=== PATIENT | female | born 1945 | race Caucasian/White ===

== ENCOUNTER 2024-02-08 13:00 | Outpatient (OUT) | payer MEDICARE, SELFPAY ==
--- NOTE | 2024-02-08 13:20 | XR_ITS ---
[place] [id number] Patient Name: MILLI CARDONA MRN: [id number] date: 1945 Sex: F Assigned Patient Location: [facility] Current Patient Location: [facility] Accession/Order Number: [id number] Exam Date: 02/08/2024 13:20 Report Date: 02/08/2024 14:13 At the request of: ROMAN BECKER Procedure: XR DEXA axial skeleton EXAMINATION: XR DEXA axial skeleton, 02/08/2024 1:20 PM EDT HISTORY: estrogen deficiency E28.39 COMPARISON: . TECHNIQUE: Dual-energy X-ray absorptiometry (DEXA) bone density study performed for the axial skeleton. HISTORY: estrogen deficiency E28.39 FINDINGS: Bone mineral density of the L spine L1-L4 is 1.012 g/cm2, t score -1.4, who classification is Osteopenia Bone mineral density is lowest in the left femoral trochanter is 0.590 g/cm2, t score is -2.3. who classification is Osteopenia XR/XR DEXA axial skeleton IMPRESSION: Osteopenia, moderate fracture risk Electronically authenticated by: EUNICE JAMES Date: 02/08/2024 14:13
--- OUTSIDE RECORDS SUMMARY | 2024-02-08 13:40 | XMS_ITS | CCD ---
Author Name Unknown Address [address] [facility] [address] [place] [address] Organization [facility] Care Team Providers Care Electrode Turner And Finisher Name Role Phone Ricardo Hardy Unavailable Iqra Heard Unavailable ROCHELLE Bagley Referring Unavailable ROCHELLE Bagley Attending Unavailable Chris Whitaker II Primary Care Unavail able Unavailable Unavailable Ms. LEAH BAGLEY Attending Unavailable Chris Whitaker II Primary Care Unavail able LEONARDO Whitaker Primary Care Provider [phone] MD Debra Villasenor Attending Provider [phone] Asaelvira Imelvira Admitting Unavailable Debra Villasenor Attending Unavailable Chris Whitaker Primary Care Unavailable ViscGiuseppe oliver Admitting Unavailable Giuseppe Durham Attending Unavailable Chris Whitaker Primary Care Unavailable MARIA DEL CARMEN ., DR LATIF Admitting Unavailable HAY ., DR LATIF Attending Unavailable GRECHNY ., ANA NOVAK Consulting UnavailDR CHRIS Lim Primary Care Unavailable CARYL HERNANDEZ Consulting Unavailable Chris Whitaker MD Primary Care Provider SOREN BORRERO Attending Unavailable CHRIS WHITAKER Primary Care Unavailable Chris Whitaker MD Primary Care Provider JOSE PAULINO Referring Unavailable ANA M BECKER Attending Unavailable TIFFANY SERNA Attending Unavailable ANA M BECKER Attending Unavailable JOSE PAULINO Attending Unavailable CHRIS WHITAKER Referring Unavailable Allergies Allergy Classification Reported Allergen(s) Allergy Type Date of Onset Reaction(s) Facility (5 sources) Corticosteroids Drug allergy Unknown ditlo Other (5 sources) Mold Extract Drug Allergy Unknown ditlo Other (5 sources) predniSONE; Translations: [predniSONE] Drug Allergy 023 Palpitations [facility] (2 sources) Other Allergy to substance (finding) -[facility] 250 DO Work Phone: (1 source) predniSONE Drug Allergy 023 [facility] Repository (1 source) atorvastatin Drug Allergy [facility] (1 source) Corticosteroids Drug allergy (disorder) 013 [facility] (1 source) Simvastatin Drug Allergy 017 [facility] (5 sources) atorvastatin Drug Allergy 023 Other [facility] (5 sources) methylPREDNISolone Drug Allergy Palpitations [facility] (5 sources) nabumetone Drug Allergy 023 GI intolerance [facility] (5 sources) Simvastatin Allergy to substance [facility] Medications Current Medications Medication Drug Class(es) Dates Sig (Normalized) Sig (Original) acetaminophen 325 mg / HYDROcodone bitartrate 5 mg oral tablet (13 sources) Opioid Agonist Start: 11-04-2023 take 1 tablet by mouth every six hours for pain HYDROcodone-acetami nophen ([place]) 5-325 MG tablet Indications: Spinal stenosis of lumbar region, unspecified whether neurogenic claudication present Take 1 tablet by mouth every 6 (six) hours if needed for severe pain 120 tablet 0 11/04/2023 Active Start: 12-12-2020 take 1 tablet by eli th every six hours as needed HYDROcodone-acetaminophen ([place]) 5-325 mg tablet Take 1 tablet by mouth every 6 hours if needed. 0 12/12/2020 Active Start: 12-12-2020 take 1 tablet by eli th every four to six hours as needed HYDROcodone-Acetaminophen 5-325 MG Oral Tablet TAKE 1 TABLET EVERY 4 TO 6 HOURS NEEDED. Quantity: 0 Refills: 0 Ordered: 12-Dec-2020 DO Start : 12-Dec-2020 Active ALPRAZolam 0.25 mg oral tablet (16 sources) Benzodiazepine Start: 01-12-2024 take 1 tablet by mouth once daily ALPRAZolam (Xanax) 0.25 MG tablet Indications: Generalized anxiety disorder (CMS/HCC) Take 1 tablet (0.25 mg) by mouth 1 (one) time each day at the same time 30 tablet 0 01/12/2024 Active Start: 01-12-2024 take 1 tablet by eli th once daily ALPRAZolam (Xanax) 0.25 MG tablet Indications: Generalized anxiety disorder (CMS/HCC) Take 1 tablet (0.25 mg) by mouth 1 (one) time each day at the same time 30 tablet 0 01/12/2024 Active Start: 12-08-2023 End: 01-12-2024 take 1 tablet by mouth once daily ALPRAZolam (Xanax) 0.25 MG tablet Indications: Generalized anxiety disorder (CMS/HCC) Take 1 tablet (0.25 mg) by mouth 1 (one) time each day at the same time 30 tablet 0 12/08/2023 01/12/2024 Discontinued (Reorder) Start: 11-14-2020 take 0.25 mg by mout h once daily Alprazolam Active 0.25 MG PO Daily January 20, 2023 12:00am ascorbic acid 1000 mg oral tablet (1 source) Vitamin C Start: 01-20-2023 take 1 g by mouth once daily Ascorbic Acid (Vitamin C) (Vitamin C) 1,000 mg Tablet Active 1 GM PO Daily January 20, 2023 12:00am aspirin 81 mg oral tablet (14 sources) Platelet Aggregation Inhibitor, Nonsteroidal Anti-inflammatory Drug Start: 01-20-2023 take 81 mg by mouth once daily Aspirin Active 81 MG PO Daily January 20, 2023 12:00am take 1 tablet by mouth in the mo rning aspirin 81 MG EC tablet Take 81 mg by mouth in the morning. 0 Active take 1 tablet by mouth once [place] Baby Aspirin 81 MG 1 tablet Orally Once a day for 30 day(s) Active benzonatate 200 mg oral capsule (3 sources) Non-narcotic Antitussive Start: 01-12-2024 End: 01-22-2024 take 1 capsule by mouth three times daily as needed for cough benzonatate (Tessalon) 200 MG capsule Indications: Acute cough Take 1 capsule (200 mg) by mouth 3 (three) times a day as needed for cough for up to 10 days Do not crush or chew. 30 capsule 0 01/12/2024 01/22/2024 Active bisoprolol fumarate 5 mg oral tablet (15 sources) beta-Adrenergic Jama Start: 09-27-2020 End: 10-02-2023 take 1 tablet by mouth once daily bisoprolol (Zebeta) 5 MG tablet Indications: Cardiac arrhythmia, unspecified cardiac arrhythmia type Take 1 tablet (5 mg) by mouth 1 (one) time each day at the same time. 100 tablet 3 07/10/2023 Active Calcium (1 source) Phosphate Binder, Calcium take 1 tablet by mouth twice daily at mealtime Calcium 600 MG 1 tablet with meals Orally Twice a day for 30 day(s) Active calcium carbonate 1500 mg oral tablet (4 sources) take 1 tablet by mouth every twelve hours Calcium 600 MG 1 tablet with meals Orally Twice a day for 30 day(s) Active CALCIUM CARBONATE-VITAMIN D3 ORAL (1 source) take 2 tablets by mouth once daily CALCIUM CARBONATE-VITAMIN D3 ORAL Take 2 tablets by mouth once daily. 0 Active calcium citrate 950 mg oral tablet (1 source) Start: 01-20-2023 take 1 tablet by mouth twice daily Calcium Citrate (Citracal) 200 mg (950 mg) Tablet Active 200 MG PO Twice daily January 20, 2023 12:00am Centrum (5 sources) Centrum Orally Active codeine phosphate 2 mg/ml / guaiFENesin 20 mg/ml oral solution (3 sources) Opioid Agonist Start: 01-12-2024 End: 01-22-2024 take 10 mL by mouth at bedtime guaiFENesin-codeine (Robitussin-AC) 100-10 MG/5ML syrup Indications: Acute cough Take 10 mL by mouth at bedtime for 10 days 100 mL 0 01/12/2024 01/22/2024 Active Coenzyme E04-Tynj Oil-Vit E (CO-Q 10 OMEGA-3 FISH OIL PO) (5 sources) Coenzyme Q10-Fis h Oil-Vit E (CO-Q 10 OMEGA-3 FISH OIL PO) Orally 0 Active gabapentin 300 mg oral capsule (14 sources) Anti-epileptic Agent Start: 11-26-2023 take 1 capsule by mouth in the morning, then take 1 capsule by mouth in the evening, then take 1 capsule by mouth at bedtime gabapentin (Neurontin) 300 MG capsule Indications: 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 300 capsule 1 11/26/2023 Active Start: 05-14-2022 take 300 mg by mouth twice daily Gabapentin Active 300 MG PO Twice daily January 20, 2023 12:00am glyBURIDE 5 mg / metFORMIN hydrochloride 500 mg oral tablet (14 sources) Biguanide, Sulfonylurea Start: 09-23-2023 take 1 tablet by mouth in the morning glyBURIDE-metFORMIN (Glucovance) 5-500 MG tablet Indications: 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 200 tablet 3 09/23/2023 Active Start: 04-26-2020 take 1 tablet by eli th twice daily Glyburide-Metformin Active 1 TAB PO Twice daily January 20, 2023 12:00am take 1 tablet by eli th every twenty-four hours Glyburide-Metformin 5-500 MG 1 tablet with a meal Orally Once a day Active krill oil 300 mg oral capsule (12 sources) take 1 tablet by mouth once daily Krill Oil 300 MG capsule Take 1 tablet by mouth 1 (one) time each day. 0 Active lansoprazole 30 mg delayed release oral capsule (14 sources) Proton Pump Inhibitor Start: 09-23-20 take 1 capsule by mouth once daily lansoprazole (Prevacid) [address] capsule Indications: Gastroesophageal reflux disease without esophagitis Take 1 capsule (30 mg) by mouth 1 (one) time each day at the same time. 100 capsule 3 09/23/2023 Active Start: 01-20-2023 take 30 mg by mouth once daily Lansoprazole Active 30 MG PO Daily January 20, 2023 12:00am Start: 09-24-2020 take 1 capsule by mo uth twice daily lansoprazole (Prevacid) [address] capsule Take 1 capsule (30 mg) by mouth 2 times a day. 0 09/24/2020 Active levoFLOXacin 500 mg oral tablet (1 source) Quinolone Antimicrobial Start: 07-09-2022 take 1 tablet by mouth once daily Levaquin 500 MG 1 tablet Orally Once a day for 10 day(s) Jun, Active lidocaine 0.05 mg/mg medicated patch (5 sources) Antiarrhythmic, Amide Local Anesthetic Start: 12-12-2020 apply 1 dose transdermal route once daily lidocaine (Lidoderm) 5 % patch Apply 1 patch topically 1 (one) time each day at the same time. 0 12/12/2020 Active loratadine 10 mg oral tablet (5 sources) Start: 11-01-2019 loratadine (Claritin) 10 MG tablet Take 10 mg by mouth as needed at bedtime for allergies. 0 11/01/2019 Active metroNIDAZOLE 500 mg oral tablet (1 source) Nitroimidazole Antimicrobial Start: 07-09-2022 take 1 tablet by mouth every twelve hours metroNIDAZOLE 500 MG 1 tablet Orally Twice a day for 10 day(s) Jun, Active MiraLax 17 GM/SCOOP (1 source) MiraLax 17 GM/SCOOP as directed Orally Active Multivitamin preparation (1 source) Start: 01-20-2023 take 1 tablet by mouth once daily Multivitamin Active 1 TAB PO Daily January 20, 2023 12:00am Nirmatrelvir&Ritona vir 300/100 (Paxlovid, 300/100,) 20 x 150 MG & 10 x 100MG tablet therapy pack (1 source) Start: 01-13-2024 take 3 tablets by mouth in the morning Nirmatrelvir&Riton avir 300/100 (Paxlovid, 300/100,) 20 x 150 MG & 10 x 100MG tablet therapy pack Indications: COVID-19 Take 3 tablets by mouth in the morning and in the evening 30 each 0 01/13/2024 Active nystatin 100 unt/mg topical ointment (5 sources) Polyene Antifungal Start: 04-04-2019 nystatin (Mycostatin) ointment Apply topically 2 (two) times a day. 0 04/04/2019 Active ondansetron 4 mg disintegrating oral tablet (5 sources) Serotonin-3 Receptor Antagonist Start: 05-07-2021 take 1 tablet by mouth every eight hours as needed for nausea and vomiting ondansetron ODT (Zofran-ODT) 4 MG disintegrating tablet Take 4 mg by mouth every 8 (eight) hours if needed for nausea or vomiting. 0 05/07/2021 Active oseltamivir 75 mg oral capsule (1 source) Neuraminidase Inhibitor Start: 02-13-2022 take 1 capsule by mouth every twelve hours Tamiflu 75 MG 1 capsule Orally Twice a day for 5 day(s) Jan, Active rosuvastatin calcium 10 mg oral tablet (10 sources) HMG-CoA Reductase Inhibitor Start: 11-21-2020 End: 10-02-2023 take 1 tablet by mouth in the morning rosuvastatin (Crestor) 10 MG tablet Indications: Mixed hyperlipidemia (CMS/HCC) Take 1 tablet (10 mg) by mouth in the morning. 90 tablet 3 07/14/2023 Active tiZANidine 4 mg oral tablet (8 sources) Central alpha-2 Adrenergic Agonist Start: 06-18-2022 take 1 tablet by mouth every twelve hours tiZANidine (Zanaflex) 4 MG tablet Take 1 tablet by mouth every 12 (twelve) hours. PRN 0 06/18/2022 Active Start: 06-18-2022 tiZANidine (Za naflex) 4 mg tablet Take by mouth twice a day. 0.5 tablet to 1 tablet 0 06/18/2022 Active Start: 06-18-2022 take 0.5-1 tablets b y mouth twice daily as needed tiZANidine HCl - 4 MG Oral Tablet TAKE 1/2 TO 1 TABLET TWICE DAILY NEEDED. Quantity: 0 Refills: 0 Ordered: 18-Jun-2022 DO Start : 18-Jun-2022 Active ubidecarenone 100 mg oral ca psule (4 sources) Start: 01-20-2023 Coenzyme Q10 ( Co Q-10) 100 mg Capsule Active 100 MG PO Daily January 20, 2023 12:00am take 1 capsule by mouth once kathryn ly coenzyme Q-10 100 mg capsule Take 1 capsule (100 mg) by mouth once daily. 0 Active Vitamin A-Vitamin C-Vit E-Min (Eye Health) Tablet (1 source) Start: 01-20-2023 take 2 tablets by mouth once daily Vitamin A-Vitamin C-Vit E-Min (Eye Health) Tablet Active 2 TAB PO Daily January 20, 2023 12:00am zolpidem tartrate 10 mg oral tablet (14 sources) gamma-Aminobut yric Acid-ergic Agonist Start: 12-08-2023 zolpidem (Ambien) 10 MG tablet Indications: Psychophysiological insomnia Take 1 tablet (10 mg) by mouth as needed at bedtime for sleep 30 tablet 2 12/08/2023 Active Start: 07-27-2020 take 10 mg by mouth once daily Zolpidem Active 10 MG PO Daily January 20, 2023 12:00am Completed/Discontinued Medications Medication Drug Class(es) Dates Sig (Normalized) Sig (Original) Calcium+D3 TABS (2 sources) Calcium+D3 TABS TAKE 2 TABLET Daily Quantity: 0 Refills: 0 Ordered: 26-Sep-2021 DO Active Multi Vitamin TABS (2 sources) Multi Vitamin TA BS TAKE 1 TABLET DAILY. Quantity: 0 Refills: 0 Ordered: 26-Sep-2021 DO Active pantoprazole 40 mg delayed release oral tablet (4 sources) Proton Pump Inhibitor Start: 06-25-2021 take 1 tablet by mouth every twelve hours Pantoprazole Sodium 40 MG 1 tablet Orally TWICE A DAY for 30 day(s) May, Not-Taking Problems Active Problems Problem Classification Problem Date Documented Da te Episodic/Chronic Anxiety disorders (12 sources) Posttraumatic stress disorder; Translations: [Post-traumatic stress disorder, unspecified] Onset: 3 04-17-2023 Chronic Cardiac dysrhythmias (14 sources) Paroxysmal supraventricular tachycardia; Translations: [Paroxysmal supraventricular tachycardia] Onset: 3 10-02-2023 Chronic Diabetes mellitus with complications (15 sources) Type 2 diabetes mellitus; Translations: [Type 2 diabetes mellitus with other diabetic neurological complication] Onset: 6 04-17-2023 Chronic Disorders of lipid metabolism (13 sources) Hyperlipidemia; Translations: [Other and unspecified hyperlipidemia] Onset: 2 10-02-2023 Chronic E Codes: Fall (1 source) Fall on same level, unspecified, initial encounter; Translations: [FALL SAME LEVEL UNSPECIFIED INITIAL] Onset: 3 Episodic Esophageal disorders (17 sources) Gastro-esophageal reflux disease with esophagitis; Translations: [Gastroesophageal reflux disease with esophagitis without hemorrhage] Onset: 1 Resolved: 2 Chronic Genitourinary symptoms and ill-defined conditions (5 sources) Genuine stress incontinence; Translations: [Stress incontinence (female) (male)] Onset: 3 04-17-2023 Chronic Headache; including migraine (5 sources) Migraine; Translations: [Migraine, unspecified, not intractable, without status migrainosus] Onset: 3 04-17-2023 Chronic Menopausal disorders (10 sources) Primary ovarian failure; Translations: [Other primary ovarian failure] Onset: 3 04-17-2023 Chronic Miscellaneous mental health disorders (5 sources) Psychophysiologic insomnia; Translations: [Psychophysiologic insomnia] Onset: 3 04-17-2023 Chronic Nausea and vomiting (5 sources) Nausea; Translations: [Nausea] Episodic Nonmalignant breast conditions (5 sources) Mammary duct ectasia of right breast; Translations: [Mammary duct ectasia of right breast] Onset: 3 08-04-2023 Chronic Osteoarthritis (5 sources) Osteoarthritis of left knee joint; Translations: [Unilateral primary osteoarthritis, left knee] Onset: 3 04-17-2023 Chronic Other aftercare (1 source) Other buttermaker helper (current) drug therapy; Translations: [OTH HOIST MECHANIC CURRENT DRUG THERAPY] Onset: 3 Episodic Other aftercare (1 source) 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; Translations: [SNF CURRENT USE OF ASPIRIN] Onset: 3 Episodic Other and unspecified benign neoplasm (5 sources) Benign neoplasm of cerebral meninges; Translations: [Benign neoplasm of cerebral meninges] Onset: 3 04-17-2023 Chronic Other disorders of stomach and duodenum (1 source) Indigestion; Translations: [Functional dyspepsia] Episodic Other gastrointestinal disorders (1 source) Irritable bowel syndrome characterized by constipation; Translations: [Irritable bowel syndrome with constipation] Chronic Other gastrointestinal disorders (1 source) Irritable bowel syndrome with constipation Onset: 2 Resolved: 2 Chronic Other gastrointestinal disorders (5 sources) Dysphagia; Translations: [Dysphagia, unspecified] Episodic Other lower respiratory disease (2 sources) Cough; Translations: [Acute cough] 01-12-2024 Episodic Other nervous system disorders (5 sources) Mononeuropathy; 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] Onset: 3 04-17-2023 Chronic Other non-traumatic joint disorders (5 sources) Derangement of right shoulder joint; Translations: [Other specific joint derangements of right shoulder, not elsewhere classified] Onset: 3 04-17-2023 Chronic Other non-traumatic joint disorders (3 sources) Pain in left shoulder; Translations: [PAIN IN LEFT SHOULDER] Onset: 3 Episodic Other nutritional; endocrine; and metabolic disorders (2 sources) Underweight; Translations: [Underweight] Episodic Other upper respiratory infections (2 sources) Acute pansinusitis; Translations: [Acute pansinusitis, unspecified] 01-12-2024 Episodic Residual codes; unclassified (10 sources) Normal body mass index; Translations: [Body mass index (BMI) 22.0-22.9, adult] Episodic Residual codes; unclassified (4 sources) Body mass index 20-24 - normal; Translations: [Body Mass Index between 19-24, adult] Episodic Residual codes; unclassified (2 sources) History of chest pain; Translations: [Personal history of other specified diseases] Episodic Screening and history of mental health and substance abuse codes (3 sources) Ex-smoker; Translations: [Personal history of tobacco use] Onset: 3 Episodic Spondylosis; intervertebral disc disorders; other back problems (10 sources) Lumbar spondylosis; Translations: [Spondylosis without myelopathy or radiculopathy, lumbar region] Onset: 8 04-17-2023 Chronic Superficial injury; contusion (2 sources) Contusion of left front wall of thorax, initial encounter; Translations: [Contusion of left shoulder, initial encounter] Onset: 3 Episodic Unclassified (1 source) Encounter for screening for malignant neoplasm of colon; Translations: [Encounter for screening for malignant neoplasm of colon] Onset: 3 Unclassified (1 source) N60.41 - Mammary duct ectasia of right breast; Translations: [N60.41 - Mammary duct ectasia of right breast] Onset: 2 Unclassified (1 source) Supraventricular tachycardia, unspecified; Translations: [Supraventricular tachycardia, unspecified] Onset: 3 Viral infection (1 source) Disease caused by 2019-nCoV; Translations: [COVID-19] 01-13-2024 Episodic Past or Other Problems Problem Classification Problem Date Documented Date Episodic/Chronic Cardiac dysrhythmias (11 sources) Palpitations; Translations: [Palpitations] Onset: 04-17-2023 3 Episodic Esophageal disorders (1 source) Esophageal disorders; Translations: [Gastroesophageal reflux disease with esophagitis without hemorrhage K21.00] Onset: 09-17-2021 Resolved: 09-17-2021 Immunizations and screening for infectious disease (1 source) Contact with and (suspected) exposure to other viral communicable diseases Onset: 02-13-2022 Resolved: 02-13-2022 Episodic Influenza (1 source) Influenza due to other identified influenza virus with other respiratory manifestations Onset: 02-13-2022 Resolved: 02-13-2022 Episodic Mood disorders (1 source) Mood disorders Onset: 09-29-2022 01-12-2023 Nonmalignant breast conditions (6 sources) Mastodynia; Translations: [Calcification of breast] Onset: 05-12-2022 08-04-2023 Episodic Nonspecific chest pain (10 sources) Atypical chest pain; Translations: [Other chest pain] Onset: 10-27-2022 10-01-2023 Episodic Other bone disease and musculoskeletal deformities (5 sources) Osteopenia; Translations: [Other specified disorders of bone density and structure, multiple sites] Onset: 04-17-2023 04-17-2023 Episodic Other bone disease and musculoskeletal deformities (5 sources) Costal chondritis; Translations: [Chondrocostal junction syndrome [Tietze]] Onset: 04-17-2023 04-17-2023 Episodic Other disorders of stomach and duodenum (1 source) Disease of stomach and duodenum, unspecified; Translations: [Disease of stomach and duodenum, unspecified K31.9] Onset: 09-17-2021 Resolved: 09-17-2021 Episodic Other disorders of stomach and duodenum (1 source) Functional dyspepsia Onset: 07-09-2022 Resolved: 07-09-2022 Episodic Other infections; including parasitic (1 source) Personal history of other infectious and parasitic diseases Onset: 07-09-2022 Resolved: 07-09-2022 Episodic Other screening for suspected conditions (not mental disorders or infectious disease) (5 sources) Mammography abnormal; Translations: [Other abnormal and inconclusive findings on diagnostic imaging of breast] Onset: 04-17-2023 04-17-2023 Episodic Residual codes; unclassified (5 sources) Insomnia; Translations: [Insomnia, unspecified] Onset: 04-17-2023 Resolved: 06-24-2023 06-24-2023 Episodic Spondylosis; intervertebral disc disorders; other back problems (15 sources) Spinal stenosis of lumbar region; Translations: [Spinal stenosis, lumbar region without neurogenic claudication] Onset: 04-17-2023 04-17-2023 Episodic Unclassified (1 source) Onset: 10-02-2023 10-02-2023 Unclassified (1 source) Supraventricular tachycardia, unspecified; Translations: [Supraventricular tachycardia, unspecified] Onset: 10-02-2023 Results Test Name Value Interpretation Reference Range Facility BI MAMMOGRAM DIAGNOSTIC JANINA SYNTHESIS LEFTon 12-07-2023 BI MAMMOGRAM DIAGNOSTIC TOMOSYNTHESIS LEFT This is a summary report. The complete report is available in the patient's medical record. If you cannot access the medical record, please contact the sending organization for a detailed fax or copy. EXAMINATION: BI MAMMOGRAM DIAGNOSTIC TOMOSYNTHESIS LEFT CLINICAL HISTORY: 6 month mamm COMPARISON: Diagnostic mammogram 06/05/2023. Other screening mammograms from 05/14/2023, 2021, 2020 RESULT: 3-D tomosynthesis imaging of the left breast was performed. Density: Heterogeneously dense [3] Again, small group of microcalcifications within the lower inner quadrant of the left breast at far posterior depth, probably benign and grossly unchanged. Other coarse microcalcifications and vascular calcifications, unchanged. Stable asymmetries. IMPRESSION: BIRADS 3 - Probably Benign Recommended follow-up: Diagnostic Mammogram in 6 Months, when due for annual exam. Board Certified Radiologists. Accredited by the ACR and FDA. MAMMOGRAPHY IS VERY IMPORTANT TO YOUR HEALTH. THE [place] GUIDELINES RECOMMEND THAT WOMEN 40 YEARS OF AGE AND OLDER SHOULD HAVE A MAMMOGRAM EVERY YEAR. A REMINDER LETTER WILL BE SENT AT THE APPROPRIATE TIME. THIS FACILITY UTILIZES A REMINDER SYSTEM TO ENSURE ALL PATIENTS RECEIVE REMINDER NOTIFICATIONS AT THE APPROPRIATE TIME BASED ON THE RECOMMENDATIONS OF THIS EXAM. THIS INCLUDES REMINDERS FOR ROUTINE SCREENING MAMMOGRAMS, DIAGNOSTIC MAMMOGRAMS IN WHICH THE PATIENT IS ASKED TO RETURN FOR ADDITIONAL VIEWS, OR OTHER BREAST IMAGING INTERVENTIONS WHEN APPROPRIATE. THE PATIENT WILL BE PLACED IN THE APPROPRIATE REMINDER SYSTEM INCLUDING A REMINDER AT THE APPROPRIATE TIME FOR ANY PENDING ADDITIONAL VIEWS. ELECTRONICALLY SIGNED BY: Chris Brown MD Normal Not Available CBC AUTO DIFFon 04-07-2023 BASO # 0.0 103/ul Normal 0.0-0.1 [facility] Comment on above: Performed By: #### C BC #### [facility] [address] [address] [address] Kamari Andres Basophils/100 WBC (Bld) 0.6 % Normal 0.2-2.0 [facility] Comment on above: Performed By: #### C BC #### [facility] [address] [address] [address] Kamari Andres EO # 0.1 103/ul Normal 0.0-0.7 [facility] Comment on above: Performed By: #### C BC #### [facility] [address] [address] [address] Kamari Andres Eosinophils/100 WBC (Bld) 1.8 % Normal 0.9-7.0 [facility] [facility] Comment on above: Performed By: #### C BC #### [facility] [address] [place] [address] Dr. Kamari Andres Erythrocyte distribution width (RBC) [Ratio] 12.7 % Normal 11.0-15.0 [facility] Comment on above: Performed By: #### C BC #### [facility] [address] [place] [address] Dr. Kamari Andres Hematocrit (Bld) [Volume fraction] 36.3 % Normal 36.0-48.0 [facility] Comment on above: Performed By: #### C BC #### [facility] [address] [place] [address] Dr. Kamari Andres Hemoglobin (Bld) [Mass/Vol] 11.6 g/dL Critically low 12.0-16.0 [facility] Comment on above: Performed By: #### C BC #### [facility] [address] [place] [address] Dr. Kamari Andres IG # 0.01 10e3/ul Normal 0.00-0.03 [facility] Comment on above: Performed By: #### C BC #### [facility] [address] [place] [address] Dr. Kamari Andres IG % 0.2 % Normal 0.0-0.5 [facility] Comment on above: Performed By: #### C BC #### [facility] [address] [place] [address] Dr. Kamari Andres LYMPH # 1.8 103/ul Normal 1.2-3.8 [facility] Comment on above: Performed By: #### C BC #### [facility] [address] [place] [address] Dr. Kamari Andres Lymphocytes/100 WBC (Bld) 36.9 % Normal 20.5-60.0 [facility] Comment on above: Performed By: #### C BC #### [facility] [address] [place] [address] Dr. Kamari Andres MANUAL DIFF REQ NO Normal [facility] Comment on above: Performed By: #### C BC #### [facility] [address] [place] [address] Dr. Kamari Andres MCH (RBC) [Entitic mass] 29.1 pg Normal 26.7-34.0 [facility] Comment on above: Performed By: #### C BC #### [facility] [address] [place] [address] Dr. Kamari Andres MCHC (RBC) [Mass/Vol] 32.0 g/dL Normal 29.9-35.2 [facility] Comment on above: Performed By: #### C BC #### [facility] [address] [place] [address] Dr. Kamari Andres MCV (RBC) [Entitic vol] 91.0 fL Normal 81.0-99.0 [facility] Comment on above: Performed By: #### C BC #### [facility] [address] [place] [address] Dr. Kamari Andres MONO # 0.5 103/ul Normal 0.3-0.8 [facility] Comment on above: Performed By: #### C BC #### [facility] [address] [place] [address] Dr. Kamari Andres Monocytes/100 WBC (Bld) 10.8 % Normal 1.7-12.0 [facility] Comment on above: Performed By: #### C BC #### [facility] [address] [place] [address] Dr. Kamari Andres NEUT # 2.4 103/ul Normal 1.4-6.5 [facility] Comment on above: Performed By: #### C BC #### [facility] [address] [address] [address] Kamari Andres Neutrophils/100 WBC (Bld) 49.7 % Normal 43.0-75.0 [facility] Comment on above: Performed By: #### C BC #### [facility] [address] [place] [address] Dr. Kamari Andres Platelet mean volume (Bld) [Entitic vol] 8.4 fL Critically low 9.5-13.5 [facility] Comment on above: Performed By: #### C BC #### [facility] [address] [place] [address] Dr. Kamari Andres PLT 231 103/ul Normal 150-450 [facility] Comment on above: Performed By: #### C BC #### [facility] [address] [place] [address] Dr. Kamari Andres RBC 3.99 106/ul Critically low 4.20-5.40 [facility] Comment on above: Performed By: #### C BC #### [facility] [address] [place] [address] Dr. Kamari Andres WBC 4.9 103/ul Normal 4.0-11.0 [facility] Comment on above: Performed By: #### C BC #### [facility] [address] [place] [address] Dr. Kamari Andres PROF CHEM 8 (BAS METB)on Anion gap [Moles/Vol] 8.7 mmol/L Normal [facility] Comment on above: Performed By: #### B MP, HSTROPN #### [facility] [address] [place] [address] Dr. Kamari Andres Calcium [Mass/Vol] 9.4 mg/dL Normal 8.5-10.1 [facility] Comment on above: Performed By: #### B MP, HSTROPN #### [facility] [address] [address] [address] Kamari Andres Chloride [Moles/Vol] 104 mmol/L Normal 98-107 [facility] Comment on above: Performed By: #### B MP, HSTROPN #### [facility] [address] [address] [address] Kamari Andres CO2 [Moles/Vol] 32.4 mmol/L Critically high 21.0-32.0 [facility] Comment on above: Performed By: #### B MP, HSTROPN #### [facility] [address] [address] [address] Kamari Andres Creatinine [Mass/Vol] 0.66 mg/dL Normal 0.55-1.02 [facility] Comment on above: Performed By: #### B MP, HSTROPN #### [facility] [address] [address] [address] Kamari Andres EGFR-AF SLOVENIAN >60 Normal >=[address] [facility] Comment on above: Performed By: #### B MP, HSTROPN #### [facility] [address] [address] [address] Kamari Andres EGFR-NON AF SLOVENIAN >60 Normal >=60 [facility] Comment on above: Performed By: #### B MP, HSTROPN #### [facility] [address] [address] [address] Kamari Andres Glucose [Mass/Vol] 133 mg/dL Critically high 74-106 [facility] Comment on above: Performed By: #### B MP, HSTROPN #### [facility] [address] [address] [address] Kamari Andres Potassium [Moles/Vol] 4.1 mmol/L Normal 3.5-5.1 [facility] Comment on above: Performed By: #### B MP, HSTROPN #### [facility] [address] [address] [address] Kamari Andres Sodium [Moles/Vol] 141 mmol/L Normal 136-145 [facility] Comment on above: Performed By: #### B FELIPE, HSTROPN #### [facility] [address] [address] [address] Kamari Andres Urea nitrogen [Mass/Vol] 6.0 mg/dL Critically low 7.0-18.0 [facility] Comment on above: Performed By: #### B FELIPE, HSTROPN #### [facility] [address] [address] [address] Kamari Andres Urea nitrogen/Creatini ne [Mass ratio] 9.1 mg/mg Normal [facility] Comment on above: Performed By: #### B FELIPE, HSTROPN #### [facility] [address] [address] [address] Kamari Andres TROPONIN, HIGH SENSITIVITYon 04-07-2023 HSTROP 5.0 pg/mL Normal 4.0-51.3 [facility] Comment on above: Result Comment: CUT- OFF POINTS HAVE BEEN ESTABLISHED BASED ON THE FOURTH UNIVERSAL DEFINITIONS OF MYOCARDIAL INFARCTION. THE UPPER REFERENCE LIMIT (URL) OF TROPONIN, DEFINED THE 99TH PERCENTILE OF cTnI DISTRIBUTION IN A REFERENCE POPULATION, HAS BEEN CONFIRMED THE DECISION THRESHOLD FOR [place] DIAGNOSIS. Performed By: #### B FELIPE, HSTROPN #### [facility] [address] [place] [address] Dr. Kamari Andres XR RIBS LT PA Amy 3 XR RIBS LT PA CH IMAGES REVIEWED: XR SHOULDER LT 2V or >, XR RIBS LT PA CH COMPARISON: 01/10/2020. CLINICAL INDICATION: Unspecified fall FINDINGS/IMPRESSION: No radiographic evidence of acute osseous abnormality of the left shoulder. Osteopenia. Mild degenerative change of the left AC joint. No acute displaced left rib fractures. No radiographic evidence of acute cardiopulmonary abnormality. Electronically authenticated by: CARYL HERNANDEZ Date: 2023-04-07 20:32 Normal [facility] Glucose Glucometer (BldC) [M ass/Vol]Ordered By: Debra Villasenor on 01-20-2023 Glucose [Mass/Vol] 98 mg/dL [facility] Comment on above: Random Glucose Refer ence Range is dependent on time and content of last meal. Glucose of more than 200 mg/dL in a nonstressed, ambulatory subject supports the diagnosis of Diabetes Mellitus. Glucose Poct Glucometerson 0 01-20-2023 Glucose [Mass/Vol] 98 mg/dL Normal [facility] Comment on above: Result Comment: Davis Glucose Reference Range is dependent on time and content of last meal. Glucose of more than 200 mg/dL in a nonstressed, ambulatory subject supports the diagnosis of Diabetes Mellitus. PERFORMED BY: [facility] [place] [address] PATHOLOGIST WATER QUALITY SPECIALIST EVA REYNA M.D. Performed By: #### G ALMA #### Point of Care testing , Dion 01-20-2023 L --- Specimen: [id number] Received: 01/20/23 Status: LORI Roman Num: [id number] Spec Type: Surgical Subm Dr: Debra Villasenor MD Tissues: A Colon Biopsy (DESCENDING) Procedures: HE/2, Gross/Micro L4 Age/ Patient Sex Location Account Attending Physician Milli Lindquist Juan 77/F [id number] Debra Villasenor MD SPEC NUM: [id number] RECD: 01/20/23 STATUS: [facility] NUM: [id number] SOFÍA: 01/20/23 DR: Debra Villasenor MD ENTERED: 01/20/[address] [facility] DR: SPEC TYPE: Surgical DEPT: S ORDERED: HE/2, Gross/Micro L4 ORDERED: HE/2, Gross/Micro L4 Pathological Diagnosis Colon, descending, biopsy: - Polypoid colonic mucosa with superficial hyperplastic change. - Negative for acute or granulomatous inflammation, lymphocytic or collagenous colitis, dysplasia or malignancy. Clinical Information Screening Gross Description Received in formalin labeled with the patient's name, number and descending colon is one fragment of soft fuentes tissue measuring 0.3 cm. Entirely submitted in one cassette labeled A1. Microscopic Description Two glass slides with H E stained material have been examined. The microscopic findings support the above pathologic diagnosis. Specimen: [id number] Received: 01/20/23 Status: LORI Roman Num: [id number] Spec Type: Surgical Subm Dr: Debra Villasenor MD Tissues: A Colon Biopsy (DESCENDING) Procedures: HE/2, Gross/Micro L4 Patient: Milli Lindquist [id number] (Continued) Specimen: [id number] Received: 01/20/23 (Continued) Signed (signature on file) Liliane Garcia MD 01/21/23 1731 Specimen: [id number] Received: 01/20/23 Status: LORI Roman Num: [id number] Spec Type: Surgical Subm Dr: Debra Villasenor MD Tissues: A Colon Biopsy (DESCENDING) Procedures: HE/2, Gross/Micro L4 Patient: Milli Lindquist [id number] (Continued) Specimen: [id number] Received: 01/20/23 (Continued) CPT Codes 62601 Specimen: [id number] Received: 01/20/23 Status: LORI Abel Num: [id number] Spec Type: Surgical Subm Dr: Debra Villasenor MD Tissues: A Colon Biopsy (DESCENDING) Procedures: HE/Naomie, Gross/Micro L4 Patient: Milli Lindquist [id number] (Continued) Signed (signature on file) Liliane Garcia MD 01/21/23 1731 [facility] CARDIAC STRESS/REST INJE CTIONon 10-27-2022 [facility] CARDIAC STRESS/REST INJECTION Patient Name: MILLI LINDQUIST STUDY: MYOCARDIAL PERFUSION STRESS TEST WITH LEXISCAN Performing facility: [facility], [address] [place] [address], [address] Provider: Leah Bagley RN, PAPER CONSERVATOR PCP: Dr. Ean Whitaker Supervising provider: Yesenia Durán MD, FACC INDICATION: Chest Pain; Hyperlipidemia HISTORY: Gender: F; Age: 76 y/o ; Height: 0 cm; Weight: 0 kg. High Cholesterol; Diabetes; Family HX CAD; Arrhythmias; Chest Pain; Quit smoking unknown years ago. COMPARISON: Previous nuclear testing completed at [facility]. ACCESSION NUMBER(S): [id number]; [id number]; [id number] ORDERING CLINICIAN: LEAH BAGLEY TECHNIQUE: ONE DAY protocol. Stress injection: Date:10-27-22, 32.4 mCi of Sestamibi IV 20 seconds after rapid injection of Lexiscan. Rest injection: Date: 10-27-24, 9.9 mCi of Sestamibi IV at rest. The patient had a rapid injection of 0.4 mg of Lexiscan IV over 10 seconds. Imaging was performed by gated tomographic technique. Reason for Lexiscan: dizziness/unsteady/fall risk STRESS TEST DATA: Resting heart rate was 65 BPM. Resting blood pressure was 112/70 mmHg. Peak blood pressure was 108/62 mmHg. Peak heart rate was 92 BPM. TEST TERMINATED DUE TO: Protocol completed FINDINGS: STRESS TEST RESULTS: Resting electrocardiogram revealed normal sinus rhythm with nonspecific ST-T changes. There were no significant ischemic ECG changes or dysrhythmias. The patient did not have chest pains/symptoms during procedure. There was a normal recovery phase. IMAGING RESULTS: Image quality was good. Rest and stress tomographic images were reviewed and revealed normal perfusion without evidence of ischemia, myocardial infarction, or left ventricular dilatation with stress. Overall left ventricular systolic function appeared to be normal without regional wall motion abnormalities. Ejection fraction was 69%. TID is 0.9 and is normal. There were no evidence of attenuation artifact. IMPRESSION: Normal Lexiscan Myoview cardiac perfusion stress test. No evidence of ischemia or myocardial infarction by perfusion imaging. Normal left ventricular systolic function, ejection fraction 69%. No previous study available for comparison. Electronically signed by: AASHISH LEAL MD Normal [facility] No Panel Informationon 10-27 Normal -[facility] [id number] Work Phone: Office Visit (Cardiology)on 09-29-2022 Follow-up visit Diagnoses/Problems Health Maintenance/Risks Encounter for preventive health examination (V70.0) (Z00.00) Assessed Paroxysmal SVT (supraventricular tachycardia) (427.0) (I47.1) Remains quiescent on bisoprolol Hyperlipidemia (272.4) (E78.5) High intensity statin Reports labs completed with PCP July 2022 Normal nuclear stress test (V72.85) July 2015 perfusion study no ischemia Normal echocardiogram (V72.85) April 2011 echo LVEF 55% Body mass index (BMI) of 21.0 to 21.9 in adult (V85.1) (Z68.21) Chest pain, atypical (786.59) (R07.89) non exertional left sided 'finger point discomfort' Orders Body mass index (BMI) of 21.0 to 21.9 in adult Healthy Weight Tips; Status:Complete; Done: 29Sep2022 Chest pain, atypical, Hyperlipidemia NM Cardiac Stress/Rest Nuclear Med Order; Status:Active; Requested for:27Oct2022; Radiologist to Determine Optimal Study : Y What are the patient's signs and symptoms? : chest pain Health Maintenance PHQ2 Screen Positive; Status:Complete; Done: 29Sep2022 Palpitations, Paroxysmal SVT (supraventricular tachycardia) Renew: Bisoprolol Fumarate 5 MG Oral Tablet; TAKE 1 TABLET ONCE DAILY Patient Instructions Please bring all medicines, vitamins, and herbal supplements with you when you come to the office. Prescriptions will not be filled unless you are compliant with your follow up appointments or have a follow up appointment scheduled as per instruction of your physician. Refills should be requested at the time of your visit. PLAN: Through informed decision making process incorporating patients unique circumstances, the following treatment plan will be initiated: 1. Prescription drug management of cardiovascular medication for efficacy, adherence to treatment, side effect assessment and polypharmacy. Current treatment clinically warranted and to continue without modifications. 2. Return for follow-up; in the interim, contact the office if new symptoms arise. Dr. Borrero in one year (he cares for her ) 3. Lexiscan MPI (chest pain, POC) no treadmill due to knee pain Discussed the dynamic nature of coronary artery disease and the importance of seeking medical attention if new symptoms arise. Chief Complaint Annual f/u: 'doing fine' MILLI LINDQUIST is being seen for an annual follow-up of palpitations. Patient is ambulatory with steady gait. Last evaluated in clinic Dr. Chaidez August 2021. Patient denies any hospitalizations or significant changes to interval medical history since last office follow-up. Patient presents to the office today were overall she reports doing fine . She has had progressive knee osteoarthritis that has been impacting her activity level, is considering surgical procedure at the beginning of the year. She is able to do light housework, go to the store. No concerns coming in from the parking lot. Daily activity less than 4 METS. She does report episodes of a left-sided discomfort, she is able to finger point fourth/fifth intercostal space lateral midclavicular line, not exertional in nature but feels like a gas bubble and sometimes resultant hiccups. Prior complaints of palpitation remains quiescent. Chest pain for the most part is atypical, she will need cardiac risk stratification for intermediate orthopedic procedure at the beginning of the year. Current functional capacity less than 4 METS with intermediate risk factors. Guidelines recommend noninvasive ischemic evaluation. Discussed with patient and she is in agreement to proceed. History of Present Illness The patient states she has been generally doing well since the last visit. Comorbid Illnesses: diabetes mellitus and hyperlipidemia. Symptoms: denies chest pain at rest, denies exertional chest pain, denies dyspnea, denies fatigue, stable exercise intolerance, denies palpitations, denies edema, denies orthopnea, denies dizziness and denies orthostatic dizziness. Associated symptoms: no syncope. Her symptoms do not limit her activities. Disease Monitoring: The patient has had a 5 pounds weight loss. Medications: the patient is adherent with her medication regimen. She denies medication side effects. Surgical History Problems History of Appendectomy History of Cataract surgery History of Complete colonoscopy History of Hysterectomy History of Knee arthroscopy Past Medical History Problems History of chest pain (V13.89) (Z87.898) History of Underweight (783.22) (R63.6) Current Meds Medication NameInstruction ALPRAZolam 0.25 MG Oral Tablettak 1/2-1 tablet as needed Aspirin EC 81 MG Oral Tablet Delayed ReleaseTAKE 1 TABLET DAILY. Bisoprolol Fumarate 5 MG Oral TabletTAKE 1 TABLET ONCE DAILY. Calcium+D3 TABSTAKE 2 TABLET Daily CoQ10 100 MG Oral CapsuleTAKE 1 CAPSULE Daily Gabapentin 300 MG Oral CapsuleTAKE 1 CAPSULE TWICE DAILY. glyBURIDE-metFORMIN 5-500 MG Oral TabletTAKE 1 TABLET TWICE DAILY. HYDROcodone-Acetaminoph en 5-325 MG Oral TabletTAKE 1 TABLET (more content not included)... Normal BMP [employer] Tobacco Screening.on [facility] Adult depression screening assessment Yes -[facility] DO Work Phone: Fall risk assessment a) No falls within the last year [facility] 250 DO Work Phone: Tobacco use status CP b) No [facility] 250 DO Work Phone: Tobacco Screening. 1-Several days [facility] 250 DO Work Phone: Tobacco Screening. 2-More than half the days [facility] 250 DO Work Phone: Tobacco Screening. 0-Not at all [facility] 250 DO Work Phone: Tobacco Screening. Not difficult at all [facility] [facility] 250 DO Work Phone: US breast RT limitedon 05-12 US breast RT limited [facility] [address] [place] [address] Mammography Report Signed Patient: Milli Lindquist MR#: [id number] 69 : 1945 Acct:[id number] Age/Sex: 76 / F ADM Date: 05/12/22 Loc: [place] Room: Type: [facility] Attending Dr: Giuseppe Durham DO Copies to: MD Giuseppe Decker II, DO Ordering Provider: Giuseppe Durham DO Date of Service: 05/12/22 MM/MM diagnostic mammo BI w/CAD: R nipple tender, 5cm from nipple dense area at 1';Nipple coreen ([id number]) US/US breast RT limited: R nipple tender, 5cm from nipple dense area at 1';Nipple coreen CLINICAL DATA: Right breast nipple pain. Follow-up nodularity. BILATERAL DIAGNOSTIC MAMMOGRAMS - FULL FIELD DIGITAL WITH TOMOSYNTHESIS AND CAD Tomosynthesis craniocaudal and mediolateral oblique views of both breasts were obtained using low- dose digital technique. Comparison is made to prior studies from April 05, 2018 through July 15, 2021. This examination was reviewed with the aid of CAD. There are scattered fibroglandular densities. Benign and vascular calcifications are present. There are no developing masses, typically malignant calcifications or architectural distortion. There has been no significant interval change. LIMITED RIGHT BREAST ULTRASOUND COMPARISON: June 23, 2019 through July 15, 2021 Real-time ultrasound evaluation the retroareolar region again shows duct ectasia. A duct with intraluminal debris is again noted. There is also redemonstration of a hypoechoic oval nodular area at 12-1 o'clock, 4 cm from the nipple. It measures 7 x 3 x 7 mm. This is not significantly changed. No new abnormalities are seen. MM/MM diagnostic mammo BI w/CAD IMPRESSION: NO NEW MAMMOGRAPHIC EVIDENCE OF MALIGNANCY. 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 ROUTINE FOLLOW-UP IS RECOMMENDED IN ONE YEAR. RESULT CODE: 2 Benign Findings(s) DENSITY CODE: 2 (approximately 25-50% glandular) FOLLOW UP: 1YR The false-negative rate of mammography is approximately 10-percent. Management of a palpable abnormality must be based on clinical grounds. Patient was entered into a reminder system with a target due date for the next mammogram. Impression dictated by: Ana M Mazariegos M.D.05/12/2022 3:11 PM Dictation Location: DW01 Transcribed By: [facility] 05/12/22 1511 Dictated By: Ana M Mazariegos MD 05/12/22 1449 Signed By: 05/12/22 1511 [facility] COVID Quick Testingon 2021 Result Negative [facility] Other Quick Fluon 02-13-2022 FLUAV Ab CF (S) [Titer] Positive ditlo Other FLUBV Ab CF (S) [Titer] Negative ditlo Other Vital Signs Date Time Vital Sign Value Performing Clinician Facility 01-12-2024 10:02-0500 Body mass index (BMI) [Ratio] 21.26 kg/m2 Tiffany Serna [employer] Work Phone: [facility] 01-12-2024 10:02-0500 Body temperature 97 [degF] Tiffany Serna [employer] Work Phone: [facility] 01-12-2024 10:02-0500 Body weight 54.43 kg Tiffany Serna [employer] Work Phone: [facility] 01-12-2024 10:02-0500 Diastolic blood pressure 76 mm[Hg] Tiffany Serna [employer] Work Phone: [facility] 01-12-2024 10:02-0500 Heart rate 76 /min Tiffany Serna [employer] Work Phone: [facility] 01-12-2024 10:02-0500 Respiratory rate 14 /min Tiffany Serna [employer] Work Phone: [facility] 01-12-2024 10:02-0500 SaO2% (BldA) [Mass fraction] 99 % Tiffany Serna [employer] Work Phone: [facility] 01-12-2024 10:02-0500 Systolic blood pressure 125 mm[Hg] Tiffany Serna [employer] Work Phone: [facility] 10-02-2023 12:55-0400 Body height 160 cm Soren Borrero MD Work Phone: [facility] 10-02-2023 12:55-0400 Body mass index (BMI) [Ratio] 21.43 kg/m2 Soren Borrero MD Work Phone: [facility] 10-02-2023 12:55-0400 Body weight 54.88 kg Soren Borrero MD Work Phone: [facility] 10-02-2023 12:55-0400 Diastolic blood pressure 72 mm[Hg] Soren Borrero MD Work Phone: [facility] 10-02-2023 12:55-0400 Heart rate 76 /min Soren Borrero MD Work Phone: [facility] 10-02-2023 12:55-0400 Systolic blood pressure 124 mm[Hg] Soren Borrero MD Work Phone: [facility] 01-20-2023 09:56-0500 Diastolic blood pressure 57 mm[Hg] II Chris Whitaker Work Phone: [facility] 01-20-2023 09:56-0500 Heart rate 66 /min II Chris Whitaker Work Phone: [facility] 01-20-2023 09:56-0500 Respiratory rate 16 /min II Chris Whitaker Work Phone: [facility] 01-20-2023 09:56-0500 SaO2% (BldA) [Mass fraction] 94 % II Chris Whitaker Work Phone: [facility] 01-20-2023 09:56-0500 Systolic blood pressure 112 mm[Hg] II Chris Whitaker Work Phone: [facility] 01-20-2023 07:17-0500 Body height 160.02 cm II Chris Whitaker Work Phone: [facility] 01-20-2023 07:17-0500 Body temperature 97.8 [degF] II Chris Whitaker Work Phone: [facility] 01-20-2023 07:17-0500 Body weight 53.52 kg II Chris Whitaker Work Phone: [facility] 10-27-2022 08:00-0500 69 1 [id number] JINA HHVI NUCLEAR 01 Work Phone: [facility] [facility] [facility] [place] Work Phone: Comment on above: [id number] 09-29-2022 14:27-0400 Body height 160.02 cm Leah Bagley [employer] STRAIGHTENER[employer]ER CONSERVATOR Work Phone: [facility] [facility] [place] Work Phone: 09-29-2022 14:27-0400 Body mass index (BMI) [Ratio] 21.35 kg/m2 Leah Bagley [employer] STRAIGHTENER-P[employer]ER CONSERVATOR Work Phone: [facility] [facility] DO Work Phone: 09-29-2022 14:27-0400 Body surface area Derived from formula 1.56 m2 Leah Bagley [employer] STRAIGHTENER-PAPER CONSERVATOR Work Phone: [facility] 250 DO Work Phone: 09-29-2022 14:27-0400 Body weight 54.66 kg Leah Bagley [employer]ENER[employer]ER CONSERVATOR Work Phone: [facility] 250 DO Work Phone: 09-29-2022 14:27-0400 Diastolic blood pressure 60 mm[Hg] Leah Bagley [employer] STRAIGHTENER-P[employer]ER CONSERVATOR Work Phone: [facility] [facility] DO Work Phone: 09-29-2022 14:27-0400 Heart rate 68 /min Leah Bagley [employer] STRAIGHTENER[employer]PAPER CONSERVATOR Work Phone: [facility] [facility] DO Work Phone: 09-29-2022 14:27-0400 Systolic blood pressure 118 mm[Hg] Leah Bagley [employer] STRAIGHTENER-PAPER CONSERVATOR Work Phone: [facility] [facility] DO Work Phone: 09-29-2022 14:27-0400 7 1 Leah Bagley [employer] STRAIGHTENER-PAPER CONSERVATOR Work Phone: [facility] [facility] DO Work Phone: Comment on above: PHQ-9 TS 07-09-2022 15:15-0400 Body height 161.29 cm Ricardo Hardy Other [facility] Other 07-09-2022 15:15-0400 Body mass index (BMI) [Ratio] 20.57 kg/m2 Ricardo Hardy Other [facility] Other 07-09-2022 15:15-0400 Body weight 53.52 kg Ricardo Hardy Other [facility] Other 07-09-2022 15:15-0400 Diastolic blood pressure 70 mm[Hg] Ricardo Hardy Other [facility] Other 07-09-2022 15:15-0400 Respiratory rate 16 /min Ricardo Hardy Other [facility] Other 07-09-2022 15:15-0400 Systolic blood pressure 126 mm[Hg] Ricardo Hardy Other [facility] Other 02-13-2022 19:50-0400 Body height 161.29 cm Iqra Heard Other [facility] Other 02-13-2022 19:50-0400 Body mass index (BMI) [Ratio] 20.92 kg/m2 Iqra Heard Other [facility] Other 02-13-2022 19:50-0400 Body temperature 101.1 [degF] Iqra Heard Other [facility] Other 02-13-2022 19:50-0400 Body weight 54.43 kg Iqra Heard Other [facility] Other 02-13-2022 19:50-0400 Respiratory rate 18 /min Iqra Heard Other [facility] Other 02-13-2022 19:50-0400 SaO2% (BldA) [Mass fraction] 97 % Iqra Heard Other [facility] Other 11-11-2021 16:15-0500 Body height 161.29 cm Ricardo Hardy Other [facility] Other 11-11-2021 16:15-0500 Body mass index (BMI) [Ratio] 20.92 kg/m2 Ricardo Hardy Other [facility] Other 11-11-2021 16:15-0500 Body weight 54.43 kg Ricardo Hardy Other [facility] Other 09-17-2021 14:30-0400 Body height 161.29 cm Ricardo Hardy Other [facility] Other 09-17-2021 14:30-0400 Body mass index (BMI) [Ratio] 21.27 kg/m2 Ricardo Hardy Other [facility] Other 09-17-2021 14:30-0400 Body weight 55.34 kg Ricardo Hardy Other [facility] Other 09-17-2021 14:30-0400 Diastolic blood pressure 74 mm[Hg] Ricardo Hardy Other [facility] Other 09-17-2021 14:30-0400 Systolic blood pressure 134 mm[Hg] Ricardo Hardy Other [facility] Other Encounters Encounter Date Encounter Type Care Provider Facility Start: 02-04-2024 End: 02-04-2024 ambulatory JOSE PAULINO Not Available Start: 01-25-2024 End: 01-25-2024 ambulatory ANA M BECKER Not Available Start: 01-13-2024 Orders Only Tiffany bae [employer] Work Phone: [facility] Comment on above: COVID-19 (Primary Dx ) Start: 01-12-2024 Chart abstracting Tiffany sims [employer] Work Phone: [facility] Start: 01-12-2024 End: 01-12-2024 ambulatory TIFFANY SERNA Not Available Start: 01-12-2024 End: 01-12-2024 Office outpatient visit 25 minutes Tiffany Serna [employer] Work Phone: [facility] Comment on above: Acute cough (Primary Dx); Generalized anxiety disorder (CMS/HCC); Acute non-recurrent pansinusitis Start: 01-08-2024 Chart abstracting Ana M Vail er PA Work Phone: [facility] Start: 12-08-2023 End: 12-08-2023 ambulatory ANA M BECKER Not Available Start: 12-07-2023 End: 12-08-2023 ambulatory JOSE PAULINO Not Available Start: 10-02-2023 End: 10-02-2023 ambulatory SOREN BORRERO [facility] Start: 10-02-2023 End: 10-02-2023 Office outpatient visit 15 minutes Soren Borrero MD Work Phone: [facility] Comment on above: Mixed hyperlipidemia (Primary Dx); Palpitations; Paroxysmal SVT (supraventricular tachycardia) Start: 04-07-2023 End: 04-07-[address] SALOMON JOYCE . Facility:[facility] Start: 01-20-2023 End: 01-20-2023 ambulatory Imad Asaad Facility:[facility] Start: 01-20-2023 End: 01-20-2023 Admission to same day surgery center II Chris Whitaker Work Phone: [facility] Work Phone: Start: 01-20-2023 End: 01-20-2023 ambulatory II Chris Whitaker Work Phone: [facility] Work Phone: Start: 10-27-2022 Patient encounter procedure [id number] [place] [facility] 01 Work Phone: [facility] [facility] [place] Work Phone: Start: 10-27-2022 ambulatory Ms. LEAH BAGLEY Facilit y:[id number] Start: 09-29-2022 Office outpatient vi sit 15 minutes Leah Bagley [employer]ENER[employer]ER CONSERVATOR Work Phone: [facility] [facility] DO Work Phone: Start: 09-29-2022 ambulatory ROCHELLE Bagley Facilit y:[id number] Start: 07-09-2022 End: 07-09-2022 ambulatory Ricardo Hardy Other [facility] Other Start: 07-09-2022 Office outpatient vi sit 25 minutes Ricardo Hardy [facility] Start: 05-12-2022 End: 05-12-2022 ambulatory Giuseppe Durham Facility:[facility] Start: 02-13-2022 End: 02-13-2022 ambulatory Iqra Heard Other [facility] Other Start: 02-13-2022 Office outpatient vi sit 15 minutes Iqra Heard [facility] [place] Start: 11-28-2021 End: 11-28-2021 ambulatory Ricardo Hardy Other [facility] Other Start: 11-28-2021 Telephone encounter Ricardo Hardy [facility] Start: 11-11-2021 End: 11-11-2021 ambulatory Ricardo De Santiagolico Other [facility] Other Start: 11-11-2021 Office outpatient vi sit 10 minutes Ricardo Hardy [facility] Start: 09-17-2021 Office outpatient vi sit 25 minutes Ricardo Hardy [facility] Echocardiogram normal Leah Bagley [employer] STRAIGHTENER[employer]PAPER CONSERVATOR Work Phone: [facility] [facility] DO Work Phone: Radionuclide heart s tudy normal Leah Bagley [employer] STRAIGHTENER-PAPER CONSERVATOR Work Phone: [facility] [facility] DO Work Phone: Procedures Date Procedure Procedure Detail Performing Clinician Start: 01-20-2023 Screening colonoscopy I I Chris Whitaker Work Phone: Appendectomy Leah Laut nathaly [employer] STRAIGHTENER-P[employer]ER CONSERVATOR Work Phone: Arthroscopy of knee Leah julianjessica Bagley [employer] STRAIGHTENER-PAPER CONSERVATOR Work Phone: Cataract surgery Leah Bagley [employer] STRAIGHTENER-PAPER CONSERVATOR Work Phone: Hysterectomy Leah Laut h [employer] STRAIGHTENER-PAPER CONSERVATOR Work Phone: Total colonoscopy Leah Bagley [employer] STRAIGHTENER-PAPER CONSERVATOR Work Phone: Plan of Treatment Date Care Activity Detail Author Start: 12-08-2024 Urine screening for protein Diabetes: Urine Protein Screening [facility] Start: 10-05-2024 End: 10-05-2024 Patient encounter procedure 10/05/2024 1:00 PM EST Office Visit [facility] [address] [place] [address] Soren Borrero MD [address] [place] [address] [facility] Start: 05-09-2024 End: 05-09-2024 Patient encounter procedure 05/09/2024 11:30 AM EDT Office Visit [facility] [address] [place] [id number] Giuseppe Durham, DO [address] [place] [address] [facility] Start: 03-08-2024 Hemoglobin A1c measurement Diabetes: Hemoglobin A1C [facility] Start: 03-08-2024 End: 03-08-2024 Patient encounter procedure 03/08/2024 2:00 PM EDT Office Visit [facility] [address] [place] [address] Ana M Becker, PA [address] [place] [address] [facility] Start: 02-02-2024 End: 02-02-2024 Patient encounter procedure 02/02/2024 1:45 PM EST [facility] [address] [place] [id number] Jose Paulino, DO [address] [place] [address] [facility] Start: 01-25-2024 End: 01-25-2024 Patient encounter procedure 01/25/2024 10:30 AM EST Office Visit [facility] [address] [place] [address] Ana M Becker, PA [address] [place] [address] [facility] Start: 01-13-2024 End: 01-13-2024 Patient encounter procedure 01/13/2024 10:30 AM EST Office Visit [facility] [address] [place] [address] Ana M Becker, PA [address] [place] [address] [facility] Start: 01-12-2024 End: 01-12-2024 Patient encounter procedure 01/12/2024 10:00 AM EST Office Visit [facility] [address] [place] [phone] Tiffany Serna, LION TAMER [address] [place] [address] [facility] Start: 10-02-2023 FUV, Provider: Soren Borrero, Status: Pen, Time: 1:00 PM FUV, Provider: Soren Borrero, Status: Pen, Time: 1:00 PM [facility] [facility] DO Work Phone: Start: 01-20-2023 [facility] Start: 11-16-2022 Glaucoma screening Diabetes: R etinopathy Screening [facility] Start: 10-27-2022 STRESS NUC, Provider : [place] [facility] 01,[id number], Status: Pen, Time: 8:00 AM STRESS NUC, Provider: [place] [facility] 01,[id number], Status: Pen, Time: 8:00 AM [facility] [facility] DO Work Phone: Start: 01-14-2022 COVID-19 Vaccine (5 - Pfizer series) COVID-19 Vaccine (5 - Pfizer series) [facility] Start: 1968 DTaP/Tdap/Td Vaccine s (1 - Tdap) DTaP/Tdap/Td Vaccines (1 - Tdap) [facility] Start: 1964 Diabetes mellitus screening Diabetes Screening [facility] Start: 1964 Hepatitis C screening Hepatitis C Sc [facility] Start: 1945 Lipid panel Lipid Panel [facility] Start: 1945 Medicare Annual Wellness (AWV) Medicare Annual Wellness (AWV) [facility] Start: 1945 Medicare Annual Wellness Visit Medicare Annual Wellness Visit (AWV) [facility] Patient Education Colon Polyps Diverticulosis (DC) [facility] Work Phone: VIRAL RESPIRATORY INFECTION (HTRX) VIRAL RESPIRATORY INFECTION (HTRX) Lab Routine Acute cough Ordered: 01/12/2024 [facility] Work Phone: Comment on above: Ordered: 01/12/2024 Immunizations Immunization Date Immunization Notes Care Provider Fa seng 11-19-2023 ABRYSVO - Respirator y syncytial virus (RSV), vaccine, bivalent, protein subunit RSV prefusion F, diluent reconstituted, 0.5 mL, PF Ana M PEREZ Work Phone: [facility] 09-02-2023 Influenza, High-dose Seasonal, Quadrivalent, Preservative Free Ana M PEREZ Work Phone: [facility] 08-26-2022 Fluad Quadrivalent 0 .5 ML Intramuscular Prefilled Syringe Leah Bagley [employer] STRAIGHTENER-PAPER CONSERVATOR Work Phone: [facility] 250 DO Work Phone: 08-05-2022 influenza, seasonal, injectable Leah Bagley [employer]ANKSHA[employer] STRAIGHTENER-PAPER CONSERVATOR Work Phone: [facility] 250 DO Work Phone: Comment on above: Series: 11-19-2021 Pfizer-BioNTech COVI D-19 Vacc 30 MCG/0.3ML Intramuscular Suspension Leah Bagley [employer]ANKSHA[employer] STRAIGHTENER-PAPER CONSERVATOR Work Phone: [facility] 250 DO Work Phone: 11-04-2021 Pfizer-BioNTech COVI D-19 Vacc 30 MCG/0.3ML Intramuscular Suspension Leah Bagley [employer]ANKSHA[employer] STRAIGHTENER-PAPER CONSERVATOR Work Phone: [facility] 250 DO Work Phone: 09-19-2021 influenza, high dose seasonal, preservative-free Leah Bagley [employer]ANKSHA[employer] STRAIGHTENER-PAPER CONSERVATOR Work Phone: [facility] 250 DO Work Phone: 08-30-2021 Fluzone High-Dose Quadrivalent 0.7 ML Intramuscular Suspension Prefilled Syringe Leah Bagley [employer]ANKSHA[employer] STRAIGHTENER-PAPER CONSERVATOR Work Phone: [facility] 250 DO Work Phone: 02-19-2021 Pfizer-BioNTech COVI D-19 Vacc 30 MCG/0.3ML Intramuscular Suspension Leah Bagley [employer]ANKSHA[employer] STRAIGHTENER-PAPER CONSERVATOR Work Phone: [facility] 250 DO Work Phone: 01-28-2021 Pfizer-BioNTech COVI D-19 Vacc 30 MCG/0.3ML Intramuscular Suspension Leah Bagley CRANKSHAFT STRAIGHTENER-PAPER CONSERVATOR Work Phone: [place] [address] [place] Work Phone: 08-30-2020 influenza, high dose seasonal, preservative-free Leah Bagley [employer]ANKSHAFT STRAIGHTENER-PAPER CONSERVATOR Work Phone: [place] [address] [place] Work Phone: 08-30-2020 Seasonal, quadrivale nt, recombinant, injectable influenza vaccine, preservative free Ana M PEREZ Work Phone: [facility] 11-09-2019 zoster vaccine recombinant Leah Bagley [employer]ANKSHA[employer] STRAIGHTENER-PAPER CONSERVATOR Work Phone: [place] [address] DO Work Phone: 08-10-2019 Seasonal, quadrivale nt, recombinant, injectable influenza vaccine, preservative free Leah Bagley [employer]ANKSHAFT STRAIGHTENER-PAPER CONSERVATOR Work Phone: [facility] 08-10-2019 zoster vaccine recombinant Leah Bagley [employer]ANKSHAFT STRAIGHTENER-PAPER CONSERVATOR Work Phone: [place] [address] [place] Work Phone: 07-31-2019 influenza, seasonal, injectable, preservative free Leah Kahn Bagley CRANKSHAFT STRAIGHTENER-PAPER CONSERVATOR Work Phone: [place] [address] [place] Work Phone: 08-17-2018 influenza, high dose seasonal, preservative-free Leah Kahn Bagley [employer]ANKSHAFT STRAIGHTENER-PAPER CONSERVATOR Work Phone: [facility] 250 DO Work Phone: 08-20-2017 pneumococcal polysaccharide vaccine, 23 valent Leah Kahn Bagley [employer]ANKSHAFT STRAIGHTENER-PAPER CONSERVATOR Work Phone: [facility] 250 DO Work Phone: 05-08-2017 pneumococcal polysaccharide vaccine, 23 valent Leah Kahn Kevyn CRANKSHAFT STRAIGHTENER-PAPER CONSERVATOR Work Phone: [facility] 250 DO Work Phone: 01-07-2016 pneumococcal conjuga te vaccine, 13 valent Leah Kahn Kevyn CRANKSHAFT STRAIGHTENER-PAPER CONSERVATOR Work Phone: [facility] 250 DO Work Phone: 05-01-2014 zoster vaccine, live Ana M araujo PA Work Phone: [facility] Healthcare Payers Date Payer Category Payer Medicare [id number] 2022 Private Health Insurance [id number] 2022 Private Health Insurance [facility] [id number] 2022-Present [address] [address] [place] [address] [id number] 2022 Private Health Insurance [id number] 2022 Self-pay [id number] 2011 Medicare [id number] 1959 Medicare [id number] 1945 Unknown [id number]. 356 1946 Unknown [id number] [id number]. 1068 1946 Unknown [id number] [id number]. 593 1946 Unknown [id number]. 1244 1946 Unknown [id number] [id number]. 1259 1946 Unknown [id number] [id number]. 1259 1946 Unknown [id number] [id number]. 1259 1946 Unknown [id number] [id number]. 1259 1946 Unknown [id number]. 1259 Blue Cross Blue Shield [id number] Medicare [id number] Medicare [id number] Unknown Unknown Regular Auto/Liability [id number] Unknown [id number] 531 Unknown [id number] 531 Social History Date Type Detail Facility Unknown if ever smoked [facility] Other Start: 10-02-2023 End: 01-12-2024 Sex Assigned At [facility] Start: 10-02-2023 End: 01-12-2024 Daily caffeine consumption, 2-3 servings a day Daily caffeine consumption, 2-3 servings a day [facility] Start: 01-20-2023 End: 04-22-2023 Tobacco smoking status NHIS Ex-smoker (finding) [facility] Start: 1945 Sex Assigned At Female F [facility] End: 11-30-1971 History of tobacco use Current smoker [facility] Work Phone: End: 11-30-1971 History of tobacco use Cigarette Smoker [facility] Work Phone: Start: 04-22-2023 End: 10-02-2023 Tobacco use and exposure Smokeless tobacco non-user [facility] Work Phone: Start: 10-02-2023 End: 01-12-2024 Alcohol intake Lifetime non-drinker (finding) [facility] Work Phone: Start: 1945 [facility] Start: 09-22-2023 End: 10-02-2023 Exposure to SARS-CoV-2 (event) Not sure [facility] How often to you hav e a drink containing alcohol? Monthly or less [facility] How many standard drinks containing alcohol do you have on a typical day? 1 or 2 [facility] How often do you hav e 6 or more drinks on 1 occasion? Never [facility] Start: 10-21-2023 Alcohol Comment Caffeine intak e : 1-2 cups per day soda/pop [facility] Goals Date Patient Goal Desired Activity /State Functional Status Date Assessment Result Facility 09-29-2022 PHQ-9 [id number] Mild (5-9) [facility] 250 DO Work Phone: Clinical Notes 09-17-2021 to 01-12-2024 Tiffany Serna NP - 01/12/2024 10:00 AM Tiffanie Borrero MD - 10/02/2023 1:00 PM EDTPatient Instructions Note Date & Type Note Facility 02-13-2024 History of Present illness Narrative HPI Med Refill Additional comments: xanax Last edited by Grazyna Sanford MA on 01/12/2024 10:02 AM. Subjective Patient ID: Milli Lindquist is a 78 y.o. female who presents for a possible cold/sinus infection. Milli is present today for a possible cold/sinus infection. She states it has been going on for about a week. She has tried OTC medication and hasn't had any relief. She states she has a dry cough, she feels for a few days her temp was high, she has little congestion. Temp 97 F. Tried Covid at home test a few weeks ago but was negative, no other testing has been done. Sinusitis This is a new problem. The current episode started in the past 7 days. The problem is unchanged. The maximum temperature recorded prior to her arrival was 100.4 - 100.9 F. Her pain is at a severity of 0/10. She is experiencing no pain. Associated symptoms include chills, congestion, coughing, ear pain, headaches, a hoarse voice and sneezing. Past treatments include acetaminophen (Mucinex cough syrup). The treatment provided no relief. Current Outpatient Medications on File Prior to Visit Medication Sig Dispense Refill ALPRAZolam (Xanax) 0.25 MG tablet Take 1 tablet (0.25 mg) by mouth 1 (one) time each day at the same time 30 tablet 0 aspirin 81 MG EC tablet Take 81 mg by mouth in the morning. bisoprolol (Zebeta) 5 MG tablet Take 1 tablet (5 mg) by mouth 1 (one) time each day at the same time. 100 tablet 3 Coenzyme O34-Vmht Oil-Vit E (CO-Q 10 OMEGA-3 FISH OIL PO) Orally gabapentin (Neurontin) 300 MG capsule Take 1 capsule (300 mg) by mouth in the morning and 1 capsule (300 mg) in the evening and 1 capsule (300 mg) before bedtime. 300 capsule 1 glyBURIDE-metFORMIN (Glucovance) 5-500 MG tablet Take 1 tablet by mouth in the morning and 1 tablet before bedtime. 200 tablet 3 HYDROcodone-acetaminophen (Aliquippa) 5-325 MG tablet Take 1 tablet by mouth every 6 (six) hours if needed for severe pain 120 tablet 0 Krill Oil 300 MG capsule Take 1 tablet by mouth 1 (one) time each day. lansoprazole (Prevacid) [address] capsule Take 1 capsule (30 mg) by mouth 1 (one) time each day at the same time. 100 capsule 3 lidocaine (Lidoderm) 5 % patch Apply 1 patch topically 1 (one) time each day at the same time. loratadine (Claritin) 10 MG tablet Take 10 mg by mouth as needed at bedtime for allergies. nystatin (Mycostatin) ointment Apply topically 2 (two) times a day. ondansetron ODT (Zofran-ODT) 4 MG disintegrating tablet Take 4 mg by mouth every 8 (eight) hours if needed for nausea or vomiting. rosuvastatin (Crestor) 10 MG tablet Take 1 tablet (10 mg) by mouth in the morning. 90 tablet 3 tiZANidine (Zanaflex) 4 MG tablet Take 1 tablet by mouth every 12 (twelve) hours. PRN zolpidem (Ambien) 10 MG tablet Take 1 tablet (10 mg) by mouth as needed at bedtime for sleep 30 tablet 2 No current facility-administered medications on file prior to visit. Allergies Allergen Reactions Atorvastatin Other Nabumetone GI intolerance Simvastatin Other Reaction(s): leg cramps Methylprednisolone Palpitations Social History Tobacco Use Smoking status: Former Types: Cigarettes Smokeless tobacco: Never Vaping Use Vaping Use: Never used Substance Use Topics Alcohol use: Never Comment: Caffeine intake : 1-2 cups per day soda/pop Drug use: Yes Types: Hydrocodone Family History Problem Relation Name Age of Onset Hyperlipidemia Mother Heydi [place] Diabetes Mother Heydi [place] Hypertension Mother Heydi [place] Heart disease Mother Heydi [place] Lung cancer Father Breast cancer Sister Heart disease Sister Lung cancer Brother Candelario [place] Heart disease Brother Candelario [place] Melanoma Maternal Grandmother Stomach cancer Maternal Grandfather No Known Problems Paternal Grandmother unknown Melanoma Other Past Medical History: Diagnosis Date Anemia Appendicitis Arthritis Cardiac dysrhythmia Cataracts, bilateral COVID-19 Degeneration, intervertebral disc, cervical Depression (CMS/HCC) Disorder of bone and cartilage Elevated cholesterol (CMS/HCC) Esophageal reflux H/O degenerative disc disease Headache High cholesterol (CMS/HCC) History of uterine fibroid Hx of breast biopsy 3x benign - right breast biopsy with excision of nipple lesion x1 Hx of colonoscopy 2002 Insomnia, unspecified Migraine-cluster headache syndrome Personal history of other medical treatment 1989 DX lap adn TL PONV (postoperative nausea and vomiting) Don't remember.. Tachycardia Type 2 diabetes mellitus with hyperglycemia (CMS/HCC) Uterine fibroid Visit for review of DEXA scan 2005 Past Surgical History: Procedure Laterality Date APPENDECTOMY BRAIN MENINGIOMA EXCISION BRAIN MENINGIOMA EXCISION 05/05/2011 BREAST BIOPSY Left benign 3x BREAST LUMPECTOMY Right CATARACT EXTRACTION Right 12/2021 COLONOSCOPY 2019 COLONOSCOPY W/ POLYPECTOMY 01/20/2023 EYE EXAM Diabetes mellitus type 2 - EYE SURGERY 2021 DEXA SCAN 1989 KNEE SURGERY Left 02/03/2014 OTHER SURGICAL HISTORY 2010 steriods injection - pain clinic - headache TONSILLECTOMY TOTAL ABDOMINAL HYSTERECTOMY W/ BILATERAL SALPINGOOPHORECTOMY TUBAL LIGATION 1990 Visit [facility]als OB Status Hysterectomy Smoking Status Former Review of Systems Constitutional: Positive for chills. HENT: Positive for congestion, ear pain, hoarse voice and sneezing. Respiratory: Positive for cough. Neurological: Positive for headaches. Objective Physical Exam Vitals reviewed. Constitutional: Appearance: She is ill-appearing. HENT: Head: Normocephalic. Nose: Congestion present. Mouth/Throat: Mouth: Mucous membranes are moist. Pharynx: Oropharynx is clear. Posterior oropharyngeal erythema present. Cardiovascular: Rate and Rhythm: Regular rhythm. Pulmonary: Breath sounds: Normal breath sounds. Lymphadenopathy: Cervical: Cervical adenopathy present. Skin: General: Skin is warm and dry. Neurological: General: No focal deficit present. Mental Status: She is alert and oriented to person, place, and time. Psychiatric: Mood and Affect: Mood normal. Behavior: Behavior normal. Assessment/Plan Diagnoses and all orders for this visit: Acute cough - benzonatate (Tessalon) 200 MG capsule; Take 1 capsule (200 mg) by mouth 3 (three) times a day as needed for cough for up to 10 days Do not crush or chew. - guaiFENesin-codeine (Robitussin-AC) 100-10 MG/5ML syrup; Take 10 mL by mouth at bedtime for 10 days - VIRAL RESPIRATORY INFECTION (HTRX) Take the cough syrup in the evening as it can make you tired. You can use cough drops for the cough. Generalized anxiety disorder (CMS/HCC) - ALPRAZolam (Xanax) 0.25 MG tablet; Take 1 tablet (0.25 mg) by mouth 1 (one) time each day at the same time Take medication as directed. Verbalizes understanding of the need to be seen in the ER for excessive stress, elevated blood pressure or palpitations. Advised on relaxation methods to decrease anxiety and depression. Pt offers understanding of treatment plan. Acute non-recurrent pansinusitis Pt was exposed to COVID. Will wait for results to come back. If negative for COVID, will send in ATB. If positive for COVID, will send in Paxlovid. No follow-ups on file. documented in this encounter [facility] 10-02-2023 History of Present illness Narrative Subjective Milli Lindquist is a 77 y.o. female Chief Complaint Annual Exam HPI Cleans house and walks treadmill Patient returns in follow-up of problems as noted. She is done well. She denies any breakthroughs and/or paroxysms of sustained SVT. She does have palpitation from time to time but the episodes are extremely brief and sound like isolated ectopy as opposed to a sustained reentrant arrhythmia. She is very active and exercises almost daily and cleans the house. Physical exertion causes her no cardiac symptomatology no chest pain no dyspnea no lightheadedness no dizziness. Because of all the above we believe she is doing well and we suggest continued therapy as is without change Review of Systems Cardiovascular: Positive for palpitations. Visit Vitals BP 124/72 (BP Location: Right arm, Patient Position: Sitting) Pulse 76 Ht 1.6 m (5' 3 ) Wt 54.9 kg (121 lb) BMI 21.43 kg/m Smoking Status Former BSA 1.56 m Objective Physical Exam Constitutional: Appearance: Normal appearance. She is normal weight. HENT: Nose: Nose normal. Neck: Vascular: No carotid bruit. Cardiovascular: Rate and Rhythm: Normal rate. Pulses: Normal pulses. Heart sounds: Normal heart sounds. Pulmonary: Effort: Pulmonary effort is normal. Abdominal: General: Bowel sounds are normal. Palpations: Abdomen is soft. Genitourinary: Rectum: Normal. Musculoskeletal: General: Normal range of motion. Cervical back: Normal range of motion. Right lower leg: No edema. Left lower leg: No edema. Skin: General: Skin is warm and dry. Neurological: General: No focal deficit present. Mental Status: She is alert. Psychiatric: Mood and Affect: Mood normal. Behavior: Behavior normal. Thought Content: Thought content normal. Judgment: Judgment normal. Current Medications Current Outpatient Medications: ALPRAZolam (Xanax) 0.25 mg tablet, Take 0.25 tablets by mouth as needed at bedtime., Disp: , Rfl: aspirin 81 mg EC tablet, Take 1 tablet (81 mg) by mouth once daily., Disp: , Rfl: bisoprolol (Zebeta) 5 mg tablet, Take 1 tablet (5 mg) by mouth once daily., Disp: , Rfl: CALCIUM CARBONATE-VITAMIN D3 ORAL, Take 2 tablets by mouth once daily., Disp: , Rfl: coenzyme Q-10 100 mg capsule, Take 1 capsule (100 mg) by mouth once daily., Disp: , Rfl: gabapentin (Neurontin) 300 mg capsule, Take 1 capsule (300 mg) by mouth 2 times a day., Disp: , Rfl: glyburide-metformin (Glucovance) 5-500 mg tablet, Take 1 tablet by mouth 2 times a day., Disp: , Rfl: HYDROcodone-acetaminophen ([place]) 5-325 mg tablet, Take 1 tablet by mouth every 6 hours if needed., Disp: , Rfl: lansoprazole (Prevacid) [address] capsule, Take 1 capsule (30 mg) by mouth 2 times a day., Disp: , Rfl: rosuvastatin (Crestor) 10 mg tablet, Take 1 tablet (10 mg) by mouth once daily., Disp: , Rfl: tiZANidine (Zanaflex) 4 mg tablet, Take by mouth twice a day. 0.5 tablet to 1 tablet, Disp: , Rfl: zolpidem (Ambien) 10 mg tablet, Take 1 tablet (10 mg) by mouth as needed at bedtime., Disp: , Rfl: Assessment/Plan 1. Mixed hyperlipidemia Adequately controlled on current therapy. 2. Palpitations As above, I believe these are probably PACs or PVCs. Symptoms do not suggest SVT 3. Paroxysmal SVT (supraventricular tachycardia) Rare episodes. It sounds like more recently her symptomatology is only ectopy and not a sustained reentrant arrhythmia. documented in this encounter [facility] Work Phone: 10-02-2023 Instructions Solomon Castro MA - 10/02/2023 1:00 PM EDT Please bring all medicines, vitamins, and herbal supplements with you when you come to the office. Prescriptions will not be filled unless you are compliant with your follow up appointments or have a follow up appointment scheduled as per instruction of your physician. Refills should be requested at the time of your visit. Fall Prevention Education Given documented in this encounter [facility] Work Phone: 01-20-2023 Procedure note [facility] 07-09-2022 Evaluation note Encounter Date Diagnosis Assessment Notes Jun, GERD (gastroesophage al reflux disease) (ICD-10 - K21.9) CONTINUE LANSOPRAZOLE 30 MG TWICE A DAY Jun, Dyspepsia (ICD-10 - K30) Jun, History of Helicobacter pylori infection (ICD-10 - Z86.19) Jun, Irritable bowel syndrome with constipation (ICD-10 - K58.1) [facility] Other 03-17-2022 Evaluation note* Encounter Date Diagnosis Assessment Notes Treatment Notes Treatment Clinical Notes Jan, Contact with and (suspected) exposure to other viral communicable diseases (ICD-10 - Z20.828) Symptoms presented today are related to the Flu. May use OTC medications such as Mucinex DM, Flu meds, etc. Kids can use Dimatapp or Delsym. Continue tylenol/ibu for general discomfort. Encourage fluids. Antibiotics will not treat the flu. Symptoms should improve within the next 4-7 days. Jan, Influenza A (ICD-10 - J10.1) Symptoms presented today are related to the Flu. May use OTC medications such as Mucinex DM, Flu meds, etc. Kids can use Dimatapp or Delsym. Continue tylenol/ibu for general discomfort. Encourage fluids. Antibiotics will not treat the flu. Symptoms should improve within the next 4-7 days. 17 Jan, 2022 Other Additional time spent conducting pre-visit phone call, screening for symptoms, instructions on social distancing, application and removal of PPE, and cleaning of examination room, equipment and supplies was preformed. Patient education given for testing methodology and results. Patient care instructions given in writting by [facility] Care At Home document. [facility] Other 12-13-2021 Evaluation note* Encounter Date Diagnosis Assessment Notes Treatment Notes Treatment Clinical Notes Oct, GERD (gastroesophageal reflux disease) (ICD-10 - K21.9) CONTINUE LANSOPRAZOLE BID WITHOUT CHANGE F/U HERE 6 MONTHS MAY CONSIDER REPEATING EGD AT THAT TIME [facility] Other 10-19-2021 Evaluation note* Encounter Date Diagnosis Assessment Notes Treatment Notes Treatment Clinical Notes Aug, Gastroesophageal ref lux disease with esophagitis without hemorrhage (ICD-10 - K21.00) Aug, Disease of stomach a nd duodenum, unspecified (ICD-10 - K31.9) Aug, Other STOP PANTOPRAZOLE RTO 6 WEEKS [facility] Other Evaluation noteNo InformationNort [employer]eg[employer] Other Evaluation noteNo assessment information available [facility] Work Phone: Evaluation note* Diagnosis Mixed hyperlipidemia- Primary Palpitations Paroxysmal SVT (supraventricular tachycardia) documented in this encounter [facility] Work Phone: Evaluation note* Diagnosis Acute cough- Primary Generalized anxiety disorder (CMS/HCC) Generalized anxiety disorder Acute non-recurrent pansinusitis [facility] Diagnosis COVID-19- Primary documented [facility] this [facility] Author Debra Villasenor [facility] January 20, 2023 9:02am Note Date/Time January 20, 2023 9:02am [facility] [address] [place] [address] Gastroenterology H&P Signed Patient: Milli Lindquist MR#: [id number] : 1945 Acct:[id number] Age/Sex: 77 / F Adm Date: 3 Loc: Room: Type: [facility] Attending Dr: Debra Villasenor MD Copies to: MD Debra Decker II, MD~ Date of Service: 01/20/2023 HISTORY & PHYSICAL: Patient's history with special attention to the cardiovascular, pulmonary systems and the current problem was reviewed with the patient immediately prior to the procedure. Present medications and doses reviewed in the EMR. Allergies and pertinent laboratory tests were also reviewedat this time in the EMR. The physical examination, as below, was then performed. Indication, assessment and HPI: 77-year-old female here for screening colonoscopy Family history of GI malignancy? No PHYSICAL EXAMINATION Mouth and Pharynx : Moist mucus membranes, normal dentition Cardiac: Regular rate, regular rhythm Pulmonary: Clear to auscultation bilaterally, no wheezing Neurological: Alert and oriented x3, no focal deficits noted Abdomen: Abdomen soft, non-tender REVIEW OF SYSTEMS Constitutional: Denies malaise, fevers Cardiovascular: Denies chest pain, palpitations Respiratory: Denies shortness of breath, wheezing Gastrointestinal: Per HPI Genitourinary: Denies dysuria, polyuria Musculoskeletal: Denies joint swelling, joint stiffness Neurological: Denies numbness, tingling Integumentary: Denies rashes, skin lesions Endocrine: Denies fatigue, weight loss Written informed consent obtained from the patient. Risks (including but not limited to perforation, infection, bloating, bleeding, need for emergent surgeryand loss of life), benefits and alternatives explained and questions answered. The patient verbalized understanding. Based on history patient is an appropriate candidate for the procedure. Debra Villasenor M.D. 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 Comorbid Illnesses: diabetes mellitus and hyperlipidemia. * Symptoms: denies chest pain at rest, denies exertional chest pain, denies dyspnea, denies fatigue, stable exercise intolerance, denies palpitations, denies edema, denies orthopnea, denies dizziness and denies orthostatic dizziness. * Associated symptoms: no syncope. * Her symptoms do not limit her activities. * Disease Monitoring: The patient has had a 5 pounds weight loss. * Medications: the patient is adherent with her medication regimen. She denies medication side effects. [facility] DO Work Phone: Hospital Discharge instructions Additional Instructions DISCHARGE INSTRUCTIONS FOR COLONOSCOPY WHAT TO EXPECT: - You may feel full, gassy or cramping after your procedure. In some cases, this may be from a few hours to a day. Walking may help relieve the discomfort. - If you have polyp(s) removed you may note some minor bloody discharge after your first bowel movements. - You should begin to recover from anesthesia within 1 hour of the procedure, however may feel groggy for the next 24 hours. DO's AND DON'Ts: - Call your doctor right away if you have a hard abdomen, severe pain, are passing lots of bright red blood or clots. - Call your doctor if you develop any rashes, hives or difficulty breathing. - Let your doctor know if you have not had a bowel movement by 3 days after your procedure. - If you take 81 mg aspirin for your heart it is safe to resume this medication. - If you take other blood thinner medications your doctor will instruct you when these can safely be resumed. - Do NOT drive for 24 hours. - Do NOT operate machinery such as power tools, Jeevesn mowers, snow blowers, sewing machines, etc. for 24 hours. - Avoid alcoholic beverages and drugs for allergies, nerves, or sleep. - Do NOT stay alone. Do NOT leave your child unattended. - Do NOT make important personal or business decisions or sign any legal documents. - Eat solid foods and drink liquids in smaller amounts than usual until normal appetite returns. If you should experience an upset stomach, liquids high in sugar content (soda, Juma-Aid, non-acid juices) are recommended. - You can resume normal activities tomorrow. FOLLOW UP & RECOMMENDATIONS: -Notify the doctor if you have any problems. -Repeat colonoscopy based on polyp of colon -Follow up with PCP. -Office number [phone]. [facility] Work Phone: Reason for referral (narrative)* Consultation (Routine) - Authorized Specialty Diagnoses / Procedures Referred By Contac t Referred To Contact Cardiology Diagnoses Mixed hyperlipidemia Palpitations Paroxysmal SVT (supraventricular tachycardia) Procedures Follow Up In Cardiology Soren Borrero MD [address] [place] [address] [address], [address] [address] Soren Borrero MD [address] [place] [address] [address], [address] [address] Referral ID Status Reason Start Date Expiration Date V isits Requested Visits Authorized [id number] Authorized 10/02/2023 10/01/2024 [address] [facility] Work Phone: Summary Purpose Family History No Family History Records FoundUnknown Family Member Name Dates Details Family history of CABG: Brot her(V17.49, Z82.49) Status:Active Cardiac abnormality: Mother, Brother Status:Active Heart problem: Mother Comments:Reported Previous C ardiac Problems; Status:Active Unknown Family Member Name Dates Details Family history of CABG: Brot her(V17.49, Z82.49) Status:Active Cardiac abnormality: Mother, Brother Status:Active Heart problem: Mother Comments:Reported Previous C ardiac Problems; Status:Active Relationship Condition Age at Onset Recorded Date/T debora father Malignant neoplasm of lung Unknown Not Specified Congestive heart failure Unknown Diabetes mellitus Unknown Advance Directives No Advanced Directives Records Found Advance Directive Response Recorded Date/ Time Advance Directives No March 25, 018 2:18pm Chief Complaint * Annual f/u: 'doing fine' * MILLI LINDQUIST is being seen for an annual follow-up of palpitations. * Patient is ambulatory with steady gait. * Last evaluated in clinic Dr. Chaidez August 2021. * Patient denies any hospitalizations or significant changes to interval medical history since last office follow-up. * Patient presents to the office today were overall she reports doing fine . She has had progressiveknee osteoarthritis that has been impacting her activity level, is considering surgical procedure at the beginning of the year. She is able to do light housework, go to the store. No concerns coming i n from the parking lot. Daily activity less than 4 METS. She does report episodes of a left-sided discomfort, she is able to finger point fourth/fifth intercostal space lateral midclavicular line, not exertional in nature but feels like a gas bubble and sometimes resultant hiccups. Prior complaints of palpitation remains quiescent. * Chest pain for the most part is atypical, she will need cardiac risk stratification for intermediate orthopedic procedure at the beginning of the year. Current functional capacity less than 4 METS with intermediate risk factors. Guidelines recommend noninvasive ischemic evaluation. Discussed with patient and she is in agreement to proceed. Chief Complaint and Reason for Visit Chief Complaint Screening Additional Source Comments REASON FOR VISIT (unrecogniz ed section and content) Reason Comments Annual Exam Reason Comments Med Refill xanax INFORMATION SOURCE (unrecogn ized section and content) DATE CREATED AUTHOR 09/30/2022 [facility] DATE CREATED AUTHOR AUTHOR'S ORGANIZ ATION 10/01/2022 [employer] DATE CREATED AUTHOR AUTHOR'S ORGANIZ ATION [facility]2022 [facility] DATE CREATED AUTHOR AUTHOR'S ORGANIZ ATION 01/28/2023 [facility] DATE CREATED AUTHOR AUTHOR'S ORGANIZ ATION 04/10/2023 [facility] DATE CREATED AUTHOR AUTHOR'S ORGANIZ ATION 10/04/2023 [facility] DATE CREATED AUTHOR AUTHOR'S ORGANIZ ATION 02/05/2024 [facility] [employer] Care Teams (unrecognized sec tion and content) Team Status: Inactive Member Role Status Dates Chris Whitaker II MD Primary Care Provider Active Debra Villasenor MD Attending Provider Active Team Status: Active Member Role Status Dates Chris Whitaker II MD Primary Care Provider Active [employer] Relationship Specialty Start Date End Date Chris Whitaker MD [address] [facility] [address] [place] [address] PCP - General Internal Medicine 10/02/23 [employer] Relationship Specialty Start Date End Date Chris Whitaker MD [address] [facility] [address] [place] [address] PCP - General Internal Medicine 04/20/23 [employer] Relationship Specialty Start Date End Date Chris Whitaker MD [address] [facility] [address] [place] [address] PCP - General Internal Medicine 04/20/23 [employer] Relationship Specialty Start Date End Date Chris Whitaker MD [address] [facility] [address] [place] [address] PCP - General Internal Medicine 04/20/23 [employer] Relationship Specialty Start Date End Date Chris Whitaker MD [address] [facility] [address] [place] [address] PCP - General Internal Medicine 04/20/23 FOR RECORDS PERTAINING TO PATIENTS WHO ARE OR HAVE BEEN ENROLLED IN A CHEMICAL DEPENDENCY/SUBSTANCEABUSE PROGRAM, SOME INFORMATION MAY BE OMITTED. This clinical summary was aggregated from multiple sources. Caution should be exercised in using it in the provision of clinical care. This summary normalizes information from multiple sources, and as a consequence, information in this document may materially change the coding, format and clinical context of patient data. In addition, data may be omitted in some cases. CLINICAL DECISIONS SHOULD BE BASED ON THE PRIMARY CLINICAL RECORDS. [employer] [place] [facility]. provides no warranty or guarantee of the accuracy or completeness of information in this document.
== END 2024-02-08 13:01 | disposition home or self-care (01) ==
PROVIDERS: PCP Internal Medicine; Visit Provider Physician Assistant
DX: E28.39 Other primary ovarian failure (principal); M85.80 Other specified disorders of bone density and structure, unspecified site
CPT/HCPCS: 77080

== ENCOUNTER 2024-02-19 09:50 | Emergency (ER) | payer MEDICARE, SELFPAY ==
[2024-02-19 09:56] VITALS: BP 159/88; PULSE 78; RESP 20; TEMP 36.9; O2SAT 98; BMI 19.9
--- OUTSIDE RECORDS SUMMARY | 2024-02-19 10:05 | XMS_ITS | CCD ---
Author Organization [facility] Care Team Providers Care Recovery Agent Name Role Phone Ricardo Hardy Unavailable Iqra Heard Unavailable ROCHELLE Bagley Referring Unavailable ROCHELLE Bagley Attending Unavailable Chris Whitaker II Primary Care Unavail able Unavailable Unavailable Ms. LEAH BAGLEY Attending Unavailable Chris Whitaker II Primary Care Unavail able LEONARDO Whitaker Primary Care Provider [phone] MD Debra Villasenor Attending Provider Debra Villasenor Admitting Unavailable Debra Villasenor Attending Unavailable Chris Whitaker Primary Care Unavailable ViscGiuseppe oliver Admitting Unavailable Giuseppe Durham Attending Unavailable Chris Whitaker Primary Care Unavailable MARIA DEL CARMEN ., DR LATIF Admitting Unavailable MARIA DEL CARMEN ., DR LATIF Attending Unavailable NATASHA ., ANA NOVAK Consulting UnavailDR CHRIS Lim Primary Care Unavailable CARYL HERNANDEZ Consulting Unavailable Chris Whitaker MD Primary Care Provider [phone] SOREN BORRERO Attending Unavailable CHRIS WHITAKER Primary Care Unavailable Chris Whitaker MD Primary Care Provider [phone] JOSE PAULINO Referring Unavailable ANA M BECKER Attending Unavailable TIFFANY SERNA Attending Unavailable ANA M BECKER Attending Unavailable JOSE PAULINO Attending Unavailable CHRIS WHITAKER Referring Unavailable Allergies Allergy Classification Reported Allergen(s) Allergy Type Date of Onset Reaction(s) Facility (5 sources) Corticosteroids Drug allergy Unknown [facility] Other (5 sources) Mold Extract Drug Allergy Unknown [facility] Other (5 sources) predniSONE; Translations: [predniSONE] Drug Allergy 023 Palpitations [facility] (2 sources) Other Allergy to substance (finding) -[facility] DO Work Phone: (1 source) predniSONE Drug Allergy [facility] Repository (1 source) atorvastatin Drug Allergy [facility] Rep[facility] (1 source) Corticosteroids Drug allergy (disorder) [facility] (1 source) Simvastatin Drug Allergy [facility] (5 sources) atorvastatin Drug Allergy Other [facility] (5 sources) methylPREDNISolone Drug Allergy Palpitations [facility] (5 sources) nabumetone Drug Allergy GI intolerance [facility] (5 sources) Simvastatin Allergy to substance [facility] Healthcare Medications Current Medications Medication Drug Class(es) Dates Sig (Normalized) Sig (Original) acetaminophen 325 mg / HYDROcodone bitartrate 5 mg oral tablet (13 sources) Opioid Agonist Start: 11-04-2023 take 1 tablet by mouth every six hours for pain HYDROcodone-acetami nophen (Arroyo) 5-325 MG tablet Indications: Spinal stenosis of lumbar region, unspecified whether neurogenic claudication present Take 1 tablet by mouth every 6 (six) hours if needed for severe pain 120 tablet 0 11/04/2023 Active Start: 12-12-2020 take 1 tablet by eli th every six hours as needed HYDROcodone-acetaminophen (Arroyo) 5-325 mg tablet Take 1 tablet by [...] 100 mL 0 01/12/2024 01/22/2024 Active Coenzyme I85-Kytr Oil-Vit E (CO-Q 10 OMEGA-3 FISH OIL [...] Start: 09-24-2020 take 1 capsule by mo [facility] twice daily lansoprazole (Prevacid) [address] [...] 04-17-2023 Chronic Other aftercare (1 source) Other [facility] (current) drug therapy; Translations: [OTH BANANA LOADER CURRENT DRUG THERAPY] Onset: 3 Episodic Other aftercare (1 source) halfway (current) use of aspirin; Translations: [LONGTERM CURRENT USE OF ASPIRIN] Onset: 3 Episodic [...] (11 sources) Palpitations; Translations: [Palpitations] Onset: 04-17-2023 10-02-2023 Episodic Esophageal disorders (1 source) Esophageal disorders; [...] IS VERY IMPORTANT TO YOUR HEALTH. THE [place] [employer] GUIDELINES RECOMMEND THAT WOMEN 40 [...] BASO # 0.0 103/ul Normal 0.0-0.[address] [facility] Comment on above: Performed By: #### C BC #### [facility] [address] [address] [address] Kamari Andres Basophils/100 WBC (Bld) 0.6 % Normal 0.2-2.0 [facility] Comment on above: Performed By: #### C BC #### [facility] [address] [place] [address] Dr. Kamari Andres EO # 0.1 103/ul Normal 0.0-0.[address] [facility] Comment on above: Performed By: #### C BC #### [facility] [address] [place] [address] Dr. Kamari Andres Eosinophils/100 WBC (Bld) 1.8 % Normal 0.9-7.[address] [facility] Comment on above: Performed By: #### C BC #### [facility] [address] [place] [address] Dr. Kamari Andres Erythrocyte distribution width (RBC) [Ratio] 12.7 % Normal 11.0-15.0 [facility] Comment on above: Performed By: #### C BC #### [facility] [address] [place] [address] Dr. Kamari Andres Hematocrit (Bld) [Volume fraction] 36.3 % Normal 36.0-48.0 [facility] Comment on above: Performed By: #### C BC #### [facility] [address] [place] [address] Dr. Kamari Andres Hemoglobin (Bld) [Mass/Vol] 11.6 g/dL Critically low 12.0-16.0 [facility] Comment on above: Performed By: #### C BC #### [facility] [address] [place] [address] Dr. Kamari Andres IG # 0.01 10e3/ul Normal 0.00-0.[address] [facility] Comment on above: Performed By: #### C BC #### [facility] [address] [place] [address] Dr. Kamari Andres IG % 0.2 % Normal 0.0-0.[address] [facility] Comment on above: Performed By: #### C BC #### [facility] [address] [place] [address] Dr. Kamari Andres LYMPH # 1.8 103/ul Normal 1.2-3.[address] [facility] Comment on above: Performed By: #### C BC #### [facility] [address] [place] [address] Dr. Kamari Andres Lymphocytes/100 WBC (Bld) 36.9 % Normal 20.5-60.0 [facility] Comment on above: Performed By: #### C BC #### [facility] [address] [place] [address] Dr. Kamari Andres MANUAL DIFF REQ NO Normal [facility] Comment on above: Performed By: #### C BC #### [facility] [address] [place] [address] Dr. Kamari Andres MCH (RBC) [Entitic mass] 29.1 pg Normal 26.7-34.0 [facility] Comment on above: Performed By: #### C BC #### [facility] [address] [place] [address] Dr. Kamari Andres MCHC (RBC) [Mass/Vol] 32.0 g/dL Normal 29.9-35.[address] [facility] Comment on above: Performed By: #### C BC #### [facility] [address] [place] [address] Dr. Kamari Andres MCV (RBC) [Entitic vol] 91.0 fL Normal 81.0-99.0 [facility] Comment on above: Performed By: #### C BC #### [facility] [address] [place] [address] Dr. Kamari Andres MONO # 0.5 103/ul Normal 0.3-0.[address] [facility] Comment on above: Performed By: #### C BC #### [facility] [address] [place] [address] Dr. Kamari Andres Monocytes/100 WBC (Bld) 10.8 % Normal 1.7-12.0 [facility] Comment on above: Performed By: #### C BC #### [facility] [address] [place] [address] Dr. Kamari Andres NEUT # 2.4 103/ul Normal 1.4-6.5 [facility] Comment on above: Performed By: #### C BC #### [facility] [address] [place] [address] Dr. Kamari Andres Neutrophils/100 WBC (Bld) 49.7 % Normal 43.0-75.0 [facility] Comment on above: Performed By: #### C BC #### [facility] [address] [place] [address] Dr. Kamari Andres Platelet mean volume (Bld) [Entitic vol] 8.4 fL Critically low 9.5-13.5 [facility] Comment on above: Performed By: #### C BC #### [facility] [address] [place] [address] Dr. Kamari Andres PLT 231 103/ul Normal 150-450 [facility] Comment on above: Performed By: #### C BC #### [facility] [address] [place] [address] Dr. Kamari Andres RBC 3.99 106/ul Critically low 4.20-5.40 [facility] Comment on above: Performed By: #### C BC #### [facility] [address] [place] [address] Dr. Kamari Andres WBC 4.9 103/ul Normal 4.0-11.0 [facility] Comment on above: Performed By: #### C BC #### [facility] [address] [place] [address] Dr. Kamari Andres PROF CHEM 8 (BAS METB)on Anion gap [Moles/Vol] 8.7 mmol/L Normal [facility] Comment on above: Performed By: #### B FELIPE HSTROPN #### [facility] [address] [place] [address] Dr. Kamari Andres Calcium [Mass/Vol] 9.4 mg/dL Normal 8.5-10.[address] [facility] Comment on above: Performed By: #### Mihaela WANG HSTROPN #### [facility] [address] [address] [address] Kamari Andres Chloride [Moles/Vol] 104 mmol/L Normal 98-[address] [facility] Comment on above: Performed By: #### B FELIPE, HSTROPN #### [facility] [address] [place] [address] Dr. Kamari Andres CO2 [Moles/Vol] 32.4 mmol/L Critically high 21.0-32.[address] [facility] Comment on above: Performed By: #### B FELIPE, HSTROPN #### [facility] [address] [place] [address] Dr. Kamari Andres Creatinine [Mass/Vol] 0.66 mg/dL Normal 0.55-1.[address] [facility] Comment on above: Performed By: #### B FELIPE, HSTROPN #### [facility] [address] [place] [address] Dr. Kamari Andres EGFR-AF LAO >60 Normal >=60 [facility] Comment on above: Performed By: #### B FELIPE, HSTROPN #### [facility] [address] [place] [address] Dr. Kamari Andres EGFR-NON AF LAO >60 Normal >=[address] [facility] Comment on above: Performed By: #### B FELIPE, HSTROPN #### [facility] [address] [place] [address] Dr. Kamari Andres Glucose [Mass/Vol] 133 mg/dL Critically high 74-[address] [facility] Comment on above: Performed By: #### B FELIPE, HSTROPN #### [facility] [address] [place] [address] Dr. Kamari Andres Potassium [Moles/Vol] 4.1 mmol/L Normal 3.5-5.[address] [facility] Comment on above: Performed By: #### B FELIPE, HSTROPN #### [facility] [address] [place] [address] Dr. Kamari Andres Sodium [Moles/Vol] 141 mmol/L Normal 136-[address] [facility] Comment on above: Performed By: #### B FELIPE, HSTROPN #### [facility] [address] [place], [place] [address] Dr. Kamari Andres Urea nitrogen [Mass/Vol] 6.0 mg/dL Critically low 7.0-18.[address] [facility] Comment on above: Performed By: #### B MP, HSTROPN #### [facility] [address] [address] [address] Kamari Andres Urea nitrogen/Creatini ne [Mass ratio] 9.1 mg/mg Normal [facility] Comment on above: Performed By: #### B MP, HSTROPN #### [facility] [address] [address] [address] Kamari Andres TROPONIN, HIGH SENSITIVITYon 04-07-2023 HSTROP 5.0 pg/mL Normal 4.0-51.[address] [facility] Comment on above: Result Comment: CUT- OFF POINTS HAVE BEEN ESTABLISHED BASED ON THE FOURTH UNIVERSAL DEFINITIONS OF MYOCARDIAL INFARCTION. THE UPPER REFERENCE LIMIT (URL) OF TROPONIN, DEFINED THE 99TH PERCENTILE OF cTnI DISTRIBUTION IN A REFERENCE POPULATION, HAS BEEN CONFIRMED THE DECISION THRESHOLD FOR ND DIAGNOSIS. Performed By: #### B FELIPE, HSTROPN #### [facility] [address] [address] [address] Kamari Andres XR RIBS LT PA [...] CARYL HERNANDEZ Date: 2023-04-07 20:32 Normal [facility] Glucose Glucometer (BldC) [M ass/Vol]Ordered By: Debra Villasenor on 01-20-2023 Glucose [Mass/Vol] 98 mg/dL [facility] Comment on above: Random Glucose Refer ence Range is dependent on time and content of last meal. Glucose of more than 200 mg/dL in a nonstressed, ambulatory subject supports the diagnosis of Diabetes Mellitus. Glucose Poct Glucometerson 0 01-20-2023 Glucose [Mass/Vol] 98 mg/dL Normal [facility] Comment on above: Result Comment: [facility] Glucose Reference Range is dependent on time and content of last meal. Glucose of more than 200 mg/dL in a nonstressed, ambulatory subject supports the diagnosis of Diabetes Mellitus. PERFORMED BY: [facility] [place] [address] PATHOLOGIST LIBRARY TECHNICIAN EVA REYNA M.D. Performed By: #### G LUMATTHEW #### Point of Care testing , Dion 01-20-2023 L --- Specimen: [id number] Received: 01/20/23 Status: LORI Roman Num: [id number] Spec Type: Surgical Subm Dr: Debra Villasenor MD Tissues: A Colon Biopsy (DESCENDING) Procedures: FRANKO/Naomie, Gregg/Zafar L4 Age/ Patient Sex Location Account Attending Physician Cheryl Lindquist 77/F [id number] Debra Villasenor MD SPEC NUM: [id number] RECD: 01/20/23 STATUS: LORI ROMAN NUM: [id number] SOFÍA: 01/20/23- SUBM DR: Debra Villasenor MD ENTERED: 01/20/[address] [facility] [address]: SPEC TYPE: Surgical DEPT: S ORDERED: [...] [id number] Received: 01/20/23 Status: LORI Roman Num: [id number] Spec Type: Surgical Subm Dr: Debra Villasenor MD Tissues: A Colon Biopsy (DESCENDING) Procedures: HE/2, Gross/Micro L4 Patient: ArgeliamarlysCheryl [id number] (Continued) Specimen: [id number] Received: 01/20/23 (Continued) Signed (signature on file) Liliane Garcia MD 01/21/23 1731 Specimen: [id number] Received: 01/20/23 Status: LORI Roman Num: [id number] Spec Type: Surgical Subm Dr: Debra Villasenor MD Tissues: A Colon Biopsy (DESCENDING) Procedures: FRAKNO/Naomie, Gregg/Micro L4 Patient: ArgeliamarlysCheryl [id number] (Continued) Specimen: S2 Received: 01/20/23 (Continued) CPT Codes 36502 Specimen: Received: 01/20/23 Status: LORI Roman Num: [id number] Spec Type: Surgical Subm Dr: Debra Villasenor MD Tissues: A Colon Biopsy (DESCENDING) Procedures: FRANKO/Naomie Gross/Micro L4 Patient: Cheryl Lindquist [id number] (Continued) Signed (signature on file) Liliane Garcia MD 01/21/23 1736 [facility] CARDIAC STRESS/REST MARTINA Bergeron 10-27-2022 [facility] CARDIAC STRESS/REST INJECTION Patient Name: CHERYL LINDQUIST STUDY: MYOCARDIAL PERFUSION STRESS TEST WITH LEXISCAN Performing facility: [facility], [address] [place] [address], [address], [address] Provider: Leah Bagley RN, POUNCING MACHINE OPERATOR PCP: Dr. Ean Whitaker Supervising provider: Yesenia Durán MD, [facility] INDICATION: Chest Pain; Hyperlipidemia HISTORY: Gender: F; Age: 76 y/o ; Height: 0 cm; Weight: 0 kg. High Cholesterol; Diabetes; Family HX CAD; Arrhythmias; Chest Pain; Quit smoking unknown years ago. COMPARISON: Previous nuclear testing completed at [facility]. ACCESSION NUMBER(S): [id number]; [id number]; [id number] ORDERING CLINICIAN: LEAH BAGLEY TECHNIQUE: ONE DAY [...] Electronically signed by: AASHISH LEAL MD Normal [facility] No Panel Informationon 10-27 Normal -[facility] [address] [place] Work Phone: Office Visit (Cardiology)on 09-29-2022 Follow-up [...] arise. Chief Complaint Annual f/u: 'doing fine' CHERYL LINDQUIST is being seen for an annual [...] 1 TABLET (more content not included)... Normal [facility] Tobacco Screening.on 022 Adult depression screening assessment Yes [facility] DO Work Phone: Fall risk assessment a) No falls within the last year [facility] DO Work Phone: Tobacco use status [facility] b) No [facility] [address] DO Work Phone: Tobacco Screening. 1-Several days [facility] DO Work Phone: Tobacco Screening. 2-More than half the days [facility] [address] DO Work Phone: Tobacco Screening. 0-Not at all [facility] DO Work Phone: Tobacco Screening. Not difficult at all [facility] [facility] DO Work Phone: US breast RT limitedon 05-12 breast RT limited [facility] Main [place] [address] [place] [address] Mammography Report Signed Patient: Cheryl Lindquist MR#: [id number] 69 : 1945 Acct:[id number] Age/Sex: 76 / F ADM Date: 05/12/22 Loc: CT Room: Type: [facility] Attending Dr: Giuseppe Durham DO Copies to: MD Giuseppe Decker II, DO Ordering Provider: Giuseppe Durham DO Date of Service: 05/12/22 MM/MM diagnostic mammo BI w/CAD: R nipple tender, 5cm from nipple dense area at 1';Nipple coreen ([id number]) US/US breast RT limited: R nipple tender, [...] M Mazariegos M.D.05/12/2022 3:11 PM Dictation Location: [facility] Transcribed By: ROMULO 05/12/22 1511 Dictated By: Ana M Mazariegos MD 05/12/22 1449 Signed By: 05/12/22 1511 [facility] COVID Quick Testingon 2021 Result Negative [facility] Other Quick Fluon 02-13-2022 FLUAV Ab CF (S) [Titer] Positive [facility] Other FLUBV Ab CF (S) [Titer] Negative [facility] Other Vital Signs Date Time Vital Sign Value Performing Clinician Facility 01-12-2024 10:02-0500 Body mass index (BMI) [Ratio] 21.26 kg/m2 Tiffany Serna QUALITY CONTROL HEAD Work Phone: [facility] 01-12-2024 10:02-0500 Body temperature 97 [degF] Tiffany Serna QUALITY CONTROL HEAD Work Phone: [facility] 01-12-2024 10:02-0500 Body weight 54.43 kg Tiffany Serna QUALITY CONTROL HEAD Work Phone: [facility] 01-12-2024 10:02-0500 Diastolic blood pressure 76 mm[Hg] Tiffany Serna QUALITY CONTROL HEAD Work Phone: [facility] 01-12-2024 10:02-0500 Heart rate 76 /min Tiffany Serna QUALITY CONTROL HEAD Work Phone: [facility] 01-12-2024 10:02-0500 Respiratory rate 14 /min Tiffany Serna QUALITY CONTROL HEAD Work Phone: [facility] 01-12-2024 10:02-0500 SaO2% (BldA) [Mass fraction] 99 % Tiffany Serna QUALITY CONTROL HEAD Work Phone: [facility] 01-12-2024 10:02-0500 Systolic blood pressure 125 mm[Hg] Tiffany Serna QUALITY CONTROL HEAD Work Phone: [facility] 10-02-2023 12:55-0400 Body height 160 cm Soren Borrero MD Work Phone: [facility] 10-02-2023 12:55-0400 Body mass index (BMI) [Ratio] 21.43 kg/m2 Soren Borrero MD Work Phone: [facility] 10-02-2023 12:55-0400 Body weight 54.88 kg Soren Borrero MD Work Phone: [facility] 10-02-2023 12:55-0400 Diastolic blood pressure 72 mm[Hg] Soren Borrero MD Work Phone: [facility] 10-02-2023 12:55-0400 Heart rate 76 /min Soren Borrero MD Work Phone: [facility] 10-02-2023 12:55-0400 Systolic blood pressure 124 mm[Hg] Soren Borrero MD Work Phone: [facility] 01-20-2023 09:56-0500 Diastolic blood pressure 57 mm[Hg] II Chris Whitaker Work Phone: [facility] 01-20-2023 09:56-0500 Heart rate 66 /min II Chris Whitaker Work Phone: [facility] 01-20-2023 09:56-0500 Respiratory rate 16 /min II Chris Whitaker Work Phone: [facility] 01-20-2023 09:56-0500 SaO2% (BldA) [Mass fraction] 94 % II Chris Whitaker Work Phone: [facility] 01-20-2023 09:56-0500 Systolic blood pressure 112 mm[Hg] II Chris Whitaker Work Phone: [facility] 01-20-2023 07:17-0500 Body height 160.02 cm II Chris Whitaker Work Phone: [facility] 01-20-2023 07:17-0500 Body temperature 97.8 [degF] II Chris Whitaker Work Phone: [facility] 01-20-2023 07:17-0500 Body weight 53.52 kg II Chris Whitaker Work Phone: [facility] 10-27-2022 08:00-0500 69 1 [id number] JINA HHVI NUCLEAR 01 Work Phone: [facility] [place] [address] [place] Work Phone: Comment on above: [id number] 09-29-2022 14:27-0400 Body height 160.02 cm Leah Bagley PERSONAL LOAN SPECIALIST-POUNCING MACHINE OPERATOR Work Phone: [facility] DO Work Phone: 09-29-2022 14:27-0400 Body mass index (BMI) [Ratio] 21.35 kg/m2 Leah Bagley PERSONAL LOAN SPECIALIST-POUNCING MACHINE OPERATOR Work Phone: [facility] [address] DO Work Phone: 09-29-2022 14:27-0400 Body surface area Derived from formula 1.56 m2 Leah Bagley PERSONAL LOAN SPECIALIST-POUNCING MACHINE OPERATOR Work Phone: [facility] DO Work Phone: 09-29-2022 14:27-0400 Body weight 54.66 kg Leah Bagley PERSONAL LOAN SPECIALIST-POUNCING MACHINE OPERATOR Work Phone: [facility] [address] DO Work Phone: 09-29-2022 14:27-0400 Diastolic blood pressure 60 mm[Hg] Leah Bagley PERSONAL LOAN SPECIALIST-POUNCING MACHINE OPERATOR Work Phone: [facility] DO Work Phone: 09-29-2022 14:27-0400 Heart rate 68 /min Leah Bagley PERSONAL LOAN SPECIALIST-POUNCING MACHINE OPERATOR Work Phone: [facility] [address] DO Work Phone: 09-29-2022 14:27-0400 Systolic blood pressure 118 mm[Hg] Leah Bagley PERSONAL LOAN SPECIALIST-POUNCING MACHINE OPERATOR Work Phone: [facility] [address] DO Work Phone: 09-29-2022 14:27-0400 7 1 Leah Bagley PERSONAL LOAN SPECIALIST-POUNCING MACHINE OPERATOR Work Phone: [facility] DO Work Phone: Comment on above: PHQ-9 TS 07-09-2022 15:15-0400 Body height 161.29 cm Ricardo Hardy Other [facility] Other 07-09-2022 15:15-0400 Body mass index (BMI) [Ratio] 20.57 kg/m2 Ricardo Hardy Other [facility] Other 07-09-2022 15:15-0400 Body weight 53.52 kg Ricardo Hardy Other [facility] Other 07-09-2022 15:15-0400 Diastolic blood pressure 70 mm[Hg] Ricardo Hardy Other [facility] Other 07-09-2022 15:15-0400 Respiratory rate 16 /min Ricardo Hardy Other [facility] Other 07-09-2022 15:15-0400 Systolic blood pressure 126 mm[Hg] Ricardo Hardy Other [facility] Other 02-13-2022 19:50-0400 Body height 161.29 cm Iqra Heard Other [facility] Other 02-13-2022 19:50-0400 Body mass index (BMI) [Ratio] 20.92 kg/m2 Iqra Heard Other [facility] Other 02-13-2022 19:50-0400 Body temperature 101.1 [degF] Iqra Heard Other [facility] Other 02-13-2022 19:50-0400 Body weight 54.43 kg Iqra Heard Other [facility] Other 02-13-2022 19:50-0400 Respiratory rate 18 /min Iqra Heard Other [facility] Other 02-13-2022 19:50-0400 SaO2% (BldA) [Mass fraction] 97 % Iqra Heard Other [facility] Other 11-11-2021 16:15-0500 Body height 161.29 cm Ricardo Hardy Other [facility] Other 11-11-2021 16:15-0500 Body mass index (BMI) [Ratio] 20.92 kg/m2 Ricardo Hardy Other [facility] Other 11-11-2021 16:15-0500 Body weight 54.43 kg Ricardo Hardy Other [facility] Other 09-17-2021 14:30-0400 Body height 161.29 cm Ricardo De Santiagokes Other [facility] Other 09-17-2021 14:30-0400 Body mass index (BMI) [Ratio] 21.27 kg/m2 Ricardo De Santiagokes Other [facility] Other 09-17-2021 14:30-0400 Body weight 55.34 kg Ricardo De Santiagokes Other [facility] Other 09-17-2021 14:30-0400 Diastolic blood pressure 74 mm[Hg] Ricardo Jonnathankes Other [facility] Other 09-17-2021 14:30-0400 Systolic blood pressure 134 mm[Hg] Ricardo Hardy Other [facility] Other Encounters Encounter Date Encounter Type Care Provider Facility Start: 02-04-2024 End: 02-04-2024 ambulatory JOSE PAULINO Not Available Start: 01-25-2024 End: 01-25-2024 ambulatory ANA M BECKER Not Available Start: 01-13-2024 Orders Only Tiffany bae QUALITY CONTROL HEAD Work Phone: [facility] Comment on above: COVID-19 (Primary Dx ) Start: 01-12-2024 Chart abstracting Tiffany sims [employer] CONTROL HEAD Work Phone: [facility] Start: 01-12-2024 End: 01-12-2024 ambulatory TIFFANY SERNA Not Available Start: 01-12-2024 End: 01-12-2024 Office outpatient visit 25 minutes Tiffany Serna [employer]ALITY CONTROL HEAD Work Phone: [facility] Comment on above: Acute cough (Primary Dx); Generalized anxiety disorder (CMS/HCC); Acute non-recurrent pansinusitis Start: 01-08-2024 Chart abstracting Ana M Vail er PA Work Phone: [facility] Start: 12-08-2023 End: 12-08-2023 ambulatory ANA M BECKER Not Available Start: 12-07-2023 End: 12-08-2023 ambulatory JOSE PAULINO Not Available Start: 10-02-2023 End: 10-02-2023 ambulatory SOREN BORRERO [facility] Ambulatory Start: 10-02-2023 End: 10-02-2023 Office outpatient visit 15 minutes Soren Borrero MD Work Phone: [facility] Comment on above: Mixed hyperlipidemia (Primary Dx); Palpitations; Paroxysmal SVT (supraventricular tachycardia) Start: 04-07-2023 End: 04-07-[address] SALOMON JOYCE . Facility:[facility] Start: 01-20-2023 End: 01-20-2023 ambulatory Imad Asaad Facility:[facility] Start: 01-20-2023 End: 01-20-2023 Admission to same day surgery center II Chris Whitaker Work Phone: [facility] Work Phone: Start: 01-20-2023 End: 01-20-2023 ambulatory II Chris Whitaker Work Phone: [facility] Work Phone: Start: 10-27-2022 Patient encounter procedure [id number] [place] HHVI NUCLEAR 01 Work Phone: -[facility] [address] [place] Work Phone: Start: 10-27-2022 ambulatory Ms. LEAH BAGLEY Facilit [id number] Start: 09-29-2022 Office outpatient vi sit 15 minutes Leah Kahn Kevyn PERSONAL LOAN SPECIALIST-POUNCING MACHINE OPERATOR Work Phone: -[facility] [address] DO Work Phone: Start: 09-29-2022 ambulatory ROCHELLE Bagley Facilit y:[id number] Start: 07-09-2022 End: 07-09-2022 ambulatory Ricardo Hardy Other [facility] Other Start: 07-09-2022 Office outpatient vi sit 25 minutes Ricardo Hardy [facility] Start: 05-12-2022 End: 05-12-2022 ambulatory Giuseppe Durham Facility:[facility] Start: 02-13-2022 End: 02-13-2022 ambulatory Iqra Heard Other [facility] Other Start: 02-13-2022 Office outpatient vi sit 15 minutes Iqra Heard [facility] [place] Start: 11-28-2021 End: 11-28-2021 ambulatory Ricardo Hardy Other [facility] Other Start: 11-28-2021 Telephone encounter Ricardo Hardy [facility] Start: 11-11-2021 End: 11-11-2021 ambulatory Ricardo Hardy Other [facility] [employer] Other Start: 11-11-2021 Office outpatient vi sit 10 minutes Ricardo Hardy [facility] Start: 09-17-2021 Office outpatient vi sit 25 minutes Ricardo Hardy [facility] Echocardiogram normal Leah Bagley PERSONAL LOAN SPECIALIST-POUNCING MACHINE OPERATOR Work Phone: -[facility] [address] DO Work Phone: Radionuclide heart s tudy normal Leah Bagley PERSONAL LOAN SPECIALIST-POUNCING MACHINE OPERATOR Work Phone: -[facility] [address] DO Work Phone: Procedures Date Procedure Procedure Detail Performing Clinician Start: 01-20-2023 Screening colonoscopy I I Chris Whitaker Work Phone: Appendectomy Leah Kahn Jer nathaly PERSONAL LOAN SPECIALIST-POUNCING MACHINE OPERATOR Work Phone: Arthroscopy of knee Leah Bagley PERSONAL LOAN SPECIALIST-POUNCING MACHINE OPERATOR Work Phone: Cataract surgery Leah Bagley PERSONAL LOAN SPECIALIST-POUNCING MACHINE OPERATOR Work Phone: Hysterectomy Leah Laut h PERSONAL LOAN SPECIALIST-POUNCING MACHINE OPERATOR Work Phone: Total colonoscopy Leah Bagley PERSONAL LOAN SPECIALIST-POUNCING MACHINE OPERATOR Work Phone: Plan of Treatment Date Care Activity Detail Author Start: 12-08-2024 Urine screening for protein Diabetes: Urine Protein Screening [facility] Start: 10-05-2024 End: 10-05-2024 Patient encounter procedure 10/05/2024 1:00 PM EST Office Visit [facility] [address] [facility] [address] [place] [address] Soren Borrero MD [address] [facility] [address] [place] [address] [facility] Start: 05-09-2024 End: 05-09-2024 Patient encounter procedure 05/09/2024 11:30 AM EDT Office Visit [facility] [address] [place] [address] Giuseppe Durham, DO [address] [place] [address] [facility] Start: 03-08-2024 Hemoglobin A1c measurement Diabetes: Hemoglobin A1C [facility] Start: 03-08-2024 End: 03-08-2024 Patient encounter procedure 03/08/2024 2:00 PM EDT Office Visit [facility] [address] [place] [address] Ana M Becker, PA [address] [place] [address] [facility] Start: 02-02-2024 End: 02-02-2024 Patient encounter procedure 02/02/2024 1:45 PM EST Office [facility] [address] [place] [address] Jose Paulino, DO [address] [place] [address] [facility] Start: 01-25-2024 End: 01-25-2024 Patient encounter procedure 01/25/2024 10:30 AM EST Office Visit [facility] [address] [place] [address] Ana M Becker PA [address] [place] [address] [facility] Start: 01-13-2024 End: 01-13-2024 Patient encounter procedure 01/13/2024 10:30 AM EST Office Visit [facility] [address] [place] [address] Ana M Becker PA [address] [place] [address] [facility] Start: 01-12-2024 End: 01-12-2024 Patient encounter procedure 01/12/2024 10:00 AM EST Office Visit [facility] [address] [facility] [address] [place] [id number] Tiffany Serna NP [address] [facility] [address] [place] [address] [facility] Start: 10-02-2023 FUV, Provider: Soren Borrero, Status: Pen, Time: 1:00 PM FUV, Provider: Soren Borrero, Status: Pen, Time: 1:00 PM [facility] [address] DO Work Phone: Start: 01-20-2023 [facility] Start: 11-16-2022 Glaucoma screening Diabetes: R etinopathy Screening [facility] Start: 10-27-2022 STRESS NUC, Provider : [place] [facility] NUCLEAR 01,[id number], Status: Pen, Time: 8:00 AM STRESS NUC, Provider: [place] [facility] NUCLEAR 01,[id number], Status: Pen, Time: 8:00 AM [facility] [address] DO Work Phone: Start: 01-14-2022 COVID-19 Vaccine (5 - Pfizer series) COVID-19 Vaccine (5 - Pfizer series) [facility] Start: 1968 DTaP/Tdap/Td Vaccine s (1 - Tdap) DTaP/Tdap/Td Vaccines (1 - Tdap) [facility] Start: 1964 Diabetes mellitus screening Diabetes Screening [facility] Start: 1964 Hepatitis C screening Hepatitis C Sc [facility] Start: 1945 Lipid panel Lipid Panel [facility] Start: 1945 Medicare Annual Wellness (AWV) Medicare Annual Wellness (AWV) [facility] Start: 1945 Medicare Annual Wellness Visit Medicare Annual Wellness Visit (AWV) [facility] Patient Education Colon Polyps Diverticulosis (DC) [facility] Work Phone: VIRAL RESPIRATORY INFECTION (HTRX) VIRAL RESPIRATORY INFECTION (HTRX) Lab Routine Acute cough Ordered: 01/12/2024 [facility] Work Phone: Comment on above: Ordered: 01/12/2024 Immunizations Immunization Date Immunization Notes Care Provider Zachary knox 11-19-2023 ABRYSVO - Respirator y syncytial virus (RSV), vaccine, bivalent, protein subunit RSV prefusion F, diluent reconstituted, 0.5 mL, PF Ana M PEREZ Work Phone: [facility] 09-02-2023 Influenza, High-dose Seasonal, Quadrivalent, Preservative Free Ana M PEREZ Work Phone: [facility] 08-26-2022 Fluad Quadrivalent 0 .5 ML Intramuscular Prefilled Syringe Leah Bagley PERSONAL LOAN SPECIALIST-POUNCING MACHINE OPERATOR Work Phone: [facility] [address] DO Work Phone: 08-05-2022 influenza, seasonal, injectable Leah Bagley PERSONAL LOAN SPECIALIST-POUNCING MACHINE OPERATOR Work Phone: [facility] [address] DO Work Phone: Comment on above: Series: 11-19-2021 Pfizer-BioNTech COVI D-19 Vacc 30 MCG/0.3ML Intramuscular Suspension Leah Bagley PERSONAL LOAN SPECIALIST-POUNCING MACHINE OPERATOR Work Phone: [facility] 250 DO Work Phone: 11-04-2021 Pfizer-BioNTech COVI D-19 Vacc 30 MCG/0.3ML Intramuscular Suspension Leah Bagley PERSONAL LOAN SPECIALIST-POUNCING MACHINE OPERATOR Work Phone: [facility] [address] DO Work Phone: 09-19-2021 influenza, high dose seasonal, preservative-free Leah Bagley PERSONAL LOAN SPECIALIST-POUNCING MACHINE OPERATOR Work Phone: [facility] 250 DO Work Phone: 08-30-2021 Fluzone High-Dose Quadrivalent 0.7 ML Intramuscular Suspension Prefilled Syringe Leah Bagley PERSONAL LOAN SPECIALIST-POUNCING MACHINE OPERATOR Work Phone: [facility] 250 DO Work Phone: 02-19-2021 Pfizer-BioNTech COVI D-19 Vacc 30 MCG/0.3ML Intramuscular Suspension Leah Bagley PERSONAL LOAN SPECIALIST-POUNCING MACHINE OPERATOR Work Phone: [facility] 250 DO Work Phone: 01-28-2021 Pfizer-BioNTech COVI D-19 Vacc 30 MCG/0.3ML Intramuscular Suspension Leah Bagley PERSONAL LOAN SPECIALIST-POUNCING MACHINE OPERATOR Work Phone: [facility] [address] DO Work Phone: 08-30-2020 influenza, high dose seasonal, preservative-free Leah Henriquezjessica Bagley PERSONAL LOAN SPECIALIST-POUNCING MACHINE OPERATOR Work Phone: [facility] 250 DO Work Phone: 08-30-2020 Seasonal, quadrivale nt, recombinant, injectable influenza vaccine, preservative free Ana M Becekr PA Work Phone: [facility] 11-09-2019 zoster vaccine recombinant Leah Henriquezd Bagley PERSONAL LOAN SPECIALIST-POUNCING MACHINE OPERATOR Work Phone: [place] [address] [place] Work Phone: 08-10-2019 Seasonal, quadrivale nt, recombinant, injectable influenza vaccine, preservative free Leah Henriquezjessica Bagley PERSONAL LOAN SPECIALIST-POUNCING MACHINE OPERATOR Work Phone: [facility] 08-10-2019 zoster vaccine recombinant Leah Kahnjessica Bagley PERSONAL LOAN SPECIALIST-POUNCING MACHINE OPERATOR Work Phone: [place] [address] DO Work Phone: 07-31-2019 influenza, seasonal, injectable, preservative free Leah Bagley PERSONAL LOAN SPECIALIST-POUNCING MACHINE OPERATOR Work Phone: [facility] [address] DO Work Phone: 08-17-2018 influenza, high dose seasonal, preservative-free Leah Bagley PERSONAL LOAN SPECIALIST-POUNCING MACHINE OPERATOR Work Phone: [facility] 250 DO Work Phone: 08-20-2017 pneumococcal polysaccharide vaccine, 23 valent Leah Kahn Kevyn PERSONAL LOAN SPECIALIST-POUNCING MACHINE OPERATOR Work Phone: [facility] DO Work Phone: 05-08-2017 pneumococcal polysaccharide vaccine, 23 valent Leah Henriquezjessica Bagley PERSONAL LOAN SPECIALIST-POUNCING MACHINE OPERATOR Work Phone: [facility] [address] DO Work Phone: 01-07-2016 pneumococcal conjuga te vaccine, 13 valent Leah Henriquezjessica Bagley PERSONAL LOAN SPECIALIST-POUNCING MACHINE OPERATOR Work Phone: [facility] [address] DO Work Phone: 05-01-2014 zoster vaccine, live Ana M araujo PA Work Phone: [facility] Healthcare Payers Date Payer Category Payer Medicare [id number] 2022 Private Health Insurance [id number] 2022 Private Health Insurance [facility] [id number] 2022-Present [address] [address] [place] [address] [id number] 2022 Private Health Insurance [id number] 2022 Self-pay [id number] 2011 Medicare [id number] 1959 Medicare [id number] 1946 Unknown [id number]. 356 1946 Unknown [id number] [id number]. 1068 1946 Unknown [id number] 2.16.840.1.909262.3.579.2. 593 1946 Unknown [id number] 2.16.840.1.161357.3.579.2. 1244 1946 Unknown [id number] 2.16.840.1.983812.3.579.2. 1259 1946 Unknown [id number] 2.16.840.1.838660.3.579.2. 1259 1946 Unknown [id number] 2.16.840.1.319816.3.579.2. 1259 1946 Unknown [id number] 2.16.840.1.256417.3.579.2. 1259 1946 Unknown [id number] 2.16.840.1.460543.3.579.2. 1259 Blue Cross Blue Shield [id number] Medicare [id number] Medicare [id number] [id number] Unknown Unknown Regular Auto/Liability [id number] Unknown [id number] [id number]. 531 Unknown [id number]. 531 Social History Date Type Detail Facility Unknown if ever smoked [facility] Other Start: 10-02-2023 End: 01-12-2024 Sex Assigned At [facility] Start: 10-02-2023 End: 01-12-2024 Daily caffeine consumption, 2-3 servings a day Daily caffeine consumption, 2-3 servings a day [facility] Start: 01-20-2023 End: 04-22-2023 Tobacco smoking status NHIS Ex-smoker (finding) [facility] Start: 1945 Sex Assigned At Female F [facility] End: 11-30-1971 History of tobacco use Current smoker [facility] Work Phone: End: 11-30-1971 History of tobacco use Cigarette Smoker [facility] Work Phone: Start: 04-22-2023 End: 10-02-2023 Tobacco use and exposure Smokeless tobacco non-user [facility] Work Phone: Start: 10-02-2023 End: 01-12-2024 Alcohol intake Lifetime non-drinker (finding) [facility] Work Phone: Start: 1945 Sex Assigned At Not on file U [facility] Work Phone: Start: 09-22-2023 End: 10-02-2023 Exposure to SARS-CoV-2 (event) Not sure [facility] How often to you hav e a [...] Status Date Assessment Result Facility 09-29-2022 PHQ-9 [id number] Mild (5-9) MP-Nor th [facility] 250 DO Work Phone: Clinical Notes 09-17-2021 to 01-12-2024 Tiffany Serna NP - 01/12/2024 10:00 AM Tiffanie Borrero MD - 10/02/2023 1:00 PM EDTPatient Instructions Note Date & Type Note Facility 01-12-2024 History of Present illness Narrative HPI Med Refill Additional comments: xanax Last edited by Grazyna Sanford MA on 01/12/2024 10:02 AM. Subjective Patient ID: Cheryl Lindquist is a 78 y.o. female who presents for a possible cold/sinus infection. Cheryl is present today for a possible cold/sinus [...] the same time. 100 tablet 3 Coenzyme R03-Diwr Oil-Vit E (CO-Q 10 OMEGA-3 FISH OIL [...] tablet before bedtime. 200 tablet 3 HYDROcodone-acetaminophen (Arroyo) 5-325 MG tablet Take 1 tablet by [...] follow-ups on file. documented in this encounter [facility] 10-02-2023 History of Present illness Narrative Subjective Cheryl Lindquist is a 77 y.o. female Chief [...] times a day., Disp: , Rfl: HYDROcodone-acetaminophen (Arroyo) 5-325 mg tablet, Take 1 tablet by [...] sustained reentrant arrhythmia. documented in this encounter [facility] Work Phone: 10-02-2023 Instructions Solomon Castro MA [...] Prevention Education Given documented in this encounter [facility] Work Phone: 01-20-[address] Procedure [address] [facility] 07-09-2022 Evaluation note Encounter Date Diagnosis Assessment Notes Jun, GERD (gastroesophage al reflux disease) (ICD-10 - K21.9) CONTINUE LANSOPRAZOLE 30 MG TWICE A DAY Jun, Dyspepsia (ICD-10 - K30) Jun, History of Helicobacter pylori infection (ICD-10 - Z86.19) Jun, Irritable bowel syndrome with constipation (ICD-10 - K58.1) [facility] Other 03-17-2022 Evaluation note* Encounter Date Diagnosis [...] improve within the next 4-7 days. Jan, Other Additional time spent conducting pre-visit phone call, screening for symptoms, instructions on social distancing, application and removal of PPE, and cleaning of examination room, equipment and supplies was preformed. Patient education given for testing methodology and results. Patient care instructions given in writting by [facility] Care At Home document. [facility] Other 12-13-2021 Evaluation note* Encounter Date Diagnosis Assessment Notes Treatment Notes Treatment Clinical Notes Oct, GERD (gastroesophageal reflux disease) (ICD-10 - K21.9) CONTINUE LANSOPRAZOLE BID WITHOUT CHANGE F/U HERE 6 MONTHS MAY CONSIDER REPEATING EGD AT THAT TIME [facility] Other 10-19-2021 Evaluation note* Encounter Date Diagnosis Assessment Notes Treatment Notes Treatment Clinical Notes Aug, Gastroesophageal ref lux disease with esophagitis without hemorrhage (ICD-10 - K21.00) Aug, Disease of stomach a nd duodenum, unspecified (ICD-10 - K31.9) Aug, Other STOP PANTOPRAZOLE RTO 6 WEEKS [facility] Other Evaluation noteNo InformationNort SEJENT Other Evaluation noteNo assessment information available [facility] Work Phone: Evaluation note* Diagnosis Mixed hyperlipidemia- Primary Palpitations Paroxysmal SVT (supraventricular tachycardia) documented in this encounter [facility] Work Phone: Evaluation note* Diagnosis Acute cough- Primary Generalized anxiety disorder (CMS/HCC) Generalized anxiety disorder Acute non-recurrent pansinusitis [facility] Diagnosis COVID-19- Primary documented in this encounter [facility] Author Debra Villasenor [facility] January 20, 2023 9:02am Note Date/Time January 20, 2023 9:02am [facility] [address] [place] [address] Gastroenterology H&P Signed Patient: Cheryl Lindquist MR#: [id number] : 1945 Acct:[id number] Age/Sex: 77 / F Adm Date: 3 Loc: Room: Type: [facility] Attending Dr: Debra Villasenor MD Copies to: [...] <Electronically signed by Debra Villasenor MD> 01/20/23901 [facility] Work Phone: History general Narrative - Reported* Type Description Date Medical History Diabetic Medical History Acid reflux Surgical History T&A child Surgical History appenedectomy 1964 Surgical History hysterectomy 1992 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 She denies medication side effects. -[facility] [address] DO Work Phone: Hospital Discharge instructions [...] NOT operate machinery such as power tools, lawn mowers, snow blowers, sewing machines, etc. for [...] colon -Follow up with PCP. -Office number [phone]. [facility] Work Phone: Reason for referral (narrative)* Consultation (Routine) - Authorized Specialty Diagnoses / Procedures Referred By Shahla cartagena Referred To Contact Cardiology Diagnoses Mixed hyperlipidemia Palpitations Paroxysmal SVT (supraventricular tachycardia) Procedures Follow Up In Cardiology Soren Borrero MD [address] [place] [address] 2, [address] [address] Soren Borrero MD [address] [place] [address] 2, [address] [place] [address] Referral ID Status Reason Start Date Expiration Date V isits Requested Visits Authorized [id number] Authorized 10/02/2023 10/01/2024 1 1 [facility] Work Phone: Summary Purpose Family History No Family History Records FoundUnknown Family Member Name Dates Details Family history of CABG: Brot her(V17.49, Z82.49) Status:Active Cardiac abnormality: Mother, Brother Status:Active Heart problem: Mother Comments:Reported Previous C ardiac Problems; Status:Active Unknown Family Member Name Dates Details Family history of CABG: Waqast her(V17.49, Z82.49) Status:Active Cardiac abnormality: Mother, Brother [...] Complaint * Annual f/u: 'doing fine' * CHERYL LINDQUIST is being seen for an annual [...] section and content) DATE CREATED AUTHOR 09/30/2022 [facility] DATE CREATED AUTHOR AUTHOR'S ORGANIZ ATION 10/01/2022 [employer] DATE CREATED AUTHOR AUTHOR'S ORGANIZ ATION 11/06/2022 [facility] DATE CREATED AUTHOR AUTHOR'S ORGANIZ ATION 01/28/2023 [facility] DATE CREATED AUTHOR AUTHOR'S ORGANIZ ATION 04/10/2023 [facility] pital DATE CREATED AUTHOR AUTHOR'S ORGANIZ ATION 10/04/2023 [facility] DATE CREATED AUTHOR AUTHOR'S ORGANIZ ATION 02/05/2024 [facility] d[facility] Specialists EPIC Care Teams (unrecognized sec tion and content) Team Status: Inactive Member Role Status Dates Chris Whitaker II MD Primary Care Provider Active Debra Villasenor MD Attending Provider Active Team Status: Active Member Role Status Dates Chris Whitaker II MD Primary Care Provider Active Recovery Agent Relationship Specialty Start Date End Date Chris Whitaker MD [address] [facility] [address] [place] [address] PCP - General Internal Medicine 10/02/23 Recovery Agent Relationship Specialty Start Date End Date Chris Whitaker MD [address] [facility] [address] [place] [address] PCP - General Internal Medicine 04/20/23 Recovery Agent Relationship Specialty Start Date End Date Chris Whitaker MD [address] [facility] [address] [place] [address] PCP - General Internal Medicine 04/20/23 Recovery Agent Relationship Specialty Start Date End Date Chris Whitaker MD [address] [facility] [address] [place] [address] PCP - General Internal Medicine 04/20/23 Recovery Agent Relationship Specialty Start Date End Date Chris Whitaker MD [address] [facility] [address] [place] [address] PCP - General Internal Medicine 04/20/23 FOR [...] BE BASED ON THE PRIMARY CLINICAL RECORDS. [employer] [facility]. provides no warranty or guarantee of the accuracy or completeness of information in this document.
[2024-02-19] MEDS: KETOROLAC TROMETHAMINE 30 MG/ML VIAL IVP (10:52)
[2024-02-19] MEDS: METHYLPREDNISOLONE SOD SUCC PF 125 MG/2 ML VIAL IVP (10:52)
--- NOTE | 2024-02-19 11:07 | CT_ITS ---
The [address] [address] Patient Name: MILLI CARDONA MRN: [id number] date: 1945 Sex: F Assigned Patient Location: ER Current Patient Location: ER Accession/Order Number: [id number] Exam Date: 02/19/2024 11:02 Report Date: 02/19/2024 11:29 At the request of: SALOMON JOYCE Procedure: CT cervical spine wo con EXAM TYPE: CT cervical spine wo con EXAM DATE AND TIME: 02/19/2024 11:02 AM EDT INDICATION: 78 years old Female with neck pain COMPARISON: Radiographs 04/23/2017 TECHNIQUE: CT imaging of the cervical spine was obtained without contrast. Dose reduction techniques were achieved by using automated exposure control and/or adjustment of mA and/or kV according to patient size and/or use of iterative reconstruction technique. FINDINGS: There is straightening of the cervical lordosis. No subluxation. Vertebral body heights are maintained. No acute fracture identified. 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 Craniocervical junction is normal in appearance. Atlantodental distance is not widened. No prevertebral soft tissue swelling. Mild to moderate multilevel degenerative disc disease and facet arthropathy, most significant at the C5-C6 level. No CT evidence of severe spinal canal or severe neural foraminal stenosis. CT/CT cervical spine wo con IMPRESSION: 1. Mild to moderate multilevel degenerative disease. No CT evidence of focal large central disc herniation, severe spinal canal or severe neural foraminal stenosis. No acute fracture. Electronically authenticated by: MICHELL ALDRIDGE Date: 02/19/2024 11:29
--- NOTE | 2024-02-19 12:22 | ED.NECK1 ---
HPI - Neck Pain/Injury General Chief Complaint: Neck Pain/Injury Stated Complaint: NECK PAIN Time Seen by Provider: 02/19/24 10:00 Source: patient Mode of arrival: walk-in History of Present Illness HPI Narrative: The patient developed posterior neck pain a few days ago on waking. She denied any recent injury or activity that might have caused this pain. 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 She localizes the pain to the bilateral posterior neck with some radiation into the left trapezius and left scapula. No skin rash. No fever or chills. No cough or cold symptoms. Related Data Home Medications ?Medication ?Instructions ?Recorded ?Confirmed alprazolam 0.25 mg tablet 0.25 mg PO DAILY 02/19/24 02/19/24 bisoprolol fumarate 5 mg tablet 5 mg PO DAILY 02/19/24 02/19/24 gabapentin 300 mg capsule 600 mg PO QPM 02/19/24 02/19/24 glyburide 5 mg-metformin 500 mg 1 tab PO BID 02/19/24 02/19/24 tablet hydrocodone 5 mg-acetaminophen 325 1 tab PO Q6H PRN pain 02/19/24 02/19/24 mg tablet ibandronate 150 mg tablet 150 mg PO QAM 02/19/24 02/19/24 lansoprazole 30 mg capsule,delayed 30 mg PO DAILY 02/19/24 02/19/24 release rosuvastatin 10 mg tablet 10 mg PO DAILY 02/19/24 02/19/24 zolpidem 10 mg tablet 10 mg PO QPM 02/19/24 02/19/24 Previous Rx's ?Medication ?Instructions ?Recorded methocarbamol 750 mg tablet 750 mg PO Q6H PRN pain #30 tabs 02/19/24 nabumetone 750 mg tablet 750 mg PO BID PRN pain #14 tabs 02/19/24 Allergies Allergy/AdvReac Type Severity Reaction Status Date / Time prednisone Allergy Severe Verified 02/19/24 10:04 Exam Narrative Exam Narrative: Nurses notes and vital signs reviewed and patient is not hypoxic. afebrile General: Well-appearing and in no apparent distress. Skin: Warm, dry, no pallor noted. No rash. Head: Normocephalic, atraumatic. Neck: Supple, no Cervical lymphadenopathy. The patient has diffuse posterior neck tenderness with some associated soft tissue spasming. This tenderness continues into the superior trapezius on the left and near the left scapular Soft tissue. Cardiovascular: Regular Rate and Rhythm without murmur, gallop or rub. Respiratory: No accessory muscle use or respiratory distress. Lungs are clear to auscultation, no wheezing, rales or rhonchi Back: No midline thoracic or lumbar vertebral tenderness. No CVA tenderness Musculoskeletal: normal ROM, Normal upper extremity strength and sensation Neurological: A&O x4. No cranial nerve dysfunction observed. No truncal ataxia. Moves all extremities. Sensation intact. Psychiatric: Cooperative and interactive. Normal mood and affect. Constitutional Vital Signs, click to edit/add: Last Vital Signs Temp 98.5 F 02/19/24 09:56 Pulse 78 02/19/24 09:56 Resp 20 02/19/24 09:56 BP 159/88 H 02/19/24 09:56 Pulse Ox 98 02/19/24 09:56 O2 Del Method Room Air 02/19/24 09:56 Course Vital Signs Vital signs: Vital Signs Temperature 98.5 F 02/19/24 09:56 Pulse Rate 78 02/19/24 09:56 Respiratory Rate 20 02/19/24 09:56 Blood Pressure 159/88 H 02/19/24 09:56 Pulse Oximetry 98 02/19/24 09:56 Oxygen Delivery Method Room Air 02/19/24 09:56 Temperature 98.5 F 02/19/24 09:56 Pulse Rate 78 02/19/24 09:56 Respiratory Rate 20 02/19/24 09:56 Blood Pressure 159/88 H 02/19/24 09:56 Pulse Oximetry 98 02/19/24 09:56 Oxygen Delivery Method Room Air 02/19/24 09:56 MDM - Neck Pain/Injury MDM Narrative Medical decision making narrative: The patient received IV Solu-Medrol and IV Toradol and was sent for CT scanning of the cervical spine. She felt a little better after ED treatment. She said that it took the edge off and decrease her pain Enough to be tolerable CT scanning showed just degenerative changes of the cervical spine but no meningioma or other worrisome findings. All of this was explained to the patient she was discharged home with prescriptions for Relafen and Robaxin. She is a diabetic so I do not want to give her any additional steroid She can see her primary care physician for follow-up or return to the emergency department if her condition worsens. Imaging Data ct cervical spine: Attestation: I have reviewed the pertinent imaging results. Radiologist's impression: ITS Impressions Cervical Spine CT 02/19/24 11:07 IMPRESSION: 1. Mild to moderate multilevel degenerative disease. No CT evidence of focal large central disc herniation, severe spinal canal or severe neural foraminal stenosis. No acute fracture. Electronically authenticated by: MICHELL ALDRIDGE Date: 02/19/2024 11:29 Discharge Plan Discharge Stand Alone Forms: Portal Instructions Chief Complaint: Neck Pain/Injury Clinical Impression: Acute neck pain, DDD (degenerative disc disease), cervical Patient Disposition: Home, Self-Care Time of Disposition Decision: 12:25 Prescriptions / Home Meds: New nabumetone 750 mg tablet 750 mg PO BID PRN (Reason: pain) Qty: 14 0RF methocarbamol 750 mg tablet 750 mg PO Q6H PRN (Reason: pain) Qty: 30 0RF No Action alprazolam 0.25 mg tablet 0.25 mg PO DAILY bisoprolol fumarate 5 mg tablet 5 mg PO DAILY gabapentin 300 mg capsule 600 mg PO QPM glyburide-metformin 5-500 mg tablet 1 tab PO BID hydrocodone-acetaminophen 5-325 mg tablet 1 tab PO Q6H PRN (Reason: pain) ibandronate 150 mg tablet 150 mg PO QAM lansoprazole 30 mg capsule,delayed release(DR/EC) 30 mg PO DAILY rosuvastatin 10 mg tablet 10 mg PO DAILY zolpidem 10 mg tablet 10 mg PO QPM Print Language: [place] Instructions: Spasmodic Torticollis (ED), Degenerative Disc Disease (ED) Referrals: LEANDRO TODD [Primary Care Provider] - 1 week
[2024-02-19 13:00] VITALS: BP 138/77; PULSE 82; RESP 16; O2SAT 94
== END 2024-02-19 13:01 | disposition home or self-care (01) ==
PROVIDERS: Emergency Provider Emergency Medicine; PCP Internal Medicine
DX: M50.30 Other cervical disc degeneration, unspecified cervical region (principal); E11.9 Type 2 diabetes mellitus without complications; Z79.899 Other long term (current) drug therapy
CPT/HCPCS: 72125; 96374; 96375; 99284; J2930

== ENCOUNTER 2024-11-10 08:46 | Emergency (ER) | payer MEDICARE, SELFPAY ==
[2024-11-10] VITALS (32 sets, daily range): BP systolic 103–161; BP diastolic 64–107; PULSE 67–149; TEMP 36.6; O2SAT 93–99; BMI 20.9
--- NOTE | 2024-11-10 09:05 | CT_ITS ---
The [address] [address] Patient Name: MILLI CARDONA MRN: [id number] date: 1945 Sex: F Assigned Patient Location: ER Current Patient Location: ER Accession/Order Number: [id number] Exam Date: 11/10/2024 09:45 Report Date: 11/10/2024 10:45 At the request of: AMANDA NICHOLS Procedure: CT chest wo con EXAMINATION: CT chest wo con HISTORY: trauma COMPARISON: No relevant comparison available. TECHNIQUE: Multi-planar CT images were created with IV contrast. Axial, Coronal, and Sagittal images. Dose reduction techniques were achieved by using automated exposure control and/or adjustment of mA and/or kV according to patient size and/or use of iterative reconstruction technique. FINDINGS: LUNGS: Moderate right pneumothorax measuring up to 2.4 cm anteriorly. Mild groundglass infiltrates in both lung bases, atelectasis is favored PLEURA: No mass, effusion, or pneumothorax. VASCULATURE: No abnormality. SONAM: No mass or adenopathy. MEDIASTINUM: No mass or adenopathy. CARDIAC: No enlargement or pericardial effusion Coronary arteries: Moderate calcifications AORTA: No aneurysm. Moderate calcific atherosclerosis CHEST WALL: No mass or axillary adenopathy. BONES: Fracture of the right posterior eighth and ninth ribs with a small amount of subcutaneous emphysema LIMITED ABDOMEN: Moderate amount of stool throughout the colon. Cholelithiasis without CT evidence of acute cholecystitis OTHER: Negative. CT/CT chest wo con IMPRESSION: Moderate right pneumothorax with right posterior eighth and ninth rib fractures. Electronically authenticated by: EUNICE JAMES Date: 11/10/2024 10:45
[2024-11-10] MEDS: ONDANSETRON PF 4 MG/2 ML VIAL IV (09:30)
[2024-11-10] MEDS: MORPHINE SULFATE 2 MG/ML SYRINGE IV ×3 (09:35→15:53)
[2024-11-10] MEDS: KETOROLAC TROMETHAMINE 30 MG/ML VIAL 15 MG IVP ×2 (09:35→11:56)
--- NOTE | 2024-11-10 09:46 | ED_ITS ---
HPI HPI - General Adult General Chief complaint: Fall Stated complaint: fall Time Seen by Provider: 11/10/24 09:00 Source: patient and family Mode of arrival: Wheelchair Limitations: no limitations History of Present Illness HPI narrative: The patient is coming to us with a fall that she sustained just few minutes ago, the patient apparently slid while she was wiping the floor and fell on the right side of her chest on the counter with a kitchen There was no loss of consciousness there was no head injury The patient is complaining of localized right-sided chest wall pain that comes whenever she take a deep breath or move There was no other concern and the patient does not take any anticoagulant Related Data Home Medications ?Medication ?Instructions ?Recorded ?Confirmed alprazolam 0.25 mg tablet 0.25 mg PO DAILY 02/19/24 02/19/24 bisoprolol fumarate 5 mg tablet 5 mg PO DAILY 02/19/24 02/19/24 gabapentin 300 mg capsule 600 mg PO QPM 02/19/24 02/19/24 glyburide 5 mg-metformin 500 mg 1 tab PO BID 02/19/24 02/19/24 tablet hydrocodone 5 mg-acetaminophen 325 1 tab PO Q6H PRN pain 02/19/24 02/19/24 mg tablet ibandronate 150 mg tablet 150 mg PO QAM 02/19/24 02/19/24 lansoprazole 30 mg capsule,delayed 30 mg PO DAILY 02/19/24 02/19/24 release rosuvastatin 10 mg tablet 10 mg PO DAILY 02/19/24 02/19/24 zolpidem 10 mg tablet 10 mg PO QPM 02/19/24 02/19/24 Previous Rx's ?Medication ?Instructions ?Recorded methocarbamol 750 mg tablet 750 mg PO Q6H PRN pain #30 tabs 02/19/24 nabumetone 750 mg tablet 750 mg PO BID PRN pain #14 tabs 02/19/24 Allergies Allergy/AdvReac Type Severity Reaction Status Date / Time prednisone Allergy Severe Verified 02/19/24 10:04 Opioid HPI Opioid Management Most Recent Opioid Data: Last Pain Scale 9 11/10/24 15:53 11/10/24 Last ED Pain Assessment 11/10/24 10:23 Last MAR Pain Assessment 11/10/24 15:53 Review of Systems ROS Status of ROS 10 or more systems reviewed and unremark able except as noted in history and below PFSH PFSH Social History Little interest or pleasure in doing things: not at all Feeling down, depressed, or hopeless: not at all Exam Narrative Exam Narrative: Nurses notes and vital signs reviewed and patient is not hypoxic. General: Well-appearing and in no apparent distress. Skin: Warm, dry, no pallor noted. No rash. Head: Normocephalic, atraumatic. Neck: Supple, non-tender. Eye: Pupils are equal, round and EOMI. No scleral icterus. Ears, Nose, Mouth, and Throat: TM are clear, no nasal mucosal hypertrophy. Oral mucosa is moist, no posterior oropharynx erythema, uvula is mid-line Cardiovascular: Regular Rate and Rhythm without murmur, gallop or rub. Respiratory: There is a mild decrease in the right lung airway breathing sounds and the patient have no wheezing or any rhonchi but palpation of the right side of the chest wall also shows severe tenderness mostly at the midaxillary line on the right side as well and just below the right breast there is no contusion th ere was noted that there was no open wound or crepitus Left lung examination was benign Back: No midline thoracic or lumbar vertebral tenderness. No CVA tenderness Musculoskeletal: normal ROM, no calf or popliteal tenderness, no lower extremity edema/swelling GI: Abdomen is soft, non-distended. Normal bowel sounds. No masses appreciated. No tenderness to palpation. No rebound, guarding, or rigidity noted. Neurological: A&O x4. No cranial nerve dysfunction observed. No truncal ataxia. Moves all extremities. Sensation intact. Psychiatric: Cooperative and interactive. Normal mood and affect. Constitutional Vital Signs, click to edit/add: Last Vital Signs Temp 98 F 11/10/24 08:55 Pulse 149 H 11/10/24 14:40 Resp 23 H 11/10/24 14:40 BP 120/64 11/10/24 16:32 Pulse Ox 98 11/10/24 17:10 O2 Del Method Room Air 11/10/24 08:55 Course Vital Signs Vital signs: Vital Signs Temperature 98 F 11/10/24 08:55 Pulse Rate 69 11/10/24 08:55 Respiratory Rate 20 11/10/24 08:55 Blood Pressure 156/90 H 11/10/24 08:55 Pulse Oximetry 97 11/10/24 08:55 Oxygen Delivery Method Room Air 11/10/24 08:55 Temperature 98 F 11/10/24 08:55 Pulse Rate 149 H 11/10/24 14:40 Respiratory Rate 23 H 11/10/24 14:40 Blood Pressure 120/64 11/10/24 16:32 Pulse Oximetry 98 11/10/24 17:10 Oxygen Delivery Method Room Air 11/10/24 08:55 Medical Decision Making MDM Narrative Medical decision making narrative: The patient had a CT of the chest showing the pneumothorax that is moderate- sized in addition to 8-9 ribs fracture The patient CBC and chemistry showed no acute pathology Pigtail was placed to the right side: After cleaning the area thoroughly and explained to the patient the procedure at the fourth intercostal anterior axillary line the patient had the area cleaned well with chlorhexidine after that infiltrating the area with 10 cc of 1% lidocaine with no epinephrine after which the patient had the pigtail pneumothorax tube placed, the air and gas tried away and the patient breathing correlating with the movement in the flutter of the pigtail While doing the chest x-ray it was noted that the patient catheter is just at the tip of the pleura and replacement of the tube was done and the chest x-ray shows that the patient there is improvement of the pneumothorax from 2.7 cm to 0.8 cm The patient case was discussed with and general surgery from [facility] and the patient case was accepted to be transferred Patient pain was controlled in the ER with fentanyl in addition to Toradol and morphine initially The patient otherwise is stable awaiting to be transferred The patient had multiple checks on her with the auscultation of the right and left lung field shows equal breathing sounds The patient already had improvement in her chest x-ray pneumothorax and she did not have any other complaint other than the pain which could be secondary to the fracture as well as the contusion from the fall The patient right now is ready to be transferred and she is stable Lab Data Labs: Lab Results 11/10/24 11/10/24 Range/Units 10:05 13:18 WBC 5.1 (4.0-11.0) 10^3/uL RBC 4.08 L (4.20-5.40) 10^6/uL Hgb 12.0 (12.0-16.0) g/dL Hct 36.7 (36.0-48.0) % MCV 90.0 (81.0-99.0) fL MCH 29.4 (26.7-34.0) pg MCHC 32.7 (29.9-35.2) g/dL RDW 12.8 (11.0-15.0) % Plt Count 211 (150-450) 10^3/uL MPV 8.3 L (9.5-13.5) fL Neut % (Auto) 67.3 (43.0-75.0) % Lymph % (Auto) 21.8 (20.5-60.0) % Garrett % (Auto) 9.1 (1.7-12.0) % Eos % (Auto) 1.0 (0.9-7.0) % Baso % (Auto) 0.6 (0.2-2.0) % Neut # (Auto) 3.4 (1.4-6.5) 10^3/uL Lymph # (Auto) 1.1 L (1.2-3.8) 10^3/uL Garrett # (Auto) 0.5 (0.3-0.8) 10^3/uL Eos # (Auto) 0.1 (0.0-0.7) 10^3/uL Baso # (Auto) 0.0 (0.0-0.1) 10^3/uL Abs Immat Gran (auto) 0.01 (0.00-0.03) 10^3/uL Imm/Tot Granulo (auto) 0.2 (0.0-0.5) % PT 10.7 (9.0-11.6) sec INR 1.01 Sodium 145 (136-145) mmol/L Potassium 4.5 (3.5-5.1) mmol/L Chloride 106 (98-107) mmol/L Carbon Dioxide 30.4 (21.0-32.0) mmol/L Anion Gap 13.1 BUN 7.0 (7.0-18.0) mg/dL Creatinine 0.73 (0.55-1.02) mg/dL Est GFR ( Amer) >60 (>=60 mL/min/1.73m^2) Est GFR (Non-Af Amer) >60 (>=60 mL/min/1.73m^2) BUN/Creatinine Ratio 9.6 Glucose 160 H (74-106) mg/dL Calcium 9.3 (8.5-10.1) mg/dL Total Bilirubin 0.4 (0.2-1.0) mg/dL AST 14 L (15-37) U/L ALT 15 (14-59) U/L Alkaline Phosphatase 51 (46-116) U/L Total Protein 6.2 L (6.4-8.2) g/dL Albumin 3.2 L (3.4-5.0) g/dL Globulin 3.0 g/dL Albumin/Globulin Ratio 1.1 POC Glucose 105 (74-106) mg/dL Blood Type AB Negative Antibody Screen Negative Discharge Plan Discharge Chief Complaint: Fall Clinical Impression: Multiple fractures of ribs, Pneumothorax Patient Disposition: [facility] Time of Disposition Decision: 15:02
[2024-11-10 10:13] LABS: Basophils Percent Auto 0.6 % (0.2-2.0); Eosinophils Absolute Auto 0.1 10^3/uL (0.0-0.7); Hematocrit 36.7 % (36.0-48.0); Immature Granulocytes Abs Auto 0.01 10^3/uL (0.00-0.03); Immature Granulocytes Pct Auto 0.2 % (0.0-0.5); Lymphocytes Absolute Auto 1.1 10^3/uL (1.2-3.8); Lymphocytes Percent Auto 21.8 % (20.5-60.0); Mean Corpuscular HGB Conc 32.7 g/dL (29.9-35.2); Mean Corpuscular Hemoglobin 29.4 pg (26.7-34.0); Mean Platelet Volume 8.3 fL (9.5-13.5); Monocytes Absolute Auto 0.5 10^3/uL (0.3-0.8); Monocytes Percent Auto 9.1 % (1.7-12.0); Neutrophils Absolute Auto 3.4 10^3/uL (1.4-6.5); Neutrophils Percent Auto 67.3 % (43.0-75.0); Platelet Count 211 10^3/uL (150-450); Red Blood Count 4.08 10^6/uL (4.20-5.40); Red Cell Distribution Width 12.8 % (11.0-15.0); White Blood Count 5.1 10^3/uL (4.0-11.0)
--- NOTE | 2024-11-10 10:17 | XR_ITS ---
The [address] [address] Patient Name: MILLI CARDONA MRN: [id number] date: 1945 Sex: F Assigned Patient Location: ER Current Patient Location: ER Accession/Order Number: [id number] Exam Date: 11/10/2024 10:25 Report Date: 11/10/2024 10:49 At the request of: AMANDA NICHOLS Procedure: XR chest 1V EXAMINATION: XR chest 1V HISTORY: pneumothorax COMPARISON: No relevant comparison available. TECHNIQUE: AP portable FINDINGS: LUNGS: 2.7 cm right apical pneumothorax. VASCULATURE: No increased pulmonary vasculature. PLEURA: No pleural effusion CARDIAC: No cardiomegaly or cardiac silhouette abnormality. MEDIASTINUM: No visible mass or adenopathy. BONES: Actual right posterior eighth and ninth ribs OTHER: Negative. XR/XR chest 1V IMPRESSION: 2.7 cm right apical pneumothorax with right posterior eighth and ninth rib fractures. Electronically authenticated by: EUNICE JAMES Date: 11/10/2024 10:49
[2024-11-10 10:26] LABS: INR 1.01; Prothrombin Time 10.7 sec (9.0-11.6)
[2024-11-10 10:28] LABS: Alanine Aminotransferase 15 U/L (14-59); Albumin Globulin Ratio 1.1; Albumin Level 3.2 g/dL (3.4-5.0); Alkaline Phosphatase 51 U/L (46-116); Anion Gap 13.1; Aspartate Amino Transferase 14 U/L (15-37); BUN Creatinine Ratio 9.6; Bilirubin Total 0.4 mg/dL (0.2-1.0); Calcium 9.3 mg/dL (8.5-10.1); Carbon Dioxide 30.4 mmol/L (21.0-32.0); Chloride 106 mmol/L (98-107); Estimated GFR (African America >60 (>=60 mL/min/1.73m^2); Estimated GFR (Non-African Ame >60 (>=60 mL/min/1.73m^2); Glucose 160 mg/dL (74-106); Potassium 4.5 mmol/L (3.5-5.1); Sodium 145 mmol/L (136-145); Total Protein 6.2 g/dL (6.4-8.2)
--- NOTE | 2024-11-10 11:43 | XR_ITS ---
The [address] [address] Patient Name: MILLI CARDONA MRN: [id number] date: 1945 Sex: F Assigned Patient Location: ER Current Patient Location: ER Accession/Order Number: [id number] Exam Date: 11/10/2024 11:50 Report Date: 11/10/2024 13:02 At the request of: AMANDA NICHOLS Procedure: XR chest 1V EXAMINATION: XR chest 1V HISTORY: post pigtail placement COMPARISON: 11/10/2024 TECHNIQUE: AP portable FINDINGS: LUNGS: Interval insertion of a smallbore right chest tube, the chest tube projects over the lateral pleura. Reduction in now 1.2 cm right apical pneumothorax. Left lung is clear VASCULATURE: No increased pulmonary vasculature. PLEURA: No pleural effusion CARDIAC: No cardiomegaly or cardiac silhouette abnormality. MEDIASTINUM: No visible mass or adenopathy. BONES: Stable right posterior rib fractures OTHER: Negative. XR/XR chest 1V IMPRESSION: Right chest tube tip appears to be at the pleura Reduction in right pneumothorax measuring 1.2 cm Electronically authenticated by: EUNICE JAMES Date: 11/10/2024 13:02
--- NOTE | 2024-11-10 12:40 | XR_ITS ---
The [address] [address] Patient Name: MILLI CARDONA MRN: [id number] date: 1945 Sex: F Assigned Patient Location: ER Current Patient Location: ER Accession/Order Number: [id number] Exam Date: 11/10/2024 12:42 Report Date: 11/10/2024 13:02 At the request of: AMANDA NICHOLS Procedure: XR chest 1V EXAMINATION: XR chest 1V HISTORY: advancement of tube COMPARISON: 11/10/2024 at 1149 TECHNIQUE: Portable FINDINGS: LUNGS: Interval advancement of the right chest tube now projected over the right lateral upper lung zone. Right apical pneumothorax measuring 8 mm. VASCULATURE: No increased pulmonary vasculature. PLEURA: No pneumothorax, effusion, or pleural thickening. CARDIAC: No cardiomegaly or cardiac silhouette abnormality. MEDIASTINUM: No visible mass or adenopathy. BONES: Right posterior rib fractures OTHER: Negative. XR/XR chest 1V IMPRESSION: Interval advancement of right chest tube with small right apical pneumothorax measuring 8 mm Electronically authenticated by: EUNICE JAMES Date: 11/10/2024 13:02
[2024-11-10] MEDS: FENTANYL CITRATE/PF 100 MCG/2 ML VIAL 50 MCG IV ×3 (13:09→18:11)
[2024-11-10 13:22] LABS: Glucometer 105 mg/dL (74-106)
== END 2024-11-10 18:25 | disposition short-term general hospital (02) ==
PROVIDERS: Emergency Provider Emergency Medicine; PCP Internal Medicine
DX: S27.0XXA Traumatic pneumothorax, initial encounter (principal); S22.41XA Multiple fractures of ribs, right side, initial encounter for closed fracture; W01.198A Fall on same level from slipping, tripping and stumbling with subsequent striking against other object, initial encounter
CPT/HCPCS: 32551; 36415; 71045; 71250; 80053; 85025; 85610; 86850; 86900; 86901; 96374; 96375; 96376; 99285; J1885; J2270; J2405; J3010

== ENCOUNTER 2025-05-18 09:08 | Outpatient (OUT) | payer MEDICARE, SELFPAY ==
--- OUTSIDE RECORDS SUMMARY | 2025-05-18 09:15 | XMS_ITS | Encounter Summary ---
Author Organization [facility] Address [address] [place] [address] Care Team Providers Care Country Printer Name Role Phone Chris Whitaker MD Primary Care Provider [phone] Encounter Details Date Type Department Care Team (Late Contact Info) Description 02/08/2024 Clinisync Result Encounter [facility] Unsolicited Ana M Lundberg, PA [address] [place] [address] Social History Tobacco Use Types Packs/Day Years Used Date Smoking Tobacco: Former Cigarettes Smokeless Tobacco: Never Alcohol Use Standard Drinks/Week Comments Never 0 (1 standard drink = 0.6 oz pure alcohol) Caffeine intake : 1-2 cups per day soda/pop AUDIT-C Answer Date Recorded Q1: How often do you have a drink containing alc ohol? Monthly or less 04/22/2023 Q2: How many drinks containi ng alcohol do you have on a typical day when you are drinking? 1 or 2 04/22/2023 Q3: How often do you have si x or more drinks on one occasion? Never 04/22/2023 PHQ-2 Answer Date Recorded Patient Health Questionnaire-2 Score 2 01/25/2024 Comments No Sex and Gender Information Value Date Recorded Sex Assigned at Not on file Legal Sex Female 6:45 PM EDT Gender Identity Not on file Sexual Orientation Not on file documented as of this encounter Plan of Treatment Upcoming Encounters Date Type Department Care Team (Late Contact Info) Description 05/18/2025 3:15 PM EDT Office Visit [facility] [address] [place] [phone] Giuseppe Durham DO [address] [place] [address] 07/10/2025 1:00 PM EDT Office Visit [facility] [address] [place] [phone] Ana M Lundberg PA [address] [place] [address] 07/21/2025 1:20 PM EDT Office Visit [facility] [address] [place] [phone] Ivet Brumfield PA [address] [place] [phone] 08/17/2025 1:45 PM EDT Office Visit [facility] [address] [place] [phone] Raeann Carbajal, DPM [address] [place], [place] [phone] documented as of this encounter Procedures Procedure Name Priority Date/Time Associated Diagnosis Comments XR DEXA AXIAL SKELETON 02/08/2024 2:13 PM EDT documented in this encounter Results * XR DEXA AXIAL SKELETON (02/08/2024 2:13 PM EDT) Anatomical Region Laterality Modality Other 02/08/2024 2:13 PM EDT Narrative 02/08/2024 2:15 PM EDT The [address] [address] XRay Report Signed Patient: MILLI CARDONA MR#: [id number] : 1945 Acct:[id number] Age/Sex: 78 / F ADM Date: 02/08/24 Loc: RAD Attending Dr: ANA M LUNDBERG Ordering Physician: ANA M LUNDBERG Date of Service: 02/08/24 Procedure(s): XR DEXA axial skeleton Accession Number(s): [id number] cc: CHRIS WHITAKER ; ANA M LUNDBERG The [place] [address] Patient Name: MILLI CARDONA MRN: [id number] date: 1945 Sex: F Assigned Patient Location: RAD Current Patient Location: RAD Accession/Order Number: [id number] Exam Date: 02/08/2024 13:20 Report Date: 02/08/2024 14:13 At the request of: ANA M LUNDBERG Procedure: XR DEXA axial skeleton EXAMINATION: XR DEXA axial skeleton, 02/08/2024 1:20 PM EDT HISTORY: estrogen deficiency E28.39 COMPARISON: . TECHNIQUE: Dual-energy X-ray absorptiometry (DEXA) bone density study performed for the axial skeleton. HISTORY: estrogen deficiency E28.39 FINDINGS: Bone mineral density of the L spine L1-L4 is 1.012 g/cm2, t score -1.4, who classification is Osteopenia Bone mineral density is lowest in the left femoral trochanter is 0.590 g/cm2, t score is -2.3. who classification is Osteopenia XR/XR DEXA axial skeleton IMPRESSION: Osteopenia, moderate fracture risk Electronically authenticated by: EUNICE JAMES Date: 02/08/2024 14:13 Dictated By: Eunice James M.D. Signed By: 02/08/24 1415 DD/ 1413 TD/TT: Quality Improvement Coordinator (Rn): Procedure Note Radiology, Radiologist, MD - 02/08/2024 [place] [address] XRay Report Signed Patient: MILLI CARDONA JMR#: [id number] : 7Acct:[id number] Age/Sex: 78 / FADM Date: 02/08/24 Loc: RAD Attending Dr: ANA M LUNDBERG Ordering Physician: ANA M LUNDBERG Date of Service: 02/08/24 Procedure(s): XR DEXA axial skeleton Accession Number(s): [id number] cc: CHRIS WHITAKER ; ANA M LUNDBERG [place] [address] Patient Name: MILLI CARDONA MRN: [id number] date: 1945 Sex: F Assigned Patient Location: RAD Current Patient Location: RAD Accession/Order Number: [id number] Exam Date: 02/08/2024 13:20 Report Date: 02/08/2024 14:13 At the request of: ANA M LUNDBERG Procedure: XR DEXA axial skeleton EXAMINATION: XR DEXA axial skeleton, 02/08/2024 1:20 PM EDT HISTORY: estrogen deficiency E28.39 COMPARISON: . TECHNIQUE: Dual-energy X-ray absorptiometry (DEXA) bone density study performed for the axial skeleton. HISTORY: estrogen deficiency E28.39 FINDINGS: Bone mineral density of the L spine L1-L4 is 1.012 g/cm2, t score -1.4,who classification is Osteopenia Bone mineral density is lowest in the left femoral trochanter is 0.590g/cm2, t score is -2.3. who classification is Osteopenia XR/XR DEXA axial skeleton IMPRESSION: Osteopenia, moderate fracture risk Electronically authenticated by: EUNICE JAMES Date: 02/08/2024 14:13 Dictated By: Eunice James M.D. Signed By:02/08/24 1415 DD/ 1413 TD/TT: Quality Improvement Coordinator (Rn): Ana M Lundberg PA [facility] Final Result documented in this encounter Visit Diagnoses Not on filedocumented in this encounter Additional Health Concerns Assessment Noted Time PHQ-9 Depression Total Score: 7 01/25/20 24 10:00 AM EST documented as of this encounter Care Teams Country Printer Relationship Specialty Start Date End Date Chris Whitaker MD [address] [facility] [address] [place] [address] PCP - General Internal Medicine 04/20/23 documented as of this encounter
--- OUTSIDE RECORDS SUMMARY | 2025-05-18 09:15 | XMS_ITS | Encounter Summary ---
Author Organization [facility] Address [address] [facility] [address] Care Team Providers Care Transport Assistant Name Role Phone Chris Whitaker MD Primary Care Provider [phone] Encounter Details Date Type Department Care Team (Late Contact Info) Description 03/28/2024 Abstract [facility] [address] [facility] 110 [place] [address] Chris Whitaker MD [address] [facility] 110 [place] [address] Social History Tobacco Use Types Packs/Day Years [...] Upcoming Encounters Date Type Department Care Team ([facility] Contact Info) Description 05/18/2025 3:15 PM EDT Office Visit [facility] OB [address] [place] [address] Giuseppe Durham DO [address] [place] [address] 07/10/2025 1:00 PM EDT Office Visit [facility] [address] [place] [address] [place] [address] Ana M Lundberg PA [address] [place] [address] 07/21/2025 1:20 PM EDT Office Visit [facility] DERM [address] [place] [address] Ivet Brumfield PA [address] [place] [address] 08/17/2025 1:45 PM EDT Office Visit [facility] [address] [place] [address] Raeann Carbajal, DPM [address] [place] [address] documented as of this encounter Visit Diagnoses Not on filedocumented in this encounter Additional Health Concerns Assessment Noted Time PHQ-9 Depression Total Score: 7 01/25/20 24 10:00 AM EST documented as of this encounter Care Teams Transport Assistant Relationship Specialty Start Date End Date Chris Whitaker MD [address] [place] [address] PCP - General Internal Medicine 04/20/23 documented as of this encounter
--- OUTSIDE RECORDS SUMMARY | 2025-05-18 09:15 | XMS_ITS | Encounter Summary ---
Author Organization [facility] Address [address] [place] [facility] [place] [address] Care Team Providers Care Treasury Assistant Name Role Phone Chris Whitaker MD Primary Care Provider [phone] Encounter Details Date Type Department Care Team (Late Contact Info) Description 05/30/2024 Abstract [facility] [address] [facility] 110 [place] [address] Chris Whitaker MD [address] [facility] 110 [place] [address] Social History Tobacco Use Types Packs/Day Years [...] Upcoming Encounters Date Type Department Care Team ([facility] Contact Info) Description 05/18/2025 3:15 PM EDT Office Visit [facility] [address] [place] [address] Giuseppe Durham DO [address] [place] [address] 07/10/2025 1:00 PM EDT Office Visit [facility] [address] [place] [address] Ana M Lundberg PA [address] [place] [address] 07/21/2025 1:20 PM EDT Office Visit [facility] DERM [address] [place] [address] Ivet Brumfield PA [address] [place] [address] 08/17/2025 1:45 PM EDT Office Visit [facility] [address] [address] Raeann Carbajal, DPM [address] [place] [address] documented as of this encounter Visit Diagnoses Not on filedocumented in this encounter Additional Health Concerns Assessment Noted Time PHQ-9 Depression Total Score: 7 01/25/20 24 10:00 AM EST documented as of this encounter Care Teams Treasury Assistant Relationship Specialty Start Date End Date Chris Whitaker MD [address] [place] [address] PCP - General Internal Medicine 04/20/23 documented as of this encounter
--- OUTSIDE RECORDS SUMMARY | 2025-05-18 09:15 | XMS_ITS | Encounter Summary ---
Author Organization [facility] Address [address] [facility] [place] [address] Care Team Providers Care Dry Kiln Loader Name Role Phone Chris Whitaker MD Primary Care Provider Encounter Details Date Type Department Care Team (Late Contact Info) Description 01/13/2024 Orders Only [facility] [address] [place] [address] A, Unknown Practice [address] [place], [place] [address] Social History Tobacco Use Types Packs/Day Years [...] more drinks on one occasion? Never 04/22/2023 Comments No Sex and Gender Information Value Date Recorded Sex Assigned at Not on file Legal Sex Female 6:45 PM EDT Gender Identity Not on file Sexual Orientation Not on file documented as of this encounter Plan of Treatment Upcoming Encounters Date Type Department Care Team (Late Contact Info) Description 05/18/2025 3:15 PM EDT Office Visit [facility] [address] [facility] [address] [place] [address] Giuseppe Durham, DO [address] [place], [place] [address] 07/10/2025 1:00 PM EDT Office Visit [facility] [address] [place] [address] Ana M Lundberg PA [address] [place] [address] 07/21/2025 1:20 PM EDT Office Visit [facility] DERM [address] [place] [address] Ivet Brumfield PA [address] [place] [address] 08/17/2025 1:45 PM EDT Office Visit [facility] [address] [place] [address] Raeann Carbajal, DPM [address] [place], [place] [phone] documented as of this encounter Procedures Procedure Name Priority Date/Time Associated Diagnosis Comments SCANNED LABS Routine 01/12/2024 9:51 AM EST documented in this encounter Results * SCANNED LABS (01/12/2024 9:51 AM EST) us Unknown Practice A LAB CHG PERFORMABLES Final Re sult documented in this encounter Visit Diagnoses Not on filedocumented in this encounter Care Teams Dry Kiln Loader Relationship Specialty Start Date End Date Chris Whitaker MD [address] [facility] 110 [place] [address] PCP - General Internal Medicine 04/20/23 documented as of this encounter
--- OUTSIDE RECORDS SUMMARY | 2025-05-18 09:15 | XMS_ITS | Encounter Summary ---
Author Organization [facility] Address [address] [place] [address] Care Team Providers Care Fuselage Framer Name Role Phone Chris Whitaker MD Primary Care Provider [phone] Encounter Details Date Type Department Care Team (Late Contact Info) Description 05/04/2024 Orders Only [facility] [address] [facility] [address] [place] [address] Jose Will, DO [address] [facility] 150 [place] [address] Social History Tobacco Use Types Packs/Day Years [...] [address] [place] [address] Giuseppe Durham DO [address] [place] [address] 07/10/2025 1:00 PM EDT Office Visit [facility] [address] [place] [address] Ana M Lundberg PA [address] [place] [address] 07/21/2025 1:20 PM EDT Office Visit [facility] DERM [address] [place] [address] Ivet Brumfield PA [address] [place] [address] 08/17/2025 1:45 PM EDT Office Visit [facility] 1900 [place] [address] Raeann Carbajal, DPM 1900 [place] [address] documented as of this encounter Procedures Procedure Name Priority Date/Time Associated Diagnosis Comments BI MAMMOGRAM DIAGNOSTIC TOMOSYNTHESIS LEFT Routine 05/04/2024 3:05 PM EDT documented in this encounter Results * Left diagnostic mammogram with tomosynthesis (05/04/2024 3:05 PM EDT) Anatomical Region Laterality Modality Breast Left Mammography Jose Will DO IMG BI PROCEDURES Final Result documented in this encounter Visit Diagnoses Not on filedocumented in this encounter Additional Health Concerns Assessment Noted Time PHQ-9 Depression Total Score: 7 01/25/20 24 10:00 AM EST documented as of this encounter Care Teams Fuselage Framer Relationship Specialty Start Date End Date Chris Whitaker MD [address] [place] [address] PCP - General Internal Medicine 04/20/23 documented as of this encounter
--- OUTSIDE RECORDS SUMMARY | 2025-05-18 09:15 | XMS_ITS | Encounter Summary ---
Author Organization [facility] Address [address] [place] [address] Care Team Providers Care Unix Engineer Name Role Phone Crhis Whitaker MD Primary Care Provider [phone] Encounter Details Date Type Department Care Team ([facility] Contact Info) Description 08/25/2023 Abstract CELIA PICKETT [address] [place], [place] [address] [address] Jacqueline Carlton DO Social History Tobacco Use Types Packs/Day Years [...] on file Sexual Orientation Not on file COVID-19 Exposure Response Date Recorded In the last 10 days, have yo u been in contact with someone who was confirmed or suspected to have Coronavirus/COVID-19? No / Unsure 08/26/2023 2:44 PM EDT documented as of this encounter Plan of Treatment Upcoming Encounters Date Type Department Care Team (Late Contact Info) Description 05/18/2025 3:15 PM EDT Office Visit [facility] [address] [place] [address] Giuseppe Durham DO [address] [place] [address] 07/10/2025 1:00 PM EDT Office Visit [facility] [address] [place] [address] Ana M Lundberg PA [address] [place] [address] 07/21/2025 1:20 PM EDT Office Visit [facility] DERM [address] [place] [address] Ivet Brufmield PA [address] [place] [address] 08/17/2025 1:45 PM EDT Office Visit [facility] [address] [facility] [place] [place] [address] Raeann Carbajal, DPM [address] [facility] [place] [place] [address] documented as of this encounter Visit Diagnoses Not on filedocumented in this encounter Care Teams Unix Engineer Relationship Specialty Start Date End Date Chris Whitaker MD [address] [place] [address] PCP - General Internal Medicine 04/20/23 documented as of this encounter
--- OUTSIDE RECORDS SUMMARY | 2025-05-18 09:15 | XMS_ITS | Encounter Summary ---
Author Organization [facility] Address [address] [facility] [place] [address] Care Team Providers Care Deputy Editor In Chief Name Role Phone Chris Whitaker MD Primary Care Provider [phone] Encounter Details Date Type Department Care Team (Late Contact Info) Description 06/13/2024 Abstract [facility] [address] [facility] 110 [place] [address] Chris Whitaker MD [address] [facility] 110 [place] [address] Social History Tobacco Use Types Packs/Day Years [...] Upcoming Encounters Date Type Department Care Team ([facility] Contact Info) Description 05/18/2025 3:15 PM EDT Office Visit [facility] [address] [place] [address] Giuseppe Durham DO [address] [place] [address] 07/10/2025 1:00 PM EDT Office Visit [facility] [address] [place] [address] Ana M Lundberg PA [address] [place] [address] 07/21/2025 1:20 PM EDT Office Visit [facility] DERM [address] [place] [address] Ivet Brumfield PA [address] [place] [address] 08/17/2025 1:45 PM EDT Office Visit [facility] [address] [place] [address] Raeann Carbajal, DPM [address] [address] documented as of this encounter Visit Diagnoses Not on filedocumented in this encounter Additional Health Concerns Assessment Noted Time PHQ-9 Depression Total Score: 7 01/25/20 24 10:00 AM EST documented as of this encounter Care Teams Deputy Editor In Chief Relationship Specialty Start Date End Date Chris Whitaker MD [address] [place] [address] PCP - General Internal Medicine 04/20/23 documented as of this encounter
--- OUTSIDE RECORDS SUMMARY | 2025-05-18 09:15 | XMS_ITS | Encounter Summary ---
Author Organization [facility] Address [address] [facility] [place] [address] Care Team Providers Care Tree Trimmer Name Role Phone Chris Whitaker MD Primary Care Provider [phone] Encounter Details Date Type Department Care Team ([facility] Contact Info) Description 01/27/2024 Abstract [facility] [address] [facility] 110 [place] [address] Chris Whitaker MD [address] [facility] 110 [place] [address] Social History Tobacco Use Types Packs/Day Years [...] Upcoming Encounters Date Type Department Care Team ([facility] Contact Info) Description 05/18/2025 3:15 PM EDT Office Visit [facility] [address] [place] [address] Giuseppe Durham DO [address] [place] [address] 07/10/2025 1:00 PM EDT Office Visit [facility] [address] [place] [address] Ana M Lundebrg PA [address] [place] [address] 07/21/2025 1:20 PM EDT Office Visit [facility] DERM [address] [place] [address] Ivet Brumfield PA [address] [place] [address] 08/17/2025 1:45 PM EDT Office Visit [facility] [address] [place] [address] Raeann Carbajal, DPM [address] [address] documented as of this encounter Visit Diagnoses Not on filedocumented in this encounter Additional Health Concerns Assessment Noted Time PHQ-9 Depression Total Score: 7 01/25/20 24 10:00 AM EST documented as of this encounter Care Teams Tree Trimmer Relationship Specialty Start Date End Date Chris Whitaker MD [address] [place] [address] PCP - General Internal Medicine 04/20/23 documented as of this encounter
--- OUTSIDE RECORDS SUMMARY | 2025-05-18 09:15 | XMS_ITS | Encounter Summary ---
Author Organization [facility] Address [address] [facility] [place] [address] Care Team Providers Care Rn Flight Name Role Phone Chris Whitaker MD Primary Care Provider [phone] Encounter Details Date Type Department Care Team ([facility] Contact Info) Description 11/14/2024 Abstract [facility] [address] [facility] 110 [place] [address] Chris Whitaker MD [address] [facility] 110 [place] [address] Social History Tobacco Use Types Packs/Day Years [...] Upcoming Encounters Date Type Department Care Team ([facility] Contact Info) Description 05/18/2025 3:15 PM EDT Office Visit [facility] [address] [place] [address] Giuseppe Durham DO [address] [place] [address] 07/10/2025 1:00 PM EDT Office Visit [facility] [address] [place] [address] Ana M Lundberg PA [address] [place] [address] 07/21/2025 1:20 PM EDT Office Visit [facility] DERM [address] [place] [address] Ivet Brumfield PA [address] [place] [address] 08/17/2025 1:45 PM EDT Office Visit [facility] [address] [place] [address] Raeann Carbajal, DPM [address] [place] [address] documented as of this encounter Visit Diagnoses Not on filedocumented in this encounter Additional Health Concerns Assessment Noted Time PHQ-9 Depression Total Score: 7 01/25/20 24 10:00 AM EST documented as of this encounter Care Teams Rn Flight Relationship Specialty Start Date End Date Chris Whitaker MD [address] [place] [address] PCP - General Internal Medicine 04/20/23 documented as of this encounter
--- OUTSIDE RECORDS SUMMARY | 2025-05-18 09:15 | XMS_ITS | Encounter Summary ---
Author Organization [facility] Address [address] [place] [facility] [place] [address] Care Team Providers Care Support Services Manager Name Role Phone Chris Whitaker MD Primary Care Provider [phone] Encounter Details Date Type Department Care Team (Late st Contact Info) Description 08/19/2023 Abstract [facility] [address] [facility] 110 [place] [address] Chris Whitaker MD [address] [facility] 110 [place] [address] Social History Tobacco Use Types Packs/Day Years Used Date Smoking Tobacco: Former Cigarettes Smokeless Tobacco: Never Alcohol Use Standard Drinks/Week Comments Never 0 (1 standard drink = 0.6 oz pur e alcohol) 1-2 cups per day soda AUDIT-C Answer Date Recorded Q1: How often [...] suspected to have Coronavirus/COVID-19? No / Unsure 08/03/2023 3:10 PM EDT documented as of this encounter Plan of Treatment Upcoming Encounters Date Type Department Care Team (Late st Contact Info) Description 05/18/2025 3:15 PM EDT Office Visit [facility] [address] [place] [address] Giuseppe Durham DO [address] [place] [address] 07/10/2025 1:00 PM EDT Office Visit [facility] [address] [place] [address] Ana M Lundberg PA [address] [place] [address] 07/21/2025 1:20 PM EDT Office Visit [facility] DER[facility] [address] [place] [address] Ivet Brumfield PA [address] [place] [address] 08/17/2025 1:45 PM EDT Office Visit [facility] 1900 [place] [address] Raeann Carbajal, DPM 1900 [place] [address] documented as of this encounter Visit Diagnoses Not on filedocumented in this encounter Care Teams Support Services Manager Relationship Specialty Start Date End Date Chris Whitaker MD [address] [place] [address] PCP - General Internal Medicine 04/20/23 documented as of this encounter
--- OUTSIDE RECORDS SUMMARY | 2025-05-18 09:15 | XMS_ITS | Encounter Summary ---
Author Organization [facility] Address [address] [place] [address] Care Team Providers Care Dampproofer Name Role Phone Chris Whitaker MD Primary Care Provider [phone] Encounter Details Date Type Department Care Team (Late Contact Info) Description 02/09/2024 Orders Only [facility] [address] [place] [address] Unallocated, Noms Provider, [address] [place] [address] Social History Tobacco Use Types Packs/Day Years [...] [address] [place] [address] Giuseppe Durham DO [address] [place] [address] 07/10/2025 1:00 PM EDT Office Visit [facility] [address] [place] [address] Ana M Lundberg PA [address] [place] [address] 07/21/2025 1:20 PM EDT Office Visit [facility] DERM [address] [place] [address] Ivet Brumfield PA [address] [place] [address] 08/17/2025 1:45 PM EDT Office Visit [facility] 1900 [place] [address] Raeann Carbajal, DPM 1900 [place] [address] documented as of this encounter Procedures Procedure Name Priority Date/Time Associated Diagnosis Comments DEXA BONE DENSITY Routine 02/08/2024 10:17 AM EDT documented in this encounter Results * DEXA bone density (02/08/2024 10:17 AM EDT) Anatomical Region Laterality Modality Body Radiographic Sierra ging us Noms Provider Unallocated MD SALDIVAR DXA PROCEDURES Final Result documented in this encounter Visit Diagnoses Not on filedocumented in this encounter Additional Health Concerns Assessment Noted Time PHQ-9 Depression Total Score: 7 01/25/20 24 10:00 AM EST documented as of this encounter Care Teams Dampproofer Relationship Specialty Start Date End Date Chris Whitaker MD [address] [place] [address] PCP - General Internal Medicine 04/20/23 documented as of this encounter
--- OUTSIDE RECORDS SUMMARY | 2025-05-18 09:15 | XMS_ITS | Encounter Summary ---
Author Organization [facility] Address [address] [facility] [place] [address] Care Team Providers Care Brass Sorter Name Role Phone Chris Whitaker MD Primary Care Provider [phone] Encounter Details Date Type Department Care Team (Late st Contact Info) Description 08/19/2023 Abstract [facility] [address] [facility] 110 [place] [address] Chris Whitaker MD [address] [facility] 110 [place] [address] Social History Tobacco Use Types Packs/Day Years [...] [address] [place] [address] Giuseppe Durham DO [address] [place] [address] 07/10/2025 1:00 PM EDT Office Visit [facility] [address] [place] [address] Ana M Lundberg PA [address] [place] [address] 07/21/2025 1:20 PM EDT Office Visit [facility] [address] [place] [address] Ivet Brumfield PA [address] [place] [address] 08/17/2025 1:45 PM EDT Office Visit [facility] 1900 [place] [address] Rae[place] Carbajal, DPM 1900 [place] [address] documented as of this encounter Visit Diagnoses Not on filedocumented in this encounter Care Teams Brass Sorter Relationship Specialty Start Date End Date Chris Whitaker MD [address] [place] [address] PCP - General Internal Medicine 04/20/23 documented as of this encounter
--- OUTSIDE RECORDS SUMMARY | 2025-05-18 09:15 | XMS_ITS | Encounter Summary ---
Author Organization [facility] Address [address] [facility] [place] [address] Care Team Providers Care Sonoscope Operator Name Role Phone Chris Whitaker MD Primary Care Provider [phone] Encounter Details Date Type Department Care Team (Late Contact Info) Description 02/04/2024 Abstract [facility] [address] [facility] 110 [place] [address] Chris Whitaker MD [address] [facility] 110 [place] [address] Social History Tobacco Use Types Packs/Day Years [...] Upcoming Encounters Date Type Department Care Team ([facility] Contact Info) Description 05/18/2025 3:15 PM EDT Office Visit [facility] [address] [place] [address] Giuseppe Durham DO [address] [place] [address] 07/10/2025 1:00 PM EDT Office Visit [facility] [address] [place] [address] Ana M Lundberg PA [address] [place] [place] [address] 07/21/2025 1:20 PM EDT Office Visit [facility] DERM [address] [place] [address] Ivet Brumfield PA [address] [place] [address] 08/17/2025 1:45 PM EDT Office Visit [facility] [address] [place] [address] Raeann Carbajal, DPM [address] [place] [address] documented as of this encounter Visit Diagnoses Not on filedocumented in this encounter Additional Health Concerns Assessment Noted Time PHQ-9 Depression Total Score: 7 01/25/20 24 10:00 AM EST documented as of this encounter Care Teams Sonoscope Operator Relationship Specialty Start Date End Date Chris Whitaker MD [address] [place] [address] PCP - General Internal Medicine 04/20/23 documented as of this encounter
--- OUTSIDE RECORDS SUMMARY | 2025-05-18 09:15 | XMS_ITS | Encounter Summary ---
Author Organization [facility] Address [address] [place] [address] Care Team Providers Care Plastics Fitter Name Role Phone Chris Whitaker MD Primary Care Provider [phone] Encounter Details Date Type Department Care Team (Late Contact Info) Description 05/18/2024 Orders Only [facility] [address] [place] [phone] Unallocated, Noms Provider, [address] [place] [address] Social History Tobacco Use Types Packs/Day Years [...] [address] [place] [address] Giuseppe Durham DO [address] [place] [address] 07/10/2025 1:00 PM EDT Office Visit [facility] [address] [place] [address] Ana M Lundberg PA [address] [place] [address] 07/21/2025 1:20 PM EDT Office Visit [facility] [address] [place] [address] Ivet Brumfield PA [address] [place] [address] 08/17/2025 1:45 PM EDT Office Visit [facility] [address] [place] [phone] Raeann Carbajal, DPM [address] [place] [address] documented as of this encounter Procedures Procedure Name Priority Date/Time Associated Diagnosis Comments DEXA BONE DENSITY Routine 05/17/2024 8:07 AM EDT documented in this encounter Results * DEXA bone density (05/17/2024 8:07 AM EDT) Anatomical Region Laterality Modality Body Radiographic Sierra ging us Noms Provider Unallocated MD SALDIVAR DXA PROCEDURES Final Result documented in this encounter Visit Diagnoses Not on filedocumented in this encounter Additional Health Concerns Assessment Noted Time PHQ-9 Depression Total Score: 7 01/25/20 24 10:00 AM EST documented as of this encounter Care Teams Plastics Fitter Relationship Specialty Start Date End Date Chris Whitaker MD [address] [place] [address] PCP - General Internal Medicine 04/20/23 documented as of this encounter
--- OUTSIDE RECORDS SUMMARY | 2025-05-18 09:15 | XMS_ITS | Encounter Summary ---
Author Organization [facility] Address [address] [place] [facility] [place] [address] Care Team Providers Care Nursery Worker Name Role Phone Chris Whitaker MD Primary Care Provider [phone] Encounter Details Date Type Department Care Team ([facility] Contact Info) Description 11/14/2024 Abstract [facility] [address] [facility] 110 [place] [address] Chris Whitaker MD [address] [facility] 110 [place] [address] Social History Tobacco Use Types Packs/Day Years [...] Upcoming Encounters Date Type Department Care Team ([facility] Contact Info) Description 05/18/2025 3:15 PM EDT Office Visit [facility] [address] [place] [address] Giuseppe Durham DO [address] [place] [address] 07/10/2025 1:00 PM EDT Office Visit [facility] [address] [place] [address] Ana M Lundberg PA [address] [place] [address] 07/21/2025 1:20 PM EDT Office Visit [facility] [address] [place] [address] Ivet Brumfield PA [address] [place] [address] 08/17/2025 1:45 PM EDT Office Visit [facility] [address] [place] [address] Raeann Carbajal, DPM [address] [place] [address] documented as of this encounter Visit Diagnoses Not on filedocumented in this encounter Additional Health Concerns Assessment Noted Time PHQ-9 Depression Total Score: 7 01/25/20 24 10:00 AM EST documented as of this encounter Care Teams Nursery Worker Relationship Specialty Start Date End Date Chris Whitaker MD [address] [place] [address] PCP - General Internal Medicine 04/20/23 documented as of this encounter
--- OUTSIDE RECORDS SUMMARY | 2025-05-18 09:15 | XMS_ITS | Encounter Summary ---
Author Organization [facility] Address [address] [facility] [place] [address] Care Team Providers Care Subassembler Name Role Phone Chris Whitaker MD Primary Care Provider [phone] Encounter Details Date Type Department Care Team ([facility] Contact Info) Description 11/14/2024 Abstract [facility] [address] [facility] 110 [place] [address] Chris Whitaker MD [address] [facility] 110 [place] [address] Social History Tobacco Use Types Packs/Day Years [...] Upcoming Encounters Date Type Department Care Team ([facility] Contact Info) Description 05/18/2025 3:15 PM EDT Office Visit [facility] [address] [place] [address] Giuseppe Durham DO [address] [place] [address] 07/10/2025 1:00 PM EDT Office Visit [facility] [address] [place] [address] Ana M Lundberg PA [address] [place] [address] 07/21/2025 1:20 PM EDT Office Visit [facility] [address] [place] [address] Ivet Brumfield PA [address] [place] [address] 08/17/2025 1:45 PM EDT Office Visit [facility] [address] [place] [phone] Raeann Carbajal, DPM [address] [place] [address] documented as of this encounter Visit Diagnoses Not on filedocumented in this encounter Additional Health Concerns Assessment Noted Time PHQ-9 Depression Total Score: 7 01/25/20 24 10:00 AM EST documented as of this encounter Care Teams Subassembler Relationship Specialty Start Date End Date Chris Whitaker MD [address] [place] [address] PCP - General Internal Medicine 04/20/23 documented as of this encounter
--- OUTSIDE RECORDS SUMMARY | 2025-05-18 09:15 | XMS_ITS | Encounter Summary ---
Author Organization [facility] Address [address] [facility] [place] [address] Care Team Providers Care Emergency Vehicle Dispatcher Name Role Phone Chris Whitaker MD Primary Care Provider [phone] Encounter Details Date Type Department Care Team (Late st Contact Info) Description 08/26/2023 Abstract [facility] [address] [facility] 110 [place] [address] Chris Whitaker MD [address] [facility] 110 [place] [address] Social History Tobacco Use Types Packs/Day Years [...] [address] [place] [address] Giuseppe Durham DO [address] [place] [address] 07/10/2025 1:00 PM EDT Office Visit [facility] [address] [place] [address] Ana M Lundberg PA [address] [place] [address] 07/21/2025 1:20 PM EDT Office Visit [facility] [address] [place] [address] Ivet Brumfield PA [address] [place] [address] 08/17/2025 1:45 PM EDT Office Visit [facility] [address] [place] [address] Raeann Carbajal, DPM [address] [place] [address] documented as of this encounter Visit Diagnoses Not on filedocumented in this encounter Care Teams Emergency Vehicle Dispatcher Relationship Specialty Start Date End Date Chris Whitaker MD [address] [place] [address] PCP - General Internal Medicine 04/20/23 documented as of this encounter
--- OUTSIDE RECORDS SUMMARY | 2025-05-18 09:15 | XMS_ITS | Encounter Summary ---
Author Organization [facility] Address [address] [place] [facility] [place] [address] Care Team Providers Care Hemp Fiber Taker Off Name Role Phone Chris Whitaker MD Primary Care Provider [phone] Encounter Details Date Type Department Care Team (Late st Contact Info) Description 08/19/2023 Abstract [facility] [address] [facility] 110 [place] [address] Chris Whitaker MD [address] [facility] 110 [place] [address] Social History Tobacco Use Types Packs/Day Years [...] [address] [place] [address] Giuseppe Durham DO [address] [place] [address] 07/10/2025 1:00 PM EDT Office Visit [facility] [address] [place] [address] Ana M Lundberg PA [address] [place] [address] 07/21/2025 1:20 PM EDT Office Visit [facility] [address] [place] [address] Ivet Brumfield PA [address] [place] [address] 08/17/2025 1:45 PM EDT Office Visit [facility] [address] [place] [address] Raeann Carbajal, DPM [address] [place] [address] documented as of this encounter Visit Diagnoses Not on filedocumented in this encounter Care Teams Hemp Fiber Taker Off Relationship Specialty Start Date End Date Chris Whitaker MD [address] [place] [address] PCP - General Internal Medicine 04/20/23 documented as of this encounter
--- OUTSIDE RECORDS SUMMARY | 2025-05-18 09:15 | XMS_ITS | Encounter Summary ---
Author Organization [facility] Address [address] [place] [address] Care Team Providers Care Metal Fabricating Shop Helper Name Role Phone Chris Whitaker MD Primary Care Provider [phone] Encounter Details Date Type Department Care Team ([facility] Contact Info) Description 11/14/2024 Abstract [facility] [address] [facility] 110 [place] [address] Chris Whitaker MD [address] [facility] 110 [place] [address] Social History Tobacco Use Types Packs/Day Years [...] Upcoming Encounters Date Type Department Care Team ([facility] Contact Info) Description 05/18/2025 3:15 PM EDT Office Visit [facility] [address] [place] [address] Giuseppe Durham DO [address] [place] [address] 07/10/2025 1:00 PM EDT Office Visit [facility] [address] [place] [address] Ana M Lundberg PA [address] [place] [address] 07/21/2025 1:20 PM EDT Office Visit [facility] [address] [place] [address] Ivte Brumfield PA [address] [place] [address] 08/17/2025 1:45 PM EDT Office Visit [facility] [address] [place] [address] Raeann Carbajal, DPM [address] [place] [address] documented as of this encounter Visit Diagnoses Not on filedocumented in this encounter Additional Health Concerns Assessment Noted Time PHQ-9 Depression Total Score: 7 01/25/20 24 10:00 AM EST documented as of this encounter Care Teams Metal Fabricating Shop Helper Relationship Specialty Start Date End Date Chris Whitaker MD [address] [place] [address] PCP - General Internal Medicine 04/20/23 documented as of this encounter
--- OUTSIDE RECORDS SUMMARY | 2025-05-18 09:16 | XMS_ITS | Referral Summary ---
Author Organization [facility] Address [address] [place] [address] Care Team Providers Care Wire Mesh Knitter Name Role Phone Chris Whitaker MD Primary Care Provider [phone] Allergies Active Allergy Reactions Criticality Noted Date Comments Atorvastatin Other 04/17/2023 Prednisone Other,Palpitations Low 01/20/2023 Medications ALPRAZolam (Xanax) 0.25 mg tablet Take 0.25 mg by mouth. 11/14/2020 Active glyburide-metfo rmin (Glucovance) 5-500 mg tablet Take 1 tablet by mouth twice a day. 04/26/2020 Active lansoprazole (Prevacid) [address] capsule Take 30 mg by mouth. 09/24/2020 Active bisoprolol (Zebeta) 5 mg tablet Take 5 mg by mouth. 01/20/2023 Active gabapentin (Neurontin) 300 mg capsule Take 300 mg by mouth 3 times a day. 05/14/2022 Active rosuvastatin (Crestor) 10 mg tablet Take 10 mg by mouth in the morning. 01/20/2023 Active tiZANidine (Zanaflex) 4 mg tablet take 1 tablet by mouth every 12 hours if needed Active zolpidem (Ambien) 10 mg tablet take 1 tablet by mouth at bedtime if needed for sleep Active aspirin 81 mg EC tablet Take 81 mg by mouth in the morning. Active Active Problems Problem Noted Date Diagnosed Date Essential hypertension 05/04/2024 Family history of breast cancer in sister 2023 Chest pain, atypical 10/01/2023 Hyperlipidemia 10/01/2023 Breast calcification, left 08/04/2023 Abnormal mammogram of left breast 04/17/2023 Atrophic vaginitis 04/17/2023 Benign neoplasm of cerebral meninges 04/17/2023 Diabetic polyneuropathy 04/17/2023 Duct ectasia of breast, right 04/17/2023 Esophageal reflux 04/17/2023 Mixed hyperlipidemia 04/17/2023 Internal derangement of right shoulder 3 Left sided sciatica 04/17/2023 Lumbar disc disease with radiculopathy 3 Migraine 04/17/2023 Mononeuropathy of left lower extremity 3 Osteopenia of multiple sites 04/17/2023 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 Palpitations 04/17/2023 Paroxysmal SVT (supraventricular tachycardia) Primary osteoarthritis of left knee 04/17/2023 Psychophysiological insomnia 04/17/2023 Anxiety disorder 04/17/2023 Spinal stenosis of lumbar region 04/17/2023 Stress incontinence of urine 04/17/2023 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 Resolved Problems Problem Noted Date Diagnosed Date Resolved Date Cardiac arrhythmia 04/17/2023 4 Social History Tobacco Use Types Packs/Day Years Used Date Smoking Tobacco: Former Cigarettes Smokeless Tobacco: Never Tobacco Cessation:Counseling Given: Not Answered Alcohol Use Standard Drinks/Week Comments Not Currently 0 (1 standard drink = 0.6 oz pur e alcohol) [place] Safety & Environment Answer Date Rec orded Fear of Current or Ex-Partner Not on file Emotionally Abused Not on file 04/18/2024 Physically Abused Not on file 04/18/2024 Sexually Abused Not on file 04/18/2024 Physically or Sexually Abused Not on file Comments Unknown Sex and Gender Information Value Date Recorded Sex Assigned at Not on file Legal Sex Female 9:00 PM EDT Gender Identity Not on file Sexual Orientation Not on file Last Filed Vital Signs Vital Sign Reading Time Taken Comments Blood Pressure 127/68 10/17/2024 1:09 PM EST Pulse 66 10/17/2024 1:09 PM EST Temperature - - Respiratory Rate - - Oxygen Saturation 99% 10/17/2024 1:09 PM EST Inhaled Oxygen Concentration - - Weight 53.1 kg (117 lb) 10/17/2024 1:09 PM EST Height 160 cm (5' 3 ) 10/17/2024 1:09 PM EST Body Mass Index 20.73 10/17/2024 1:09 PM EST Plan of Treatment Upcoming Encounters Date Type Department Care Team (Late st Contact Info) Description 05/25/2025 1:40 PM EDT Office Visit [facility] [address] [place] [address] Isi Maza MD [address] [place] [address] Insurance [employer] MEDICARE Care Teams Wire Mesh Knitter Relationship Specialty Start Date End Date Chris Whitaker MD [address] [facility] 110 [place], [place] [phone] PCP - General Internal Medicine 05/04/24
--- OUTSIDE RECORDS SUMMARY | 2025-05-18 09:16 | XMS_ITS | Encounter Summary ---
Author Organization [facility] Address [address] [place] [address] Phone Care Team Providers Care University Services Program Associate Name Role Phone Chris Whitaker MD Primary Care Provider [phone] Reason for Visit * Reason Comments Med Refill Encounter Details Date Type Department Care Team ([facility] st Contact Info) Description 10/25/2024 Refill [facility] [address] [facility] [address] [place] [address] Amy Foster MD [address] [facility] [address] [place] [address] Mixed hyperlipidemia; Palpitations; Paroxysmal SVT (supraventricular tachycardia) Social History Tobacco Use Types Packs/Day Years Used Date Smoking Tobacco: Former Cigarettes Q uit: 1972 Smokeless Tobacco: Never Alcohol Use Standard Drinks/Week Comments Never 0 (1 standard drink = 0.6 oz pur e alcohol) PHQ-2 Answer Date Recorded Patient Health Questionnaire-2 Score 3 09/29/2022 Comments Unknown Sex and Gender Information Value Date Recorded Sex Assigned at Not on file Legal Sex Female 12:29 PM EST Gender Identity Not on file Sexual Orientation Not on file documented as of this encounter Plan of Treatment Not on file documented as of this encounter Visit Diagnoses Diagnosis Mixed hyperlipidemia Palpitations Paroxysmal SVT (supraventricular tachycardia) documented in this encounter Additional Health Concerns Assessment Noted Time PHQ-9 Depression Total Score: 7 09/29/20 22 2:27 PM EDT A fall risk assessment has been complete d for the patient 10/02/2023 12:55 PM EDT documented as of this encounter Care Teams University Services Program Associate Relationship Specialty Start Date End Date Chris Whitaker MD PCP - General Internal Medicine 10/02/23 documented as of this encounter
--- OUTSIDE RECORDS SUMMARY | 2025-05-18 09:16 | XMS_ITS | Encounter Summary ---
Author Organization [facility] Address [address] [facility] [address] Care Team Providers Care Health And Fitness Professor Name Role Phone Chris Whitaker MD Primary Care Provider [phone] Encounter Details Date Type Department Care Team ([facility] Contact Info) Description 09/08/2024 Abstract [facility] [address] [facility] 110 [place] [address] Chris Whitaker MD [address] [facility] 110 [place] [address] Social History Tobacco Use Types Packs/Day Years [...] Upcoming Encounters Date Type Department Care Team ([facility] Contact Info) Description 05/18/2025 3:15 PM EDT Office Visit [facility] [address] [place] [address] Giuseppe Durham DO [address] [place] [address] 07/10/2025 1:00 PM EDT Office Visit [facility] [address] [place] [address] Ana M Lundberg PA [address] [place] [address] 07/21/2025 1:20 PM EDT Office Visit [facility] [address] [place] [address] Ivet Brumfield PA [address] [place] [address] 08/17/2025 1:45 PM EDT Office Visit [facility] [address] [place] [phone] Raeann Carbajal, DPM [address] [place] [address] documented as of this encounter Visit Diagnoses Not on filedocumented in this encounter Additional Health Concerns Assessment Noted Time PHQ-9 Depression Total Score: 7 01/25/20 24 10:00 AM EST documented as of this encounter Care Teams Health And Fitness Professor Relationship Specialty Start Date End Date Chris Whitaker MD [address] [place] [address] PCP - General Internal Medicine 04/20/23 documented as of this encounter
--- OUTSIDE RECORDS SUMMARY | 2025-05-18 09:16 | XMS_ITS | Encounter Summary ---
Author Organization [facility] Address [address] [place] [address] Phone Care Team Providers Care Well Service Floor Worker Name Role Phone Chris Whitaker MD Primary Care Provider [phone] Encounter Details Date Type Department Care Team (Late st Contact Info) Description 05/06/2021 Orders Only [facility] [address] [place] [address] Conversion, Onbase Social History Tobacco Use Types Packs/Day Years Used Date Smoking Tobacco: Never Assessed Comments Unknown Sex and Gender Information Value Date Recorded Sex Assigned at Not on file Legal Sex Female 12:29 PM EST Gender Identity Not on file Sexual Orientation Not on file documented as of this encounter Plan of Treatment Scheduled Orders Name Type Priority Associated Diagnoses Orde r Schedule OUTSIDE LAB SCAN Lab Ordered: 05/06/2021 documented as of this encounter Visit Diagnoses Not on filedocumented in this encounter Care Teams Well Service Floor Worker Relationship Specialty Start Date End Date Chris Whitaker MD PCP - General Internal Medicine 10/02/23 documented as of this encounter
--- OUTSIDE RECORDS SUMMARY | 2025-05-18 09:16 | XMS_ITS | Encounter Summary ---
Author Organization [facility] Address [address] [place] [address] Care Team Providers Care Block Mechanic Name Role Phone Chris Whitaker MD Primary Care Provider Encounter Details Date Type Department Care Team ([facility] Contact Info) Description 04/17/2023 Abstract [facility] [address] [facility] [address] [place] [address] Char Crews LPN Social History Tobacco Use Types Packs/Day Years Used Date Smoking Tobacco: Former Cigarettes Tobacco Cessation:Counseling Given: Not Answered Alcohol Use Standard Drinks/Week Comments Not Currently 0 (1 standard drink = 0.6 oz pur e alcohol) 1-2 cups per day soda Comments Unknown Sex and Gender Information Value Date Recorded Sex Assigned at Not on file Legal Sex Female 6:45 PM EDT Gender Identity Not on file Sexual Orientation Not on file documented as of this encounter Plan of Treatment Upcoming Encounters Date Type Department Care Team ([facility] Contact Info) Description 05/18/2025 3:15 PM EDT Office Visit [facility] [address] [facility] 210 [place] [address] Giuseppe Durham, DO [address] [facility] 210 [place] [address] 07/10/2025 1:00 PM EDT Office Visit [facility] [address] [facility] 110 [place] [address] Ana M Lundberg PA [address] [facility] 110 [place] [address] 07/21/2025 1:20 PM EDT Office Visit [facility] [address] [place] [address] Ivet Brumfield PA [address] [place] [address] 08/17/2025 1:45 PM EDT Office Visit [facility] [address] [place] [phone] Raeann Carbajal, DPM [address] [place] [address] documented as of this encounter Visit Diagnoses Not on filedocumented in this encounter Care Teams Block Mechanic Relationship Specialty Start Date End Date Chris Whitaker MD [address] [place] [address] PCP - General Internal Medicine 04/20/23 documented as of this encounter
--- OUTSIDE RECORDS SUMMARY | 2025-05-18 09:16 | XMS_ITS | Clinical Summary ---
Author Organization [facility] Address [address] [place] [address] Care Team Providers Care Building Mechanic Name Role Phone Chris Whitaker MD Primary Care Provider [phone] Allergies Active Allergy Reactions Criticality Noted Date [...] Date Resolved Date Cardiac arrhythmia 04/17/2023 4 Family History Medical History Relation Name Comments CABG Brother Coronary artery disease Brother Heart failure Mother Coronary artery disease Sister Relation Name Status Comments Brother Mother Sister Social History Tobacco Use Types Packs/Day Years [...] Description 05/25/2025 1:40 PM EDT Office Visit [facility] [address] [place] [address] Isi Maza MD [address] [facility] [address] [place] [address] Health Maintenance Due Date Last Done Comments Diabetes: Hemoglobin A1C 1945 Medicare Annual Wellness (AWV) 1945 Diabetes: Retinopathy Screening 1956 Depression Screening 1958 Adult Tetanus 1968 Fall Risk Screening 2011 COVID-19 Vaccine ( season) 2024 11/19/2021, 11/04/2021, 02/19/2021, Additional history exists Diabetes: Urine Protein Screening 12/08/2024 12/08/2023 Pneumococcal Vaccine: 50+ Years Completed 08/20/2017, 05/08/2017, 01/07/2016 Zoster Vaccines Completed 11/09/2019, 07/31, 05/01/2014 Colonoscopy Discontinued 01/20/2023 Colorectal Cancer Screening Discontinued Influenza Vaccine Completed 10/19/2024, , 08/26/2022, Additional history exists CT Colonography Discontinued FIT-DNA Discontinued FIT Discontinued FOBT Discontinued HIB Vaccines Aged Out No longer eligi ble based on patient's age to complete this topic HPV Vaccines Aged Out No longer eligi ble based on patient's age to complete this topic IPV Vaccines Aged Out No longer eligi ble based on patient's age to complete this topic Meningococcal B Vaccine Aged Out No l onger eligible based on patient's age to complete this topic Meningococcal Vaccine Aged Out No ruperto nicolas eligible based on patient's age to complete this topic Rotavirus Vaccines Aged Out No longer eligible based on patient's age to complete this topic Sigmoidoscopy Discontinued Insurance [employer] MEDICARE Care Teams Building Mechanic Relationship Specialty Start Date End Date Chris Whitaker MD [address] [phone] PCP - General Internal Medicine 05/04/24
--- OUTSIDE RECORDS SUMMARY | 2025-05-18 09:16 | XMS_ITS | Encounter Summary ---
Author Organization [facility] Address [address] [place] [address] Care Team Providers Care Power And Recovery Superintendent Name Role Phone Chris Whitaker MD Primary Care Provider Encounter Details Date Type Department Care Team ([facility] Contact Info) Description 11/11/2024 Abstract [facility] [address] [facility] [address] [place] [phone] Chris Whitaker MD [address] [facility] [address] [place] [address] Social History Tobacco Use Types Packs/Day Years [...] Upcoming Encounters Date Type Department Care Team ([facility] Contact Info) Description 05/18/2025 3:15 PM EDT Office Visit [facility] [address] [place] [phone] Giuseppe Durham DO [address] [place] [address] 07/10/2025 1:00 PM EDT Office Visit [facility] [address] [place] [phone] Ana M Lundberg PA [address] [place] [address] 07/21/2025 1:20 PM EDT Office Visit [facility] [address] [place] [phone] Ivet Brumfield PA [address] [place] [address] 08/17/2025 1:45 PM EDT Office Visit [facility] [address] [place] [phone] Raeann Carbajal, DPM [address] [place] [address] documented as of this encounter Visit Diagnoses Not on filedocumented in this encounter Additional Health Concerns Assessment Noted Time PHQ-9 Depression Total Score: 7 01/25/20 24 10:00 AM EST documented as of this encounter Care Teams Power And Recovery Superintendent Relationship Specialty Start Date End Date Chris Whitaker MD [address] [place] [address] PCP - General Internal Medicine 04/20/23 documented as of this encounter
--- OUTSIDE RECORDS SUMMARY | 2025-05-18 09:16 | XMS_ITS | Encounter Summary ---
Author Organization [facility] Address [address] [place] [address] Phone Care Team Providers Care Purchase Price Analyst Name Role Phone Chris Whitaker MD Primary Care Provider [phone] Reason for Visit * Reason Comments Med Refill Encounter Details Date Type Department Care Team ([facility] st Contact Info) Description 01/20/2025 Refill [facility] [address] [facility] [address] [place] [address] Amy Foster MD [address] [facility] [address] [place] [address] Mixed hyperlipidemia; Palpitations; Paroxysmal SVT [...] documented as of this encounter Care Teams Purchase Price Analyst Relationship Specialty Start Date End Date Chris Whitaker MD PCP - General Internal Medicine 10/02/23 documented as of this encounter
--- OUTSIDE RECORDS SUMMARY | 2025-05-18 09:16 | XMS_ITS | Encounter Summary ---
Author Organization [facility] Address [address] [place] [address] Care Team Providers Care Fire Officer Name Role Phone Chris Whitaker MD Primary Care Provider [phone] Encounter Details Date Type Department Care Team (Late Contact Info) Description 11/20/2023 Abstract [facility] [address] [facility] [address] [place] [phone] Chris Whitaker MD [address] [facility] [address] [place] [address] Social History Tobacco Use Types Packs/Day Years [...] Upcoming Encounters Date Type Department Care Team ([facility] Contact Info) Description 05/18/2025 3:15 PM EDT Office Visit [facility] [address] [place] [phone] Giuseppe Durham, DO [address] [place] [address] 07/10/2025 1:00 PM EDT Office Visit [facility] [address] [place] [address] Ana M Lundberg PA [address] [place] [address] 07/21/2025 1:20 PM EDT Office Visit [facility] [address] [place] [phone] Ivet Brumfield PA [address] [place] [phone] 08/17/2025 1:45 PM EDT Office Visit [facility] [address] [place] [phone] Raeann Carbajal, DPM [address] [place], [place] [phone] documented as of this encounter Visit Diagnoses Not on filedocumented in this encounter Care Teams Fire Officer Relationship Specialty Start Date End Date Chris Whitaker MD [address] [place] [address] PCP - General Internal Medicine 04/20/23 documented as of this encounter
--- OUTSIDE RECORDS SUMMARY | 2025-05-18 09:16 | XMS_ITS | Clinical Summary ---
Author Organization [facility] Healthcare Address [address] [place] [address] Care Team Providers Care Trade Show Specialist Name Role Phone Chris Whitaker MD Primary Care Provider [phone] Allergies Active Allergy Reactions Criticality Noted Date Comments Atorvastatin Other 04/17/2023 Methylprednisolone Palpitations Low 04/17/2023 Nabumetone GI intolerance 04/17/2023 Simvastatin 09/25/2021 Other Reaction(s): leg cramps Medications Coenzyme P99-Dqlh Oil-Vit E (CO-Q 10 OMEGA-3 FISH OIL PO) Orally Active loratadine (Claritin) 10 MG tablet Take 10 mg by mouth as needed at bedtime for allergies. 9 Active Krill Oil 300 MG capsule Take 1 tablet by mouth 1 (one) time each day. Active aspirin 81 MG EC tablet Take 81 mg by mouth in the morning. Active nabumetone (Relafen) 750 MG tablet Take 750 mg by mouth 2 (two) times a day as needed 4 Active tiZANidine (Zanaflex) 4 MG tabletIndications: Lumbar disc disease with radiculopathy Take 1 tablet (4 mg) by mouth every 12 (twelve) hours PRN 30 tablet 5 4 Active nystatin (Mycostatin) ointmentIndication s:Encounter for gynecological examination with abnormal finding Apply topically 2 (two) times a day 15 g 1 4 Active triamcinolone (Kenalog) 0.1 % ointmentIndication s:Encounter for gynecological examination with abnormal finding Apply topically 2 (two) times a day 15 g 1 4 Active lansoprazole (Prevacid) [address] capsuleIndications :Gastroesophageal reflux disease without esophagitis TAKE 1 CAPSULE BY MOUTH 1 TIME EVERY DAY AT THE SAME TIME 100 capsule 3 4 Active Glucose Blood (Blood Glucose Test Strips 333) stripIndications:D iabetic polyneuropathy associated with type 2 diabetes mellitus ([facility]) 1 strip by In Vitro route in the morning and 1 strip before bedtime. 200 strip 3 4 Active Lancets miscIndications:Di abetic polyneuropathy associated with type 2 diabetes mellitus (HCC) 1 Lancet in the morning and 1 Lancet before bedtime. 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) TAKE 1 TABLET BY MOUTH IN THE MORNING AND 1 TABLET BEFORE BEDTIME 200 tablet 3 4 Active lidocaine (Lidoderm) 5 % patchIndications:C hronic left shoulder pain Apply 1 patch over 12 hours topically 1 (one) time each day at the same time 30 patch 2 4 Active Blood Glucose Monitoring Suppl (Blood Glucose Monitor System) w/Device kitIndications:Laureen betic polyneuropathy associated with type 2 diabetes mellitus (HCC) 1 each Daily 1 kit 4 Active rosuvastatin (Crestor) 10 MG tabletIndications: Mixed hyperlipidemia Take 1 tablet (10 mg) by mouth Daily 100 tablet 3 5 Active bisoprolol (Zebeta) 5 MG tabletIndications: Cardiac arrhythmia, unspecified cardiac arrhythmia type Take 1 tablet (5 mg) by mouth 1 (one) time each day at the same time 100 tablet 3 5 Active ibandronate (Boniva) 150 MG tabletIndications: Osteopenia of multiple sites Take 1 tablet (150 mg) by mouth every 30 (thirty) days Take in morning with full glass of water on an empty stomach. No food, drink, meds, or lying down for 60 minutes after. 3 tablet 3 5 Active zolpidem (Ambien) 10 MG tabletIndications: Psychophysiologica l insomnia Take 1 tablet (10 mg) by mouth as needed at bedtime for sleep 90 tablet 5 025 Active gabapentin (Neurontin) 300 MG capsuleIndications :Diabetic polyneuropathy associated with type 2 diabetes mellitus (HCC) TAKE 1 CAPSULE BY MOUTH IN THE MORNING , 1 CAPSULE IN THE EVENING AND 1 CAPSULE BEFORE BEDTIME 270 capsule 3 5 Active oxybutynin XL (Ditropan-XL) 5 MG 24 hr tabletIndications: Stress incontinence of urine Take 1 tablet (5 mg) by mouth Daily Do not crush, chew, or split. 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 03/01/2025 Age-related nuclear cataract of left eye 025 Dry eyes 03/01/2025 Blepharitis of upper and lower eyelids of both e yes 03/01/2025 Primary hypertension 02/13/2025 Former smoker 02/13/2025 Closed fracture of multiple ribs of right side with routine healing 11/24/2024 History of pneumothorax 11/15/2024 Chronic left shoulder pain 09/07/2024 Family history of breast cancer in sister 2023 Chest pain, atypical 10/01/2023 Breast calcification, left 08/04/2023 Supraventricular tachycardia 04/17/2023 Stress incontinence of urine 04/17/2023 Spinal stenosis of lumbar region 04/17/2023 PTSD (post-traumatic stress disorder) 04/17/2023 Anxiety disorder 04/17/2023 Psychophysiological insomnia 04/17/2023 Primary osteoarthritis of left knee 04/17/2023 Palpitations 04/17/2023 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 Osteopenia of multiple sites 04/17/2023 Mononeuropathy of left lower extremity 3 Mixed hyperlipidemia 04/17/2023 Migraine 04/17/2023 Duct ectasia of breast, right 04/17/2023 Lumbar disc disease with radiculopathy 3 Internal derangement of right shoulder 3 Esophageal reflux 04/17/2023 Diabetic polyneuropathy 04/17/2023 Atrophic vaginitis 04/17/2023 Cardiac arrhythmia 04/17/2023 Benign neoplasm of cerebral meninges 04/17/2023 Abnormal mammogram of left breast 04/17/2023 Type 2 diabetes mellitus with other specified co mplication 02/04/2016 Spasmodic torticollis Cervicalgia Carpal tunnel syndrome Sciatica Tension type headache Muscle spasm Syndrome affecting cervical region Disturbance of skin sensation Resolved Problems Problem Noted Date Diagnosed Date Resolved Date Type 2 diabetes mellitus, [facility]term current use of insulin 03/01/2025 04/07/2025 Pneumothorax on right 11/24/20242024 Type 2 diabetes mellitus wit h other diabetic neurological complication 04/17/2023 01/25/2024 Insomnia 04/17/2023 06/24/2023 Left sided sciatica 04/17/2023 02/14/20 25 Spondylosis of lumbar region without myelopathy or radiculopathy 04/17/2023 01/25/2024 Costochondritis 04/17/2023 01/25/2024 Lumbosacral spondylosis without myelopathy 03/24/2018 01/25/2024 Insomnia, unspecified 2024 Headache 02/13/2025 Migraine with aura 5 Pain in limb 02/13/2025 History of medical problems 12/07/2024 Overview (08/22/2024): Sprains and strains of other and unspecified parts of back; neck Backache 02/13/2025 Encounters Date Type Department Care Team Description 04/18/2025 Refill [facility] [address] [place] [address] Chris Whitaker MD Generalized anxiety disorder 04/07/2025 9:30 AM EDT Office Visit [facility] [address] [place] [address] Ana M Lundberg PA Type 2 diabetes mellitus with other specified complication, without long-term current use of insulin (HCC) (Primary Dx); Sciatica of left side; Stress incontinence of urine; Generalized anxiety disorder 04/07/2025 Bamboo flowsheet [facility] [address] [place] [address] Ana M Lundberg PA 04/07/2025 Travel 04/05/2025 Refill [facility] [address] [place] [address] Padmini Saldivar MA Psychophysiological insomnia 03/23/2025 Refill [facility] [address] [place] [address] Chris Whitaker MD Diabetic polyneuropathy associated with type 2 diabetes mellitus (HCC) 03/23/2025 Refill [facility] [address] [place] [address] Chris Whitaker MD Psychophysiological insomnia 03/17/2025 Refill [facility] [address] [place] [address] Chris Whitaker MD Generalized anxiety disorder 03/01/2025 3:00 PM EDT Office Visit [facility] [address] [place] [address] Carlyle Carter DO Type 2 diabetes mellitus without complication, without long-term current use of insulin (HCC) (Primary Dx); 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; Age-related nuclear cataract of left eye; Dry eyes; Blepharitis of upper and lower eyelids of both eyes, unspecified type 03/01/2025 Bamboo flowsheet [facility] [address] [place] [address] Carlyle Carter DO 03/01/2025 Travel 02/21/2025 Telephone [facility] [address] [facility] [address] [place] [address] Ana M Lundberg PA from Last 3 Months Immunizations Immunization Administration Dates Next Due ABRYSVO - Respiratory syncyt ial virus (RSV), vaccine, bivalent, protein subunit RSV prefusion F, diluent reconstituted, 0.5 mL, PF 11/19/2023 Influenza, High Dose Seasona l, Preservative Free 10/19/2024,09/19/2021,08/30/2020,08/17 Influenza, High-dose Seasona l, Quadrivalent, Preservative Free 09/02/2023,08/30/2021 Influenza, Seasonal, Quadriv alent, Adjuvanted 08/26/2022 Influenza, recombinant, quad rivalent, injectable, preservative free 08/30/2020,08/10/2019 Influenza, seasonal, injectable 08/05/2022 Influenza, seasonal, injecta ble, preservative free 07/31/2019 Pfizer Purple Cap SARS-CoV-2 Vaccination 11/19/2021 Pneumococcal Conjugate PCV 13 01/07/2016 Pneumococcal Polysaccharide PPSV23 08/20/2017, Zoster, Recombinant 11/09/2019,11/09/2019,2018 Zoster, live 05/01/2014 Family History Medical History Relation Name Comments Heart disease Brothjune Morley Lung cancer Brother Candelario Morley Lung cancer Father Stomach cancer Maternal Grandfather Melanoma Maternal Grandmother Diabetes Mother Heydi Morley Heart disease Mother Heydi Morley Hyperlipidemia Mother Heydi Morley Hypertension Mother Heydi Morley Melanoma Other No Known Problems Paternal Grandmother un known Breast cancer Sister Heart disease Sister Relation Name Status Comments Brothjune Morley 4 brothers Father Maternal Grandfather Maternal Grandmother Mother Heydi Morley Other Grandmother Paternal Grandmother Sister 2 sisters Social History Tobacco Use Types Packs/Day Years Used Date Smoking Tobacco: Former Cigarettes Smokeless Tobacco: Never Tobacco Cessation:Counseling Given: Not Answered Alcohol Use Standard Drinks/Week Comments Never 0 [...] Answer Date Recorded Patient Health Questionnaire-2 Score 0 04/07/2025 Comments No Sex and Gender Information Value Date Recorded Sex Assigned at Not on file Legal Sex Female 6:45 PM EDT Gender Identity Not on file Sexual Orientation Not on file Last Filed Vital Signs Vital Sign Reading Time Taken Comments Blood Pressure 122/80 04/07/2025 9:36 AM EDT Pulse 64 04/07/2025 9:36 AM EDT Temperature 36.1 C (97 F) 01/12/2024 10:02 AM EST Respiratory Rate 16 04/07/2025 9:36 AM EDT Oxygen Saturation 99% 04/07/2025 9:36 AM EDT Inhaled Oxygen Concentration - - Weight 54.7 kg (120 lb 9.6 oz) 04/07/2025 9:36 A M EDT Height 160 cm (5' 3 ) 04/07/2025 9:36 AM EDT Body Mass Index 21.36 04/07/2025 9:36 AM EDT Plan of Treatment Upcoming Encounters Date Type Department Care Team (Late st Contact Info) Description 05/18/2025 3:15 PM EDT Office Visit [facility] [address] [facility] [address] [place] [address] Giuseppe Durham DO [address] [place] [address] 07/10/2025 1:00 PM EDT Office Visit [facility] [address] [facility] [address] [place] [phone] Ana M Lundberg PA [address] [place] [address] 07/21/2025 1:20 PM EDT Office Visit [facility] [address] [place] [address] Ivet Brumfield PA [address] [place] [address] 08/17/2025 1:45 PM EDT Office Visit [facility] [address] [place] [phone] Raeann Carbajal, DPM [address] [place], [place] [phone] Health Maintenance Due Date Last Done Comments Diabetes: Hemoglobin A1C 07/08/2025 025, 11/15/2024, 06/07/2024, Additional history exists Medicare Annual Wellness (AWV) 02/13/2026 02/13/2025 , 01/25/2024 Diabetes: Urine Protein Screening 04/07/2026 04/07/2025, 12/08/2023, 09/03/2022, Additional history exists Diabetes: Retinopathy Screening 03/01/2027 03/01/2025, 03/01/2025, 03/01/2025, Additional history exists Pneumococcal Vaccine: 65+ Years Completed 08/20/2017, 05/08/2017, 01/07/2016 Influenza Vaccine Completed 10/19/2024, , 08/26/2022, Additional history exists Procedures Procedure Name Priority Date/Time Associated Diagnosis Comments MICROALBUMIN / CREATININE URINE RATIO Routine 04/07/2025 9:58 AM EDT Type 2 diabetes mellitus with other specified complication, without long-term current use of insulin (HCC) POCT GLYCATED HEMOGLOBIN, TOTAL Routine 04/07/2025 9:44 AM EDT Type 2 diabetes mellitus with other specified complication, without long-term current use of insulin (HCC) OCT, RETINA - OU - BOTH EYES Routine 03/01/2025 4:34 PM EDT 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 LIPID PANEL Routine 02/20/2025 9:44 AM EDT Medicare annual wellness visit, subsequent Diabetic polyneuropathy associated with type 2 diabetes mellitus (HCC) Primary hypertension Mixed hyperlipidemia COLOR FUNDUS PHOTOGRAPHY - OU - BOTH EYES Routine 11/16/2020 12:00 PM EST from Last 3 Months or Most Recently Relevant to Health Maintenance Results * Microalbumin / creatinine, urine ratio (04/07/2025 9:58 AM EDT) CREATININE, RANDOM URINE 31 20 - 275 mg/dL [facility] ALBUMIN, URINE 0.5 See Note: mg/dL [facility] Comment: Reference Range: Reference Range Not established ALBUMIN/CREATININE RATIO, RANDOM URINE 16 <30 mg/g creat [facility] Comment: The ADA defines abnormalities in albumin excretion as follows: Albuminuria Category Result (mg/g creatinine) Normal to Mildly increased <30 Moderately increased 30-299 Severely increased > OR = 300 The ADA recommends that at least two of three specimens collected within a 3-6 month period be abnormal before considering a patient to be within a diagnostic category. Urine Urine specimen obtained by clean catch procedure / Unknown 04/07/2025 9:58 AM EDT 04/07/2025 4:46 PM EDT Narrative Resulting Agency Comment Performing Organization Information Site ID: QPT Name: [facility] Address: [address] [place] [address], [address] [place] [phone] Director: Javon Ernst MD us Ana M PEREZ LAB URINE ORDERABLES Final Res ult [facility] * (ABNORMAL) POCT Glycated hemoglobin, total (04/07/2025 9:44 AM EDT) Hemoglobin A1C 7.0 Blood 04/07/2025 9:44 AM EDT us Ana M PEREZ POINT OF CARE TEST ENTER/EDIT ORDERABLES Final Result * OCT, Retina - OU - Both Eyes (03/01/2025 4:34 PM EDT) Anatomical Region Laterality Modality Head Optical Coherenc e Tomography Narrative 03/01/2025 4:34 PM EDT Right Eye Quality was good. Scan locations included subfoveal. Progression has been stable. Findings include abnormal foveal contour. Left Eye Quality was good. Scan locations included subfoveal. Progression has been stable. Findings include abnormal foveal contour. Notes Macular volume loss both eyes (OU) Carlyel Carter DO OPHTH TOMOGRAPHY Edited Res ult - Final * (ABNORMAL) Lipid panel (02/20/2025 9:44 AM EDT) [facility] CHOLESTEROL, TOTAL 116 <200 mg/dL [facility] HDL CHOLESTEROL 41(L) > OR = 50 mg/dL [facility] TRIGLYCERIDES 160(H) <150 mg/dL [facility] LDL-CHOLESTEROL 51 mg/dL (calc) [facility] Comment: Reference range: <100 Desirable range <100 mg/dL for primary prevention; <70 mg/dL for patients with CHD or diabetic patients with > or = 2 CHD risk factors. LDL-C is now calculated using the Wesley-Jennifer calculation, which is a validated novel method providing better accuracy than the Friedewald equation in the estimation of LDL-C. Wesley SS et al. CELESTINE. 2013;310(19): 7239-8678 (http://education.Cliqset.com/faq/QSN634) CHOL/HDLC RATIO 2.8 <5.0 (calc) [facility] NON HDL CHOLESTEROL 75 <130 mg/dL (calc) [facility] Comment: For patients with diabetes plus 1 major ASCVD risk factor, treating to a non-HDL-C goal of <100 mg/dL (LDL-C of <70 mg/dL) is considered a therapeutic option. Blood Venous blood specimen / Unknown 02/20/2025 9:44 AM EDT 02/20/2025 9:44 AM EDT Narrative [facility] - 02/21/2025 7:43 AM EDT FASTING:YES FASTING: YES Resulting Agency Comment Performing Organization Information Site ID: QPT Name: [facility] Address: [address] [place] [address], [address] [place] [phone] Director: Javon Ernst MD Ana M PEREZ LAB BLOOD ORDERABLES Final Res ult [facility] * Color Fundus Photography - OU - Both Eyes (11/16/2020 12:00 PM EST) Anatomical Region Laterality Modality Head Fundus Photograp hy 11/16/2020 12:0 0 PM EST Narrative 11/16/2020 12:00 PM EST PERFORMED AT [facility] LOCATION:[id number] [facility] Procedure Note CONVERSION, GENERIC - 04/15/2023 PERFORMED AT [facility] LOCATION:[id number] [facility] Chris Whitaker MD OPHTH PHOTOGRAPHY Final Result from Last 3 Months or Most Recently Relevant to Health Maintenance Insurance [employer] MEDICARE Care Teams Trade Show Specialist Relationship Specialty Start Date End Date Chris Whitaker MD [address] [facility] [address] [place] [address] PCP - General Internal Medicine 04/20/23
--- OUTSIDE RECORDS SUMMARY | 2025-05-18 09:16 | XMS_ITS | Encounter Summary ---
Author Organization [facility] Address [address] [place] [address] Care Team Providers Care Lead Programmer Analyst Name Role Phone Chris Whitaker MD Primary Care Provider [phone] Encounter Details Date Type Department Care Team (Late Contact Info) Description 11/13/2024 External Result Encounter [facility] External Department Unsolicited Jose Will, DO [address] [facility] [address] [place] [address] Social History Tobacco Use Types Packs/Day Years [...] [address] [place] [phone] Giuseppe Durham DO [address] [place] [address] 07/10/2025 1:00 PM EDT Office Visit [facility] [address] [place] [address] Ana M Lundberg PA [address] [place] [address] 07/21/2025 1:20 PM EDT Office Visit [facility] [address] [place] [phone] Ivet Brumfield PA [address] [place] [address] 08/17/2025 1:45 PM EDT Office Visit [facility] [address] [place] [phone] Raeann Carbajal, DPM [address] [place], [place] [phone] documented as of this encounter Procedures Procedure Name Priority Date/Time Associated Diagnosis Comments XR CHEST 1 VIEW 11/13/2024 7:55 AM EST documented in this encounter Results * XR chest 1 view (11/13/2024 7:55 AM EST) Anatomical Region Laterality Modality Chest Radiographic Sierra ging 11/13/2024 7:55 AM EST Impressions 11/13/2024 8:00 AM EST Improving right apical pneumothorax with tiny residual. Chest tube unchanged. Impression dictated by: Henry Kaur M.D.11/13/2024 7:58 AM Dictation Location: [place] [address] Transcribed By: [facility] 11/13/24 0758 Dictated By: Henry Kaur DO 11/13/24 0755 Signed By: <Electronically signed by Henry Kaur DO in OV> 11/13/24 0758 Narrative 11/13/2024 8:00 AM EST [facility] Main [place] [id number] XRay Report Signed Patient: Cheryl Lindquist MR#: [id number] 69 : 1945 Acct:[id number] Age/Sex: 78 / F ADM Date: 11/10/24 Loc: 4N Room: [address] [place] [address] Type: ADM IN Attending Dr: Keo Abbasi DO Copies to: DO Jose Nicolas DO Ordering Provider: Jose Will DO Date of Service: 11/13/24 XR/XR chest 1V portable: R PTX Plain film chest Single view HISTORY: Follow-up right-sided pneumothorax. COMPARISON: 11/12/2024 FINDINGS: SUPPORT DEVICES: Right chest tubes stable POSTSURGICAL CHANGES: None HEART: Within normal limits PULMONARY SONAM: Within normal limits MEDIASTINUM: Unremarkable LUNGS AND PLEURA: Improved right apical pneumothorax. Tiny residual present. No developing consolidation. No developing pleural effusion. BONY STRUCTURES: Right eighth rib fracture. ADDITIONAL FINDINGS None XR/XR chest 1V portable Procedure Note Radiology, Radiologist, MD - 11/13/2024 [facility] Main [address] [address] XRay Report Signed Patient: Cheryl Lindquist JMR#: [id number] 69 : 1945cct:[id number] Age/Sex: 78 / FADM Date: 11/10/24 Loc: 4N Room: [id number]: ADM IN Attending Dr: Keo Abbasi DO Copies to: DO Jose Nicolas DO Ordering Provider: Jose Will DO Date of Service: 11/13/24 XR/XR chest 1V portable: R PTX Plain film chest Single view HISTORY: Follow-up right-sided pneumothorax. COMPARISON: 11/12/2024 FINDINGS: SUPPORT DEVICES: Right chest tubes stable POSTSURGICAL CHANGES: None HEART: Within normal limits PULMONARY SONAM: Within normal limits MEDIASTINUM: Unremarkable LUNGS AND PLEURA: Improved right apical pneumothorax. Tiny residualpresent. No developing consolidation. No developing pleural effusion. BONY STRUCTURES: Right eighth rib fracture. ADDITIONAL FINDINGS None XR/XR chest 1V portable IMPRESSION: Improving right apical pneumothorax with tiny residual. Chest tubeunchanged. Impression dictated by: Henry Kaur M.D.11/13/2024 7:58 AM Dictation Location: [employer] Transcribed By: [facility] 11/13/24 0758 Dictated By: Henry Kaur DO 11/13/24 0755 Signed By: <Electronically signed by Henry Kaur DO in OV> 11/13/24 0758 Jose Will DO IMG XR PROCEDURES Final Result documented in this encounter Visit Diagnoses Not on filedocumented in this encounter Additional Health Concerns Assessment Noted Time PHQ-9 Depression Total Score: 7 01/25/20 24 10:00 AM EST documented as of this encounter Care Teams Lead Programmer Analyst Relationship Specialty Start Date End Date Chris Whitaker MD [address] [place] [address] PCP - General Internal Medicine 04/20/23 documented as of this encounter
--- OUTSIDE RECORDS SUMMARY | 2025-05-18 09:16 | XMS_ITS | Encounter Summary ---
Author Organization [facility] Address [address] [place] [address] Care Team Providers Care Manager Of Sales Name Role Phone Chris Whitaker MD Primary Care Provider [phone] Encounter Details Date Type Department Care Team (Late Contact Info) Description 11/11/2024 External Result Encounter [facility] External Department Unsolicited Keo Abbasi, DO [address] [address] Social History Tobacco Use Types Packs/Day Years [...] Office Visit [facility] [address] [facility] [address] [place] [address] Giuseppe Durham, DO [address] [place] [address] 07/10/2025 1:00 PM EDT Office Visit [facility] [address] [place] [address] Ana M Lundberg PA [address] [place] [address] 07/21/2025 1:20 PM EDT Office Visit [facility] DERM [address] [place] [address] Ivet Brumfield PA [address] [place] [address] 08/17/2025 1:45 PM EDT Office Visit [facility] [address] [place] [phone] Raeann Carbajal, DPM [address] [place], [place] [phone] documented as of this encounter Procedures Procedure Name Priority Date/Time Associated Diagnosis Comments XR CHEST 1 VIEW 11/11/2024 8:10 AM EST documented in this encounter Results * XR chest 1 view (11/11/2024 8:10 AM EST) Anatomical Region Laterality Modality Chest Radiographic Sierra ging 11/11/2024 8:10 AM EST Impressions 11/11/2024 8:17 AM EST Right chest tube tip overlies the lateral portion of the apical region. Tiny right apical pneumothorax. Impression dictated by: Henry Kaur M.D.11/11/2024 8:14 AM Dictation Location: [place] [address] Transcribed By: ROMULO 11/11/24813 Dictated By: Henry Kaur DO 12/13/24 0810 Signed By: <Electronically signed by Henry Kaur DO in OV> 11/11/24 0814 Narrative 11/11/2024 8:17 AM EST [place] [id number] XRay Report Signed Patient: Cheryl Lindquist MR#: [id number] 68 : 1945 Acct:[id number] Age/Sex: 78 / F ADM Date: 11/10/24 Loc: 4N Room: [address] [place] [address] Type: ADM IN Attending Dr: Keo Abbasi DO Copies to: Keo Abbasi DO Ordering Provider: Keo Abbasi DO Date of Service: 11/11/24 XR/XR chest 1V portable: PTX Plain film chest Single view HISTORY: Right chest tube COMPARISON: None FINDINGS: SUPPORT DEVICES: Right chest tube tip overlies lateral portion of the right lung apex POSTSURGICAL CHANGES: None HEART: Within normal limits PULMONARY SONAM: Within normal limits MEDIASTINUM: Unremarkable LUNGS AND PLEURA: Small right apical pneumothorax identified. No lung consolidation or pleural effusion. BONY STRUCTURES: Intact ADDITIONAL FINDINGS None XR/XR chest 1V portable Procedure Note Radiology, Radiologist, - 11/11/[address] [address] XRay Report Signed Patient: Cheryl Lindquist JMR#: [id number] 69 : 1945cct:[id number] Age/Sex: 78 / FADM Date: 11/10/24 Loc: 4N Room: [id number]: ADM IN Attending Dr: Keo Abbasi DO Copies to: Keo Abbasi DO Ordering Provider: Keo Abbasi DO Date of Service: 11/11/24 XR/XR chest 1V portable: PTX Plain film chest Single view HISTORY: Right chest tube COMPARISON: None FINDINGS: SUPPORT DEVICES: Right chest tube tip overlies lateral portion of theright lung apex POSTSURGICAL CHANGES: None HEART: Within normal limits PULMONARY SONAM: Within normal limits MEDIASTINUM: Unremarkable LUNGS AND PLEURA: Small right apical pneumothorax identified. No lungconsolidation or pleural effusion. BONY STRUCTURES: Intact ADDITIONAL FINDINGS None XR/XR chest 1V portable IMPRESSION: Right chest tube tip overlies the lateral portion of the apical region.Tiny right apical pneumothorax. Impression dictated by: Henry Kaur M.D.11/11/2024 8:14 AM Dictation Location: [facility] Transcribed By: PWS 11/11/24813 Dictated By: Henry Kaur DO 11/11/24809 Signed By: <Electronically signed by Henry Kaur DO in OV> 11/11/24813 Keo Abbasi DO IMG XR PROCEDURES Final R esult documented in this encounter Visit Diagnoses Not on filedocumented in this encounter Additional Health Concerns Assessment Noted Time PHQ-9 Depression Total Score: 7 01/25/20 24 10:00 AM EST documented as of this encounter Care Teams Manager Of Sales Relationship Specialty Start Date End Date Chris Whitaker MD [address] [place] [address] PCP - General Internal Medicine 04/20/23 documented as of this encounter
--- OUTSIDE RECORDS SUMMARY | 2025-05-18 09:16 | XMS_ITS | Encounter Summary ---
Author Organization [facility] Address [address] [place] [address] Care Team Providers Care Loader Name Role Phone Chris Whitaker MD Primary Care Provider [phone] Encounter Details Date Type Department Care Team (Late Contact Info) Description 08/19/2024 External Result Encounter [facility] External Department Unsolicited Jose Will, DO 703 [facility] 150 [place] [address] Social History Tobacco Use Types Packs/Day Years [...] [address] [place] [phone] Giuseppe Durham DO [address] [place] [address] 07/10/2025 1:00 PM EDT Office Visit [facility] [address] [place] [address] Ana M Lundberg PA [address] [place] [address] 07/21/2025 1:20 PM EDT Office Visit [facility] [address] [place] [phone] Ivet Brumfield PA [address] [place] [phone] 08/17/2025 1:45 PM EDT Office Visit [facility] [address] [place] [phone] Raeann Carbajal, DPM [address] [place], [place] [phone] documented as of this encounter Procedures Procedure Name Priority Date/Time Associated Diagnosis Comments BI US BREAST LIMITED RIGHT 08/19/2024 12:46 PM EDT documented in this encounter Results * Right breast US limited (08/19/2024 12:46 PM EDT) Anatomical Region Laterality Modality Breast Right Ultrasound 08/19/2024 12:4 6 PM EDT Impressions 08/19/2024 12:49 PM EDT 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 Return to routine screening. Impression dictated by: Henry Kaur M.D.08/19/2024 12:47 PM Dictation Location: [facility] Tech: Raeann Mcintyre Transcribed By: ROMULO 08/19/24 1247 Dictated By: Henry Kaur DO 08/19/24 1246 Signed By: <Electronically signed by Henry Kaur DO in OV> 08/19/24 1247 Narrative 08/19/2024 12:49 PM EDT [place] [id number] Ultrasound Report Signed Patient: Cheryl Lindquist MR#: [id number] 69 : 1945 Acct:[id number] Age/Sex: 78 / F ADM Date: 08/19/24 Loc: [facility] Room: [facility] Attending Dr: Jose Will DO Ordering Provider: Jose Will DO Date of Service: 08/19/24 US/US breast RT limited: 6month f/u Copies to: Jose Will DO Targeted right breast ultrasound HISTORY: Follow-up assessment of ductal ectasia. COMPARISON: 05/12/2022 There is redemonstration of mildly dilated ducts in retroareolar region. No intraluminal abnormality. US/US breast RT limited Procedure Note Radiology, Radiologist, MD - 08/19/2024 [place] [id number] Ultrasound Report Signed Patient: Cheryl Lindquist JMR#: [id number] 69 : 1945cct:[id number] Age/Sex: 78 / FADM Date: 08/19/24 Loc: [facility] Room:Type: [facility] CLI Attending Dr: Jose Will DO Ordering Provider: Jose Will DO Date of Service: 08/19/24 US/US breast RT limited: 6month f/u Copies to: Jose Will DO Targeted right breast ultrasound HISTORY: Follow-up assessment of ductal ectasia. COMPARISON: 05/12/2022 There is redemonstration of mildly dilated ducts in retroareolar region.No intraluminal abnormality. 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 Return toroutine screening. Impression dictated by: Henry Kaur M.D.08/19/2024 12:47 PM Dictation Location: [facility] Tech: Raeann Mcintyre Transcribed By: ROMULO 08/19/24 1247 Dictated By: Henry Kaur DO 08/19/24 1246 Signed By: <Electronically signed by Henry Kaur DO in [place]> 08/19/24 1247 us Jose Will DO IMG US PROCEDURES Final Result documented in this encounter Visit Diagnoses Not on filedocumented in this encounter Additional Health Concerns Assessment Noted Time PHQ-9 Depression Total Score: 7 01/25/20 24 10:00 AM EST documented as of this encounter Care Teams Loader Relationship Specialty Start Date End Date Chris Whitaker MD [address] [address] PCP - General Internal Medicine 04/20/23 documented as of this encounter
--- OUTSIDE RECORDS SUMMARY | 2025-05-18 09:16 | XMS_ITS | Encounter Summary ---
Author Organization [facility] Address [address] [facility] [place] [address] Care Team Providers Care Dry Janitor Name Role Phone Chris Whitaker MD Primary Care Provider Encounter Details Date Type Department Care Team (Late st Contact Info) Description 02/13/2025 Abstract [facility] [address] [place] [address] Chris Whitaker MD [address] [facility] [address] [place] [address] Social History Tobacco Use Types Packs/Day Years [...] Answer Date Recorded Patient Health Questionnaire-2 Score 4 02/13/2025 Comments No Sex and Gender Information Value Date Recorded Sex Assigned at Not on file Legal Sex Female 6:45 PM EDT Gender Identity Not on file Sexual Orientation Not on file documented as of this encounter Functional Status * Over the past 2 weeks, how often have you been bothered by any of the following problems? Question Answer Date of Assessment Author Little interest or pleasure in doing things More than half the days 02/13/2025 12:00 PM EDT Katelyn Han LPN Feeling down, depressed, or hopeless More than half the days 02/13/2025 12:00 PM EDT Katelyn Han LPN Patient Health Questionnaire-2 Score 4 02/13/2025 12:00 PM EDT Katelyn Han LPN * Question Answer Date of Assessment Author Trouble falling or staying asleep, or sleeping too much Not at all 02/13/2025 12:00 PM EDT Katelyn Han LPN Feeling tired or having little energy More than half the days 02/13/2025 12:00 PM EDT Katelyn Han LPN Poor appetite or overeating Nearly every day 02/13/2025 12:00 PM EDT Katelyn Han LPN Feeling bad about yourself - or that you are a failure or have let yourself or your family down Not at all 02/13/2025 12:00 PM EDT Katelyn Han LPN Trouble concentrating on things, such as reading the newspaper or watching television Not at all 02/13/2025 12:00 PM EDT Katelyn Han LPN Moving or speaking so slowly that other people could have noticed? Or the opposite - being so fidgety or restless that you have been moving around a lot more than usual. Not at all 02/13/2025 12:00 PM EDT Katelyn Han LPN Thoughts that you would be better off or hurting yourself in some way Not at all 02/13/2025 12:00 PM EDT Katelyn Han LPN Patient Health Questionnaire-9 Score 9 02/13/2025 12:00 PM EDT Katelyn Han LPN documented as of this encounter Plan of Treatment Upcoming Encounters Date Type Department Care Team (Late st Contact Info) Description 05/18/2025 3:15 PM EDT Office Visit [facility] [address] [place] [address] Giuseppe Durham DO [address] [place] [address] 07/10/2025 1:00 PM EDT Office Visit [facility] [address] [place] [address] Ana M Lundberg PA [address] [place] [address] 07/21/2025 1:20 PM EDT Office Visit [facility] D[facility] [address] [place] [address] Ivet Brumfield PA [address] [place] [address] 08/17/2025 1:45 PM EDT Office Visit [facility] [address] [place] [phone] Raeann Carbajal, DPM [address] [place] [address] documented as of this encounter Visit Diagnoses Not on filedocumented in this encounter Additional Health Concerns Assessment Noted Time PHQ-9 Depression Total Score: 9 02/14/20 25 12:00 PM EDT documented as of this encounter Care Teams Dry Janitor Relationship Specialty Start Date End Date Chris Whitaker MD [address] [facility] [address] [place] [address] PCP - General Internal Medicine 04/20/23 documented as of this encounter
--- OUTSIDE RECORDS SUMMARY | 2025-05-18 09:16 | XMS_ITS | Clinical Summary ---
Author Organization [facility] Address [address] [place] [address] Phone Care Team Providers Care Industrial Yard Brake Coupler Name Role Phone Chris Whitaker MD Primary Care Provider [phone] Allergies Active Allergy Reactions Criticality Noted Date Comments Prednisone Palpitations Low 10/01/2023 Medications ALPRAZolam (Xanax) 0.25 mg tablet Take 0.25 tablets by mouth as needed at bedtime. 11/14/2020 Active aspirin 81 mg EC tablet Take 1 tablet (81 mg) by mouth once daily. Active CALCIUM CARBONATE-VITAM IN D3 ORAL Take 2 tablets by mouth once daily. Active gabapentin (Neurontin) 300 mg capsule Take 1 capsule (300 mg) by mouth 2 times a day. 05/14/2022 Active glyburide-metfo rmin (Glucovance) 5-500 mg tablet Take 1 tablet by mouth 2 times a day. 04/26/2020 Active HYDROcodone-oscar taminophen ([place]) 5-325 mg tablet Take 1 tablet by mouth every 6 hours if needed. 12/12/2020 Active lansoprazole (Prevacid) [address] capsule Take 1 capsule (30 mg) by mouth 2 times a day. 09/24/2020 Active tiZANidine (Zanaflex) 4 mg tablet Take by mouth twice a day. 0.5 tablet to 1 tablet 06/18/2022 Active coenzyme Q-10 100 mg capsule Take 1 capsule (100 mg) by mouth once daily. Active zolpidem (Ambien) 10 mg tablet Take 1 tablet (10 mg) by mouth as needed at bedtime. 07/27/2020 Active rosuvastatin (Crestor) 10 mg tabletIndicatio ns:Mixed hyperlipidemia, Palpitations,Pa roxysmal SVT (supraventricul ar tachycardia) TAKE 1 TABLET BY MOUTH ONCE DAILY 90 tablet 08/23/2024 Active bisoprolol (Zebeta) 5 mg tabletIndicatio ns:Mixed hyperlipidemia, Palpitations,Pa roxysmal SVT (supraventricul ar tachycardia) TAKE 1 TABLET BY MOUTH ONCE DAILY 90 tablet 08/23/2024 Active Active Problems Problem Noted Date Diagnosed Date Chest pain, atypical 10/01/2023 Hyperlipidemia 10/01/2023 Palpitations 10/01/2023 Paroxysmal SVT (supraventricular tachycardia) Immunizations Immunization Administration Dates Next Due Influenza, seasonal, injectable 08/05/2022 Family History Medical History Relation Name Comments Cabg Brother Cardiac Abnormailty Brother cardiac abnormality Mother Relation Name Status Comments Brother Mother Social History Tobacco Use Types Packs/Day Years Used Date Smoking Tobacco: Former Cigarettes Q uit: 1971 Smokeless Tobacco: Never Alcohol Use Standard Drinks/Week [...] Sign Reading Time Taken Comments Blood Pressure 124/72 10/02/2023 12:55 PM EDT Pulse 76 10/02/2023 12:55 PM EDT Temperature - - Respiratory Rate - - Oxygen Saturation - - Inhaled Oxygen Concentration - - Weight 54.9 kg (121 lb) 10/02/2023 12:55 PM EDT Height 160 cm (5' 3 ) 10/02/2023 12:55 PM EDT Body Mass Index 21.43 10/02/2023 12:55 PM EDT Plan of Treatment Health Maintenance Due Date Last Done Comments Lipid Panel 1945 Medicare Annual Wellness Visit (AWV) 1945 Diabetes Screening 1964 Hepatitis C Screening 1964 DTaP/Tdap/Td Vaccines (1 - Tdap) 1968 RSV High Risk: (Elderly (60+) or Population) (1 - 1-dose 75+ series) 2021 COVID-19 Vaccine ( season) 2024 11/19/2021, 11/04/2021, 02/19/2021, Additional history exists Influenza Vaccine (Season Ended) 2025 09/02/2023, 08/26/2022, 08/05/2022, Additional history exists Pneumococcal Vaccine Completed 08/20/2017, 05/08/2017, 01/07/2016 Zoster Vaccines Completed 11/09/2019, 07/31, 05/01/2014 Bone Density Scan Completed 09/24/2021 Irritable Bowel Syndrome Discontinued 01/20/2023 HIB Vaccines Aged Out No longer eligi ble based on patient's age to complete this topic HPV Vaccines Aged Out No longer eligi ble based on patient's age to complete this topic Hepatitis A Vaccines Aged Out No long er eligible based on patient's age to complete this topic Hepatitis B Vaccines Aged Out No long er eligible based on patient's age to complete this topic IPV Vaccines Aged Out No longer eligi ble based on patient's age to complete this topic Meningococcal Vaccine Aged Out No ruperto nicolas eligible based on patient's age to complete this topic Rotavirus Vaccines Aged Out No longer eligible based on patient's age to complete this topic Insurance [employer] MEDICARE Care Teams Industrial Yard Brake Coupler Relationship Specialty Start Date End Date Chris Whitaker MD PCP - General Internal Medicine 10/02/23
--- OUTSIDE RECORDS SUMMARY | 2025-05-18 09:16 | XMS_ITS | Encounter Summary ---
Author Organization [facility] Address [address] [place] [address] Care Team Providers Care Manager Of Training And Development Name Role Phone Chris Whitaker MD Primary Care Provider [phone] Encounter Details Date Type Department Care Team (Late Contact Info) Description 11/12/2024 External Result Encounter [facility] External Department Unsolicited Keo Abbasi, DO [address] [address] Social History Tobacco Use Types Packs/Day Years [...] Office Visit [facility] [address] [facility] [address] [place] [address] Giuseppe Durham, DO [address] [place] [address] 07/10/2025 1:00 PM EDT Office Visit [facility] [address] [place] [address] Ana M Lundberg PA [address] [place] [address] 07/21/2025 1:20 PM EDT Office Visit [facility] D[facility] [address] [place] [address] Ivet Brumfield PA [address] [place] [address] 08/17/2025 1:45 PM EDT Office Visit [facility] [address] [place] [phone] Raeann Carbajal, DPM [address] [place], [place] [phone] documented as of this encounter Procedures Procedure Name Priority Date/Time Associated Diagnosis Comments XR CHEST 1 VIEW 11/12/2024 7:19 AM EST documented in this encounter Results * XR chest 1 view (11/12/2024 7:19 AM EST) Anatomical Region Laterality Modality Chest Radiographic [place] ging 11/12/2024 7:19 AM EST Impressions 11/12/2024 7:24 AM EST Small right apical pneumothorax. Unchanged right chest tube. Impression dictated by: Henry Kaur M.D.11/12/2024 7:21 AM Dictation Location: [place] [address] Transcribed By: ROMULO 11/12/24720 Dictated By: Henry Kaur DO 11/12/24718 Signed By: <Electronically signed by Henry Kaur DO in OV> 11/12/24 0721 Narrative 11/12/2024 7:24 [place] [address] XRay Report Signed Patient: Cheryl Lindquist MR#: [id number] 69 : 1945 Acct:[id number] Age/Sex: 78 / F ADM Date: 11/10/24 Loc: 4N Room: [address] [place] [address] Type: ADM IN Attending Dr: Keo Abbasi DO Copies to: Keo Abbasi DO Ordering Provider: Keo Abbasi DO Date of Service: 11/12/24 XR/XR chest 1V portable: right PTX Plain film chest Single view HISTORY: Follow-up right pneumothorax. Chest tube placement. COMPARISON: 11/11/2014 FINDINGS: SUPPORT DEVICES: Stable POSTSURGICAL CHANGES: None HEART: Within normal limits PULMONARY SONAM: Within normal limits MEDIASTINUM: Unremarkable LUNGS AND PLEURA: Smaller right apical pneumothorax. No new consolidation or pleural effusion. BONY STRUCTURES: Stable ADDITIONAL FINDINGS None XR/XR chest 1V portable Procedure Note Radiology, Radiologist, MD - 11/12/2024 [place] [id number] XRay Report Signed Patient: Cheryl Lindquist JMR#: [id number] 69 : 1945cct:[id number] Age/Sex: 78 / FADM Date: 11/10/24 Loc: 4N Room: [id number]: ADM IN Attending Dr: Keo Abbasi DO Copies to: Keo Abbasi DO Ordering Provider: Keo Abbasi DO Date of Service: 11/12/24 XR/XR chest 1V portable: right PTX Plain film chest Single view HISTORY: Follow-up right pneumothorax. Chest tube placement. COMPARISON: 11/11/2014 FINDINGS: SUPPORT DEVICES: Stable POSTSURGICAL CHANGES: None HEART: Within normal limits PULMONARY SONAM: Within normal limits MEDIASTINUM: Unremarkable LUNGS AND PLEURA: Smaller right apical pneumothorax. No newconsolidation or pleural effusion. BONY STRUCTURES: Stable ADDITIONAL FINDINGS None XR/XR chest 1V portable IMPRESSION: Small right apical pneumothorax. Unchanged right chest tube. Impression dictated by: Henry Kaur M.D.11/12/2024 7:21 AM Dictation Location: [facility]20 Transcribed By: [facility] 11/12/24720 Dictated By: Henry Kaur DO 11/12/24718 Signed By: <Electronically signed by Henry Kaur DO in OV> 11/12/24720 Keo Abbasi DO IMG XR PROCEDURES Final R esult documented in this encounter Visit Diagnoses Not on filedocumented in this encounter Additional Health Concerns Assessment Noted Time PHQ-9 Depression Total Score: 7 01/25/20 24 10:00 AM EST documented as of this encounter Care Teams Manager Of Training And Development Relationship Specialty Start Date End Date Chris Whitaker MD [address] [address] PCP - General Internal Medicine 04/20/23 documented as of this encounter
--- OUTSIDE RECORDS SUMMARY | 2025-05-18 09:30 | XMS_ITS | CCD ---
Author Organization [facility] Care Team Providers Care Ui Software Engineer Name Role Phone Ricardo Hardy Unavailable OrquideaIqra Unavailable ROCHELLE Bagley Referring Unavailable ROCHELLE Bagley Attending Unavailable Chris Whitaker II Primary Care Unavail able Unavailable Unavailable Ms. LEAH BAGLEY Attending Unavailable Chris Whitaker II Primary Care Unavail able LEONARDO Whitaker Primary Care Provider MD Debar Villasenor Attending Provider [phone] MARIA DEL CARMEN Gutierrez, DR LATIF Admitting Unavailable MARIA DEL CARMEN Gutierrez, DR LATIF Attending Unavailable NATASHA ., ANA NOVAK Consulting UnavailDR CHRIS Lim Primary Care Unavailable CARYL HERNANDEZ Consulting Unavailable Chris Whitaker MD Primary Care Provider BLADIMIR TAM Attending Unavailable CHRIS WHITAKER Primary Care Unavailable Chris Wihtaker MD Primary Care Provider [phone] LEONAROD Whitaker Primary Care Provider [phone] DO Jose Will Attending Provider [phone] JACOBO SRIVASTAVA Attending Unavailable JACOBO SRIVASTAVA Attending Unavailable Chris Whitaker Primary Care Unavailable Jose Will Admitting Unavailable Jose Will Attending Unavailable Keo Abbasi Admitting Unavailable Keo Abbasi Attending Unavailable Chris Whitaker Primary Care Unavailable Blanca Liz Consulting Unavailable Lio Cates Consulting Unavaila Yusuf Osullivan Consulting Unavailable Syed Banda Consulting Unavailable Dimitry Weeks Consulting Unavailable Edgar Petit Consulting Unavailable George Lopez Consulting Unavailable Nicola Quiros Consulting Un available [place], Tabitha Consulting Unavailable Jaskaran Clarke Consulting Unavaila ble HEMALEKSANDRA, ANA M Macdonald Attending Unavailable RAEANN CASTRO Attending Unavailable VISCI, TOMI Evans Attending Unavailable VISCITOMI Referring Unavailable JOSE WILL Referring Unavailable CAROLYN BANKS Attending Unavailable HEMMER, ANA M Macdonald Attending Unavailable HEMMER, ANA M Macdonald Attending Unavailable ELIZABETH BRUMFIELD Attending Unavailable HEMANA M LAKE Referring Unavailable RAEANN CASTRO Attending Unavailable RAEANN CASTRO Referring Unavailable JOSE WILL Attending Unavailable HEMMER, ANA M Macdoanld Attending Unavailable BRANDTSYD SHARP Attending Unavailable HEMMER, ANA M Macdonald Attending Unavailable HEMMER, ANA M Macdonald Attending Unavailable HEMMER, ANA M Macdonald Attending Unavailable LAFJOSE SEXTON Attending Unavailable HEMMER, ANA M Macdonald Attending Unavailable Allergies Allergy Classification Reported Allergen(s) Allergy Type Date of Onset Reaction(s) Facility (5 sources) Corticosteroids Drug allergy Unknown [facility] Other (7 sources) Mold Extract; Translations: [mold] Drug Allergy Unknown [facility] (7 sources) predniSONE; Translations: [predniSONE] Drug Allergy 023 Palpitations [facility] (2 sources) Other Allergy to substance (finding) [facility] 250 DO Work Phone: (2 sources) atorvastatin; Translations: [ATORVASTATIN] Drug Allergy [facility] (2 sources) Corticosteroids Drug allergy (disorder) [facility] (1 source) Simvastatin Drug Allergy [facility] (20 sources) atorvastatin Drug Allergy Other [facility] (20 sources) methylPREDNISolone Drug Allergy Palpitations [facility] (20 sources) nabumetone Drug Allergy GI intolerance [facility] (20 sources) Simvastatin Allergy to substance [facility] (1 source) Corticosteroids Drug allergy (disorder) [facility] (1 source) predniSONE Drug Allergy [facility] Medications Current Medications Medication Drug Class(es) Dates Sig (Normalized) Sig (Original) acetaminophen 325 mg / HYDROcodone bitartrate 5 mg oral tablet (20 sources) Opioid Agonist Start: 04-07-2025 End: 05-07-2025 take 1 tablet by mouth every six hours for pain HYDROcodone-aceta minophen ([place]) 5-325 MG tablet Indications: Sciatica of left side Take 1 tablet by mouth every 6 (six) hours if needed for severe pain 120 tablet 04/07/2025 05/07/2025 Active Start: 02-14-2025 End: 03-16-2025 take 1 tablet by mouth every six hours for pain HYDROcodone-acetaminophen ([place]) 5-325 MG tablet Indications: Sciatica of left side Take 1 tablet by mouth every 6 (six) hours if needed for severe pain 120 tablet 02/14/2025 03/16/2025 Active Start: 01-19-2025 End: 01-26-2025 take 1 tablet by mouth every six hours for pain HYDROcodone-acetaminophen ([place]) 5-325 MG tablet Indications: Spinal stenosis of lumbar region with neurogenic claudication Take 1 tablet by mouth every 6 (six) hours if needed for severe pain for up to 7 days 28 tablet 01/19/2025 01/26/2025 Active Start: 01-02-2025 End: 01-09-2025 take 1 tablet by mouth every six hours for pain HYDROcodone-acetaminophen ([place]) 5-325 MG tablet Indications: Spinal stenosis of lumbar region with neurogenic claudication Take 1 tablet by mouth every 6 (six) hours if needed for severe pain for up to 7 days 28 tablet 01/02/2025 01/09/2025 Active Start: 05-31-2024 End: 12-14-2024 take 1 tablet by mouth every six hours for pain HYDROcodone-acetaminophen ([place]) 5-325 MG tablet Indications: Spinal stenosis of lumbar region, unspecified whether neurogenic claudication present Take 1 tablet by mouth every 6 (six) hours if needed for severe pain 120 tablet 08/16/2024 12/07/2024 Discontinued (Reorder) Start: 11-04-2023 take 1 tablet by eli th every six hours for pain HYDROcodone-acetaminophen ([place]) 5-325 MG tablet Indications: Spinal stenosis of lumbar region, unspecified whether neurogenic claudication present Take 1 tablet by mouth every 6 (six) hours if needed for severe pain 120 tablet 0 11/04/2023 Active Start: 12-12-2020 take 1 tablet by eli th every six hours as needed HYDROcodone-acetaminophen ([place]) 5-325 mg tablet Take 1 tablet by mouth every 6 hours if needed. 0 12/12/2020 Active Start: 12-12-2020 take 1 tablet by eli th every four to six hours as needed HYDROcodone-Acetaminophen 5-325 MG Oral Tablet TAKE 1 TABLET EVERY 4 TO 6 HOURS NEEDED. Quantity: 0 Refills: 0 Ordered: 12-Dec-2020 DO Start : 12-Dec-2020 Active ALPRAZolam 0.25 mg oral tablet (20 sources) Benzodiazepine Start: 06-27-2024 End: 05-18-2025 take 1 tablet by mouth once daily as needed for anxiety ALPRAZolam (Xanax) 0.25 MG tablet Indications: Generalized anxiety disorder (CMS/HCC) Take 1 tablet (0.25 mg) by mouth Daily as needed for anxiety 30 tablet 04/18/2025 05/18/2025 Active Start: 11-14-2020 End: 01-12-2024 take 1 tablet by mouth once daily ALPRAZolam (Xanax) 0.25 MG tablet Indications: Generalized anxiety disorder (CMS/HCC) Take 1 tablet (0.25 mg) by mouth 1 (one) time each day at the same time 30 tablet 0 01/12/2024 Active ascorbic acid 1000 mg oral tablet (2 sources) Vitamin C Start: 01-20-2023 take 1 g by mouth once daily Ascorbic Acid (Vitamin C) (Vitamin C) 1,000 mg Tablet Active 1 GM PO Daily January 20, 2023 1:00am aspirin 81 mg oral tablet (20 sources) Platelet Aggregation Inhibitor, Nonsteroidal Anti-inflammatory Drug Start: 01-20-2023 take 81 mg by mouth once daily Aspirin Active 81 MG PO Daily January 20, 2023 1:00am take 1 tablet by mouth in the mo rning aspirin 81 MG EC tablet Take 81 mg by mouth in the morning. Active take 1 tablet by mouth once [...] Active bisoprolol fumarate 5 mg oral tablet (20 sources) beta-Adrenergic Jama Start: 01-23-2025 take 1 tablet by mouth once daily bisoprolol (Zebeta) 5 MG tablet Indications: Cardiac arrhythmia, unspecified cardiac arrhythmia type Take 1 tablet (5 mg) by mouth 1 (one) time each day at the same time 100 tablet 3 01/23/2025 Active Start: 09-27-2020 End: 10-02-2023 take 1 tablet by mouth once daily bisoprolol (Zebeta) 5 MG tablet Indications: Cardiac arrhythmia, unspecified cardiac arrhythmia type Take 1 tablet (5 mg) by mouth 1 (one) time each day at the same time. 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) 1 each Daily 1 kit 11/01/2024 Active busPIRone hydrochloride 10 mg oral tablet (3 sources) Start: 04-07-2025 take 1 tablet by mouth twice daily as needed for anxiety busPIRone (Buspar) 10 MG tablet Indications: Generalized anxiety disorder (CMS/HCC) Take 1 tablet (10 mg) by mouth 2 (two) times a day as needed (Anxiety) 60 tablet 2 04/07/2025 Active Start: 04-07-2025 take 1 tablet by eli th twice daily as needed for anxiety busPIRone (Buspar) 10 MG tablet Indications: Generalized anxiety disorder (CMS/HCC) Take 1 tablet (10 mg) by mouth 2 (two) times a day as needed (Anxiety) 60 tablet 2 04/07/2025 Active Calcium (1 source) Phosphate Binder, Calcium [...] Active calcium citrate 950 mg oral tablet (2 sources) Start: 01-20-2023 take 1 tablet by mouth twice daily Calcium Citrate (Citracal) 200 mg (950 mg) Tablet Active 200 MG PO Twice daily January 20, 2023 1:00am Centrum (5 sources) Centrum Orally Active codeine phosphate 2 mg/ml / guaiFENesin 20 mg/ml oral solution (3 sources) Opioid Agonist Start: 01-12-2024 End: 01-22-2024 take 10 mL by mouth at bedtime guaiFENesin-codei ne (Robitussin-AC) 100-10 MG/5ML syrup Indications: Acute cough Take 10 mL by mouth at bedtime for 10 days 100 mL 0 01/12/2024 01/22/2024 Active Coenzyme Y27-Rrqz Oil-Vit E (CO-Q 10 OMEGA-3 FISH OIL PO) (20 sources) Coenzyme Q10-Fis h Oil-Vit E (CO-Q 10 OMEGA-3 FISH OIL PO) Orally Active Coenzyme Q10-Fis h Oil-Vit E (CO-Q 10 OMEGA-3 FISH OIL PO) Orally 0 Active gabapentin 300 mg oral capsule (20 sources) Anti-epileptic Agent Start: 03-24-2025 take 1 capsule by mouth in the morning, then take 1 capsule by mouth in the evening, then take 1 capsule by mouth at bedtime gabapentin (Neurontin) 300 MG capsule Indications: Diabetic polyneuropathy associated with type 2 diabetes mellitus (CMS/HCC) TAKE 1 CAPSULE BY MOUTH IN THE MORNING , 1 CAPSULE IN THE EVENING AND 1 CAPSULE BEFORE BEDTIME 270 capsule 3 03/24/2025 Active Start: 05-14-2022 take 1 capsule by mo uth in the morning, then take 1 capsule by mouth in the evening, then take 1 capsule by mouth at bedtime gabapentin (Neurontin) 300 MG capsule Indications: Diabetic polyneuropathy associated with type 2 diabetes mellitus (CMS/HCC) TAKE 1 CAPSULE BY MOUTH IN THE MORNING AND 1 CAPSULE BY MOUTH IN THE EVENING AND 1 CAPSULE BY MOUTH BEFORE BEDTIME 270 capsule 3 05/13/2024 Active glyBURIDE 5 mg / metFORMIN hydrochloride 500 mg oral tablet (20 sources) Biguanide, Sulfonylurea Start: 08-23-2024 take 1 tablet by mouth in the morning glyBURIDE-metFORMIN (Glucovance) 5-500 MG tablet Indications: Type 2 diabetes mellitus with other diabetic neurological complication TAKE 1 TABLET BY MOUTH IN THE MORNING AND 1 TABLET BEFORE BEDTIME 200 tablet 3 08/23/2024 Active Start: 09-23-2023 take 1 tablet by eli th in the morning glyBURIDE-metFORMIN (Glucovance) 5-500 MG tablet Indications: 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 200 tablet 3 09/23/2023 Active Start: 04-26-2020 take 1 tablet by eli th twice daily Glyburide-Metformin Active 1 TAB PO Twice daily January 20, 2023 1:00am take 1 tablet by eli th every twenty-four hours Glyburide-Metformin 5-500 MG 1 tablet with a meal Orally Once a day Active ibandronic acid 150 mg oral tablet (20 sources) Bisphosphonate Start: 02-14-2025 take 1 tablet by mouth every 30 days in the morning ibandronate (Boniva) 150 MG tablet Indications: Osteopenia of multiple sites Take 1 tablet (150 mg) by mouth every 30 (thirty) days Take in morning with full glass of water on an empty stomach. No food, drink, meds, or lying down for 60 minutes after. 3 tablet 3 02/14/2025 Active Start: 01-10-2025 take 1 tablet by eli th every 30 days in the morning ibandronate (Boniva) 150 MG tablet Indications: Osteopenia of multiple sites Take 1 tablet (150 mg) by mouth every 30 (thirty) days Take in morning with full glass of water on an empty stomach. No food, drink, meds, or lying down for 60 minutes after. 3 tablet 3 01/10/2025 Active Start: 02-08-2024 take 1 tablet by eli th every 30 days in the morning ibandronate (Boniva) 150 MG tablet Indications: Osteopenia of multiple sites Take 1 tablet (150 mg) by mouth every 30 (thirty) days Take in morning with full glass of water on an empty stomach. No food, drink, meds, or lying down for 60 minutes after. 3 tablet 3 02/08/2024 Active krill oil 300 mg oral capsule (20 sources) take 1 tablet by mouth once daily Krill Oil 300 MG capsule Take 1 tablet by mouth 1 (one) time each day. Active lansoprazole 30 mg delayed release oral capsule (20 sources) Proton Pump Inhibitor Start: 01-20-20 take 1 capsule by mouth once daily lansoprazole (Prevacid) [address] capsule Indications: Gastroesophageal reflux disease without esophagitis TAKE 1 CAPSULE BY MOUTH 1 TIME EVERY DAY AT THE SAME TIME 100 capsule 3 08/03/2024 Active Start: 09-24-2020 take 1 capsule by mo [facility] twice daily lansoprazole (Prevacid) [address] capsule Take 1 capsule (30 mg) by mouth 2 times a day. 0 09/24/2020 Active levoFLOXacin 500 mg oral tablet (1 source) Quinolone Antimicrobial Start: 07-09-2022 take 1 tablet by mouth once daily Levaquin 500 MG 1 tablet Orally Once a day for 10 day(s) Jun, Active lidocaine 0.05 mg/mg medicated patch (20 sources) Antiarrhythmic, Amide Local Anesthetic Start: 09-07-2024 apply 1 dose transdermal route every twelve hours lidocaine (Lidoderm) 5 % patch Indications: Chronic left shoulder pain Apply 1 patch over 12 hours topically 1 (one) time each day at the same time 30 patch 2 09/07/2024 Active Start: 12-12-2020 End: 09-07-2024 apply 1 dose transdermal route once daily lidocaine (Lidoderm) 5 % patch Apply 1 patch topically 1 (one) time each day at the same time. 12/12/2020 09/07/2024 Discontinued (Reorder) loratadine 10 mg oral tablet (20 sources) Start: 11-01-2019 loratadine (Claritin) 10 MG tablet Take 10 mg by mouth as needed at bedtime for allergies. 11/01/2019 Active meclizine hydrochloride 25 mg oral tablet (2 sources) Antiemetic Start: 12-07-2024 End: 12-17-2024 take 0.5-1 tablets by mouth twice daily as needed for dizziness meclizine (Antivert) 25 MG tablet Indications: Dizziness Take 0.5-1 tablets (12.5-25 mg) by mouth 2 (two) times a day as needed for dizziness for up to 10 days 20 tablet 12/07/2024 12/17/2024 Active metroNIDAZOLE 500 mg oral tablet (1 source) Nitroimidazole Antimicrobial Start: 07-09-2022 take 1 tablet by mouth every twelve hours metroNIDAZOLE 500 MG 1 tablet Orally Twice a day for 10 day(s) Jun, Active MiraLax 17 GM/SCOOP (1 source) MiraLax 17 GM/SCOOP as directed Orally Active Multivitamin preparation (2 sources) Start: 01-20-2023 take 1 tablet by mouth once daily Multivitamin Active 1 TAB PO Daily January 20, 2023 1:00am Start: 01-20-2023 take 1 tablet by eli th once daily Multivitamin Active 1 TAB PO Daily January 20, 2023 12:00am nabumetone 750 mg oral tablet (20 sources) Nonsteroidal Anti-inflammatory Drug Start: 02-19-2024 take 1 tablet by mouth twice daily as needed nabumetone (Relafen) 750 MG tablet Take 750 mg by mouth 2 (two) times a day as needed 02/19/2024 Active Nirmatrelvir&Rit onavir 300/100 (Paxlovid, 300/100,) 20 x 150 MG [...] 01/13/2024 Active nystatin 100 unt/mg topical ointment (20 sources) Polyene Antifungal Start: 05-09-2024 nystatin (Mycostatin) ointment Indications: Encounter for gynecological examination with abnormal finding Apply topically 2 (two) times a day 15 g 1 05/09/2024 Active Start: 04-04-2019 nystatin (Myco statin) ointment Apply topically 2 (two) times a day. 0 04/04/2019 Active ondansetron 4 mg disintegrating oral tablet (20 sources) Serotonin-3 Receptor Antagonist Start: 05-07-2021 End: 10-20-2024 take 1 tablet by mouth every eight hours for nausea ondansetron ODT (Zofran-ODT) 4 MG disintegrating tablet Indications: Nausea and vomiting, unspecified vomiting type Take 1 tablet (4 mg) by mouth every 8 (eight) hours if needed for nausea or vomiting for up to 10 days 30 tablet 10/10/2024 10/20/2024 Active oseltamivir 75 mg oral capsule (1 source) Neuraminidase Inhibitor Start: 02-13-2022 take 1 capsule by mouth every twelve hours Tamiflu 75 MG 1 capsule Orally Twice a day for 5 day(s) Jan, Active 24 hr oxybutynin chloride 5 mg extended release oral tablet (3 sources) Cholinergic Muscarinic Antagonist Start: 04-07-2025 take 1 tablet by mouth once daily oxybutynin XL (Ditropan-XL) 5 MG 24 hr tablet Indications: Stress incontinence of urine Take 1 tablet (5 mg) by mouth Daily Do not crush, chew, or split. 30 tablet 2 04/07/2025 Active Start: 04-07-2025 take 1 tablet by eli th once daily oxybutynin XL (Ditropan-XL) 5 MG 24 hr tablet Indications: Stress incontinence of urine Take 1 tablet (5 mg) by mouth Daily Do not crush, chew, or split. 30 tablet 2 04/07/2025 Active rosuvastatin calcium 10 mg oral tablet (20 sources) HMG-CoA Reductase Inhibitor Start: 01-23-2025 take 1 tablet by mouth once daily rosuvastatin (Crestor) 10 MG tablet Indications: Mixed hyperlipidemia (CMS/HCC) Take 1 tablet (10 mg) by mouth Daily 100 tablet 3 01/23/2025 Active Start: 11-21-2020 End: 10-02-2023 take 1 tablet by mouth in the morning rosuvastatin (Crestor) 10 MG tablet Indications: Mixed hyperlipidemia (CMS/HCC) Take 1 tablet (10 mg) by mouth in the morning. 90 tablet 3 07/14/2023 Active tiZANidine 4 mg oral tablet (20 sources) Central alpha-2 Adrenergic Agonist Start: 03-08-2024 take 1 tablet by mouth once as needed tiZANidine (Zanaflex) 4 MG tablet Indications: Lumbar disc disease with radiculopathy Take 1 tablet (4 mg) by mouth every 12 (twelve) hours PRN 30 tablet 5 03/08/2024 Active Start: 06-18-2022 take 1 tablet by eli th every twelve hours tiZANidine (Zanaflex) 4 MG [...] Ordered: 18-Jun-2022 DO Start : 18-Jun-2022 Active triamcinolone acetonide 0.001 mg/mg topical ointment (20 sources) Corticosteroid Start: 05-09-2024 triamcinolone (Kenalog) 0.1 % ointment Indications: Encounter for gynecological examination with abnormal finding Apply topically 2 (two) times a day 15 g 1 05/09/2024 Active ubidecarenone 100 mg oral capsule (5 sources) Start: 01-20-2023 Coenzyme Q10 ( Co Q-10) 100 mg Capsule Active 100 MG PO Daily January 20, 2023 1:00am take 1 capsule by mouth once kathryn ly coenzyme Q-10 100 mg capsule Take 1 capsule (100 mg) by mouth once daily. 0 Active Vitamin A-Vitamin C-Vit E-Min (Eye Health) Tablet (2 sources) Start: 01-20-2023 take 2 tablets by mouth once daily Vitamin A-Vitamin C-Vit E-Min (Eye Health) Tablet Active 2 TAB PO Daily January 20, 2023 1:00am Start: 01-20-2023 take 2 tablets by mo [facility] once daily Vitamin A-Vitamin C-Vit E-Min (Eye Health) Tablet Active 2 TAB PO Daily January 20, 2023 12:00am zolpidem tartrate 10 mg oral tablet (20 sources) gamma-Aminobutyric Acid-ergic Agonist Start: 07-27-2020 End: 06-21-2025 zolpidem (Ambien) 10 MG tablet Indications: Psychophysiological insomnia Take 1 tablet (10 mg) by mouth as needed at bedtime for sleep 90 tablet 03/23/2025 06/21/2025 Active Completed/Discontinued Medications Medication Drug Class(es) Dates Sig (Normalized) Sig (Original) acetaminophen 325 mg / oxyCODONE hydrochloride 5 mg oral tablet (8 sources) Opioid Agonist Start: 11-13-2024 End: 12-07-2024 take 1 tablet by mouth every six hours as needed oxyCODONE-acetamin ophen (Percocet) 5-325 MG tablet Take 1 tablet by mouth every 6 (six) hours if needed 11/13/2024 12/07/2024 Discontinued (Therapy completed) Calcium+D3 TABS (2 sources) Calcium+D3 TABS TAKE [...] Date Documented Da te Episodic/Chronic Anxiety disorders (20 sources) Posttraumatic stress disorder; Translations: [Post-traumatic stress disorder, unspecified] Onset: 3 04-17-2023 Chronic Cardiac dysrhythmias (20 sources) Paroxysmal supraventricular tachycardia; Translations: [Paroxysmal supraventricular tachycardia] Onset: 3 10-02-2023 Chronic Cataract (9 sources) Age-related nuclear cataract of left eye; Translations: [Age-related nuclear cataract, left eye] Onset: 5 03-01-2025 Chronic Conditions associated with dizziness or vertigo (4 sources) Lightheadedness; Translations: [Dizziness and giddiness] 08-23-2024 Episodic Diabetes mellitus with complications (20 sources) Type 2 diabetes mellitus; Translations: [Type 2 diabetes mellitus with other diabetic neurological complication] Onset: 6 Resolved: 5 04-17-2023 Chronic Disorders of lipid metabolism (20 sources) Hyperlipidemia; Translations: [Other and unspecified hyperlipidemia] Onset: 2 10-02-2023 Chronic E Codes: Fall (1 source) Fall on same level, unspecified, initial encounter; Translations: [FALL SAME LEVEL UNSPECIFIED INITIAL] Onset: 3 Episodic Esophageal disorders (20 sources) Gastro-esophageal reflux disease with esophagitis; Translations: [Gastroesophageal reflux disease with esophagitis without hemorrhage] Onset: 1 Resolved: 2 Chronic Essential hypertension (11 sources) Essential (primary) hypertension; Translations: [Essential hypertension] Onset: 4 Chronic Genitourinary symptoms and ill-defined conditions (20 sources) Genuine stress incontinence; Translations: [Stress incontinence (female) (male)] Onset: 3 04-17-2023 Chronic Headache; including migraine (20 sources) Migraine; Translations: [Migraine, unspecified, not intractable, without status migrainosus] Onset: 3 Resolved: 5 04-17-2023 Chronic Inflammation; infection of eye (except that caused by tuberculosis or sexually transmitteddisease) (9 sources) Blepharitis of upper and lower eyelids of bilateral eyes; Translations: [Unspecified blepharitis right eye, upper and lower eyelids] Onset: 5 03-01-2025 Episodic Menopausal disorders (20 sources) Primary ovarian failure; Translations: [Other primary ovarian failure] Onset: 3 04-17-2023 Chronic Miscellaneous mental health disorders (20 sources) Psychophysiologic insomnia; Translations: [Psychophysiologic insomnia] Onset: 3 04-17-2023 Chronic Nausea and vomiting (7 sources) Nausea; Translations: [Nausea] 10-10-2024 Episodic Nonmalignant breast conditions (20 sources) Mammary duct ectasia of right breast; Translations: [Mammary duct ectasia of right breast] Onset: 3 08-04-2023 Chronic Osteoarthritis (20 sources) Osteoarthritis of left knee joint; Translations: [Unilateral primary osteoarthritis, left knee] Onset: 3 04-17-2023 Chronic Other aftercare (1 source) Other retirement (current) drug therapy; Translations: [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 THERAPY] Onset: 3 Episodic Other aftercare (1 source) termination clerk (current) use of aspirin; Translations: [RETIREMENT CURRENT USE OF ASPIRIN] Onset: 3 Episodic Other and unspecified benign neoplasm (20 sources) Benign neoplasm of cerebral meninges; Translations: [Benign neoplasm of cerebral meninges] Onset: 3 04-17-2023 Chronic Other circulatory disease (2 sources) Orthostatic hypotension; Translations: [Orthostatic hypotension] 08-23-2024 Episodic Other connective tissue disease (20 sources) Spasm; Translations: [Other muscle spasm] 08-22-2024 Episodic Other connective tissue disease (2 sources) Muscle pain; Translations: [Myalgia, unspecified site] 08-16-2024 Episodic Other disorders of stomach and duodenum (1 source) Indigestion; Translations: [Functional dyspepsia] Episodic Other eye disorders (9 sources) Dry eyes; Translations: [Dry eye syndrome of bilateral lacrimal glands] Onset: 5 03-01-2025 Episodic Other fractures (4 sources) Closed fracture of multiple right ribs; Translations: [Multiple fractures of ribs, right side, sequela] 11-15-2024 Episodic Other fractures (1 source) Multiple fractures of ribs, right side, initial encounter for closed fracture; Translations: [Multiple fractures of ribs, right side, initial encounter for closed fracture] Onset: 4 Episodic Other gastrointestinal disorders (1 source) Irritable bowel syndrome characterized by constipation; Translations: [Irritable bowel syndrome with constipation] Chronic Other gastrointestinal disorders (1 source) Irritable bowel syndrome with constipation Onset: 2 Resolved: 2 Chronic Other gastrointestinal disorders (5 sources) Dysphagia; Translations: [Dysphagia, unspecified] Episodic Other hereditary and degenerative nervous system conditions (20 sources) Spasmodic torticollis; Translations: [Spasmodic torticollis] 08-22-2024 Chronic Other lower respiratory disease (2 sources) Cough; Translations: [Acute cough] 01-12-2024 Episodic Other nervous system disorders (5 sources) Mononeuropathy; 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] Onset: 3 04-17-2023 Chronic Other nervous system disorders (20 sources) Mononeuropathy of lower limb; 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] Onset: 3 04-17-2023 Chronic Other nervous system disorders (20 sources) Carpal tunnel syndrome; Translations: [Carpal tunnel syndrome, unspecified upper limb] 08-22-2024 Chronic Other nervous system disorders (20 sources) Cervical syndrome; Translations: [Cervical root disorders, not elsewhere classified] 08-22-2024 Chronic Other nervous system disorders (20 sources) Skin sensation disturbance; Translations: [Unspecified disturbances of skin sensation] 08-22-2024 Episodic Other non-traumatic joint disorders (20 sources) Derangement of right shoulder joint; Translations: [...] [Personal history of other specified diseases] Episodic Residual codes; unclassified (2 sources) Intolerant of cold; Translations: [Other general symptoms and signs] 08-16-2024 Episodic Retinal detachments; defects; vascular occlusion; and retinopathy (9 sources) Nonexudative age-related macular degeneration; Translations: [Nonexudative age-related macular degeneration, bilateral, 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] Onset: 5 03-01-2025 Chronic Screening and history of mental health and substance abuse codes (12 sources) Ex-smoker; Translations: [Personal history of tobacco use] Onset: 3 02-13-2025 Episodic Spondylosis; intervertebral disc disorders; other back problems (20 sources) Spinal stenosis of lumbar region; Translations: [Spinal stenosis, lumbar region without neurogenic claudication] Onset: 3 Resolved: 04-17-2023 Episodic Superficial injury; contusion (2 sources) Contusion of left front wall of thorax, initial encounter; Translations: [Contusion of left shoulder, initial encounter] Onset: 3 Episodic Unclassified (2 sources) Supraventricular tachycardia, unspecified; Translations: [Supraventricular tachycardia, unspecified] Onset: 3 Viral infection (1 source) Disease caused by 2019-nCoV; Translations: [COVID-19] 01-13-2024 Episodic Past or Other Problems Problem Classification Problem Date Documented Date Episodic/Chronic Cardiac dysrhythmias (20 sources) Palpitations; Translations: [Palpitations] Onset: 04-17-2023 10-02-2023 Episodic Esophageal disorders (1 source) Esophageal disorders; Translations: [Gastroesophageal reflux disease with esophagitis without hemorrhage K21.00] Onset: 09-17-2021 Resolved: 09-17-2021 Headache; including migraine (20 sources) Headache; Translations: [Headache] Resolved: 02-13-2025 08-22-2024 Episodic Immunizations and screening for infectious disease (1 source) Contact with and (suspected) exposure to other viral communicable diseases Onset: 02-13-2022 Resolved: 02-13-2022 Episodic Influenza (1 source) Influenza due to other identified influenza virus with other respiratory manifestations Onset: 02-13-2022 Resolved: 02-13-2022 Episodic Mood disorders (20 sources) Mood disorders Onset: 09-29-2022 Resolved: 02-13-2025 01-12-2023 Nonmalignant breast conditions (20 sources) Calcification of breast; Translations: [Mammographic calcification found on diagnostic imaging of breast] Onset: 08-04-2023 08-04-2023 Episodic Nonspecific chest pain (20 sources) Atypical chest pain; Translations: [Other chest pain] Onset: 10-27-2022 10-01-2023 Episodic Other and unspecified benign neoplasm (2 sources) Hemangioma of skin and subcutaneous tissue; Translations: [Hemangioma of skin and subcutaneous tissue] 07-21-2024 Episodic Other and unspecified benign neoplasm (2 sources) Melanocytic nevus of trunk; Translations: [Melanocytic nevi of trunk] 07-21-2024 Episodic Other bone disease and musculoskeletal deformities (20 sources) Osteopenia; Translations: [Other specified disorders of bone density and structure, multiple sites] Onset: 04-17-2023 04-17-2023 Episodic Other bone disease and musculoskeletal deformities (20 sources) Costal chondritis; Translations: [Chondrocostal junction syndrome [Tietze]] Onset: 04-17-2023 Resolved: 01-25-2024 04-17-2023 Episodic Other connective tissue disease (20 sources) Pain in limb; Translations: [Pain in unspecified limb] Resolved: 02-13-2025 08-22-2024 Episodic Other connective tissue disease (2 sources) Peroneal tendinitis; Translations: [Peroneal tendinitis, left leg] 07-26-2024 Episodic Other connective tissue disease (2 sources) Plantar fasciitis of left foot; Translations: [Plantar fascial fibromatosis] 07-26-2024 Episodic Other connective tissue disease (2 sources) Metatarsalgia of left foot; Translations: [Metatarsalgia, left foot] 07-26-2024 Episodic Other disorders of stomach and duodenum (1 source) Disease of stomach and duodenum, unspecified; Translations: [Disease of stomach and duodenum, unspecified K31.9] Onset: 09-17-2021 Resolved: 09-17-2021 Episodic Other disorders of stomach and duodenum (1 source) Functional dyspepsia Onset: 07-09-2022 Resolved: 07-09-2022 Episodic Other fractures (19 sources) Closed fracture of multiple ribs; Translations: [Multiple fractures of ribs, right side, subsequent encounter for fracture with routine healing] Onset: 11-24-2024 11-24-2024 Episodic Other infections; including parasitic (1 source) Personal history of other infectious and parasitic diseases Onset: 07-09-2022 Resolved: 07-09-2022 Episodic Other lower respiratory disease (20 sources) H/O: pneumothorax; Translations: [Personal history of other diseases of the respiratory system] Onset: 11-15-2024 11-15-2024 Episodic Other non-traumatic joint disorders (20 sources) Chronic pain of left upper limb; Translations: [Pain in left shoulder] Onset: 09-07-2024 09-07-2024 Episodic Other non-traumatic joint disorders (2 sources) Instability of joint of left ankle; Translations: [Other instability, left ankle] 07-26-2024 Episodic Other screening for suspected conditions (not mental disorders or infectious disease) (20 sources) Mammography abnormal; Translations: [Other abnormal and inconclusive findings on diagnostic imaging of breast] Onset: 04-17-2023 04-17-2023 Episodic Other skin disorders (2 sources) Seborrheic keratosis; Translations: [Other seborrheic keratosis] 07-21-2024 Episodic Other skin disorders (2 sources) Lentigo simplex; Translations: [Other melanin hyperpigmentation] 07-21-2024 Episodic Other skin disorders (2 sources) Inflamed seborrheic keratosis; Translations: [Inflamed seborrheic keratosis] 07-21-2024 Episodic Other skin disorders (2 sources) Epidermoid cyst; Translations: [Epidermal cyst] 07-21-2024 Episodic Pleurisy; pneumothorax; pulmonary collapse (20 sources) Pneumothorax, unspecified; Translations: [Right pneumothorax] Onset: 11-10-2024 Resolved: 02-13-2025 11-24-2024 Episodic Residual codes; unclassified (20 sources) Insomnia; Translations: [Insomnia, unspecified] Onset: 04-17-2023 Resolved: 02-13-2025 06-24-2023 Episodic Residual codes; unclassified (20 sources) Family history of malignant neoplasm of breast in first degree relative; Translations: [Family history of malignant neoplasm of breast] Onset: 02-04-2024 02-04-2024 Episodic Residual codes; unclassified (20 sources) History of clinical finding in subject; Translations: [Personal history of other specified conditions] Resolved: 12-07-2024 08-22-2024 Episodic Spondylosis; intervertebral disc disorders; other back problems (20 sources) Lumbar spondylosis; Translations: [Spondylosis without myelopathy or radiculopathy, lumbar region] Onset: 03-24-2018 Resolved: 01-25-2024 04-17-2023 Chronic Unclassified (1 source) Onset: 10-02-2023 10-02-2023 Unclassified (2 sources) Supraventricular tachycardia, unspecified; Translations: [Supraventricular tachycardia, unspecified] Onset: 10-02-2023 Results Test Name Value Interpretation Reference Range Facility ALBUMIN, RANDOM URINE W/CREA TININEon 04-10-2025 ALBUMIN, URINE 0.5 mg/dL Normal See Note: [facility] Comment on above: Result Comment: Sanjuana latham Range: Reference Range Not established Performed By: #### 6 517 #### [facility] [address], [address] [place] [address] Irrigation Specialist: Javon Ernst MD ALBUMIN/CREATININE RATIO, RANDOM URINE 16 mg/g creat Normal <30 [facility] Comment on above: Result Comment: The ADA defines abnormalities in albumin excretion as follows: Albuminuria Category Result (mg/g creatinine) Normal to Mildly increased <30 Moderately increased 30-299 Severely increased > OR = 300 The ADA recommends that at least two of three specimens collected within a 3-6 month period be abnormal before considering a patient to be within a diagnostic category. Performed By: #### 6 517 #### [facility] [address], [address] [place] [address] Irrigation Specialist: Javon Ernst MD Creatinine (U) [Mass/Vol] 31 mg/dL Normal 20-275 [facility] Comment on above: Performed By: #### 6 517 #### [facility] [place] [address] Irrigation Specialist: Javon Ernst MD Laboratory - Hematology and Cell countson 04-07-2025 HbA1c (Bld) [Mass fraction] 7 % [facility] Shot Stats No Panel Informationon 04-07 Interpretation and review of laboratory results Abnormal [facility] Optical coherence tomography study reporton 03-01-2025 [employer] Radiology Study observation (narrative) [facility] Shot Stats LIPID PANEL, STANDARDon 01-29 Cholesterol [Mass/Vol] 116 mg/dL Normal <200 [facility] Comment on above: Order Comment: FASTI NG:YES FASTING: YES Performed By: #### 7 600 #### [facility] [address], [address] [place] [address] Irrigation Specialist: Javon Ernst MD Cholesterol in HDL [Mass/Vol] 41 mg/dL Low > OR = 50 [facility] Comment on above: Order Comment: FASTI NG:YES FASTING: YES Performed By: #### 7 600 #### [facility] [address], [address] [place] [address] Irrigation Specialist: Javon Ernst MD Cholesterol in LDL [Mass/Vol] 51 mg/dL Normal [facility] Comment on above: Order Comment: FASTI NG:YES FASTING: YES Result Comment: Refe rence range: <100 Desirable range <100 mg/dL for primary prevention; <70 mg/dL for patients with CHD or diabetic patients with > or = 2 CHD risk factors. LDL-C is now calculated using the Deb calculation, which is a validated novel method providing better accuracy than the Friedewald equation in the estimation of LDL-C. Wesley ARTIS et al. CELESTINE. 2013;310(19): 5371-4770 (http://education.LaunchSide.GameAccount Network/faq/VUI663) Performed By: #### 7 600 #### [facility] [address], [address] [place] [address] Irrigation Specialist: Javon Ernst MD Cholesterol.total/C holesterol in HDL [Mass ratio] 2.8 {ratio} Normal <5.0 [facility] Comment on above: Order Comment: FASTI NG:YES FASTING: YES Performed By: #### 7 600 #### [facility] [address], [address] [place] [address] Irrigation Specialist: Javon Ernst MD NON HDL CHOLESTEROL 75 mg/dL (calc) Normal <130 [facility] Comment on above: Order Comment: FASTI NG:YES FASTING: YES Result Comment: For patients with diabetes plus 1 major ASCVD risk factor, treating to a non-HDL-C goal of <100 mg/dL (LDL-C of <70 mg/dL) is considered a therapeutic option. Performed By: #### 7 600 #### [facility] [address], [address] [place] [address] Irrigation Specialist: Javon Ernst MD Triglyceride [Mass/Vol] 160 mg/dL High <150 [facility] Comment on above: Order Comment: FASTI NG:YES FASTING: YES Performed By: #### 7 600 #### [facility] [address], [address] [place] [address] Irrigation Specialist: Javon Ernst MD Laboratory - Hematology and Cell countson 11-15-2024 HbA1c (Bld) [Mass fraction] 6.5 % [facility] Shot Stats No Panel Informationon 11-15 Interpretation and review of laboratory results Abnormal [facility] [employer] [facility] [employer] [facility] GLUCOSE POCT GLUCOMETERSon 1 01-14-2024 COMMEMT1 Glu2: Cleaned Meter [facility] Shot Stats Glucose [Mass/Vol] 108 mg/dL [facility]care Comment on above: Random Glucose Refer ence Range is dependent on time and content of last meal. Glucose of more than 200 mg/dL in a nonstressed, ambulatory subject supports the diagnosis of Diabetes Mellitus. [facility] Glucose Poct Glucometerson 1 01-14-2024 Commemt1 Glu2: Cleaned Meter Normal [facility] Comment on above: Result Comment: PERF ORMED BY: [facility] [address] [facility] [place] [address] PATHOLOGIST BAILING MACHINE OPERATOR YUSUF MCBRIDE M.D. Performed By: #### G LULS #### Point of Care testing , Glucose [Mass/Vol] 284 mg/dL Normal [facility] Comment on above: Result Comment: [facility] Glucose Reference Range is dependent on time and content of last meal. Glucose of more than 200 mg/dL in a nonstressed, ambulatory subject supports the diagnosis of Diabetes Mellitus. Performed By: #### G LULS #### Point of Care testing , Commemt1 Glu2: Cleaned Meter Normal [facility] Comment on above: Result Comment: PERF ORMED BY: [facility] [address] [place] [address] PATHOLOGIST BAILING MACHINE OPERATOR YUSUF MCBRIDE M.D. Performed By: #### G LULS #### Point of Care testing , Glucose [Mass/Vol] 108 mg/dL Normal [facility] Comment on above: Result Comment: [facility] Glucose Reference Range is dependent on time and content of last meal. Glucose of more than 200 mg/dL in a nonstressed, ambulatory subject supports the diagnosis of Diabetes Mellitus. Performed By: #### G ALMA #### Point of Care testing , XR chest 1V portableon 11-13 XR chest 1V portable [facility] Main [address] [address] XRay Report Signed Patient: Cheryl Lindquist MR#: [id number] 69 : 1945 Acct:[id number] Age/Sex: 78 / F ADM Date: 11/10/24 Loc: 4N Room: [address] [place] [address] Type: ADM IN Attending Dr: Keo Abbasi DO Copies to: MD Keo Del Real DO Ordering Provider: Tabitha Thomas MD Date of Service: 11/13/24 XR/XR chest 1V portable: removal of chest tube Plain film chest Single view 11/13/2024 at 1222 hours HISTORY: Chest tube removed COMPARISON: 11/13/2024 FINDINGS: SUPPORT DEVICES: None POSTSURGICAL CHANGES: None HEART: Within normal limits PULMONARY SONAM: Within normal limits MEDIASTINUM: Unremarkable LUNGS AND PLEURA: Stable tiny right apical pneumothorax. No developing pleural effusion. No new consolidation. BONY STRUCTURES: Intact ADDITIONAL FINDINGS None XR/XR chest 1V portable IMPRESSION: Stable tiny right apical pneumothorax.. Impression dictated by: Henry Kaur M.D.11/13/2024 12:34 PM Dictation Location: [place] [address] Transcribed By: [facility] 11/13/24 1234 Dictated By: Henry Kaur DO 11/13/24 1232 Signed By: 11/13/24 1234 Normal [facility] XR chest 1V portable [facility] Main [address] [address] XRay Report Signed Patient: Cheryl Lindquist MR#: [id number] 69 : 1945 Acct:[id number] Age/Sex: 78 / F ADM Date: 11/10/24 Loc: 4N Room: [id number] Type: ADM IN Attending Dr: Keo Abbasi [...] Henry Kaur M.D.11/13/2024 7:58 AM Dictation Location: [place] [address] Transcribed By: [facility] 11/13/24 0758 Dictated By: Henry Kuar DO 11/13/24 0755 Signed By: 11/13/24 0758 Normal [facility] GLUCOSE POCT GLUCOMETERSon 1 01-13-2024 Glucose [Mass/Vol] 181 mg/dL [facility] Comment on above: Random Glucose Refer ence Range is dependent on time and content of last meal. Glucose of more than 200 mg/dL in a nonstressed, ambulatory subject supports the diagnosis of Diabetes Mellitus. [facility] Glucose [Mass/Vol] 146 mg/dL [facility] H [facility] Comment on above: Random Glucose Refer ence Range is dependent on time and content of last meal. Glucose of more than 200 mg/dL in a nonstressed, ambulatory subject supports the diagnosis of Diabetes Mellitus. [facility] Glucose [Mass/Vol] 135 mg/dL [facility] H [facility] Comment on above: Random Glucose Refer ence Range is dependent on time and content of last meal. Glucose of more than 200 mg/dL in a nonstressed, ambulatory subject supports the diagnosis of Diabetes Mellitus. [facility] Glucose [Mass/Vol] 131 mg/dL [facility] H [facility] Comment on above: Random Glucose Refer ence Range is dependent on time and content of last meal. Glucose of more than 200 mg/dL in a nonstressed, ambulatory subject supports the diagnosis of Diabetes Mellitus. [facility] [employer]UM[employer] e Glucose Poct Glucometerson 1 01-13-2024 Glucose [Mass/Vol] 181 mg/dL Normal [facility] Comment on above: Result Comment: Tot[facility] om Glucose Reference Range is dependent on time and content of last meal. Glucose of more than 200 mg/dL in a nonstressed, ambulatory subject supports the diagnosis of Diabetes Mellitus. PERFORMED BY: [facility] [address] [place] [address] PATHOLOGIST BAILING MACHINE OPERATOR YUSUF MCBRIDE M.D. Performed By: #### G LULS #### Point of Care testing , Glucose [Mass/Vol] 146 mg/dL Normal [facility] Comment on above: Result Comment: [facility] Glucose Reference Range is dependent on time and content of last meal. Glucose of more than 200 mg/dL in a nonstressed, ambulatory subject supports the diagnosis of Diabetes Mellitus. PERFORMED BY: [facility] [address] [place] [address] PATHOLOGIST BAILING MACHINE OPERATOR YUSUF MCBRIDE M.D. Performed By: #### G LULS #### Point of Care testing , Glucose [Mass/Vol] 135 mg/dL Normal [facility] Comment on above: Result Comment: Tot[facility] Glucose Reference Range is dependent on time and content of last meal. Glucose of more than 200 mg/dL in a nonstressed, ambulatory subject supports the diagnosis of Diabetes Mellitus. PERFORMED BY: [facility] [address] [place] [address] PATHOLOGIST BAILING MACHINE OPERATOR YUSUF MCBRIDE M.D. Performed By: #### G LULS #### Point of Care testing , Glucose [Mass/Vol] 131 mg/dL Normal [facility] Comment on above: Result Comment: [facility] om Glucose Reference Range is dependent on time and content of last meal. Glucose of more than 200 mg/dL in a nonstressed, ambulatory subject supports the diagnosis of Diabetes Mellitus. PERFORMED BY: [place] [address] PATHOLOGIST BAILING MACHINE OPERATOR YUSUF MCBRIDE M.D. Performed By: #### G ALMA #### Point of Care testing , XR chest 1V portableon 11-12 XR chest 1V portable [facility] Main [address] [address] XRay Report Signed Patient: Cheryl Lindquist MR#: [id number] 69 : 1945 Acct:[id number] Age/Sex: 78 / F ADM Date: 11/10/24 Loc: 4N Room: [id number] Type: ADM IN Attending Dr: Keo Abbasi DO Copies to: MD Keo Del Real DO Ordering Provider: Tabitha Thomas MD Date of Service: 11/12/24 XR/XR chest 1V portable: PTX , chest tube to water seal Plain film chest Single view HISTORY: Chest tube to waterseal COMPARISON: 0533 hours FINDINGS: SUPPORT DEVICES: Chest tube unchanged POSTSURGICAL CHANGES: None HEART: Within normal limits PULMONARY SONAM: Within normal limits MEDIASTINUM: Unremarkable LUNGS AND PLEURA: Tiny right apical pneumothorax stable. No pleural effusion. Lungs clear. BONY STRUCTURES: Intact ADDITIONAL FINDINGS None XR/XR chest 1V portable IMPRESSION: Stable tiny right apical pneumothorax. Impression dictated by: Henry Kaur M.D.11/12/2024 1:37 PM Dictation Location: [place] [address] Transcribed By: [facility] 11/12/24 1337 Dictated By: Henry Kaur DO 11/12/24 1335 Signed By: 11/12/24 1337 Normal [facility] XR chest 1V portable [facility] Main [address] [address] XRay Report Signed Patient: Cheryl Lindquist MR#: [id number] 69 : 1945 Acct:[id number] Age/Sex: 78 / F ADM Date: 11/10/24 Loc: 4N Room: [address] [place] [address] Type: ADM IN Attending Dr: Keo Abbasi [...] Henry Kaur M.D.11/12/2024 7:21 AM Dictation Location: [place] [address] Transcribed By: [facility] 11/12/24720 Dictated By: Henry Kaur DO 11/12/24718 Signed By: 11/12/2421 Normal [facility] Basic Metabolic Panelon 10-30 Anion gap [Moles/Vol] 10.2 mmol/L Normal 6.0-15.0 [facility] Comment on above: Performed By: #### B FELIPE, CBC #### [place] [address] [place] Calcium [Mass/Vol] 8.6 mg/dL Normal 8.6-10.3 [facility] Comment on above: Performed By: #### B MP, CBC #### [place] [address] [place] Chloride [Moles/Vol] 102 mmol/L Normal 98-107 [facility] Comment on above: Performed By: #### B MP, CBC #### [facility] [address] [place] [id number] [place] CO2 [Moles/Vol] 29.0 mmol/L Normal 21.0-31.[address] [facility] Comment on above: Performed By: #### B MP, CBC #### [place] [id number] [place] Creatinine [Mass/Vol] 0.70 mg/dL Normal 0.60-1.20 [facility] Comment on above: Performed By: #### B MP, CBC #### [place] [address] [place] Creatinine Clr Calc Pharmacy 48.72 Normal [facility] Comment on above: Result Comment: PERF ORMED BY: [place] [address] PATHOLOGIST BAILING MACHINE OPERATOR YUSUF MCBRIDE M.D. Performed By: #### B MP, CBC #### [place] [address] [place] GFR/1.73 sq M.predicted MDRD (S/P/Bld) [Vol rate/Area] mL/min/{1.73_m2} Normal [facility] Comment on above: Performed By: #### B MP, CBC #### [address] Glucose [Mass/Vol] 99 mg/dL Normal 70-100 [facility] Comment on above: Result Comment: Totz Glucose Reference Range is dependent on time and content of last meal. Glucose of more than 200 mg/dL in a nonstressed, ambulatory subject supports the diagnosis of Diabetes Mellitus. ADA recommended reference range Performed By: #### B MP, CBC #### [place] [address] [place] Potassium [Moles/Vol] 4.2 mmol/L Normal 3.5-5.1 [facility] Comment on above: Performed By: #### B MP, CBC #### [place] [address] [place] Sodium [Moles/Vol] 137 mmol/L Normal 136-145 [facility] Comment on above: Performed By: #### B MP, CBC #### [address] Urea nitrogen [Mass/Vol] 11 mg/dL Normal 7-25 [facility] Comment on above: Performed By: #### B MP, CBC #### [facility] [address] [place] [id number] [facility] Basic metabolic 1998 panelon 11-11-2024 Anion gap [Moles/Vol] 10.2 mmol/L 6.0 - 15.0 meq/L [facility] Calcium [Mass/Vol] 8.6 mg/dL 8.6 - 10. 3 mg/dL [facility] Chloride [Moles/Vol] 102 mmol/L 98 - 107 mmol/L [facility] CO2 [Moles/Vol] 29 mmol/L 21.0 - 31.0 mmol/L [facility] Creatinine (U) [Mass/Vol] 0.7 mg/dL 0.60 - 1.20 mg/dL [facility] CREATININE CLR CALC PHARMACY 48.72 [facility] ESTIMATED GFR mL/Min [facility] care Glucose [Mass/Vol] 99 mg/dL 70 - 100 mg/dL [facility] Comment on above: Random Glucose Refer ence Range is dependent on time and content of last meal. Glucose of more than 200 mg/dL in a nonstressed, ambulatory subject supports the diagnosis of Diabetes Mellitus. ADA recommended reference range Potassium [Moles/Vol] 4.2 mmol/L 3.5 - 5.1 mmol/L [facility] Sodium [Moles/Vol] 137 mmol/L 136 - 145 mmol/L [facility] Urea nitrogen [Mass/Vol] 11 mg/dL 7 - 25 mg/dL [facility] CBC W Auto Differential pane l (Bld)on 11-11-2024 Basophils (Bld) [#/Vol] 0 10*3/uL 0.0 - 0.2 10*3/uL [facility] Basophils/100 WBC Manual cnt (Syn fld) 0.6 % . [facility] Eosinophils (Bld) [#/Vol] 0.1 10*3/uL 0.0 - 0.45 10*3/uL [facility] Eosinophils/100 WBC Manual cnt (Syn fld) 2.1 % . [facility] Erythrocyte distribution width (RBC) [Ratio] 13.9 % 11.9 - 15.3 % [facility] Hematocrit (Bld) [Volume fraction] 34.4 % 34.0 - 46.4 % [facility] e Hemoglobin (Bld) [Mass/Vol] 11.4 g/dL Low 11.8 - 15.4 g/dL [facility] Interpretation and review of laboratory results Abnormal [facility] Lymphocytes (Bld) [#/Vol] 1.5 10*3/uL 1.00 - 4.8 10*3/uL [facility] Lymphocytes/100 WBC Manual cnt (Syn fld) 32.3 % . [facility] MCH (RBC) [Entitic mass] 29 pg 24.7 - 34.3 pg [facility] MCHC (RBC) [Mass/Vol] 33.2 g/dL 32.0 - 35.0 g/dL [facility] MCV (RBC) [Entitic vol] 87.2 fL 80 - 100 fL [facility] Monocytes (Bld) [#/Vol] 0.6 10*3/uL 0.0 - 0.8 10*3/uL [facility] Monocytes+Macrophag es/100 WBC Manual cnt (Syn fld) 12.1 % . [facility] Neutrophils (Bld) [#/Vol] 2.5 10*3/uL 1.8 - 7.7 10*3/uL [facility] Neutrophils/100 WBC Manual cnt (Syn fld) 52.9 % . [facility] NRBC 0.1 /100{WBC} 0 - 0.5 /100{WBC} [facility] Platelet mean volume (Bld) [Entitic vol] 6.5 fL 6.3 - 10.7 fL [facility] Platelets (Bld) [#/Vol] 239 10*3/uL 150 - 450 10*3/uL [facility] RBC LM.HPF (Urine sed) [#/Area] 3.95 10*6/uL 3.60 - 5.00 10*6/uL [facility] WBC (Bld) [#/Vol] 4.7 10*3/uL 3.8 - 11.6 10*3/uL [facility] WBC LM.HPF (Urine sed) [#/Area] 4.7 10*3/uL 3.8 - 11.6 10*3/uL [facility] Complete Blood Count Auto Di ffon 11-11-2024 Basophils (Bld) [#/Vol] 0.0 10*3/uL Normal 0.0-0.2 [facility] Comment on above: Result Comment: PERF ORMED BY: [place] [address] PATHOLOGIST BAILING MACHINE OPERATOR YUSUF MCBRIDE M.D. Performed By: #### B MP, CBC #### [address] Basophils/100 WBC (Bld) 0.6 % Normal . [facility] Comment on above: Performed By: #### B MP, CBC #### [address] Eosinophils (Bld) [#/Vol] 0.1 10*3/uL Normal 0.0-0.45 [facility] Comment on above: Performed By: #### B MP, CBC #### [address] Eosinophils/100 WBC (Bld) 2.1 % Normal . [facility] Comment on above: Performed By: #### B MP, CBC #### [address] Erythrocyte distribution width (RBC) [Ratio] 13.9 % Normal 11.9-15.3 [facility] Comment on above: Performed By: #### B MP, CBC #### [address] Hematocrit (Bld) [Volume fraction] 34.4 % Normal 34.0-46.4 [facility] Comment on above: Performed By: #### B MP, CBC #### [address] Hemoglobin (Bld) [Mass/Vol] 11.4 g/dL Low 11.8-15.4 [facility] Comment on above: Performed By: #### B MP, CBC #### [address] Lymphocytes (Bld) [#/Vol] 1.5 10*3/uL Normal 1.00-4.8 [facility] Comment on above: Performed By: #### B MP, CBC #### [address] Lymphocytes/100 WBC (Bld) 32.3 % Normal . [facility] Comment on above: Performed By: #### B MP, CBC #### [address] MCH (RBC) [Entitic mass] 29.0 pg Normal 24.7-34.3 [facility] Comment on above: Performed By: #### B MP, CBC #### [address] MCV (RBC) [Entitic vol] 87.2 fL Normal 80-100 [facility] Comment on above: Performed By: #### B MP, CBC #### [address] Mean Corpuscular HGB Conc 33.2 g/dL Normal 32.0-35.0 [facility] Comment on above: Performed By: #### B MP, CBC #### [address] Monocytes (Bld) [#/Vol] 0.6 10*3/uL Normal 0.0-0.8 [facility] Comment on above: Performed By: #### B MP, CBC #### [address] Monocytes/100 WBC (Bld) 12.1 % Normal . [facility] Comment on above: Performed By: #### B MP, CBC #### [address] Neutrophils (Bld) [#/Vol] 2.5 10*3/uL Normal 1.8-7.7 [facility] Comment on above: Performed By: #### B MP, CBC #### [address] Neutrophils/100 WBC (Bld) 52.9 % Normal . [facility] Comment on above: Performed By: #### B MP, CBC #### [address] NRBC% 0.1 /100{WBC} Normal 0-0.5 [facility] Comment on above: Performed By: #### B MP, CBC #### [facility] [address] Platelet mean volume (Bld) [Entitic vol] 6.5 fL Normal 6.3-10.7 [facility] Comment on above: Performed By: #### B MP, CBC #### [facility] [address] [place] [id number] [place] Platelets (Bld) [#/Vol] 239 10*3/uL Normal 150-450 [facility] Comment on above: Performed By: #### B MP, CBC #### [facility] [address] RBC (Bld) [#/Vol] 3.95 10*6/uL Normal 3.60-5.00 [facility] Comment on above: Performed By: #### B MP, CBC #### [facility] [address] WBC (Bld) [#/Vol] 4.7 10*3/uL Normal 3.8-11.6 [facility] Comment on above: Performed By: #### B MP, CBC #### [facility] [address] GLUCOSE POCT GLUCOMETERSon 1 01-12-2024 Glucose [Mass/Vol] 132 mg/dL [facility] Comment on above: Random Glucose Refer ence Range is dependent on time and content of last meal. Glucose of more than 200 mg/dL in a nonstressed, ambulatory subject supports the diagnosis of Diabetes Mellitus. [employer] COMMEMT1 Glu2: Cleaned Meter [facility] Shot Stats Glucose [Mass/Vol] 143 mg/dL [facility] Comment on above: Random Glucose Refer ence Range is dependent on time and content of last meal. Glucose of more than 200 mg/dL in a nonstressed, ambulatory subject supports the diagnosis of Diabetes Mellitus. [facility] COMMEMT1 Glu2: Cleaned Meter [facility] Shot Stats COMMEMT1 [facility] Comment on above: Glu2: Will Repeat Glucose [Mass/Vol] 206 mg/dL [facility] Comment on above: Random Glucose Refer ence Range is dependent on time and content of last meal. Glucose of more than 200 mg/dL in a nonstressed, ambulatory subject supports the diagnosis of Diabetes Mellitus. Glucose [Mass/Vol] 429 mg/dL Critically high [facility] Comment on above: Random Glucose Refer ence Range is dependent on time and content of last meal. Glucose of more than 200 mg/dL in a nonstressed, ambulatory subject supports the diagnosis of Diabetes Mellitus. Interpretation and review of laboratory results Abnormal [facility] re Glucose [Mass/Vol] 126 mg/dL [facility] Comment on above: Random Glucose Refer ence Range is dependent on time and content of last meal. Glucose of more than 200 mg/dL in a nonstressed, ambulatory subject supports the diagnosis of Diabetes Mellitus. [facility] e Glucose Poct Glucometerson 1 01-12-2024 Glucose [Mass/Vol] 132 mg/dL Normal [facility] Comment on above: Result Comment: [facility] Glucose Reference Range is dependent on time and content of last meal. Glucose of more than 200 mg/dL in a nonstressed, ambulatory subject supports the diagnosis of Diabetes Mellitus. PERFORMED BY: [facility] [address] [facility] [place] [address] PATHOLOGIST BAILING MACHINE OPERATOR YUSUF MCBRIDE M.D. Performed By: #### G LULS #### Point of Care testing , Commemt1 Glu2: Cleaned Meter Normal [facility] Comment on above: Result Comment: PERF ORMED BY: [facility] [address] [place] [address] PATHOLOGIST BAILING MACHINE OPERATOR YUSUF MCBRIDE M.D. Performed By: #### G LULS #### Point of Care testing , Glucose [Mass/Vol] 143 mg/dL Normal [facility] Comment on above: Result Comment: [facility] Glucose Reference Range is dependent on time and content of last meal. Glucose of more than 200 mg/dL in a nonstressed, ambulatory subject supports the diagnosis of Diabetes Mellitus. Performed By: #### G LULS #### Point of Care testing , Commemt1 Glu2: Cleaned Meter Normal [facility] Comment on above: Result Comment: PERF ORMED BY: [facility] [address] [facility] [place] [address] PATHOLOGIST BAILING MACHINE OPERATOR YUSUF MCBRIDE M.D. Performed By: #### G LULS #### Point of Care testing , Glucose [Mass/Vol] 206 mg/dL Normal [facility] Comment on above: Result Comment: [facility] Glucose Reference Range is dependent on time and content of last meal. Glucose of more than 200 mg/dL in a nonstressed, ambulatory subject supports the diagnosis of Diabetes Mellitus. Performed By: #### G LULS #### Point of Care testing , Commemt1 Normal [facility] Comment on above: Result Comment: Glu2 : Will Repeat Test PERFORMED BY: [address] [place] [address] PATHOLOGIST BAILING MACHINE OPERATOR YUSUF MCBRIDE M.D. Performed By: #### G LULS #### Point of Care testing , Glucose [Mass/Vol] 429 mg/dL Off scale high Th e [facility] Comment on above: Result Comment: [facility] Glucose Reference Range is dependent on time and content of last meal. Glucose of more than 200 mg/dL in a nonstressed, ambulatory subject supports the diagnosis of Diabetes Mellitus. Performed By: #### G LULS #### Point of Care testing , Glucose [Mass/Vol] 126 mg/dL Normal [facility] Comment on above: Result Comment: [facility] Glucose Reference Range is dependent on time and content of last meal. Glucose of more than 200 mg/dL in a nonstressed, ambulatory subject supports the diagnosis of Diabetes Mellitus. PERFORMED BY: [facility] [address] [facility] [place] [id number] PATHOLOGIST BAILING MACHINE OPERATOR YUSUF MCBRIDE M.D. Performed By: #### G LULS #### Point of Care testing , No Panel Informationon 11-11 [facility] XR chest 1V portableon 11-11 XR chest 1V portable [facility] Main [place] [address] [place] [id number] XRay Report Signed Patient: Cheryl Lindquist MR#: [id number] 69 : 1945 Acct:[id number] Age/Sex: 78 / F ADM Date: 11/10/24 Loc: 4N Room: [address] [place] [address] Type: ADM IN Attending Dr: Keo Abbasi [...] Henry Kaur M.D.11/11/2024 8:14 AM Dictation Location: [place] [address] Transcribed By: [facility] 11/11/24813 Dictated By: Henry Kaur DO 11/11/24809 Signed By: 11/11/24 0814 Normal [facility] GLUCOSE POCT GLUCOMETERSon 1 01-11-2024 [facility] Glucose Poct Glucometerson 1 01-11-2024 Glucose [Mass/Vol] 110 mg/dL Normal [facility] Comment on above: Random Glucose Refer ence Range is dependent on time and content of last meal. Glucose of more than 200 mg/dL in a nonstressed, ambulatory subject supports the diagnosis of Diabetes Mellitus. Result Comment: [facility] Glucose Reference Range is dependent on time and content of last meal. Glucose of more than 200 mg/dL in a nonstressed, ambulatory subject supports the diagnosis of Diabetes Mellitus. PERFORMED BY: [address] [address] PATHOLOGIST BAILING MACHINE OPERATOR YUSUF MCBRIDE M.D. Performed By: #### G LU #### Point of Care testing , Office Visiton 10-17-2024 Follow-up visit [id number] Sandrita Lindquist 1945 F Date Provider Department Center 10/17/2024 [id number] SRIVASTAVA C[facility] Family History Problem Relation Age of Onset Heart failure Mother Coronary artery disease Sister Coronary artery disease Brother Other Brother Family Status - Relation Status Age at Mother Sister Brother Level of Service:04897 DC OFFICE/OUTPATIENT ESTABLISHED MOD MDM 30 MIN Reason for Visit and Comments: Hyperlipidemia [182] Hypertension [538241] - Pt wanted to be seen due to having issures. Normal [facility] US breast RT limitedon 08-19 US breast RT limited [facility] [place] [address] Ultrasound Report Signed Patient: Cheryl Lindquist MR#: [id number] 69 : 1945 Acct:[id number] Age/Sex: 78 / F ADM Date: 08/19/24 Loc: [facility] Room: Type: [facility] Attending Dr: Jose Will DO Ordering Provider: Jose Will DO Date of Service: 08/19/24 US/US breast RT limited: 6month f/u Copies to: Jose Will DO Targeted right breast ultrasound HISTORY: Follow-up assessment of ductal ectasia. COMPARISON: 05/12/2022 There is redemonstration of mildly dilated ducts in retroareolar region. No intraluminal abnormality. 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 Return to routine screening. Impression dictated by: Henry Kaur M.D.08/19/2024 12:47 PM Dictation Location: [facility] Tech: Raeann Mcintyre Transcribed By: ROMULO 08/19/24 1247 Dictated By: Henry Kaur DO 08/19/24 1246 Signed By: 08/19/24 1247 Normal [facility] XR Foot - left 3 [facility] Result: 3 views foot: AP, MO, and lateral of the left foot were taken and show no fractures or dislocations. Specifically, no acute osseous abnormalities noted to the 5th metatarsal styloid process, 4th metatarsal, or at the calcaneus. There is flattening of the 1st metatarsal head with asymmetric joint space narrowing of the 1st MTPJ. Mild contracted digits 2 through 5. Moderate plantar calcaneal spur, intact. Rectus foot structure. [employer] [facility] Study observation (narrative) Metrilus No Panel Informationon 07-21 [facility] BI MAMMOGRAM DIAGNOSTIC JANINA SYNTHESIS BILATERALon 06-06-2024 BI MAMMOGRAM DIAGNOSTIC TOMOSYNTHESIS BILATERAL This is a summary report. The complete report is available in the patient's medical record. If you cannot access the medical record, please contact the sending organization for a detailed fax or copy. EXAMINATION: BI MAMMOGRAM DIAGNOSTIC TOMOSYNTHESIS BILATERAL CLINICAL HISTORY: six month follow up COMPARISONS: December 07, 2023] FINDINGS: Density: Scattered fibroglandular density [2] Overall appearance is stable. Typically benign calcifications. There is no suspicious mass, asymmetry, architectural distortion, or calcification. IMPRESSION: BIRADS 2 - Benign Follow-up: Routine Screening Mamm Board Certified Radiologists. Accredited by the ACR and FDA. MAMMOGRAPHY IS VERY IMPORTANT TO YOUR HEALTH. THE [place] [employer] GUIDELINES RECOMMEND THAT WOMEN 40 YEARS OF AGE AND OLDER SHOULD HAVE A MAMMOGRAM EVERY YEAR. A REMINDER LETTER WILL BE SENT AT THE APPROPRIATE TIME. TRANSCRIBED BY: ELECTRONICALLY SIGNED BY: Roverto Farah MD Normal Not Available Office Visiton 05-04-2024 Follow-up visit [id number] Sandrita Lindquist 1945 F Date Provider Department Center 05/04/2024 [id number] SRIVASTAVA [facility] Family History Problem Relation Age of Onset Heart failure Mother Coronary artery disease Sister Coronary artery disease Brother Other Brother Family Status - Relation Status Age at Mother Sister Brother Level of Service:26573 DC OFFICE/OUTPATIENT NEW LOW MDM 30 MINUTES Normal [facility] CBC AUTO DIFFon 04-07-2023 BASO # 0.0 103/ul Normal 0.0-0.1 [facility] Comment on above: Performed By: #### C BC #### [facility] [address] [place] [address] [address] Kamari Andres Basophils/100 WBC (Bld) 0.6 % Normal 0.2-2.0 [facility] Comment on above: Performed By: #### C BC #### [facility] [address] [place] [address] [address] Kamari Andres EO # 0.1 103/ul Normal 0.0-0.7 [facility] Comment on above: Performed By: #### C BC #### [facility] [address] [place] [address] Dr. Kamari Andres Eosinophils/100 WBC (Bld) 1.8 % Normal 0.9-7.0 [facility] Comment on above: Performed By: #### C BC #### [facility] [address] [place] [address] Dr. Kamari Andres Erythrocyte distribution width (RBC) [Ratio] 12.7 % Normal 11.0-15.0 [facility] Comment on above: Performed By: #### C BC #### [facility] [address] [place] [address] Dr. Kamari Andres Hematocrit (Bld) [Volume fraction] 36.3 % Normal 36.0-48.0 [facility] Comment on above: Performed By: #### C BC #### [facility] [address] [place] [address] Dr. Kamari Andres Hemoglobin (Bld) [Mass/Vol] 11.6 g/dL Critically low 12.0-16.0 [facility] Comment on above: Performed By: #### C BC #### [facility] [address] [place] [address] Dr. Kamari Andres IG # 0.01 10e3/ul Normal 0.00-0.03 [facility] Comment on above: Performed By: #### C BC #### [facility] [address] [place] [address] Dr. Kamari Andres IG % 0.2 % Normal 0.0-0.5 [facility] Comment on above: Performed By: #### C BC #### [facility] [address] [place] [address] Dr. Kamari Andres LYMPH # 1.8 103/ul Normal 1.2-3.8 [facility] Comment on above: Performed By: #### C BC #### [facility] [address] [place] [address] Dr. Kamari Andres Lymphocytes/100 WBC (Bld) 36.9 % Normal 20.5-60.0 [facility] Comment on above: Performed By: #### C BC #### [facility] [address] [place] [address] Dr. Kamari Andres MANUAL DIFF REQ NO Normal [facility] Comment on above: Performed By: #### C BC #### [facility] [address] [place] [address] Dr. Kamari Andres MCH (RBC) [Entitic mass] 29.1 pg Normal 26.7-34.0 [facility] Comment on above: Performed By: #### C BC #### [facility] [address] [place] [address] Dr. Kamari Andres MCHC (RBC) [Mass/Vol] 32.0 g/dL Normal 29.9-35.2 [facility] Comment on above: Performed By: #### C BC #### [facility] [address] [place] [address] Dr. Kamari Andres MCV (RBC) [Entitic vol] 91.0 fL Normal 81.0-99.0 [facility] Comment on above: Performed By: #### C BC #### [facility] [address] [place] [address] Dr. Kamari Andres MONO # 0.5 103/ul Normal 0.3-0.8 [facility] Comment on above: Performed By: #### C BC #### [facility] [address] [place] [address] Dr. Kamari Andres Monocytes/100 WBC (Bld) 10.8 % Normal 1.7-12.0 [facility] Comment on above: Performed By: #### C BC #### [facility] [address] [place] [address] Dr. Kamari Andres NEUT # 2.4 103/ul Normal 1.4-6.5 [facility] Comment on above: Performed By: #### C BC #### [facility] [address] [place] [address] Dr. Kamari Andres Neutrophils/100 WBC (Bld) 49.7 % Normal 43.0-75.0 [facility] Comment on above: Performed By: #### C BC #### [facility] [address] [place] [address] Dr. Kamari Andres Platelet mean volume (Bld) [Entitic vol] 8.4 fL Critically low 9.5-13.5 [facility] Comment on above: Performed By: #### C BC #### [facility] [address] [place] [address] Dr. Kamari Andres PLT 231 103/ul Normal 150-450 [facility] Comment on above: Performed By: #### C BC #### [facility] [address] [place] [address] Dr. Kamari Andres RBC 3.99 106/ul Critically low 4.20-5.40 [facility] Comment on above: Performed By: #### C BC #### [facility] [address] [place] [address] Dr. Kamari Andres WBC 4.9 103/ul Normal 4.0-11.0 [facility] Comment on above: Performed By: #### C BC #### [facility] [address] [place] [address] Dr. Kamari Andres PROF CHEM 8 (BAS METB)on Anion gap [Moles/Vol] 8.7 mmol/L Normal [facility] Comment on above: Performed By: #### B FELIPE HSTROPN #### [facility] [address] [place] [address] Dr. Kamari Andres Calcium [Mass/Vol] 9.4 mg/dL Normal 8.5-10.1 [facility] Comment on above: Performed By: #### Mihaela WANG HSTROPN #### [facility] [address] [place] [address] [address] Kamari Andres Chloride [Moles/Vol] 104 mmol/L Normal 98-107 [facility] Comment on above: Performed By: #### B FELIPE, HSTROPN #### [facility] [address] [place] [address] Dr. Kamari Andres CO2 [Moles/Vol] 32.4 mmol/L Critically high 21.0-32.0 [facility] Comment on above: Performed By: #### B FELIPE, HSTROPN #### [facility] [address] [place] [address] [address] Kamari Andres Creatinine [Mass/Vol] 0.66 mg/dL Normal 0.55-1.02 [facility] Comment on above: Performed By: #### B FELIPE, HSTROPN #### [facility] [address] [place] [address] Dr. Kamari Andres EGFR-AF DOMINICAN >60 Normal >=60 [facility] Comment on above: Performed By: #### B FELIPE, HSTROPN #### [facility] [address] [place] [address] Dr. Kamari Andres EGFR-NON AF DOMINICAN >60 Normal >=60 [facility] Comment on above: Performed By: #### B FELIPE, HSTROPN #### [facility] [address] [place] [address] Dr. Kamari Andres Glucose [Mass/Vol] 133 mg/dL Critically high 74-106 [facility] Comment on above: Performed By: #### B FELIPE, HSTROPN #### [facility] [address] [place] [address] Dr. Kamari Andres Potassium [Moles/Vol] 4.1 mmol/L Normal 3.5-5.1 [facility] Comment on above: Performed By: #### B FELIPE, HSTROPN #### [facility] [address] [place] [address] [address] Kamari Andres Sodium [Moles/Vol] 141 mmol/L Normal 136-145 [facility] Comment on above: Performed By: #### B FELIPE, HSTROPN #### [facility] [address] [place], [place] [address] Dr. Kamari Andres Urea nitrogen [Mass/Vol] 6.0 mg/dL Critically low 7.0-18.0 [facility] Comment on above: Performed By: #### B MP, HSTROPN #### [facility] [address] [place], [place] [address] Dr. Kamari Andres Urea nitrogen/Creatinine [Mass ratio] 9.1 mg/mg Normal [facility] Comment on above: Performed By: #### B MP, HSTROPN #### [facility] [address] [address] [address] Kamari Andres TROPONIN, HIGH SENSITIVITYon 04-07-2023 HSTROP 5.0 pg/mL Normal 4.0-51.3 [facility] Comment on above: Result Comment: CUT- OFF POINTS HAVE BEEN ESTABLISHED BASED ON THE FOURTH UNIVERSAL DEFINITIONS OF MYOCARDIAL INFARCTION. THE UPPER REFERENCE LIMIT (URL) OF TROPONIN, DEFINED THE 99TH PERCENTILE OF cTnI DISTRIBUTION IN A REFERENCE POPULATION, HAS BEEN CONFIRMED THE DECISION THRESHOLD FOR [place] DIAGNOSIS. Performed By: #### B MP, HSTROPN #### [facility] [address] [address] [address] Kamari Andres XR RIBS LT PA [...] CARYL HERNANDEZ Date: 2023-04-07 20:32 Normal [facility] Glucose Glucometer (BldC) [M ass/Vol]Ordered By: Debra Villasenor on 01-20-2023 Glucose [Mass/Vol] 98 mg/dL [facility] Comment on above: Random Glucose Refer ence Range is dependent on time and content of last meal. Glucose of more than 200 mg/dL in a nonstressed, ambulatory subject supports the diagnosis of Diabetes Mellitus. [facility] CARDIAC STRESS/REST INJE CTIONon 10-27-2022 [facility] CARDIAC STRESS/REST INJECTION Patient Name: CHERYL LINDQUIST STUDY: MYOCARDIAL PERFUSION STRESS TEST WITH LEXISCAN Performing facility: [facility], [address] [place] [address], [address], [place] [address] [facility] Provider: Leah Bagley RN, RAILROAD SIGNAL TECHNICIAN PCP: Dr. Ean Whitaker Supervising provider: Yesenia Durán MD, [facility] INDICATION: Chest Pain; Hyperlipidemia HISTORY: Gender: F; Age: 76 y/o ; Height: 0 cm; Weight: 0 kg. High Cholesterol; Diabetes; Family HX CAD; Arrhythmias; Chest Pain; Quit smoking unknown years ago. COMPARISON: Previous nuclear testing completed at [facility]. ACCESSION NUMBER(S): [id number]; [id number]; [id number] ORDERING CLINICIAN: LEAH BAGLEY TECHNIQUE: ONE DAY protocol. Stress injection: Date:10-27-22, 32.4 mCi of Sestamibi IV 20 seconds after rapid injection of Lexiscan. Rest injection: Date: 10-27-24, 9.9 mCi of Sestamibi IV at rest. The patient had a rapid injection of 0.4 mg of Lexiscan IV over 10 seconds. Imaging was performed by gated tomographic technique. Reason for Lexiscan: dizziness/unsteady/fa ll risk STRESS TEST DATA: Resting heart rate [...] Electronically signed by: AASHISH LEAL MD Normal [facility] No Panel Informationon 10-27 Normal -[facility] [place] Work Phone: Office Visit (Cardiology)on 09-29-2022 Follow-up visit Diagnoses/Problems Health Maintenance/Risks Encounter for preventive health examination (V70.0) (Z00.00) Assessed Paroxysmal SVT (supraventricular tachycardia) (427.0) (I47.1) Remains quiescent on bisoprolol Hyperlipidemia (272.4) (E78.5) High intensity statin Reports labs completed with PCP July 2022 Normal nuclear stress test (V7) July 2015 perfusion study no ischemia Normal echocardiogram (85) April 2011 echo LVEF 55% Body mass [...] the office if new symptoms arise. Dr. Tam in one year (he cares for her [...] MG Oral TabletTAKE 1 TABLET TWICE DAILY. HYDROcodone-Acetamino phen 5-325 MG Oral TabletTAKE 1 TABLET (more content not included)... Normal [facility] Tobacco Screening.on 022 Adult depression screening assessment Yes [facility] Work Phone: Fall risk assessment a) No falls within the last year [facility] [address] DO Work Phone: Tobacco use status CP b) No [facility] [address] DO Work Phone: Tobacco Screening. 1-Several days [facility] [address] DO Work Phone: Tobacco Screening. 2-More than half the days [facility] [address] DO Work Phone: Tobacco Screening. 0-Not at all [facility] [address] DO Work Phone: Tobacco Screening. Not difficult at all [facility] [address] DO Work Phone: COVID Quick Testingon 2021 Result Negative [employer] Other Quick Fluon 02-13-2022 FLUAV Ab CF (S) [Titer] Positive [employer] Other FLUBV Ab CF (S) [Titer] Negative [employer] Other Vital Signs Date Time Vital Sign Value Performing Clinician Facility 04-07-2025 09:36-0400 Body height 160 cm Ana M PEREZ Work Phone: [facility] 04-07-2025 09:36-0400 Body mass index (BMI) [Ratio] 21.36 kg/m2 Ana M PEREZ Work Phone: [facility] 04-07-2025 09:36-0400 Body weight 54.7 kg Ana M Hemmer PA Work Phone: [facility] 04-07-2025 09:36-0400 Diastolic blood pressure 80 mm[Hg] Ana M Hemmer PA Work Phone: [facility] 04-07-2025 09:36-0400 Heart rate 64 /min Ana M Hemmer PA Work Phone: [facility] 04-07-2025 09:36-0400 Respiratory rate 16 /min Ana M Hemmer PA Work Phone: [facility] 04-07-2025 09:36-0400 SaO2% (BldA) [Mass fraction] 99 % Ana M Hemmer PA Work Phone: [facility] 04-07-2025 09:36-0400 Systolic blood pressure 122 mm[Hg] Ana M Hemmer PA Work Phone: [facility] 12-07-2024 13:38-0500 Body height 160 cm Ana M Hemmer PA Work Phone: [facility] 12-07-2024 13:38-0500 Body mass index (BMI) [Ratio] 21.01 kg/m2 Ana M Hemmer PA Work Phone: [facility] 12-07-2024 13:38-0500 Body weight 53.8 kg Ana M Hemmer PA Work Phone: [facility] 12-07-2024 13:38-0500 Diastolic blood pressure 68 mm[Hg] Ana M Hemmer PA Work Phone: [facility] 12-07-2024 13:38-0500 Heart rate 64 /min Ana M Hemmer PA Work Phone: [facility] 12-07-2024 13:38-0500 Respiratory rate 16 /min Ana M Hemmer PA Work Phone: [facility] 12-07-2024 13:38-0500 SaO2% (BldA) [Mass fraction] 98 % Ana M Hemmer PA Work Phone: [facility] 12-07-2024 13:38-0500 Systolic blood pressure 132 mm[Hg] Ana M Hemmer PA Work Phone: [facility] 11-24-2024 13:12-0500 Body height 160 cm Jose Will DO Work Phone: [facility] 11-24-2024 13:12-0500 Body mass index (BMI) [Ratio] 21.08 kg/m2 Jose Will DO Work Phone: [facility] 11-24-2024 13:12-0500 Body weight 53.98 kg Jose Will DO Work Phone: [facility] 11-15-2024 12:53-0500 Body height 160 cm Ana M Hemmer PA Work Phone: [facility] 11-15-2024 12:53-0500 Body mass index (BMI) [Ratio] 21.08 kg/m2 Ana M Hemmer PA Work Phone: [facility] 11-15-2024 12:53-0500 Body weight 53.98 kg Ana M Hemmer PA Work Phone: [facility] 11-15-2024 12:53-0500 Diastolic blood pressure 66 mm[Hg] Ana M Hemmer PA Work Phone: [facility] 11-15-2024 12:53-0500 Heart rate 70 /min Ana M Hemmer PA Work Phone: [facility] 11-15-2024 12:53-0500 SaO2% (BldA) [Mass fraction] 97 % Ana M Hemmer PA Work Phone: [facility] 11-15-2024 12:53-0500 Systolic blood pressure 124 mm[Hg] Ana M Hemmer PA Work Phone: [facility] 10-10-2024 13:31-0500 Body mass index (BMI) [Ratio] 20.76 kg/m2 Ana M Hemmer PA Work Phone: [facility] 10-10-2024 13:31-0500 Body weight 53.16 kg Ana M Hemmer PA Work Phone: [facility] 10-10-2024 13:31-0500 Diastolic blood pressure 70 mm[Hg] Ana M Hemmer PA Work Phone: [facility] 10-10-2024 13:31-0500 Heart rate 78 /min Ana M Hemmer PA Work Phone: [facility] 10-10-2024 13:31-0500 Respiratory rate 16 /min Ana M Hemmer PA Work Phone: [facility] 10-10-2024 13:31-0500 SaO2% (BldA) [Mass fraction] 98 % Ana M Hemmer PA Work Phone: [facility] 10-10-2024 13:31-0500 Systolic blood pressure 105 mm[Hg] Ana M Hemmer PA Work Phone: [facility] 09-07-2024 13:05-0400 Body height 160 cm Ana M Hemmer PA Work Phone: [facility] 09-07-2024 13:05-0400 Body mass index (BMI) [Ratio] 21.89 kg/m2 Ana M Hemmer PA Work Phone: [facility] 09-07-2024 13:05-0400 Body weight 56.06 kg Ana M Hemmer PA Work Phone: [facility] 09-07-2024 13:05-0400 Diastolic blood pressure 68 mm[Hg] Ana M Hemmer PA Work Phone: [facility] 09-07-2024 13:05-0400 Heart rate 71 /min Ana M Hemmer PA Work Phone: [facility] 09-07-2024 13:05-0400 Respiratory rate 16 /min Ana M Hemmer PA Work Phone: [facility] 09-07-2024 13:05-0400 SaO2% (BldA) [Mass fraction] 98 % Ana M Hemmer PA Work Phone: [facility] 09-07-2024 13:05-0400 Systolic blood pressure 116 mm[Hg] Ana M Hemmer PA Work Phone: [facility] 08-23-2024 12:37-0400 Body height 160 cm Syd Brandt DO Work Phone: [facility] 08-23-2024 12:37-0400 Body mass index (BMI) [Ratio] 21.51 kg/m2 Syd Brandt DO Work Phone: [facility] 08-23-2024 12:37-0400 Body weight 55.07 kg Syd Brandt DO Work Phone: [facility] 08-23-2024 12:37-0400 Diastolic blood pressure 58 mm[Hg] Ysd Brandt DO Work Phone: [facility] 08-23-2024 12:37-0400 Heart rate 76 /min Syd Brandt DO Work Phone: [facility] 08-23-2024 12:37-0400 SaO2% (BldA) [Mass fraction] 98 % Syd Brandt DO Work Phone: [facility] 08-23-2024 12:37-0400 Systolic blood pressure 110 mm[Hg] Syd Brandt DO Work Phone: [facility] 08-16-2024 16:31-0400 Body height 160 cm Ana M Hemmer PA Work Phone: [facility] 08-16-2024 16:31-0400 Body mass index (BMI) [Ratio] 21.68 kg/m2 Ana M Hemmer PA Work Phone: [facility] 08-16-2024 16:31-0400 Body weight 55.52 kg Ana M Hemmer PA Work Phone: [facility] 08-16-2024 16:31-0400 Diastolic blood pressure 74 mm[Hg] Ana M Hemmer PA Work Phone: [facility] 08-16-2024 16:31-0400 Heart rate 76 /min Ana M Hemmer PA Work Phone: [facility] 08-16-2024 16:31-0400 Respiratory rate 16 /min Ana M Motleymer PA Work Phone: [facility] 08-16-2024 16:31-0400 SaO2% (BldA) [Mass fraction] 98 % Ana M Motleymer PA Work Phone: [facility] 08-16-2024 16:31-0400 Systolic blood pressure 122 mm[Hg] Ana M Motleymer PA Work Phone: [facility] 08-04-2024 13:11-0400 Body height 160 cm Jose Laffay DO Work Phone: [facility] 08-04-2024 13:11-0400 Body mass index (BMI) [Ratio] 21.61 kg/m2 Jose Laffay DO Work Phone: [facility] 08-04-2024 13:11-0400 Body weight 55.34 kg Jose Laffay DO Work Phone: [facility] 08-04-2024 13:11-0400 Diastolic blood pressure 80 mm[Hg] Jose Laffay DO Work Phone: [facility] 08-04-2024 13:11-0400 Systolic blood pressure 120 mm[Hg] Jose Laffay DO Work Phone: [facility] 07-26-2024 14:57-0400 Body height 160 cm Raeann Castro DPM Work Phone: [facility] 07-26-2024 14:57-0400 Body mass index (BMI) [Ratio] 21.43 kg/m2 Raeann Castro DPM Work Phone: [facility] 07-26-2024 14:57-0400 Body weight 54.88 kg Raeann Castro DPM Work Phone: [facility] 01-12-2024 10:02-0500 Body mass index (BMI) [Ratio] 21.26 kg/m2 Molly Serna NP Work Phone: [facility] 01-12-2024 10:02-0500 Body temperature 97 [degF] Molly Serna PINSETTER MECHANIC HELPER Work Phone: [facility] 01-12-2024 10:02-0500 Body weight 54.43 kg Molly Serna PINSETTER MECHANIC HELPER Work Phone: [facility] 01-12-2024 10:02-0500 Diastolic blood pressure 76 mm[Hg] Molly Kareem PINSETTER MECHANIC HELPER Work Phone: [facility] 01-12-2024 10:02-0500 Heart rate 76 /min Molly Tatum PINSETTER MECHANIC HELPER Work Phone: [facility] 01-12-2024 10:02-0500 Respiratory rate 14 /min Molly Serna PINSETTER MECHANIC HELPER Work Phone: [facility] 01-12-2024 10:02-0500 SaO2% (BldA) [Mass fraction] 99 % Molly Serna PINSETTER MECHANIC HELPER Work Phone: [facility] 01-12-2024 10:02-0500 Systolic blood pressure 125 mm[Hg] Molly Serna PINSETTER MECHANIC HELPER Work Phone: [facility] 10-02-2023 12:55-0400 Body height 160 cm Bladimir Tam MD Work Phone: [facility] 10-02-2023 12:55-0400 Body mass index (BMI) [Ratio] 21.43 kg/m2 Bladimir Tam MD Work Phone: [facility] 10-02-2023 12:55-0400 Body weight 54.88 kg Bladimir Tam MD Work Phone: [facility] 10-02-2023 12:55-0400 Diastolic blood pressure 72 mm[Hg] Bladimir Tam MD Work Phone: [facility] 10-02-2023 12:55-0400 Heart rate 76 /min Bladimir Tam MD Work Phone: [facility] 10-02-2023 12:55-0400 Systolic blood pressure 124 mm[Hg] Bladimir Tam MD Work Phone: [facility] 01-20-2023 09:56-0500 Diastolic blood pressure 57 mm[Hg] II Chris Whitaker Work Phone: [facility] 01-20-2023 09:56-0500 Heart rate 66 /min II Chris Whitaker Work Phone: [facility] 01-20-2023 09:56-0500 Respiratory rate 16 /min II Chris Whitaker Work Phone: [facility] 01-20-2023 09:56-0500 SaO2% (BldA) [Mass fraction] 94 % II Chris Whitaker Work Phone: [facility] 01-20-2023 09:56-0500 Systolic blood pressure 112 mm[Hg] II Chris Whitaker Work Phone: [facility] 01-20-2023 07:17-0500 Body height 160.02 cm II Chris Whitaker Work Phone: [facility] 01-20-2023 07:17-0500 Body temperature 97.8 [degF] II Chris Whitaker Work Phone: [facility] 01-20-2023 07:17-0500 Body weight 53.52 kg II Chris Whitaker Work Phone: [facility] 10-27-2022 08:00-0500 69 1 [id number] YI HHVI NUCLEAR 01 Work Phone: [facility] [place] Work Phone: Comment on above: [id number] 09-29-2022 14:27-0400 Body height 160.02 cm Leah Bagley QA ANALYST-RAILROAD SIGNAL TECHNICIAN Work Phone: [facility] [address] DO Work Phone: 09-29-2022 14:27-0400 Body mass index (BMI) [Ratio] 21.35 kg/m2 Leah Bagley QA ANALYST-RAILROAD SIGNAL TECHNICIAN Work Phone: [facility] DO Work Phone: 09-29-2022 14:27-0400 Body surface area Derived from formula 1.56 m2 Leah Henriquezd Kevyn QA ANALYST-RAILROAD SIGNAL TECHNICIAN Work Phone: [facility] [address] [place] Work Phone: 09-29-2022 14:27-0400 Body weight 54.66 kg Leah Bagley QA ANALYST-RAILROAD SIGNAL TECHNICIAN Work Phone: [facility] [address] DO Work Phone: 09-29-2022 14:27-0400 Diastolic blood pressure 60 mm[Hg] Leah Henriquezd Bagley QA ANALYST-RAILROAD SIGNAL TECHNICIAN Work Phone: [facility] [address] DO Work Phone: 09-29-2022 14:27-0400 Heart rate 68 /min Leah Henriquezd Bagley QA ANALYST-RAILROAD SIGNAL TECHNICIAN Work Phone: [facility] [address] DO Work Phone: 09-29-2022 14:27-0400 Systolic blood pressure 118 mm[Hg] Leah Henriquezd Bagley QA ANALYST-RAILROAD SIGNAL TECHNICIAN Work Phone: [facility] [address] DO Work Phone: 09-29-2022 14:27-0400 7 1 Leah Henriquezjessica Bagley QA ANALYST-RAILROAD SIGNAL TECHNICIAN Work Phone: [facility] [address] DO Work Phone: Comment on above: PHQ-9 TS 07-09-2022 15:15-0400 Body height 161.29 cm Ricardo Hardy Other [employer] Other 07-09-2022 15:15-0400 Body mass index (BMI) [Ratio] 20.57 kg/m2 Ricardo Hardy Other [employer] Other 07-09-2022 15:15-0400 Body weight 53.52 kg Ricardo Hardy Other [employer] Other 07-09-2022 15:15-0400 Diastolic blood pressure 70 mm[Hg] Ricardo Hardy Other [employer] Other 07-09-2022 15:15-0400 Respiratory rate 16 /min Ricardo Hardy Other [employer] Other 07-09-2022 15:15-0400 Systolic blood pressure 126 mm[Hg] Ricardo Hardy Other [employer] Other 02-13-2022 19:50-0400 Body height 161.29 cm Iqra Pinedaault Other [employer] Other 02-13-2022 19:50-0400 Body mass index (BMI) [Ratio] 20.92 kg/m2 Iqra Pinedaault Other [employer] Other 02-13-2022 19:50-0400 Body temperature 101.1 [degF] Iqra Pinedaault Other [employer] Other 02-13-2022 19:50-0400 Body weight 54.43 kg Iqra Pinedaault Other [employer] Other 02-13-2022 19:50-0400 Respiratory rate 18 /min Iqra Orquidea Other [employer] Other 02-13-2022 19:50-0400 SaO2% (BldA) [Mass fraction] 97 % Iqra Orquidea Other [employer] Other 11-11-2021 16:15-0500 Body height 161.29 cm Ricardo Hardy Other [employer] Other 11-11-2021 16:15-0500 Body mass index (BMI) [Ratio] 20.92 kg/m2 Ricardo Hardy Other [employer] Other 11-11-2021 16:15-0500 Body weight 54.43 kg Ricardo Hardy Other [employer] Other 09-17-2021 14:30-0400 Body height 161.29 cm Ricardo Hardy Other [employer] Other 09-17-2021 14:30-0400 Body mass index (BMI) [Ratio] 21.27 kg/m2 Ricardo Hardy Other [employer] Other 09-17-2021 14:30-0400 Body weight 55.34 kg Ricardo Hardy Other [employer] Other 09-17-2021 14:30-0400 Diastolic blood pressure 74 mm[Hg] Ricardo Hardy Other [employer] Other 09-17-2021 14:30-0400 Systolic blood pressure 134 mm[Hg] Ricardo Hardy Other [employer] Other Encounters Encounter Date Encounter Type Care Provider Facility Start: 04-18-2025 End: 04-18-2025 Kang Whitaker MD Work Phone: [facility] Comment on above: Generalized anxiety disorder (CMS/HCC) Start: 04-07-2025 End: 04-07-2025 Meghan flowsyemi PEREZ Work Phone: [facility] Start: 04-07-2025 End: 04-07-2025 Bamboo flowsheet Ana M Becker PA Work Phone: [facility] Start: 04-07-2025 End: 04-07-2025 Office outpatient visit 25 minutes Ana M PEREZ Work Phone: [facility] Comment on above: Type 2 diabetes leanna itus with other specified complication, without long-term current use of insulin (Primary Dx); Sciatica of left side; Stress incontinence of urine; Generalized anxiety disorder (CMS/HCC) Start: 04-07-2025 End: 04-07-2025 ambulatory ANA M BECKER Not Available Start: 04-05-2025 End: 04-05-2025 Refill Padmini Saldivar MA [facility] Comment on above: Psychophysiological insomnia Start: 03-23-2025 End: 03-23-2025 Refill Chris Whitaker MD Work Phone: [facility] Comment on above: Psychophysiological insomnia Start: 03-17-2025 End: 03-17-2025 Refill Chris Whitaker MD Work Phone: [facility] Comment on above: Generalized anxiety disorder (CMS/HCC) Start: 03-01-2025 End: 03-01-2025 ambulatory CAROLYN BANKS Not Available Start: 03-01-2025 End: 03-01-2025 Bamboo flowsheet Carolyn Banks DO Work Phone: [facility] Start: 03-01-2025 End: 03-01-2025 Bamboo flowsheet Carolyn Banks DO Work Phone: [facility] Start: 02-14-2025 End: 02-14-2025 ambulatory RAEANN CASTRO Not Available Start: 02-13-2025 End: 02-13-2025 Bamboo flowsheet Ana M PEREZ Work Phone: [facility] Start: 02-13-2025 End: 02-13-2025 Bamboo flowsheet Ana M PEREZ Work Phone: [facility] Start: 02-13-2025 End: 02-13-2025 ambulatory ANA M BECKER Not Available Start: 01-19-2025 End: 01-19-2025 Refill Angelita Alaniz LPN [facility] Comment on above: Spinal stenosis of l umbar region with neurogenic claudication Start: 01-02-2025 End: 01-02-2025 Refill Chris Whitaker MD Work Phone: [facility] Comment on above: Psychophysiological insomnia; Spinal stenosis of lumbar region with neurogenic claudication Start: 12-07-2024 End: 12-07-2024 Bamboo flowsheet Ana M Renae Toño PA Work Phone: [facility] Start: 12-07-2024 End: 12-07-2024 Bamboo flowsheet Ana M Renae Toño PA Work Phone: [facility] Start: 12-07-2024 End: 12-07-2024 Office outpatient visit 25 minutes Ana M Renae Toño PA Work Phone: [facility] Comment on above: Closed fracture of m ultiple ribs of right side, sequela (Primary Dx); Dizziness; Sciatica of left side; Spinal stenosis of lumbar region with neurogenic claudication; Spinal stenosis of lumbar region, unspecified whether neurogenic claudication present; Benign neoplasm of cerebral meninges (CMS/HCC); 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); Type 2 diabetes mellitus with other specified complication (CMS/HCC) Start: 12-07-2024 End: 12-07-2024 ambulatory ANA M BECKER Not Available Start: 11-24-2024 End: 11-24-2024 Office outpatient visit 15 minutes Jose Will DO Work Phone: [facility] Comment on above: Closed fracture of m ultiple ribs of right side with routine healing, subsequent encounter (Primary Dx); Pneumothorax on right Start: 11-24-2024 End: 11-24-2024 ambulatory JOSE WILL Not Available Start: 11-17-2024 End: 11-18-2024 Telephone encounter Chris Whitaker MD Work Phone: [facility] Start: 11-15-2024 End: 11-15-2024 Office outpatient visit 25 minutes Ana M Becker PA Work Phone: [facility] Comment on above: Diabetic polyneuropa thy associated with type 2 diabetes mellitus (CMS/HCC) (Primary Dx); Closed fracture of multiple ribs of right side, sequela; History of pneumothorax; Primary osteoarthritis of left knee Start: 11-15-2024 End: 11-15-2024 ambulatory ANA M BECKER Not Available Start: 11-13-2024 End: 11-13-2024 External Result Encounter Keo H Itzkowitz DO Work Phone: [facility] Unsolicited Start: 11-13-2024 End: 11-13-2024 External Result Encounter Keo H Itzkowitz DO Work Phone: [facility] Unsolic[facility] Start: 11-12-2024 End: 11-12-2024 External Result Encounter Keo H Itzkowitz DO Work Phone: [facility] Unsolicited Start: 11-12-2024 End: 11-12-2024 External Result Encounter Keo H Itzkowitz DO Work Phone: [facility] Unsolicited Start: 11-11-2024 End: 11-11-2024 External Result Encounter Keo H Itzkowitz DO Work Phone: [facility] Unsolic[facility] Start: 11-11-2024 End: 11-11-2024 External Result Encounter Keo H Itzkowitz DO Work Phone: [facility] Unsolic[facility] Start: 11-10-2024 End: 11-13-2024 Evaluation and management of inpatient Keo Itzkowitz Facility:[facility] Start: 11-10-2024 End: 11-10-2024 External Result Encounter Keo H Itzkowitz DO Work Phone: [facility] Unsolicited Start: 11-10-2024 End: 11-10-2024 External Result Encounter Keo Kam Elroy DO Work Phone: [facility] Unsolicited Start: 11-01-2024 End: 11-01-2024 Telephone encounter Ana M Becker PA Work Phone: [facility] Start: 10-17-2024 End: 10-17-2024 ambulatory [facility] Start: 10-12-2024 End: 10-12-2024 Kang Whitaker MD Work Phone: [facility] Comment on above: Generalized anxiety disorder (CMS/HCC) Start: 10-10-2024 End: 10-10-2024 Bamboo flowsheet Ana M Becker PA Work Phone: [facility] Start: 10-10-2024 End: 10-10-2024 Bamboo flowsheet Ana M Becker PA Work Phone: [facility] Start: 10-10-2024 End: 10-10-2024 Office outpatient visit 15 minutes Ana M Becker PA Work Phone: [facility] Comment on above: Nausea and vomiting, unspecified vomiting type (Primary Dx) Start: 10-10-2024 End: 10-10-2024 ambulatory ANA M BECKER Not Available Start: 09-07-2024 End: 09-07-2024 Bamboo flowsheet Ana M Becker PA Work Phone: [facility] Start: 09-07-2024 End: 09-07-2024 Bamboo flowsheet Ana M Becker PA Work Phone: [facility] Start: 09-07-2024 End: 09-07-2024 Office outpatient visit 25 minutes Ana M Becker PA Work Phone: [facility] Comment on above: Spasm of left trapez ius muscle (Primary Dx); Psychophysiological insomnia; Chronic left shoulder pain Start: 09-07-2024 End: 09-07-2024 ambulatory ANA M BECKER Not Available Start: 08-23-2024 End: 08-23-2024 ambulatory SYD CARLTON Not Available Start: 08-23-2024 End: 08-23-2024 Office outpatient visit 25 minutes Syd Carlton DO Work Phone: [facility] Comment on above: Migraine with aura a nd without status migrainosus, not intractable (CMS/HCC) (Primary Dx); Episodic tension-type headache, not intractable; Lightheaded; Orthostatic hypotension; Benign neoplasm of cerebral meninges (CMS/HCC); Generalized anxiety disorder (CMS/HCC); Disturbance of skin sensation Start: 08-19-2024 End: 08-19-2024 Patient encounter procedure II Chris Whitaker Work Phone: [facility] Start: 08-19-2024 End: 08-19-2024 ambulatory II Chris Whitaker Work Phone: [facility] Work Phone: Start: 08-16-2024 End: 08-16-2024 Office outpatient visit 25 minutes Ana M Becekr PA Work Phone: [facility] Comment on above: Diabetic polyneuropa thy associated with type 2 diabetes mellitus (CMS/HCC) (Primary Dx); Generalized anxiety disorder (CMS/HCC); Spinal stenosis of lumbar region, unspecified whether neurogenic claudication present; Cold intolerance; Myalgia; Mononeuropathy of left lower extremity; Left sided sciatica Start: 08-16-2024 End: 08-16-2024 ambulatory ANA M BECKER Not Available Start: 08-16-2024 End: 08-16-2024 Bamboo flowsheet Ana M Becker PA Work Phone: [facility] Start: 08-16-2024 End: 08-16-2024 Bamboo flowsheet Ana M Becker PA Work Phone: [facility] Start: 08-04-2024 End: 08-04-2024 Office outpatient visit 15 minutes Jose Will DO Work Phone: [facility] Comment on above: Breast calcification , left (Primary Dx); Duct ectasia of breast, right; Family history of breast cancer in sister Start: 08-04-2024 End: 08-04-2024 ambulatory JOSE WILL Not Available Start: 07-26-2024 End: 07-26-2024 Office outpatient visit 25 minutes Raeann Castro DPM Work Phone: [facility] Comment on above: Type II or unspecifi ed type diabetes mellitus with neurological manifestations, not stated as uncontrolled(250.60) (CMS/HCC) (Primary Dx); Peroneal tendonitis of left lower leg; Plantar fasciitis, left; Metatarsalgia, left foot; Ankle instability, left Start: 07-26-2024 End: 07-26-2024 ambulatory RAEANN CASTRO Not Available Start: 07-26-2024 End: 07-26-2024 Bamboo flowsheet Raeann Castro DPM Work Phone: [facility] Start: 07-26-2024 End: 07-26-2024 Bamboo flowsheet Raeann Castro DPM Work Phone: [facility] Start: 07-21-2024 End: 07-21-2024 Bamboo flowsheet Elizabeth Northeim PA Work Phone: [facility] Start: 07-21-2024 End: 07-21-2024 Bamboo flowsheet Elizabeth Med-Tekeim PA Work Phone: [facility] Start: 07-21-2024 End: 07-21-2024 Office outpatient new 30 minutes Elizabeth Med-Tekeim PA Work Phone: [facility] Comment on above: Hemangioma of skin a nd subcutaneous tissue (Primary Dx); Seborrheic keratosis; Lentigo simplex; Melanocytic nevus of trunk; Inflamed seborrheic keratosis; Epidermal inclusion cyst Start: 07-21-2024 End: 07-21-2024 ambulatory ELIZABETH NORTHEIM Not Available Start: 06-07-2024 End: 06-07-2024 ambulatory ANA M BECKER Not Available Start: 06-06-2024 End: 06-06-2024 ambulatory JOSE Luciana WILL Not Available Start: 05-09-2024 End: 05-09-2024 ambulatory TOMI Evans JO ANN Not Available Start: 05-04-2024 End: 05-04-2024 ambulatory [facility] Start: 01-13-2024 Orders Only Molly bae PINSETTER MECHANIC HELPER Work Phone: [facility] Comment on above: COVID-19 (Primary Dx ) Start: 01-12-2024 Chart abstracting Molly sims PINSETTER MECHANIC HELPER Work Phone: [facility] Start: 01-12-2024 End: 01-12-2024 Office outpatient visit 25 minutes Molly Serna PINSETTER MECHANIC HELPER Work Phone: [facility] Comment on above: Acute cough (Primary Dx); Generalized anxiety disorder (CMS/HCC); Acute non-recurrent pansinusitis Start: 01-08-2024 Chart abstracting Ana M watkins PA Work Phone: [facility] Start: 10-02-2023 End: 10-02-2023 ambulatory [facility]AD[facility]IR [facility]varenga [facility] Amb[facility] Start: 10-02-2023 End: 10-02-2023 Office outpatient visit 15 minutes Bladimir Tam MD Work Phone: [facility] Comment on above: Mixed hyperlipidemia (Primary Dx); Palpitations; Paroxysmal SVT (supraventricular tachycardia) Start: 04-07-2023 End: 04-07-[address] SALOMON JOYCE . Facility: Start: 01-20-2023 End: 01-20-2023 Admission to same day surgery center II Chris Whitaker Work Phone: [facility] Work Phone: Start: 01-20-2023 End: 01-20-2023 ambulatory II Chris Whitaker Work Phone: [facility] Work Phone: Start: 10-27-2022 Patient encounter procedure SA [id number] [place] [facility]VI NUCLEAR 01 Work Phone: [facility] [address] [place] Work Phone: Start: 10-27-2022 ambulatory Ms. LEAH BAGLEY Facilit [id number] Start: 09-29-2022 Office outpatient vi sit 15 minutes Leah Bagley QA ANALYST-RAILROAD SIGNAL TECHNICIAN Work Phone: [facility] [address] DO Work Phone: Start: 09-29-2022 ambulatory ROCHELLE Bagley Facilit y: Start: 07-09-2022 End: 07-09-2022 ambulatory Ricardo De Santiagokes Other [employer] Other Start: 07-09-2022 Office outpatient vi sit 25 minutes Ricardo De Santiagokes [facility] Start: 02-13-2022 End: 02-13-2022 ambulatory Iqra Heard Other [employer] Other Start: 02-13-2022 Office outpatient vi sit 15 minutes Iqracarolann Heard [facility] [place] Start: 11-28-2021 End: 11-28-2021 ambulatory Ricardo De Santiagokes Other [employer] Other Start: 11-28-2021 Telephone encounter Ricardo Hardy [facility] Start: 11-11-2021 End: 11-11-2021 ambulatory Ricardo Hardy Other [employer] Other Start: 11-11-2021 Office outpatient vi sit 10 minutes Ricardo Hykes [facility] Start: 09-17-2021 Office outpatient vi sit 25 minutes Ricardo Hykes [facility] Echocardiogram normal Leah Bagley QA ANALYST-RAILROAD SIGNAL TECHNICIAN Work Phone: [facility] [address] DO Work Phone: Radionuclide heart s tudy normal Leah Bagley QA ANALYST-RAILROAD SIGNAL TECHNICIAN Work Phone: [facility] [address] DO Work Phone: Procedures Date Procedure Procedure Detail Performing Clinician Start: 04-07-2025 Hemoglobin glycosyla giselle a1c Ana M PEREZ Work Phone: Start: 03-01-2025 Computerized ophthal daniele imaging retina Carolyn Banks DO Work Phone: Start: 03-01-2025 End: 03-01-2025 Oph medical xm&eval comprhnsv estab pt 1/> Type 2 diabetes mellitus without complication, without long-term current use of insulin Carolyn Banks DO Work Phone: Comment on above: Type 2 diabetes leanna itus without complication, without long- term current use of insulin (Primary Dx); 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; Age-related nuclear cataract of left eye; Dry eyes; Blepharitis of upper and lower eyelids of both eyes, unspecified type Start: 11-15-2024 Hemoglobin glycosyla giselle a1c Ana M PEREZ Work Phone: Start: 11-13-2024 GLUCOSE POCT GLUCOMETERS Keo H Itzkowitz DO Work Phone: Start: 11-12-2024 GLUCOSE POCT GLUCOMETERS Keo H Itzkowitz DO Work Phone: Start: 11-12-2024 GLUCOSE POCT GLUCOMETERS Keo H Itzkowitz DO Work Phone: Start: 11-12-2024 GLUCOSE POCT GLUCOMETERS Keo H Itzkowitz DO Work Phone: Start: 11-12-2024 GLUCOSE POCT GLUCOMETERS Keo H Itzkowitz DO Work Phone: Start: 11-11-2024 GLUCOSE POCT GLUCOMETERS Keo H Itzkowitz DO Work Phone: Start: 11-11-2024 GLUCOSE POCT GLUCOMETERS Keo H Itzkowitz DO Work Phone: Start: 11-11-2024 End: 11-11-2024 GLUCOSE POCT GLUCOMETERS Keo H Itzko witz DO Work Phone: Start: 11-11-2024 GLUCOSE POCT GLUCOMETERS Keo H Itzkowitz DO Work Phone: Start: 11-11-2024 Basic metabolic pane l calcium total Keo H Itzkowitz DO Work Phone: Start: 11-11-2024 Complete blood count with white cell differential, automated Keo H Itzkowitz DO Work Phone: Start: 11-10-2024 GLUCOSE POCT GLUCOMETERS Keo H Itzkowitz DO Work Phone: Start: 08-19-2024 Ultrasonography of r ight breast II Chris Sherman Work Phone: Start: 07-26-2024 Radex foot complete minimum 3 views Raeann Castro DPM Work Phone: Start: 07-21-2024 CRYOTHERAPY SKIN LESION Elizabeth PEREZ Work Phone: Start: 01-20-2023 Screening colonoscopy I I Chris Whitaker Work Phone: Appendectomy Leah kam QA ANALYST-RAILROAD SIGNAL TECHNICIAN Work Phone: Arthroscopy of knee Leah Bagley QA ANALYST-RAILROAD SIGNAL TECHNICIAN Work Phone: Cataract surgery Leah Bagley QA ANALYST-RAILROAD SIGNAL TECHNICIAN Work Phone: Hysterectomy Leah kam QA ANALYST-RAILROAD SIGNAL TECHNICIAN Work Phone: Total colonoscopy Leah Bagley QA ANALYST-RAILROAD SIGNAL TECHNICIAN Work Phone: Plan of Treatment Date Care Activity Detail Author Start: 03-01-2027 Glaucoma screening Diabetes: R etinopathy Screening [facility] Start: 04-07-2026 Urine screening for protein Diabetes: Urine Protein Screening [facility] Start: 02-13-2026 Medicare Annual Wellness (AWV) Medicare Annual Wellness (AWV) [facility] Start: 08-21-2025 End: 08-21-2025 Patient encounter procedure [facility] Start: 08-17-2025 Urine screening for protein Diabetes: Urine Protein Screening [facility] Start: 08-17-2025 End: 08-17-2025 Patient encounter procedure 08/17/2025 1:45 PM EDT Office Visit [facility] [address] [place] [phone] Raeann Castro, DPM [address] [place] [address] [facility] Start: 07-21-2025 End: 07-21-2025 Patient encounter procedure [facility] Start: 07-10-2025 End: 07-10-2025 Patient encounter procedure 07/10/2025 1:00 PM EDT Office Visit [facility] [address] [place] [address] Ana M Becker PA [address] [place] [address] [facility] Start: 07-08-2025 Hemoglobin A1c measurement Diabetes: Hemoglobin A1C [facility] Start: 05-22-2025 End: 05-22-2025 Patient encounter procedure 05/22/2025 2:30 PM EDT Office Visit [facility] [address] [place] [address] Ana M Becker PA [address] [place] [address] [facility] Start: 05-18-2025 End: 05-18-2025 Patient encounter procedure 05/18/2025 3:15 PM EDT Office Visit [facility] [address] [place] [address] Tomi Durham, DO [address] [place], [place] [id number] [facility] Start: 04-07-2025 End: 04-07-2026 Microalbumin/Creatinine panel in random Urine Microalbumin / creatinine, urine ratio Lab Routine Type 2 diabetes mellitus with other specified complication, without long-term current use of insulin Expected: 04/07/2025 (Approximate), Expires: 04/07/2026 [facility] Work Phone: Comment on above: Expected: 04/07/2025 (Approximate), Expires: 04/07/2026 Start: 04-07-2025 End: 04-07-2025 Patient encounter procedure 04/07/2025 9:30 AM EDT Office Visit [facility] [address] [place] [address] Ana M Becker PA [address] [place] [address] Arrived [facility] Comment on above: Arrived Start: 03-01-2025 End: 03-01-2025 Patient encounter procedure [facility] Comment on above: Arrived Start: 02-21-2025 End: 02-21-2025 Patient encounter procedure 02/21/2025 10:30 AM EDT Office Visit [facility] [address] [place] [phone] Carolyn Banks DO [address] [place] [address] [facility] Start: 02-14-2025 End: 02-14-2025 Patient encounter procedure 02/14/2025 1:45 PM EDT Office Visit [facility] [address] [place] [phone] Raeann Castro, DPM [address] [place], [place] [phone] [facility] Start: 02-13-2025 Hemoglobin A1c measurement Diabetes: Hemoglobin A1C [facility] Start: 02-13-2025 End: 02-13-2025 Patient encounter procedure [facility] Comment on above: Arrived Start: 01-25-2025 Medicare Annual Wellness (AWV) Medicare Annual Wellness (AWV) [facility] Start: 12-22-2024 End: 12-22-2024 Patient encounter procedure 12/22/2024 2:30 PM EST [facility] [address] [facility] [address] [place] [phone] Jose Will, DO [address] [facility] [address] [place] [address] [facility] [facility] Start: 12-08-2024 Urine screening for protein Diabetes: Urine Protein Screening [facility] Start: 12-07-2024 End: 12-07-2024 Patient encounter procedure 12/07/2024 1:30 PM EST Office Visit [facility] [address] [place] [address] Ana M Becker PA [address] [place] [address] Arrived [facility] Comment on above: Arrived Start: 11-24-2024 End: 11-24-2024 Patient encounter procedure 11/24/2024 1:15 PM EST [facility] [address] [facility] [address] [place] [phone] Jose Will, DO [address] [facility] [address] [place] [address] [facility] Start: 11-18-2024 End: 11-18-2024 Patient encounter procedure 11/18/2024 9:00 AM EST Office Visit [facility] [address] [place] [phone] Carolyn Banks, DO [address] [place] [address] [facility] Start: 11-15-2024 End: 11-15-2024 Patient encounter procedure 11/15/2024 1:00 PM EST Office Visit [facility] [address] [place] [address] Ana M Becker PA [address] [facility] [address] [place] [address] [facility] Start: 10-05-2024 End: 10-05-2024 Patient encounter procedure 10/05/2024 1:00 PM EST Office Visit [facility] [address] [facility] [address] [place] [address] Bladimir Tam MD [address] [place] [address] [facility] Start: 09-07-2024 Hemoglobin A1c measurement Diabetes: Hemoglobin A1C [facility] Start: 09-07-2024 End: 09-07-2024 Patient encounter procedure [facility] Comment on above: Arrived Start: 08-23-2024 End: 08-23-2024 Patient encounter procedure [facility] Start: 08-16-2024 End: 08-16-2024 Patient encounter procedure 08/16/2024 4:30 PM EDT Office Visit [facility] [address] [facility] [address] [place] [address] Ana M Becker PA [address] [facility] [address] [place] [address] Arrived [facility] Comment on above: Arrived Start: 08-16-2024 End: 08-16-2025 25-hydroxyvitamin D3 [Mass/volume] in Serum or Plasma Vitamin D 25 hydroxy Total Lab Routine Myalgia Expected: 08/16/2024 (Approximate), Expires: 08/16/2025 [facility] Comment on above: Expected: 08/16/2024 (Approximate), Expires: 08/16/2025 Start: 08-16-2024 End: 08-16-2025 CBC W Auto Differential panel - Blood CBC and differential Lab Routine Cold intolerance Expected: 08/16/2024 (Approximate), Expires: 08/16/2025 [facility] Comment on above: Expected: 08/16/2024 (Approximate), Expires: 08/16/2025 Start: 08-16-2024 End: 08-16-2025 Comprehensive metabolic 2000 panel - Serum or Plasma Comprehensive metabolic panel Lab Routine Diabetic polyneuropathy associated with type 2 diabetes mellitus (CMS/HCC) Myalgia Expected: 08/16/2024 (Approximate), Expires: 08/16/2025 [facility] Comment on above: Expected: 08/16/2024 (Approximate), Expires: 08/16/2025 Start: 08-16-2024 End: 08-16-2025 TSH W/REFLEX TO FT4 TSH W/REFLEX TO FT4 Lab Routine Cold intolerance Expected: 08/16/2024 (Approximate), Expires: 08/16/2025 [facility] Work Phone: Comment on above: Expected: 08/16/2024 (Approximate), Expires: 08/16/2025 Start: 08-04-2024 End: 10-04-2025 US Breast - right Right breast US complete Imaging Routine Duct ectasia of breast, right Family history of breast cancer in sister Expected: 08/04/2024, Expires: 10/04/2025 [facility] Work Phone: Comment on above: Expected: 08/04/2024 , Expires: 10/04/2025 Start: 08-04-2024 End: 08-04-2024 Patient encounter procedure 08/04/2024 1:15 PM EDT Office Visit [facility] [address] [facility] [address] [place] [address] Jose Will DO [address] [facility] 150 [place] [address] [facility] Start: 07-31-2024 Influenza vaccination Influenza Vacc ine (#1) [facility] Start: 07-26-2024 End: 07-26-2024 [facility] Comment on above: Arrived Start: 07-21-2024 End: 07-21-2024 Patient encounter procedure 07/21/2024 1:20 PM EDT Office Visit [facility] [address] [place] [phone] Elizabeth Brumfield PA [address] [place] [address] Neoplasm of uncertain behavior of skin of back [facility] Comment on above: Neoplasm of uncertai n behavior of skin of back Start: 05-09-2024 End: 05-09-2024 Patient encounter procedure 05/09/2024 11:30 AM EDT Office Visit [facility] [address] [place] [address] Tomi Durham, DO [address] [place] [address] [facility] Start: 03-08-2024 Hemoglobin A1c measurement Diabetes: Hemoglobin A1C [facility] Start: 03-08-2024 End: 03-08-2024 Patient encounter procedure 03/08/2024 2:00 PM EDT Office Visit [facility] [address] [place] [address] Ana M Becker PA [address] [place] [address] [facility] Start: 02-02-2024 End: 02-02-2024 Patient encounter procedure 02/02/2024 1:45 PM EST [facility] [address] [facility] [address] [place] [phone] Jose Will, DO [address] [place] [address] [facility] Start: 01-25-2024 End: 01-25-2024 Patient encounter procedure 01/25/2024 10:30 AM EST Office Visit [facility] [address] [place] [address] Ana M Becker PA [address] [place] [address] [facility] Start: 01-13-2024 End: 01-13-2024 Patient encounter procedure 01/13/2024 10:30 AM EST Office Visit [facility] [address] [place] [address] Ana M Becker PA [address] [place] [address] [facility] Start: 01-12-2024 End: 01-12-2024 Patient encounter procedure 01/12/2024 10:00 AM EST Office Visit [facility] [address] [place] [address] Molly Serna, PINSETTER MECHANIC HELPER [address] [place] [address] [facility] Start: 10-02-2023 FUV, Provider: Bladimir Tam, Status: Pen, Time: 1:00 PM FUV, Provider: Bladimir Tam, Status: Pen, Time: 1:00 PM [facility] [address] DO Work Phone: Start: 01-20-2023 [facility] Start: 11-16-2022 Glaucoma screening Diabetes: R etinopathy Screening [facility] Start: 10-27-2022 STRESS NUC, Provider : [place] HHVI NUCLEAR ,[id number], Status: Pen, Time: 8:00 AM STRESS NUC, Provider: [place] HHVI NUCLEAR ,[id number], Status: Pen, Time: 8:00 AM [facility] [address] DO Work Phone: Start: 01-14-2022 COVID-19 Vaccine (5 - Pfizer series) COVID-19 Vaccine (5 - Pfizer series) [facility] Start: 1968 DTaP/Tdap/Td Vaccine s (1 - Tdap) DTaP/Tdap/Td Vaccines (1 - Tdap) [facility] Start: 1964 Diabetes mellitus screening Diabetes Screening [facility] Start: 1964 Hepatitis C screening Hepatitis C Mn guerrero [facility] Start: 1945 Lipid panel Lipid Panel [facility] Start: 1945 Medicare Annual Wellness (AWV) Medicare Annual Wellness (AWV) [facility] Start: 1945 Medicare Annual Wellness Visit Medicare Annual Wellness Visit (AWV) [facility] Patient Education Colon Polyps Diverticulosis (DC) [facility] Work Phone: VIRAL RESPIRATORY INFECTION (HTRX) VIRAL RESPIRATORY INFECTION (HTRX) Lab Routine Acute cough Ordered: 01/12/2024 [facility] Work Phone: Comment on above: Ordered: 01/12/2024 Immunizations Immunization Date Immunization Notes Care Provider Zachary ellsworth 10-19-2024 influenza, high dose seasonal, preservative-free Keo Abbasi DO Work Phone: [facility] 11-19-2023 ABRYSVO - Respirator y syncytial virus (RSV), vaccine, bivalent, protein subunit RSV prefusion F, diluent reconstituted, 0.5 mL, PF Ana M Becker PA Work Phone: [facility] 09-02-2023 Influenza, High-dose Seasonal, Quadrivalent, Preservative Free Ana M PEREZ Work Phone: [facility] 09-02-2023 influenza virus vacc ine, unspecified formulation Elizabeth Brumfield PA Work Phone: [facility] 08-26-2022 Fluad Quadrivalent 0 .5 ML Intramuscular Prefilled Syringe Leah Bagley QA ANALYST-RAILROAD SIGNAL TECHNICIAN Work Phone: [facility] Work Phone: 08-05-2022 influenza, seasonal, injectable Leah Bagley QA ANALYST-RAILROAD SIGNAL TECHNICIAN Work Phone: [facility] Work Phone: Comment on above: Series: 11-19-2021 Pfizer-BioNTSurfingbird COVI D-19 Vacc 30 MCG/0.3ML Intramuscular Suspension Leah Bagley QA ANALYST-RAILROAD SIGNAL TECHNICIAN Work Phone: [facility] 250 DO Work Phone: 11-04-2021 Pfizer-BioNTech COVI D-19 Vacc 30 MCG/0.3ML Intramuscular Suspension Leah Bagley QA ANALYST-RAILROAD SIGNAL TECHNICIAN Work Phone: [place] [address] DO Work Phone: 09-19-2021 influenza, high dose seasonal, preservative-free Leah Bagley QA ANALYST-RAILROAD SIGNAL TECHNICIAN Work Phone: [place] [address] DO Work Phone: 08-30-2021 Fluzone High-Dose Quadrivalent 0.7 ML Intramuscular Suspension Prefilled Syringe Leah Bagley QA ANALYST-RAILROAD SIGNAL TECHNICIAN Work Phone: [place] [address] DO Work Phone: 02-19-2021 Pfizer-BioNTech COVI D-19 Vacc 30 MCG/0.3ML Intramuscular Suspension Leah Bagley QA ANALYST-RAILROAD SIGNAL TECHNICIAN Work Phone: [place] [address] DO Work Phone: 01-28-2021 Pfizer-BioNTech COVI D-19 Vacc 30 MCG/0.3ML Intramuscular Suspension Leah Bagley QA ANALYST-RAILROAD SIGNAL TECHNICIAN Work Phone: [place] [address] DO Work Phone: 08-30-2020 influenza, high dose seasonal, preservative-free Leah Bagley QA ANALYST-RAILROAD SIGNAL TECHNICIAN Work Phone: [place] [address] DO Work Phone: 08-30-2020 Seasonal, quadrivale nt, recombinant, injectable influenza vaccine, preservative free Ana M PEREZ Work Phone: [facility] 11-09-2019 zoster vaccine recombinant Leah Bagley QA ANALYST-RAILROAD SIGNAL TECHNICIAN Work Phone: [place] [address] DO Work Phone: 08-10-2019 Seasonal, quadrivale nt, recombinant, injectable influenza vaccine, preservative free Leah Bagley QA ANALYST-RAILROAD SIGNAL TECHNICIAN Work Phone: [facility] 08-10-2019 zoster vaccine recombinant Leah Bagley QA ANALYST-RAILROAD SIGNAL TECHNICIAN Work Phone: [facility] 250 DO Work Phone: 07-31-2019 influenza, seasonal, injectable, preservative free Leah Bagley QA ANALYST-RAILROAD SIGNAL TECHNICIAN Work Phone: [facility] 250 DO Work Phone: 08-17-2018 influenza, high dose seasonal, preservative-free Leah Kahn Bagley QA ANALYST-RAILROAD SIGNAL TECHNICIAN Work Phone: [facility] 250 DO Work Phone: 08-20-2017 pneumococcal polysaccharide vaccine, 23 valent Leah Kahnjessica Bagley QA ANALYST-RAILROAD SIGNAL TECHNICIAN Work Phone: [facility] 250 DO Work Phone: 05-08-2017 pneumococcal polysaccharide vaccine, 23 valent Leah Henriquezjessica Bagley QA ANALYST-RAILROAD SIGNAL TECHNICIAN Work Phone: [facility] 250 DO Work Phone: 01-07-2016 pneumococcal conjuga te vaccine, 13 valent Leah Kahnjessica Bagley QA ANALYST-RAILROAD SIGNAL TECHNICIAN Work Phone: [facility] 250 DO Work Phone: 05-01-2014 zoster vaccine, live Ana M PEREZ Work Phone: [facility] Payers Date Payer Category Payer Self-pay [id number] 2022 Medicare [id number] 2022 Medicare (Managed Care) 1.2. [id number] 2022 Private Health Insurance [facility] [id number] 2022-Present [address] [address] [place] [address] [id number] 2022 Private Health Insurance [id number] 2011 Medicare [id number] 1959 Medicare [id number] 1946 Unknown [id number] 2.16.840.1.449813.3.579.2. 356 1946 Unknown [id number] 2.16.840.1.012829.3.579.2. 1068 1946 Unknown [id number] 2.16.840.1.014548.3.579.2. 593 1946 Unknown [id number] 2.16.840.1.859023.3.579.2. 1244 1946 Unknown [id number] 2.16.840.1.686467.3.579.2. 1259 1946 Unknown [id number] 2.16.840.1.276385.3.579.2. 1259 1946 Unknown [id number] 2.16.840.1.241235.3.579.2. 1259 1946 Unknown [id number] 2.16.840.1.457419.3.579.2. 1259 1946 Unknown [id number] 2.16.840.1.859490.3.579.2. 1259 1946 Unknown [id number] 2.16.840.1.644579.3.579.2. 1259 07-1947 Unknown [id number] 2.16840.1.775393.3.579.2. 1258 1946 Unknown [id number] 2.16.840.1.949259.3.579.2. 1258 1946 Unknown [id number] 2.16.840.1.385506.3.579.2. 1258 1946 Unknown [id number] 2.16840.1.711058.3.579.2. 1258 1946 Unknown [id number] 2.840.1.666847.3.579.2. 1258 1946 Unknown [id number] 2.840.1.296475.3.579.2. 1258 1946 Unknown [id number] 1945 Unknown [id number] 1258 1945 Unknown [id number]. 1258 1945 Unknown [id number]. 1258 1945 Unknown [id number] [id number]. 1258 1945 Unknown [id number] [id number]. 1258 1945 Unknown [id number]. 1259 Blue Cross Blue [facility] [id number] Medicare [id number] Medicare [id number] Private Health Insurance 101 [id number] Unknown Unknown Regular Auto/Liability [id number] Unknown Regular Auto/Medical [id number] Unknown [id number] 531 Unknown [id number] 531 Social History Date Type Detail Facility Unknown if ever smoked [email or web address] Other Start: 10-02-2023 End: 04-07-[address] [facility] Start: 10-02-2023 End: 04-07-2025 Daily caffeine consumption, 2-3 servings a day Daily caffeine consumption, 2-3 servings a day [facility] Start: 01-20-2023 End: 04-22-2023 Tobacco smoking status NHIS Ex-smoker (finding) [facility] Start: 1945 Sex Assigned At Female [facility] End: 11-30-1971 History of tobacco use Current smoker [facility] Work Phone: End: 11-30-1971 History of tobacco use Cigarette Smoker [facility] Work Phone: Start: 04-22-2023 End: 10-02-2023 Tobacco use and exposure Smokeless tobacco non-user [facility] Work Phone: Start: 10-02-2023 End: 04-07-2025 Alcohol intake Lifetime non-drinker (finding) [facility] Work Phone: Start: 1945 Sex Assigned At Not on file [facility] Work Phone: Start: 09-22-2023 End: 10-02-2023 Exposure to SARS-CoV-2 (event) Not sure [facility] How often to you hav e a drink containing alcohol? Monthly or less [facility] How many standard drinks containing alcohol do you have on a typical day? 1 or 2 [facility] How often do you hav e 6 or more drinks on 1 occasion? Never [facility] Start: 10-21-2023 Alcohol Comment Caffeine intak e : 1-2 cups per day soda/pop [facility] Medical Equipment Procedure Code Equipment Code Equipment Origin al Text Equipment Identifier Dates 1 strip by In Vi tro route in the morning and 1 strip before bedtime. [id number] Start: 08-16-2024 1 Lancet in the morning and 1 Lancet before bedtime. [id number] Start: 08-16-2024 Goals Date Patient Goal Desired Activity /State Functional Status Date Assessment Result Facility 04-07-2025 Patient Health [facility] ionnaire 2 item (PHQ-2) [Reported] [facility] 09-29-2022 PHQ-9 [id number] Mild (5-9) -[facility] [address] DO Work Phone: Clinical Notes 09-17-2021 to 04-18-2025 Telephone Encounter - ANA River - 04/18/2025 9:34 AM EDTTelephone Encounter - ANA River - 04/18/2025 9:34 AM EDTTelephone Encounter - Yamilet Weems - 04/18/2025 9:07 AM EDT Note Date & Type Note Facility 04-18-2025 Telephone encounter Note OARRS reviewed, Rx sent into patient's pharmacy. [facility] 04-18-2025 Miscellaneous Notes OARRS reviewed, Rx sent into patient's pharmacy. ALPRAZolam (Xanax) 0.25 MG tablet [facility] documented in this encounter [facility] 04-18-2025 Telephone encounter Note ALPRAZolam (Xanax) 0.[address] tablet [facility] [place] [facility] 04-07-2025 History of Present illness Narrative Images from the original note were not included. HPI Med Refill Additional comments: Hydrocodone She does have sciatica pain on the left side and does take Hydrocodone as needed. Anxiety Additional comments: has been having some health problems over the past month, had infection in arm and had to have surgery to drain the infection and then after he got home from that 2 days later fell in bathroom and hit his head on bathtub, had a concussion (talking out of his head) put in [facility] and is going to be sent home on Thursday possible, is not sure he is ready to be sent home. Feels shaky and chest gets tight when anxious. Urine Leakage Additional comments: She is having to wear a pad all the time. And would like to discuss options. Last edited by ANA River on 04/07/2025 9:54 AM. Subjective Patient ID: Cheryl Lindquist is a 79 y.o. female who presents for diabetes. Cheryl is present today for diabetes. Denies foot ulcers, hypoglycemia, tingling/numbness in extremities. Does not check BS's at home. Currently on Glyburide-Metformin. Does not drink as much water as she used to, no other changes in her diet. Current Outpatient Medications on File Prior to Visit Medication Sig Dispense Refill ALPRAZolam (Xanax) 0.25 MG tablet Take 1 tablet (0.25 mg) by mouth Daily as needed for anxiety 30 tablet 0 aspirin 81 MG EC tablet Take 81 mg by mouth in the morning. bisoprolol (Zebeta) 5 MG tablet Take 1 tablet (5 mg) by mouth 1 (one) time each day at the same time 100 tablet 3 Blood Glucose Monitoring Suppl (Blood Glucose Monitor System) w/Device kit 1 each Daily 1 kit 0 Coenzyme H56-Xwuo Oil-Vit E (CO-Q 10 OMEGA-3 FISH OIL PO) Orally gabapentin (Neurontin) 300 MG capsule TAKE 1 CAPSULE BY MOUTH IN THE MORNING , 1 CAPSULE IN THE EVENING AND 1 CAPSULE BEFORE BEDTIME 270 capsule 3 Glucose Blood (Blood Glucose Test Strips 333) strip 1 strip by In Vitro route in the morning and 1 strip before bedtime. 200 strip 3 glyBURIDE-metFORMIN (Glucovance) 5-500 MG tablet TAKE 1 TABLET BY MOUTH IN THE MORNING AND 1 TABLET BEFORE BEDTIME 200 tablet 3 ibandronate (Boniva) 150 MG tablet Take 1 tablet (150 mg) by mouth every 30 (thirty) days Take in morning with full glass of water on an empty stomach. No food, drink, meds, or lying down for 60 minutes after. 3 tablet 3 Krill Oil 300 MG capsule Take 1 tablet by mouth 1 (one) time each day. Lancets misc 1 Lancet in the morning and 1 Lancet before bedtime. 200 each 3 lansoprazole (Prevacid) [address] capsule TAKE 1 CAPSULE BY MOUTH 1 TIME EVERY DAY AT THE SAME TIME 100 capsule 3 lidocaine (Lidoderm) 5 % patch Apply 1 patch over 12 hours topically 1 (one) time each day at the same time 30 patch 2 loratadine (Claritin) 10 MG tablet Take 10 mg by mouth as needed at bedtime for allergies. nabumetone (Relafen) 750 MG tablet Take 750 mg by mouth 2 (two) times a day as needed nystatin (Mycostatin) ointment Apply topically 2 (two) times a day 15 g 1 rosuvastatin (Crestor) 10 MG tablet Take 1 tablet (10 mg) by mouth Daily 100 tablet 3 tiZANidine (Zanaflex) 4 MG tablet Take 1 tablet (4 mg) by mouth every 12 (twelve) hours PRN 30 tablet 5 triamcinolone (Kenalog) 0.1 % ointment Apply topically 2 (two) times a day 15 g 1 zolpidem (Ambien) 10 MG tablet Take 1 tablet (10 mg) by mouth as needed at bedtime for sleep 90 tablet 0 [DISCONTINUED] HYDROcodone-acetaminophen ([place]) 5-325 MG tablet Take 1 tablet by mouth every 6 (six) hours if needed for severe pain 120 tablet 0 No current facility-administered medications on file prior to visit. I have reviewed and reconciled the history and medication list with the patient today. Allergies Allergen Reactions Atorvastatin Other Nabumetone GI intolerance Simvastatin Other Reaction(s): leg cramps Methylprednisolone Palpitations Social History Tobacco Use Smoking status: Former Types: Cigarettes Smokeless tobacco: Never Vaping Use Vaping status: Never Used Substance Use Topics Alcohol use: Never Comment: [...] Medical History: Diagnosis Date Anemia Appendicitis Arthritis Backache Benign neoplasm of cerebral meninges (CMS/HCC) Cardiac dysrhythmia Carpal tunnel syndrome Cataracts, bilateral Cervicalgia Classical migraine (CMS/HCC) COVID-19 Degeneration, intervertebral disc, cervical Depression (CMS/HCC) Disorder of bone and cartilage Disturbance of skin sensation Elevated cholesterol (CMS/HCC) Esophageal reflux H/O degenerative disc disease Headache High cholesterol (CMS/HCC) History of medical problems Sprains and strains of other and unspecified parts of back; neck History of uterine fibroid Hx of breast biopsy 3x benign - right breast biopsy with excision of nipple lesion x1 Hx of colonoscopy 2002 Insomnia Insomnia, unspecified Migraine Migraine with aura Migraine-cluster headache syndrome Muscle spasm Pain in limb Personal history of other medical treatment 1989 DX lap adn TL Pneumothorax on right 11/24/2024 PONV (postoperative nausea and vomiting) Don't remember.. Sciatica Spasmodic torticollis Syndrome affecting cervical region Tachycardia Tension type headache Type 2 diabetes mellitus with hyperglycemia (CMS/HCC) Uterine fibroid Visit for review of DEXA scan 2005 Past Surgical History: Procedure Laterality Date APPENDECTOMY BRAIN MENINGIOMA EXCISION BRAIN MENINGIOMA EXCISION 05/05/2011 BREAST BIOPSY Left benign 3x BREAST LUMPECTOMY Right CATARACT EXTRACTION Right 12/2021 Dr. Banks CERVICAL DISC SURGERY c1 meningioma COLONOSCOPY 2019 COLONOSCOPY W/ POLYPECTOMY 01/20/2023 [facility] Diabetes mellitus type 2 - EYE SURGERY 2021 DEXA SCAN 1989 KNEE SURGERY Left 02/03/2014 OTHER SURGICAL HISTORY 2010 steriods injection - pain clinic - headache TONSILLECTOMY TOTAL ABDOMINAL HYSTERECTOMY W/ BILATERAL SALPINGOOPHORECTOMY TUBAL LIGATION 1990 Visit Vitals BP 122/80 Pulse 64 Resp 16 Ht 5' 3 Wt 120 lb 9.6 oz SpO2 99% BMI 21.36 kg/m OB Status Hysterectomy Smoking Status Former BSA 1.56 m Review of Systems Constitutional: Negative for chills, fatigue and fever. Respiratory: Negative for cough, shortness of breath and wheezing. Cardiovascular: Negative for chest pain, palpitations and leg swelling. Gastrointestinal: Negative for abdominal pain, constipation, diarrhea, nausea and vomiting. Genitourinary: Positive for frequency (Incontinence). Skin: Negative for rash. Psychiatric/Behavioral: The patient is nervous/anxious. Objective Physical Exam Constitutional: General: She is not in acute distress. Appearance: Normal appearance. She is well-developed. HENT: Head: Normocephalic and atraumatic. Eyes: General: No scleral icterus. Conjunctiva/sclera: Conjunctivae normal. Cardiovascular: Rate and Rhythm: Normal rate and regular rhythm. Heart sounds: Normal heart sounds. No murmur heard. Pulmonary: Effort: Pulmonary effort is normal. No respiratory distress. Breath sounds: Normal breath sounds. No wheezing, rhonchi or rales. Skin: General: Skin is warm and dry. Neurological: General: No focal deficit present. Mental Status: She is alert and oriented to person, place, and time. Psychiatric: Mood and Affect: Mood is anxious and depressed. Behavior: Behavior normal. Office Visit on 04/07/2025 Component Date Value Ref Range Status Hemoglobin A1C 04/07/2025 7.0 Final Assessment/Plan Diagnoses and all orders for this visit: Type 2 diabetes mellitus with other specified complication, without long-term current use of insulin - POCT Glycated hemoglobin, total - Microalbumin / creatinine, urine ratio; Future Advised pt that her HgbA1c has increased from 6.5 to 7.0. Continue current medications as prescribed. Encouraged her to work on increasing her water intake again. Will recheck HgbA1c in 3 months. Urine sample obtained today for Microalbumin. Sciatica of left side - HYDROcodone-acetaminophen ([place]) 5-325 MG tablet; Take 1 tablet by mouth every 6 (six) hours if needed for severe pain Medication choice and dosage is appropriate for patient's current medical conditions. Patient will continue to be required to be seen in our office at least every three months for monitoring. At each follow up visit I will reassess the patient's need for the medication. Patient is to have this medication prescribed only through this office. Failure to follow the rules and regulations will result in tapering and discontinuation of medications if applicable. Patient verbalized understanding. OARRS Report was reviewed for this patient. Stress incontinence of urine - oxybutynin XL (Ditropan-XL) 5 MG 24 hr tablet; Take 1 tablet (5 mg) by mouth Daily Do not crush, chew, or split. Start above as prescribed. Reviewed potential s/e. Can increase the dosage if needed. Generalized anxiety disorder (CMS/HCC) - busPIRone (Buspar) 10 MG tablet; Take 1 tablet (10 mg) by mouth 2 (two) times a day as needed (Anxiety) Can continue Xanax as needed for anxiety. Discussed treatment options for patient to lower her baseline anxiety. She is agreeable to starting Buspar 1-2 times a day as needed. Contact office if she would like to increase the dosage, or if she has any concerns with the new medication. Follow up in about 3 months (around 07/08/2025) for Medication Follow Up. documented in this encounter [facility] 04-05-2025 Telephone encounter Note Too soon for refill on Ambien, just got filled on 04/01. [facility] 04-05-2025 Miscellaneous Notes Too soon for refill on Ambien, just got filled on 04/01. documented in this encounter [facility] 03-23-2025 Miscellaneous Notes OARRS reviewed, Rx sent into patient's pharmacy. documented in this encounter [facility] 03-23-2025 Telephone encounter Note OARRS reviewed, Rx sent into patient's pharmacy. [facility] 03-17-2025 Telephone encounter Note OARRS reviewed, Rx sent into patient's pharmacy. [facility] 03-17-2025 Miscellaneous Notes OARRS reviewed, Rx sent into patient's pharmacy. documented in this encounter [facility] 03-01-2025 Note Right Eye Quality was good. Scan locations included subfoveal. Progression has been stable. Findings include abnormal foveal contour. Left Eye Quality was good. Scan locations included subfoveal. Progression has been stable. Findings include abnormal foveal contour. Notes Macular volume loss both eyes (OU) [facility] 03-01-2025 History of Present illness Narrative Images from the original note were not included. Assessment/Plan Diagnoses and all orders for this visit: Type 2 diabetes mellitus without complication, without long-term current use of insulin - Diabetes Mellitus without sign of diabetic retinopathy on dilated retinal examination today OU: Discussed the pathophysiology of diabetes and its effect on the eye. Stressed the importance of strong glucose control. Advised of importance of at least yearly dilated examinations, but to contact us immediately for any problems or concerns. 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 - ARMD OU, dry. Importance of smoking cessation, blood pressure control, and healthy diet were emphasized. Patient was advised to consider ultraviolet-B blocking sunglasses. In accordance with the AREDS study, appropriate antioxidant and mineral supplements were prescribed. Patient was instructed to self monitor their monocular vision (reading/Amsler Grid) at least weekly. Patient should immediately report any new onset of decreased vision or metamorphopsia. Age-related nuclear cataract of left eye - Cataract, OS: Observe for now without intervention. The patient was advised to contact us if any change or worsening of vision Dry eyes - Dry Eyes OU -- Environmental changes to minimize dryness and exposure and the use of artificial tears were recommended. Blepharitis of upper and lower eyelids of both eyes, unspecified type - Blepharitis, posterior type OU - The patient exhibits inspissated meibomian glands. Warm compresses, lid massage and lid scrubs were recommended. documented in this encounter [facility] 01-19-2025 Telephone encounter Note OARRS reviewed, Rx sent into patient's pharmacy. [facility] 01-19-2025 Miscellaneous Notes OARRS reviewed, Rx sent into patient's pharmacy. documented in this encounter [facility] 01-02-2025 Telephone encounter Note zolpidem (Ambien) 10 MG tablet and hydrocodone sent to [facility] in [place] [facility] 01-02-2025 Miscellaneous Notes zolpidem (Ambien) 10 MG tablet and hydrocodone sent to [facility] in [place] documented in this encounter [facility] 12-07-2024 History of Present illness Narrative Images from the original note were not included. HPI Dizziness Additional comments: Ever since the fall she has had the lightheadedness/dizziness and wants to know if this is actually due from the fall. She does not feel she hit her head when she fell. Med Refill Additional comments: Hydrocodone Last edited by Katelyn Han LPN on 12/07/2024 1:37 PM. Subjective Patient ID: Cheryl Lindquist is a 79 y.o. female who presents for rib fracture. Cheryl is present today for follow up rib fractures. She went [place] [facility] [place] Dx. Rib fractures. She feels it is getting better and she knows it does take a long time for the ribs to heal but still c/o pain in the right rib cage area. States she probably does something she she shouldn't be doing, and does try to take it easy for the most part. Doesn't drink enough water, about 2 bottles of water a day. Current Outpatient Medications on File Prior to Visit Medication Sig Dispense Refill ALPRAZolam (Xanax) 0.25 MG tablet Take 1 tablet (0.25 mg) by mouth 1 (one) time each day at the same time 30 tablet 2 aspirin 81 MG EC tablet Take 81 mg by mouth in the morning. bisoprolol (Zebeta) 5 MG tablet Take 1 tablet (5 mg) by mouth 1 (one) time each day at the same time. 100 tablet 3 Blood Glucose Monitoring Suppl (Blood Glucose Monitor System) w/Device kit 1 each Daily 1 kit 0 Coenzyme [id number]-[id number] Oil-Vit E (CO-Q 10 OMEGA-3 FISH OIL PO) Orally gabapentin (Neurontin) 300 MG capsule TAKE 1 CAPSULE BY MOUTH IN THE MORNING AND 1 CAPSULE BY MOUTH IN THE EVENING AND 1 CAPSULE BY MOUTH BEFORE BEDTIME 270 capsule 3 Glucose Blood (Blood Glucose Test Strips 333) strip 1 strip by In Vitro route in the morning and 1 strip before bedtime. 200 strip 3 glyBURIDE-metFORMIN (Glucovance) 5-500 MG tablet TAKE 1 TABLET BY MOUTH IN THE MORNING AND 1 TABLET BEFORE BEDTIME 200 tablet 3 ibandronate (Boniva) 150 MG tablet Take 1 tablet (150 mg) by mouth every 30 (thirty) days Take in morning with full glass of water on an empty stomach. No food, drink, meds, or lying down for 60 minutes after. 3 tablet 3 Krill Oil 300 MG capsule Take 1 tablet by mouth 1 (one) time each day. Lancets misc 1 Lancet in the morning and 1 Lancet before bedtime. 200 each 3 lansoprazole (Prevacid) [address] capsule TAKE 1 CAPSULE BY MOUTH 1 TIME EVERY DAY AT THE SAME TIME 100 capsule 3 lidocaine (Lidoderm) 5 % patch Apply 1 patch over 12 hours topically 1 (one) time each day at the same time 30 patch 2 loratadine (Claritin) 10 MG tablet Take 10 mg by mouth as needed at bedtime for allergies. nabumetone (Relafen) 750 MG tablet Take 750 mg by mouth 2 (two) times a day as needed nystatin (Mycostatin) ointment Apply topically 2 (two) times a day 15 g 1 rosuvastatin (Crestor) 10 MG tablet Take 1 tablet (10 mg) by mouth in the morning. 90 tablet 3 tiZANidine (Zanaflex) 4 MG tablet Take 1 tablet (4 mg) by mouth every 12 (twelve) hours PRN 30 tablet 5 triamcinolone (Kenalog) 0.1 % ointment Apply topically 2 (two) times a day 15 g 1 zolpidem (Ambien) 10 MG tablet Take 1 tablet (10 mg) by mouth as needed at bedtime for sleep 90 tablet 0 [DISCONTINUED] HYDROcodone-acetaminophen ([place]) 5-325 MG tablet Take 1 tablet by mouth every 6 (six) hours if needed for severe pain (Patient not taking: Reported on 11/24/2024) 120 tablet 0 [DISCONTINUED] oxyCODONE-acetaminophen (Percocet) 5-325 MG tablet Take 1 tablet by mouth every 6 (six) hours if needed No current facility-administered medications on file prior to visit. I have reviewed and reconciled the history and medication list with the patient today. Allergies Allergen Reactions Atorvastatin Other Nabumetone GI intolerance Simvastatin Other Reaction(s): leg cramps Methylprednisolone Palpitations Social History Tobacco Use Smoking status: Former Types: Cigarettes Smokeless tobacco: Never Vaping Use Vaping status: Never Used Substance Use Topics Alcohol use: Never Comment: [...] Medical History: Diagnosis Date Anemia Appendicitis Arthritis Backache Benign neoplasm of cerebral meninges (CMS/HCC) Cardiac dysrhythmia Carpal tunnel syndrome Cataracts, bilateral Cervicalgia Classical migraine (CMS/HCC) COVID-19 Degeneration, intervertebral disc, cervical Depression (CMS/HCC) Disorder of bone and cartilage Disturbance of skin sensation Elevated cholesterol (CMS/HCC) Esophageal reflux H/O degenerative disc disease Headache High cholesterol (CMS/HCC) History of medical problems Sprains and strains of other and unspecified parts of back; neck History of uterine fibroid Hx of breast biopsy 3x benign - right breast biopsy with excision of nipple lesion x1 Hx of colonoscopy 2002 Insomnia Insomnia, unspecified Migraine (CMS/HCC) Migraine with aura (CMS/HCC) Migraine-cluster headache syndrome Muscle spasm Pain in limb Personal history of other medical treatment 1989 DX lap adn TL PONV (postoperative nausea and vomiting) Don't remember.. Sciatica Spasmodic torticollis Syndrome affecting cervical region Tachycardia Tension type headache Type 2 diabetes mellitus with hyperglycemia (CMS/HCC) Uterine fibroid Visit for review of DEXA scan 2005 Past Surgical History: Procedure Laterality Date APPENDECTOMY BRAIN MENINGIOMA EXCISION BRAIN MENINGIOMA EXCISION 05/05/2011 BREAST BIOPSY Left benign 3x BREAST LUMPECTOMY Right CATARACT EXTRACTION Right 12/2021 CATARACT EXTRACTION 12/2021 CERVICAL DISC SURGERY c1 meningioma COLONOSCOPY 2019 COLONOSCOPY W/ POLYPECTOMY 01/20/2023 [facility] EX[facility] Diabetes mellitus type 2 - EYE SURGERY 2021 DEXA SCAN 1989 KNEE SURGERY Left 02/03/2014 OTHER SURGICAL HISTORY 2010 steriods injection - pain clinic - headache TONSILLECTOMY TOTAL ABDOMINAL HYSTERECTOMY W/ BILATERAL SALPINGOOPHORECTOMY TUBAL LIGATION 1990 Visit Vitals BP 132/68 Pulse 64 Resp 16 Ht 5' 3 Wt 118 lb 9.6 oz SpO2 98% BMI 21.01 kg/m OB Status Hysterectomy Smoking Status Former BSA 1.55 m Review of Systems Constitutional: Negative for chills, fatigue and fever. Respiratory: Negative for cough, shortness of breath and wheezing. Pain with deep inspiration Cardiovascular: Negative for chest pain, palpitations and leg swelling. Gastrointestinal: Negative for abdominal pain, constipation, diarrhea, nausea and vomiting. Musculoskeletal: Positive for arthralgias (Rib pain) and back pain. Skin: Negative for rash. Neurological: Positive for dizziness and light-headedness. Objective Physical Exam Constitutional: General: She is not in acute distress. Appearance: Normal appearance. She is well-developed. HENT: Head: Normocephalic and atraumatic. Eyes: General: No scleral icterus. Conjunctiva/sclera: Conjunctivae normal. Cardiovascular: Rate and Rhythm: Normal rate and regular rhythm. Heart sounds: Normal heart sounds. No murmur heard. Pulmonary: Effort: Pulmonary effort is normal. No respiratory distress. Breath sounds: Normal breath sounds. No wheezing, rhonchi or rales. Comments: Right mid ribs over lateral aspect tender to palpation, Able to speak in complete sentences Skin: General: Skin is warm and dry. Neurological: General: No focal deficit present. Mental Status: She is alert and oriented to person, place, and time. Motor: No pronator drift. Coordination: Romberg sign negative. Psychiatric: Mood and Affect: Mood normal. Behavior: Behavior normal. Assessment/Plan Diagnoses and all orders for this visit: Closed fracture of multiple ribs of right side, sequela Reminded pt that as Dr. Will informed her, it can take around 8 weeks for rib fractures to fully heal. She voiced understanding. Encouraged her to continue to take deep breaths throughout the day. Dizziness - meclizine (Antivert) 25 MG tablet; Take 0.5-1 tablets (12.5-25 mg) by mouth 2 (two) times a day as needed for dizziness for up to 10 days Meclizine prn for dizziness. Cautioned pt it may cause drowsiness. Offered PT referral. Pt declines at this time. Sciatica of left side Pain radiates down into pt's left lower leg. [place] normally helpful for her. Spinal stenosis of lumbar region with neurogenic claudication - HYDROcodone-acetaminophen ([place]) 5-325 MG tablet; Take 1 tablet by mouth every 6 (six) hours if needed for severe pain for up to 7 days OARRS report generated and reviewed. Will restart [place] for pt to take as needed for her back pain. Can give pt a month supply when she is due for her next refill. Will continue to monitor her routinely, every three months. Benign neoplasm of cerebral meninges (CMS/HCC) Condition stable at this time. Will continue to monitor. 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) Next HgbA1c is due in January. Type 2 diabetes mellitus with other specified complication (CMS/HCC) Continue current medications as prescribed. Follow up for Appointment As Scheduled. documented in this encounter [facility] 11-24-2024 History of Present illness Narrative Images from the original note were not included. Cheryl Lindquist 1945 Cheryl Lindquist is a 78 y.o. female presents with chief complaint of Follow-up (Hospital follow up non surgical - rib fracture (2)) HPI: HPI Patient is going to be home. She feels like she is able to take deep breaths. Not having any blood in sputum. No fevers chills or sweats or cough or pneumonia. Does still have soreness in her ribs. She has been careful with her activity. She would like to drive she has not taking anymore pain medication SUBJECTIVE: MEDICATIONS: ALLERGIES Current Outpatient Medications Medication Instructions ALPRAZolam (XANAX) 0.25 mg, Oral, Every 24 hours aspirin 81 mg, Daily RT bisoprolol (ZEBETA) 5 mg, Oral, Every 24 hours Blood Glucose Monitoring Suppl (Blood Glucose Monitor System) w/Device kit 1 each, Does not apply, Daily Coenzyme Z71-Lowb Oil-Vit E (CO-Q 10 OMEGA-3 FISH OIL PO) Orally gabapentin (Neurontin) 300 MG capsule TAKE 1 CAPSULE BY MOUTH IN THE MORNING AND 1 CAPSULE BY MOUTH IN THE EVENING AND 1 CAPSULE BY MOUTH BEFORE BEDTIME Glucose Blood (Blood Glucose Test Strips 333) strip 1 strip, In Vitro, 2 times daily glyBURIDE-metFORMIN (Glucovance) 5-500 MG tablet 1 tablet, Oral, 2 times daily HYDROcodone-acetaminophen ([place]) 5-325 MG tablet 1 tablet, Oral, Every 6 hours PRN ibandronate (BONIVA) 150 mg, Oral, Every 30 days, Take in morning with full glass of water on an empty stomach. No food, drink, meds, or lying down for 60 minutes after. Krill Oil 300 MG capsule 1 tablet, Daily Lancets misc 1 Lancet, Does not apply, 2 times daily lansoprazole (Prevacid) [address] capsule TAKE 1 CAPSULE BY MOUTH 1 TIME EVERY DAY AT THE SAME TIME lidocaine (Lidoderm) 5 % patch 1 patch, Apply externally, Every 24 hours loratadine (CLARITIN) 10 mg, Nightly PRN nabumetone (RELAFEN) 750 mg, 2 times daily PRN nystatin (Mycostatin) ointment Topical, 2 times daily oxyCODONE-acetaminophen (Percocet) 5-325 MG tablet 1 tablet, Every 6 hours PRN rosuvastatin (CRESTOR) 10 mg, Oral, Daily tiZANidine (ZANAFLEX) 4 mg, Oral, Every 12 hours, PRN triamcinolone (Kenalog) 0.1 % ointment Topical, 2 times daily zolpidem (AMBIEN) 10 mg, Oral, Nightly PRN Allergies Allergen Reactions Atorvastatin Other Nabumetone GI intolerance Simvastatin Other Reaction(s): leg cramps Methylprednisolone Palpitations PAST MEDICAL HISTORY: SOCIAL HISTORY SURGICAL HISTORY: Past Medical History: Diagnosis Date Anemia Appendicitis Arthritis Backache Benign neoplasm of cerebral meninges (CMS/HCC) Cardiac dysrhythmia Carpal tunnel syndrome Cataracts, bilateral Cervicalgia Classical migraine (CMS/HCC) COVID-19 Degeneration, intervertebral disc, cervical Depression (CMS/HCC) Disorder of bone and cartilage Disturbance of skin sensation Elevated cholesterol (CMS/HCC) Esophageal reflux H/O degenerative disc disease Headache High cholesterol (CMS/HCC) History of medical problems Sprains and strains of other and unspecified parts of back; neck History of uterine fibroid Hx of breast biopsy 3x benign - right breast biopsy with excision of nipple lesion x1 Hx of colonoscopy 2002 Insomnia Insomnia, unspecified Migraine (CMS/HCC) Migraine with aura (CMS/HCC) Migraine-cluster headache syndrome Muscle spasm Pain in limb Personal history of other medical treatment 1989 DX lap adn TL PONV (postoperative nausea and vomiting) Don't remember.. Sciatica Spasmodic torticollis Syndrome affecting cervical region Tachycardia Tension type headache Type 2 diabetes mellitus with hyperglycemia (CMS/HCC) Uterine fibroid Visit for review of DEXA scan 2005 Social History Tobacco Use Smoking status: Former Types: Cigarettes Smokeless tobacco: Never Vaping Use Vaping status: Never Used Substance Use Topics Alcohol use: Never Comment: Caffeine intake : 1-2 cups per day soda/pop Drug use: Yes Types: Hydrocodone Past Surgical History: Procedure Laterality Date APPENDECTOMY BRAIN MENINGIOMA EXCISION BRAIN MENINGIOMA EXCISION 05/05/2011 BREAST BIOPSY Left benign 3x BREAST LUMPECTOMY Right CATARACT EXTRACTION Right 12/2021 CATARACT EXTRACTION 12/2021 CERVICAL DISC SURGERY c1 meningioma COLONOSCOPY 2019 COLONOSCOPY W/ POLYPECTOMY 01/20/2023 [facility] EXAM Diabetes mellitus type 2 - EYE SURGERY 2021 DEXA SCAN 1989 KNEE SURGERY Left 02/03/2014 OTHER SURGICAL HISTORY 2010 steriods injection - pain clinic - headache TONSILLECTOMY TOTAL ABDOMINAL HYSTERECTOMY W/ BILATERAL SALPINGOOPHORECTOMY TUBAL LIGATION 1990 REVIEW OF SYMPTOMS: Review of Systems Constitutional: Negative for appetite change, fatigue and fever. HENT: Negative for trouble swallowing. Respiratory: Negative for cough and shortness of breath. Cardiovascular: Negative for chest pain. Gastrointestinal: Negative for abdominal pain. Genitourinary: Negative for hematuria. Musculoskeletal: Positive for back pain (at ribs). Negative for gait problem. Skin: Negative for wound. Neurological: Negative for seizures. OBJECTIVE: Visit Vitals Ht 5' 3 Wt 119 lb BMI 21.08 kg/m OB Status Hysterectomy Smoking Status Former BSA 1.55 m Physical Exam Constitutional: Appearance: Normal appearance. HENT: Head: Atraumatic. Eyes: General: No scleral icterus. Cardiovascular: Rate and Rhythm: Regular rhythm. Pulmonary: Effort: No respiratory distress. Breath sounds: Normal breath sounds. Abdominal: General: There is no distension. Tenderness: There is no abdominal tenderness. Skin: Findings: No bruising. Neurological: Mental Status: She is alert. Gait: Gait normal. ASSESSMENT AND PLAN: Assessment/Plan Diagnoses and all orders for this visit: Closed fracture of multiple ribs of right side with routine healing, subsequent encounter Pneumothorax on right Status post fall with right rib fractures and pneumothorax. I discussed with the patient we will take usually around 8 weeks for rib fractures heal. She should avoid narcotic pain medication beyond now. We discussed careful activity and continue with pulmonary toilet and incentive spirometer. I will see her again in 4 weeks. If she has feeling a lot better than she may call and cancel. documented in this encounter [facility] 11-17-2024 Telephone encounter Note ALPRAZolam (Xanax) [facility] [place]. [facility]'t get it Thursday [facility] 11-17-2024 Miscellaneous Notes ALPRAZolam (Xanax) 0.25 MG [facility] [place] didn't get it Thursday documented in this encounter [facility] 11-15-2024 History of Present illness Narrative Images from the original note were not included. HPI Follow-up Additional comments[place] [facility] dx: multiple rib fractures,right pneumothorax discharged home 11/13/24 rx for percocet given Med Refill Additional comments: Xanax-- [facility] [place] Last edited by Angelita Alaniz LPN on 11/15/2024 12:56 PM. Subjective Patient ID: Cheryl Lindquist is a 78 y.o. female who presents for Follow-up [place] [place]24 dx: multiple rib fractures,right pneumothorax discharged home 11/13/24 rx for percocet given), Diabetes, and Med Refill (Xanax-- [facility] [place]). Cheryl is present today for follow up diabetes. Denies foot ulcers. Admits tingling/numbness in extremities, Denies:hypoglycemic episodes. Does check BS's at home and on average runs 140's. Currently on Glyburide/Metformin. Continues to have left sciatic pain intermittently, back of left calf mcbride at times. Also has left knee pain due to arthritis. Diabetes Pertinent negatives for diabetes include no chest pain and no fatigue. Med Refill Associated symptoms include arthralgias (Rib pain). Pertinent negatives include no abdominal pain, chest pain, chills, coughing, fatigue, fever, nausea, rash or vomiting. Current Outpatient Medications on File Prior to [...] at the same time. 100 tablet 3 Blood Glucose Monitoring Suppl (Blood Glucose Monitor System) w/Device kit 1 each Daily 1 kit 0 Coenzyme A97-Izoi Oil-Vit E (CO-Q 10 OMEGA-3 FISH OIL PO) Orally gabapentin (Neurontin) 300 MG capsule TAKE 1 CAPSULE BY MOUTH IN THE MORNING AND 1 CAPSULE BY MOUTH IN THE EVENING AND 1 CAPSULE BY MOUTH BEFORE BEDTIME 270 capsule 3 Glucose Blood (Blood Glucose Test Strips 333) strip 1 strip by In Vitro route in the morning and 1 strip before bedtime. 200 strip 3 glyBURIDE-metFORMIN (Glucovance) 5-500 MG tablet TAKE 1 TABLET BY MOUTH IN THE MORNING AND 1 TABLET BEFORE BEDTIME 200 tablet 3 HYDROcodone-acetaminophen ([place]) 5-325 MG tablet Take 1 tablet by mouth every 6 (six) hours if needed for severe pain 120 tablet 0 ibandronate (Boniva) 150 MG tablet Take 1 tablet (150 mg) by mouth every 30 (thirty) days Take in morning with full glass of water on an empty stomach. No food, drink, meds, or lying down for 60 minutes after. 3 tablet 3 Krill Oil 300 MG capsule Take 1 tablet by mouth 1 (one) time each day. Lancets misc 1 Lancet in the morning and 1 Lancet before bedtime. 200 each 3 lansoprazole (Prevacid) [address] capsule TAKE 1 CAPSULE BY MOUTH 1 TIME EVERY DAY AT THE SAME TIME 100 capsule 3 lidocaine (Lidoderm) 5 % patch Apply 1 patch over 12 hours topically 1 (one) time each day at the same time 30 patch 2 loratadine (Claritin) 10 MG tablet Take 10 mg by mouth as needed at bedtime for allergies. nabumetone (Relafen) 750 MG tablet Take 750 mg by mouth 2 (two) times a day as needed nystatin (Mycostatin) ointment Apply topically 2 (two) times a day 15 g 1 oxyCODONE-acetaminophen (Percocet) 5-325 MG tablet Take 1 tablet by mouth every 6 (six) hours if needed rosuvastatin (Crestor) 10 MG tablet Take 1 tablet (10 mg) by mouth in the morning. 90 tablet 3 tiZANidine (Zanaflex) 4 MG tablet Take 1 tablet (4 mg) by mouth every 12 (twelve) hours PRN 30 tablet 5 triamcinolone (Kenalog) 0.1 % ointment Apply topically 2 (two) times a day 15 g 1 zolpidem (Ambien) 10 MG tablet Take 1 tablet (10 mg) by mouth as needed at bedtime for sleep 90 tablet 0 No current facility-administered medications on file prior to visit. I have reviewed and reconciled the history and medication list with the patient today. Allergies Allergen Reactions Atorvastatin Other Nabumetone GI intolerance Simvastatin Other Reaction(s): leg cramps Methylprednisolone Palpitations Social History Tobacco Use Smoking status: Former Types: Cigarettes Smokeless tobacco: Never Vaping Use Vaping status: Never Used Substance Use Topics Alcohol use: Never Comment: [...] Medical History: Diagnosis Date Anemia Appendicitis Arthritis Backache Benign neoplasm of cerebral meninges (CMS/HCC) Cardiac dysrhythmia Carpal tunnel syndrome Cataracts, bilateral Cervicalgia Classical migraine (CMS/HCC) COVID-19 Degeneration, intervertebral disc, cervical Depression (CMS/HCC) Disorder of bone and cartilage Disturbance of skin sensation Elevated cholesterol (CMS/HCC) Esophageal reflux H/O degenerative disc disease Headache High cholesterol (CMS/HCC) History of medical problems Sprains and strains of other and unspecified parts of back; neck History of uterine fibroid Hx of breast biopsy 3x benign - right breast biopsy with excision of nipple lesion x1 Hx of colonoscopy 2002 Insomnia Insomnia, unspecified Migraine (CMS/HCC) Migraine with aura (CMS/HCC) Migraine-cluster headache syndrome Muscle spasm Pain in limb Personal history of other medical treatment 1989 DX lap adn TL PONV (postoperative nausea and vomiting) Don't remember.. Sciatica Spasmodic torticollis Syndrome affecting cervical region Tachycardia Tension type headache Type 2 diabetes mellitus with hyperglycemia (CMS/HCC) Uterine fibroid Visit for review of DEXA scan 2005 Past Surgical History: Procedure Laterality Date APPENDECTOMY BRAIN MENINGIOMA EXCISION BRAIN MENINGIOMA EXCISION 05/05/2011 BREAST BIOPSY Left benign 3x BREAST LUMPECTOMY Right CATARACT EXTRACTION Right 12/2021 CATARACT EXTRACTION 12/2021 CERVICAL DISC SURGERY c1 meningioma COLONOSCOPY 2019 COLONOSCOPY W/ POLYPECTOMY 01/20/2023 [facility] EXAM Diabetes mellitus type 2 - EYE SURGERY 2021 DEXA SCAN 1990 KNEE SURGERY Left 02/03/2014 OTHER SURGICAL HISTORY 2010 steriods injection - pain clinic - headache TONSILLECTOMY TOTAL ABDOMINAL HYSTERECTOMY W/ BILATERAL SALPINGOOPHORECTOMY TUBAL LIGATION 1990 Visit Vitals BP 124/66 Pulse 70 Ht 5' 3 Wt 119 lb SpO2 97% BMI 21.08 kg/m OB Status Hysterectomy Smoking Status Former BSA 1.55 m Review of Systems Constitutional: Negative for chills, fatigue and fever. Respiratory: Negative for cough, shortness of breath and wheezing. Pain with deep inspiration Cardiovascular: Negative for chest pain, palpitations and leg swelling. Gastrointestinal: Negative for abdominal pain, constipation, diarrhea, nausea and vomiting. Musculoskeletal: Positive for arthralgias (Rib pain), back pain and gait problem. Skin: Negative for rash. Objective Physical Exam Constitutional: General: She is not in acute distress. Appearance: Normal appearance. She is well-developed. HENT: Head: Normocephalic and atraumatic. Eyes: General: No scleral icterus. Conjunctiva/sclera: Conjunctivae normal. Cardiovascular: Rate and Rhythm: Normal rate and regular rhythm. Heart sounds: Normal heart sounds. No murmur heard. Pulmonary: Effort: Pulmonary effort is normal. No respiratory distress. Breath sounds: Normal breath sounds. No wheezing, rhonchi or rales. Comments: Right mid ribs over lateral aspect tender to palpation, Able to speak in complete sentences Skin: General: Skin is warm and dry. Findings: Bruising (Right lateral mid rib cage, dark purple/read) present. Neurological: General: No focal deficit present. Mental Status: She is alert and oriented to person, place, and time. Psychiatric: Mood and Affect: Mood normal. Behavior: Behavior normal. Assessment/Plan Diagnoses and all orders for this visit: Diabetic polyneuropathy associated with type 2 diabetes mellitus ([facility]) - POCT Glycated hemoglobin, total Advised pt that her HgbA1c today was improved at 6.5. Previous A1c 7.0. No changes recommended at this time. No side effects from current medication. Closed fracture of multiple ribs of right side, sequela The patient was seen today in follow up of recent hospital stay. All available hospital records were reviewed and discussed with the patient. Hospital discharge meds were reviewed. History of pneumothorax Encouraged pt to continue to use the Incentive Spirometry. She is overall doing very well. Lungs are clear and she is able to take full, deep breaths. Primary osteoarthritis of left knee Encouraged her to reach out should she want a referral to Ortho for further evaluation and treatment. Follow up in about 2 months (around 01/26/2025) for Medicare Wellness Visit, Diabetes. documented in this encounter [facility] 11-01-2024 Telephone encounter Note Glucometer sent [facility] 11-01-2024 Miscellaneous Notes Glucometer sent [facility] in [place] called and states the patient is requesting a new 1 Touch meter. Fax # is [phone]. documented in this encounter [facility] 11-01-2024 Telephone encounter Note [facility] in [place] called and states the patient is requesting a new 1 Touch meter. Fax # is [phone]. [facility] 10-17-2024 Note [facility] Note Reason for cardiology visit: F/U on SVT and HTN, HLD Chief Complaint: Occasional palpitations HPI: 10/17/2024 Patient states that she has been doing well. Patient complains of left jaw pain which is tender to palpation after she had flu 2 weeks ago. She reports skipped beats every once in a while but no persistent palpitation. She denies any chest discomfort at rest or with exertion. She denies exertional dyspnea, orthopnea or paroxysmal nocturnal dyspnea. She denies dizziness, syncope or near syncope. She denies legs edema or discomfort on exertion. 05/04/2024 Cheryl Lindquist is a 78 y.o. female with history of SVT, hypertension, hyperlipidemia, diabetes mellitus and GERD. She states that she has been doing overall very well. She has occasions of very brief palpitations she thinks it is related to skipped beats rather than to SVT. She continues to be active and she does a lot of housework and a lot of yard work without any chest pain or shortness of breath at rest or with exertion. She denies orthopnea or paroxysmal nocturnal dyspnea or legs edema or leg discomfort on exertion. She describes occasional dizziness when she moves fast. No syncope or near syncope. She denies smoking, alcohol or illicit drugs. ROS: All systems were reviewed and they were negative except for the positive findings noted above in the history Past Medical History She has a past medical history of Abnormal ECG, Arrhythmia, Diabetes mellitus (CMS/HCC), Hyperlipidemia, Hypertension, and Palpitations. Surgical History She has a past surgical history that includes Appendectomy; Brain surgery; Breast surgery; Cataract extraction; Knee surgery; Tonsillectomy; Hysterectomy; and Tubal ligation. Social History She reports that she has quit smoking. Her smoking use included cigarettes. She has never used smokeless tobacco. She reports that she does not currently use alcohol. No history on file for drug use. Family History Family History Problem Relation Name Age of Onset Heart failure Mother Coronary artery disease Sister Coronary artery disease Brother Other (CABG) Brother Allergies Atorvastatin and Prednisone Medications Current Outpatient Medications: ALPRAZolam (Xanax) 0.25 mg tablet, Take 0.25 mg by mouth., Disp: , Rfl: aspirin 81 mg EC tablet, Take 81 mg by mouth in the morning., Disp: , Rfl: bisoprolol (Zebeta) 5 mg tablet, Take 5 mg by mouth., Disp: , Rfl: gabapentin (Neurontin) 300 mg capsule, Take 300 mg by mouth 3 times a day., Disp: , Rfl: glyburide-metformin (Glucovance) 5-500 mg tablet, Take 1 tablet by mouth twice a day., Disp: , Rfl: lansoprazole (Prevacid) [address] capsule, Take 30 mg by mouth., Disp: , Rfl: rosuvastatin (Crestor) 10 mg tablet, Take 10 mg by mouth in the morning., Disp: , Rfl: zolpidem (Ambien) 10 mg tablet, take 1 tablet by mouth at bedtime if needed for sleep, Disp: , Rfl: tiZANidine (Zanaflex) 4 mg tablet, take 1 tablet by mouth every 12 hours if needed, Disp: , Rfl: Last Recorded Vitals Visit Vitals Ht 1.6 m (5' 3 ) Wt 53.1 kg (117 lb) BMI 20.73 kg/m??? Smoking Status Former BSA 1.54 m??? Physical Examination: GENERAL: alert and oriented x3, well developed, in no acute distress. HEAD: atraumatic, normocephalic. Tenderness of the left TMJ on palpation EYES: MEGAN, EOMI. NECK: trachea midline, no JVD present, no carotid bruits present. CARDIAC: S1, S2 present. RRR. No murmur, rubs, or gallops. RESPIRATORY: CTAB, no increased effort of breathing, no rales, rhonchi, or wheezing. ABDOMEN: soft, nontender, nondistended. EXTREMITIES: no lower extremity edema. No rash/skin discoloration present. NEURO: strength/sensation equal and symmetric in bilateral upper and lower extremities. PSYCH: appropriate mood, affect, and judgement. Labs: 08/17/2024 White blood count 4.2, hemoglobin 12.2, hematocrit 37.3, platelets 233 Sodium 141, potassium 5, BUN 7, creatinine 0.63, GFR 91, glucose 165, calcium 9.4 AST 16, ALT 11 06/07/2024 HbA1c 7% 03/08/2024 HbA1c 7.5% 01/27/2024 cholesterol 115, HDL 38, LDL 50, triglyceride 206 07/01/2023 hematocrit 37.6 04/07/2023 white blood count 4.9, hemoglobin 11.6, hematocrit 36.3, platelets 231 09/03/2022 sodium 143, calcium 9.9, glucose 89, BUN 7, creatinine 0.66, GFR 91 Last Images: Lexiscan nuclear stress test 10/27/2022 at [facility] IMPRESSION: Normal Lexiscan Myoview cardiac perfusion stress test. No evidence of ischemia or myocardial infarction by perfusion imaging. Normal left ventricular systolic function, ejection fraction 69%. No previous study available for comparison. Assessment and Plan: Paroxysmal supraventricular tachycardia, occurs rarely, appears to be well-controlled on bisoprolol. Occasional palpitations. Clinically represents premature beats rather SVT Hypertension well-controlled on bisoprolol Hyperlipidemia, o (more content not included)... [facility] 10-12-2024 Telephone encounter Note OARRS reviewed, Rx sent into patient's pharmacy. [facility] 10-12-2024 Miscellaneous Notes OARRS reviewed, Rx sent into patient's pharmacy. ALPRAZolam (Xanax) 0.25 MG tablet [facility] IN [place] documented in this encounter [facility] 10-12-2024 Telephone encounter Note ALPRAZolam (Xanax) 0.25 MG tablet [facility] [place] [facility] 10-10-2024 History of Present illness Narrative HPI Med Refill Additional comments: tizanidine Last edited by Grazyna Sanford MA on 10/10/2024 1:31 PM. HPI Med Refill Additional comments: tizanidine Last edited by Grazyna Sanford MA on 10/10/2024 1:31 PM. Subjective Patient ID: Cheryl Lindquist is a 78 y.o. female who presents for a sick visit. Cheryl is in today for a sick visit, states this started Thursday, states she just wasn't feeling good and all of sudden started throwing up, states she hasn't ate much the last couple days and is worried because she's diabetic, states she still has nausea but hasn't vomited yet today. Denies diarrhea, says she has a little bit of a scratchy throat. Hasn't tried taking anything. Says she tested for covid Thursday evening and was negative. Sugar was in the 200's yesterday. Current Outpatient Medications on File Prior to [...] the same time. 100 tablet 3 Coenzyme F25-Ytrx Oil-Vit E (CO-Q 10 OMEGA-3 FISH OIL PO) Orally gabapentin (Neurontin) 300 MG capsule TAKE 1 CAPSULE BY MOUTH IN THE MORNING AND 1 CAPSULE BY MOUTH IN THE EVENING AND 1 CAPSULE BY MOUTH BEFORE BEDTIME 270 capsule 3 Glucose Blood (Blood Glucose Test Strips 333) strip 1 strip by In Vitro route in the morning and 1 strip before bedtime. 200 strip 3 glyBURIDE-metFORMIN (Glucovance) 5-500 MG tablet TAKE 1 TABLET BY MOUTH IN THE MORNING AND 1 TABLET BEFORE BEDTIME 200 tablet 3 HYDROcodone-acetaminophen ([place]) 5-325 MG tablet Take 1 tablet by mouth every 6 (six) hours if needed for severe pain 120 tablet 0 ibandronate (Boniva) 150 MG tablet Take 1 tablet (150 mg) by mouth every 30 (thirty) days Take in morning with full glass of water on an empty stomach. No food, drink, meds, or lying down for 60 minutes after. 3 tablet 3 Krill Oil 300 MG capsule Take 1 tablet by mouth 1 (one) time each day. Lancets misc 1 Lancet in the morning and 1 Lancet before bedtime. 200 each 3 lansoprazole (Prevacid) [address] capsule TAKE 1 CAPSULE BY MOUTH 1 TIME EVERY DAY AT THE SAME TIME 100 capsule 3 lidocaine (Lidoderm) 5 % patch Apply 1 patch over 12 hours topically 1 (one) time each day at the same time 30 patch 2 loratadine (Claritin) 10 MG tablet Take 10 mg by mouth as needed at bedtime for allergies. nabumetone (Relafen) 750 MG tablet Take 750 mg by mouth 2 (two) times a day as needed nystatin (Mycostatin) ointment Apply topically 2 (two) times a day 15 g 1 rosuvastatin (Crestor) 10 MG tablet Take 1 tablet (10 mg) by mouth in the morning. 90 tablet 3 tiZANidine (Zanaflex) 4 MG tablet Take 1 tablet (4 mg) by mouth every 12 (twelve) hours PRN 30 tablet 5 triamcinolone (Kenalog) 0.1 % ointment Apply topically 2 (two) times a day 15 g 1 zolpidem (Ambien) 10 MG tablet Take 1 tablet (10 mg) by mouth as needed at bedtime for sleep 90 tablet 0 [DISCONTINUED] ondansetron ODT (Zofran-ODT) 4 MG disintegrating tablet Take 4 mg by mouth every 8 (eight) hours if needed for nausea or vomiting. No current facility-administered medications on file prior to visit. I have reviewed and reconciled the history and medication list with the patient today. Allergies Allergen Reactions Atorvastatin Other Nabumetone GI intolerance Simvastatin Other Reaction(s): leg cramps Methylprednisolone Palpitations Social History Tobacco Use Smoking status: Former Types: Cigarettes Smokeless tobacco: Never Vaping Use Vaping status: Never Used Substance Use Topics Alcohol use: Never Comment: [...] Medical History: Diagnosis Date Anemia Appendicitis Arthritis Backache Benign neoplasm of cerebral meninges (CMS/HCC) Cardiac dysrhythmia Carpal tunnel syndrome Cataracts, bilateral Cervicalgia Classical migraine (CMS/HCC) COVID-19 Degeneration, intervertebral disc, cervical Depression (CMS/HCC) Disorder of bone and cartilage Disturbance of skin sensation Elevated cholesterol (CMS/HCC) Esophageal reflux H/O degenerative disc disease Headache High cholesterol (CMS/HCC) History of medical problems Sprains and strains of other and unspecified parts of back; neck History of uterine fibroid Hx of breast biopsy 3x benign - right breast biopsy with excision of nipple lesion x1 Hx of colonoscopy 2002 Insomnia Insomnia, unspecified Migraine (CMS/HCC) Migraine with aura (CMS/HCC) Migraine-cluster headache syndrome Muscle spasm Pain in limb Personal history of other medical treatment 1989 DX lap adn TL PONV (postoperative nausea and vomiting) Don't remember.. Sciatica Spasmodic torticollis Syndrome affecting cervical region Tachycardia Tension type headache Type 2 diabetes mellitus with hyperglycemia (CMS/HCC) Uterine fibroid Visit for review of DEXA scan 2005 Past Surgical History: Procedure Laterality Date APPENDECTOMY BRAIN MENINGIOMA EXCISION BRAIN MENINGIOMA EXCISION 05/05/2011 BREAST BIOPSY Left benign 3x BREAST LUMPECTOMY Right CATARACT EXTRACTION Right 12/2021 CATARACT EXTRACTION 12/2021 CERVICAL DISC SURGERY c1 meningioma COLONOSCOPY 2019 COLONOSCOPY W/ POLYPECTOMY 01/20/2023 [facility] Diabetes mellitus type 2 - EYE SURGERY 2021 DEXA SCAN 1989 KNEE SURGERY Left 02/03/2014 OTHER SURGICAL HISTORY 2010 steriods injection - pain clinic - headache TONSILLECTOMY TOTAL ABDOMINAL HYSTERECTOMY W/ BILATERAL SALPINGOOPHORECTOMY TUBAL LIGATION 1990 Visit Vitals BP 105/70 Pulse 78 Resp 16 Wt 117 lb 3.2 oz SpO2 98% BMI 20.76 kg/m OB Status Hysterectomy Smoking Status Former BSA 1.54 m Review of Systems Constitutional: Negative for chills, fatigue and fever. HENT: Positive for sore throat ([place]). Respiratory: Negative for cough, shortness of breath and wheezing. Cardiovascular: Negative for chest pain, palpitations and leg swelling. Gastrointestinal: Positive for nausea and vomiting. Negative for abdominal pain, constipation and diarrhea. Skin: Negative for rash. Neurological: Positive for headaches. Objective Physical Exam Constitutional: General: She is not in acute distress. Appearance: She is well-developed. She is ill-appearing. HENT: Head: Normocephalic and atraumatic. Mouth/Throat: Mouth: Mucous membranes are moist. Pharynx: No posterior oropharyngeal erythema. Eyes: General: No scleral icterus. Conjunctiva/sclera: Conjunctivae normal. Cardiovascular: Rate and Rhythm: Normal rate and regular rhythm. Heart sounds: Normal heart sounds. No murmur heard. Pulmonary: Effort: Pulmonary effort is normal. No respiratory distress. Breath sounds: Normal breath sounds. No wheezing, rhonchi or rales. Abdominal: General: Bowel sounds are increased. Palpations: Abdomen is soft. Tenderness: There is no abdominal tenderness. There is no guarding. Skin: General: Skin is warm and dry. Neurological: General: No focal deficit present. Mental Status: She is alert and oriented to person, place, and time. Psychiatric: Mood and Affect: Mood normal. Behavior: Behavior normal. Assessment/Plan Diagnoses and all orders for this visit: Nausea and vomiting, unspecified vomiting type - ondansetron ODT (Zofran-ODT) 4 MG disintegrating tablet; Take 1 tablet (4 mg) by mouth every 8 (eight) hours if needed for nausea or vomiting for up to 10 days Reassurance given that this is most likely viral and should gradually improve. Start the above medication as needed for nausea. Increase water intake, sipping clear fluids frequently, get plenty of rest. Keep to a bland diet. BRATY diet reviewed. Can take Tylenol prn for any discomfort or fever. Wash hands often, and avoid sharing food/drinks. Follow up in our office if no improvement in one week. Advised if fever, worsening symptoms, inability to keep down fluids, she is to seek evaluation in the ER. Follow up for Appointment As Scheduled. documented in this encounter [facility] 09-07-2024 History of Present illness Narrative Images from the original note were not included. HPI Med Refill Additional comments: Lidocaine patches, Zolpidem Last edited by Katelyn Han LPN on 09/07/2024 1:04 PM. Subjective Patient ID: Cheryl Lindquist is a 78 y.o. female who presents for shoulder pain. Cheryl is present today for evaluation of shoulder pain. Admits left shoulder pain since Thursday that radiates into her upper arm. Having a hard time using her arm d/t the pain. She has been using Lidocaine patch, salon pas and is not really helping. Describes pain as a dull ache. She does not remember doing anything to hurt it. The pain is not as bad as it was on Thursday. Current Outpatient Medications on File Prior to [...] the same time. 100 tablet 3 Coenzyme M65-Hepi Oil-Vit E (CO-Q 10 OMEGA-3 FISH OIL PO) Orally gabapentin (Neurontin) 300 MG capsule TAKE 1 CAPSULE BY MOUTH IN THE MORNING AND 1 CAPSULE BY MOUTH IN THE EVENING AND 1 CAPSULE BY MOUTH BEFORE BEDTIME 270 capsule 3 Glucose Blood (Blood Glucose Test Strips 333) strip 1 strip by In Vitro route in the morning and 1 strip before bedtime. 200 strip 3 glyBURIDE-metFORMIN (Glucovance) 5-500 MG tablet TAKE 1 TABLET BY MOUTH IN THE MORNING AND 1 TABLET BEFORE BEDTIME 200 tablet 3 HYDROcodone-acetaminophen ([place]) 5-325 MG tablet Take 1 tablet by mouth every 6 (six) hours if needed for severe pain 120 tablet 0 ibandronate (Boniva) 150 MG tablet Take 1 tablet (150 mg) by mouth every 30 (thirty) days Take in morning with full glass of water on an empty stomach. No food, drink, meds, or lying down for 60 minutes after. 3 tablet 3 Krill Oil 300 MG capsule Take 1 tablet by mouth 1 (one) time each day. Lancets misc 1 Lancet in the morning and 1 Lancet before bedtime. 200 each 3 lansoprazole (Prevacid) [address] capsule TAKE 1 CAPSULE BY MOUTH 1 TIME EVERY DAY AT THE SAME TIME 100 capsule 3 loratadine (Claritin) 10 MG tablet Take 10 mg by mouth as needed at bedtime for allergies. nabumetone (Relafen) 750 MG tablet Take 750 mg by mouth 2 (two) times a day as needed nystatin (Mycostatin) ointment Apply topically 2 (two) times a day 15 g 1 ondansetron ODT (Zofran-ODT) 4 MG disintegrating tablet Take 4 mg by mouth every 8 (eight) hours if needed for nausea or vomiting. rosuvastatin (Crestor) 10 MG tablet Take 1 tablet (10 mg) by mouth in the morning. 90 tablet 3 tiZANidine (Zanaflex) 4 MG tablet Take 1 tablet (4 mg) by mouth every 12 (twelve) hours PRN 30 tablet 5 triamcinolone (Kenalog) 0.1 % ointment Apply topically 2 (two) times a day 15 g 1 [DISCONTINUED] lidocaine (Lidoderm) 5 % patch Apply 1 patch topically 1 (one) time each day at the same time. [DISCONTINUED] zolpidem (Ambien) 10 MG tablet Take 1 tablet (10 mg) by mouth as needed at bedtime for sleep 90 tablet 0 No current facility-administered medications on file prior to visit. I have reviewed and reconciled the history and medication list with the patient today. Allergies Allergen Reactions Atorvastatin Other Nabumetone GI intolerance Simvastatin Other Reaction(s): leg cramps Methylprednisolone Palpitations Social History Tobacco Use Smoking status: Former Types: Cigarettes Smokeless tobacco: Never Vaping Use Vaping status: Never Used Substance Use Topics Alcohol use: Never Comment: [...] Medical History: Diagnosis Date Anemia Appendicitis Arthritis Backache Benign neoplasm of cerebral meninges (CMS/HCC) Cardiac dysrhythmia Carpal tunnel syndrome Cataracts, bilateral Cervicalgia Classical migraine (CMS/HCC) COVID-19 Degeneration, intervertebral disc, cervical Depression (CMS/HCC) Disorder of bone and cartilage Disturbance of skin sensation Elevated cholesterol (CMS/HCC) Esophageal reflux H/O degenerative disc disease Headache High cholesterol (CMS/HCC) History of medical problems Sprains and strains of other and unspecified parts of back; neck History of uterine fibroid Hx of breast biopsy 3x benign - right breast biopsy with excision of nipple lesion x1 Hx of colonoscopy 2002 Insomnia Insomnia, unspecified Migraine (CMS/HCC) Migraine with aura (CMS/HCC) Migraine-cluster headache syndrome Muscle spasm Pain in limb Personal history of other medical treatment 1989 DX lap adn TL PONV (postoperative nausea and vomiting) Don't remember.. Sciatica Spasmodic torticollis Syndrome affecting cervical region Tachycardia Tension type headache Type 2 diabetes mellitus with hyperglycemia (CMS/HCC) Uterine fibroid Visit for review of DEXA scan 2005 Past Surgical History: Procedure Laterality Date APPENDECTOMY BRAIN MENINGIOMA EXCISION BRAIN MENINGIOMA EXCISION 05/05/2011 BREAST BIOPSY Left benign 3x BREAST LUMPECTOMY Right CATARACT EXTRACTION Right 12/2021 CATARACT EXTRACTION 12/2021 CERVICAL DISC SURGERY c1 meningioma COLONOSCOPY 2019 COLONOSCOPY W/ POLYPECTOMY 01/20/2023 [facility] Diabetes mellitus type 2 - EYE SURGERY 2021 DEXA SCAN 1989 KNEE SURGERY Left 02/03/2014 OTHER SURGICAL HISTORY 2010 steriods injection - pain clinic - headache TONSILLECTOMY TOTAL ABDOMINAL HYSTERECTOMY W/ BILATERAL SALPINGOOPHORECTOMY TUBAL LIGATION 1990 Visit Vitals BP 116/68 Pulse 71 Resp 16 Ht 5' 3 Wt 123 lb 9.6 oz SpO2 98% BMI 21.89 kg/m OB Status Hysterectomy Smoking Status Former BSA 1.58 m Review of Systems Constitutional: Negative for chills, fatigue and fever. Respiratory: Negative for cough, shortness of breath and wheezing. Cardiovascular: Negative for chest pain, palpitations and leg swelling. Gastrointestinal: Negative for abdominal pain, constipation, diarrhea, nausea and vomiting. Musculoskeletal: Positive for arthralgias and myalgias. Skin: Negative for rash. Objective Physical Exam Constitutional: General: She is not in acute distress. Appearance: Normal appearance. She is well-developed. HENT: Head: Normocephalic and atraumatic. Eyes: General: No scleral icterus. Conjunctiva/sclera: Conjunctivae normal. Cardiovascular: Rate and Rhythm: Normal rate and regular rhythm. Heart sounds: Normal heart sounds. No murmur heard. Pulmonary: Effort: Pulmonary effort is normal. No respiratory distress. Breath sounds: Normal breath sounds. No wheezing, rhonchi or rales. Musculoskeletal: Right shoulder: No bony tenderness. Normal range of motion. Normal strength. Normal pulse. Left shoulder: Tenderness (As noted in drawing) present. Normal range of motion. Normal strength. Normal pulse. Arms: Comments: Rotator cuff testing negative on left. Spasms noted of left trapezius. Skin: General: Skin is warm and dry. Neurological: General: No focal deficit present. Mental Status: She is alert and oriented to person, place, and time. Psychiatric: Mood and Affect: Mood is depressed. Behavior: Behavior normal. Assessment/Plan Diagnoses and all orders for this visit: Spasm of left trapezius muscle Pt is on a narcotic pain medication, a muscle relaxer, and Nabumetone. She cannot tolerate steroids. Takes 1/2 of the Tizanidine at bedtime due to it making her drowsy. Encouraged her to, when possible, take a dosage during the day. Encouraged her to schedule a massage and to start using her TENS unit again until this settles down. Gentle heat to area, gentle stretching. Pt declines PT at this time. She can let me know if she changes her mind. Psychophysiological insomnia - zolpidem (Ambien) 10 MG tablet; Take 1 tablet (10 mg) by mouth as needed at bedtime for sleep OARRS reviewed, Rx sent into patient's pharmacy. Chronic left shoulder pain - lidocaine (Lidoderm) 5 % patch; Apply 1 patch over 12 hours topically 1 (one) time each day at the same time Refill provided on the above. Does provide some relief for pt. Follow up for Appointment As Scheduled. documented in this encounter [facility] 08-23-2024 History of Present illness Narrative Images from the original note were not included. Chief Complaint Patient presents with Headache Spasms Subjective Cheryl Juan Lindquist, 78 y.o., female HPI Pt states that her headaches are not as frequent. She states that on occasion she will get a sharp pain that shoots up the side of her head on the left or right and not lasting long then resolves. She thinks that her headaches are more sinus or due to the weather. She take the claritin and that seems to help. She is still feeling off balance. She had a fall a year ago. She was trying to step off the patio and hit the corner of a legal administrative assistant. She then lost her balance and fell. She is getting some exercise but not a lot. She has sciatic pain in her left leg. She has a bad knee on that leg. She can only walk so much. Pt states that she does have neuropathy in her feet. She states that the numbness and tingling is about the same, no worse. She states that she has been feeling lightheaded on occasion. She thinks it has to do with her nerves and her having to care for her . Her BP is 110 so may be BP related. She is drinking about 50some ounces of water per day. She has not passed out. If she is sitting down and when she gets up to standing. He has worsened. He will be 82 on . He has the spinal stenosis in the lumbar spine. He was in the hospital yesterday and had an US in his legs with Dr. Lott. They are looking for PVD. HE walks with the cane and sometimes he looks like he cannot even walk even with the cane. He does exercises for about 45 minutes He will work in the garden and the garage. She has to go check him. Past Medical History: Diagnosis Date Anemia Appendicitis Arthritis Backache Benign neoplasm of cerebral meninges (CMS/HCC) Cardiac dysrhythmia Carpal tunnel syndrome Cataracts, bilateral Cervicalgia Classical migraine (CMS/HCC) COVID-19 Degeneration, intervertebral disc, cervical Depression (CMS/HCC) Disorder of bone and cartilage Disturbance of skin sensation Elevated cholesterol (CMS/HCC) Esophageal reflux H/O degenerative disc disease Headache High cholesterol (CMS/HCC) History of medical problems Sprains and strains of other and unspecified parts of back; neck History of uterine fibroid Hx of breast biopsy 3x benign - right breast biopsy with excision of nipple lesion x1 Hx of colonoscopy 2002 Insomnia Insomnia, unspecified Migraine (CMS/HCC) Migraine with aura (CMS/HCC) Migraine-cluster headache syndrome Muscle spasm Pain in limb Personal history of other medical treatment 1989 DX lap adn TL PONV (postoperative nausea and vomiting) Don't remember.. Sciatica Spasmodic torticollis Syndrome affecting cervical region Tachycardia Tension type headache Type 2 diabetes mellitus with hyperglycemia (CMS/HCC) Uterine fibroid Visit for review of DEXA scan 2005 Past Surgical History: Procedure Laterality Date APPENDECTOMY BRAIN MENINGIOMA EXCISION BRAIN MENINGIOMA EXCISION 05/05/2011 BREAST BIOPSY Left benign 3x BREAST LUMPECTOMY Right CATARACT EXTRACTION Right 12/2021 CATARACT EXTRACTION 12/2021 CERVICAL DISC SURGERY c1 meningioma COLONOSCOPY 2019 COLONOSCOPY W/ POLYPECTOMY 01/20/2023 [facility] Diabetes mellitus type 2 - EYE SURGERY 2021 DEXA SCAN 1989 KNEE SURGERY Left 02/03/2014 OTHER SURGICAL HISTORY 2010 steriods injection - pain clinic - headache TONSILLECTOMY TOTAL ABDOMINAL HYSTERECTOMY W/ BILATERAL SALPINGOOPHORECTOMY TUBAL LIGATION 1991 Family History Problem Relation Name Age of Onset Hyperlipidemia Mother Heydi Morley Diabetes Mother Heydi Morley Hypertension Mother Heydi Morley Heart disease Mother Heydi Morley Lung cancer Father Breast cancer Sister Heart disease Sister Lung cancer Brother Candelario Morley Heart disease Brother Candelario Morley Melanoma Maternal Grandmother Stomach cancer Maternal Grandfather No Known Problems Paternal Grandmother unknown Melanoma Other Social History Tobacco Use Smoking status: Former Types: Cigarettes Smokeless tobacco: Never Substance Use Topics Alcohol use: Never Comment: Caffeine intake : 1-2 cups per day soda/pop Allergies: Atorvastatin, Nabumetone, Simvastatin, and Methylprednisolone General: No fever or chills HEENT: No nasal congestion or runny nose Pulmonary: No shortness of breath or cough Cardiovascular: No chest pain or palpitations GI: No nausea or vomiting : No dysuria or hematuria Musculoskeletal: No new aches or pains or muscle weakness Infectious: no recurrent fevers or infections Dermatologic: No rashes or skin lesions Neurologic: No new headaches or dizziness Vitals: 08/23/24 1237 BP: 110/58 Pulse: 76 SpO2: 98% Body mass index is 21.51 kg/m . weight: 121 lb 6.4 oz Neurologic exam: General: Normal body habitus, cooperative, pleasant Mental status: Awake, alert to person, place and time. Recent and remote memory are intact. Attention and concentration are normal. Fund of knowledge is appropriate for level of education. HEENT: NC/AT Cranial nerves: CN II: Visual graham full to confrontation. No loss of vision CN III, IV, : pupils equal round and reactive to light. Extraocular movements intact. No ptosis present. CN V: Facial sensation is normal. CN VII: Full and symmetric facial movement. CN VIII: Hearing is normal CN IX and X: Palate elevates symmetrically. CN XI: Shoulder shrug is normal bilaterally. CN XII: Tongue is midline without atrophy or fasciculation. Speech: Clear and fluent no aphasia or dysarthria Pronator drift: Negative bilateral upper extremity Coordination: Intact, no signs of dysmetria Good finger to nose and rapid alternating movements Sensory: Sensation is intact to light, temperature and vibratory touch throughout four extremities. Motor: LUE 5/5 RUE 5/5 LLE 5/5 RLE 5/5 Tone: Physiologic, no tremor, bradykinesia or rigidity DTR: Bilateral Biceps 2/4 Bilateral BR 2/4 Bilateral Patellar 2/4 No spasticity Gait: Normal to casual gait Romberg's Negative Review and summary of old records: Assessment/Plan Diagnoses and all orders for this visit: Migraine with aura and without status migrainosus, not intractable (CMS/HCC) Episodic tension-type headache, not intractable Lightheaded Orthostatic hypotension Benign neoplasm of cerebral meninges (CMS/HCC) Generalized anxiety disorder (CMS/HCC) Disturbance of skin sensation 1. Tension type headache - G44.209 (Primary), [facility] [id number] 2. Migraine - G43.909, [id number] 3. Cervicalgia - M54.2, [id number] 4. Benign neoplasm of cerebral meninges - D32.0, [id number] 5. Backache - M54.9, [id number] 6. Muscle Spasm - M62.838, [id number]- 78-year-old female with occasional headaches made of tension-type headaches that can transform into migraines with or without aura. Her headaches are getting better over time and are just episodic now. Her insomnia is contolled on Ambien She still has fluctating back pain and left sciatica. This is about the same. She is having new lightheaded sensation which is likely related to orthostatic hypotension. She has SBP of 110 and I suspect it drops sometimes. She needs to monitor that and get up slowly. Patient has a history of a meningioma in her posterior fossa and had surgery on this. . . Plan Under the lightheaded spells Get up slowly and do not move until she feels stable Take blood pressure if she feels lightheaded and if her blood pressure is low she can add more fluids and salt Drink half of her body weight in oz of water per day Monitor the headache Continue with current medications Continue Neurontin Continue Zanaflex as needed Continue the Ambien with Dr. Lawson Do all the regular exercises more often. Stay active Reduce stress The patient was counseled on proper sleep hygiene and adequate hours of sleep. This was discussed with the patient, all questions were answered and they agreed with the treatment plan. The patient is to call with any worsening of the condition or new symptoms. The diagnosis was all discussed with the patient. All questions were answered and they agreed with the treatment plan. Patient will call if there are any new issues or questions. Pt has been fully educated on their diagnosis, treatment options, follow up plan, and return instructions Return to clinic: 3 months documented in this encounter [facility] 08-16-2024 History of Present illness Narrative Images from the original note were not included. HPI Med Refill Additional comments: Hydrocodone., Alprazolam Last edited by Katelyn Han LPN on 08/16/2024 4:24 PM. Subjective Patient ID: Cheryl Lindquist is a 78 y.o. female who presents for some concerns. Cheryl is present today for evaluation of fatigue and always being cold. She is due for CMP, CBC, would like to get a TSH , urinalysis which she is also due for. Her daughter is ?ing if she may be anemic. Current Outpatient Medications on File Prior to Visit Medication Sig Dispense Refill aspirin 81 MG EC tablet Take 81 mg by mouth in the morning. bisoprolol (Zebeta) 5 MG tablet Take 1 tablet (5 mg) by mouth 1 (one) time each day at the same time. 100 tablet 3 Coenzyme R32-Exyl Oil-Vit E (CO-Q 10 OMEGA-3 FISH OIL PO) Orally gabapentin (Neurontin) 300 MG capsule TAKE 1 CAPSULE BY MOUTH IN THE MORNING AND 1 CAPSULE BY MOUTH IN THE EVENING AND 1 CAPSULE BY MOUTH BEFORE BEDTIME 270 capsule 3 glyBURIDE-metFORMIN (Glucovance) 5-500 MG tablet Take 1 tablet by mouth in the morning and 1 tablet before bedtime. 200 tablet 3 ibandronate (Boniva) 150 MG tablet Take 1 tablet (150 mg) by mouth every 30 (thirty) days Take in morning with full glass of water on an empty stomach. No food, drink, meds, or lying down for 60 minutes after. 3 tablet 3 Krill Oil 300 MG capsule Take 1 tablet by mouth 1 (one) time each day. lansoprazole (Prevacid) [address] capsule TAKE 1 CAPSULE BY MOUTH 1 TIME EVERY DAY AT THE SAME TIME 100 capsule 3 lidocaine (Lidoderm) 5 % patch Apply 1 patch topically 1 (one) time each day at the same time. loratadine (Claritin) 10 MG tablet Take 10 mg by mouth as needed at bedtime for allergies. nabumetone (Relafen) 750 MG tablet Take 750 mg by mouth 2 (two) times a day as needed nystatin (Mycostatin) ointment Apply topically 2 (two) times a day 15 g 1 ondansetron ODT (Zofran-ODT) 4 MG disintegrating tablet Take 4 mg by mouth every 8 (eight) hours if needed for nausea or vomiting. rosuvastatin (Crestor) 10 MG tablet Take 1 tablet (10 mg) by mouth in the morning. 90 tablet 3 tiZANidine (Zanaflex) 4 MG tablet Take 1 tablet (4 mg) by mouth every 12 (twelve) hours PRN 30 tablet 5 triamcinolone (Kenalog) 0.1 % ointment Apply topically 2 (two) times a day 15 g 1 zolpidem (Ambien) 10 MG tablet Take 1 tablet (10 mg) by mouth as needed at bedtime for sleep 90 tablet 0 [DISCONTINUED] ALPRAZolam (Xanax) 0.25 MG tablet Take 1 tablet (0.25 mg) by mouth 1 (one) time each day at the same time 30 tablet 0 [DISCONTINUED] HYDROcodone-acetaminophen ([place]) 5-325 MG tablet Take 1 tablet by mouth every 6 (six) hours if needed for severe pain 120 tablet 0 No current facility-administered medications on file prior to visit. I have reviewed and reconciled the history and medication list with the patient today. Allergies Allergen Reactions Atorvastatin Other Nabumetone GI intolerance Simvastatin Other Reaction(s): leg cramps Methylprednisolone Palpitations Social History Tobacco Use Smoking status: Former Types: Cigarettes Smokeless tobacco: Never Vaping Use Vaping status: Never Used Substance Use Topics Alcohol use: Never Comment: [...] 12/2021 COLONOSCOPY 2019 COLONOSCOPY W/ POLYPECTOMY 01/20/2023 [facility] EXAM Diabetes mellitus type 2 - EYE SURGERY 2021 DEXA SCAN 1989 KNEE SURGERY Left 02/03/2014 OTHER SURGICAL HISTORY 2010 steriods injection - pain clinic - headache TONSILLECTOMY TOTAL ABDOMINAL HYSTERECTOMY W/ BILATERAL SALPINGOOPHORECTOMY TUBAL LIGATION 1990 Visit Vitals BP 122/74 Pulse 76 Resp 16 Ht 5' 3 Wt 122 lb 6.4 oz SpO2 98% BMI 21.68 kg/m OB Status Hysterectomy Smoking Status Former BSA 1.57 m Review of Systems Constitutional: Positive for fatigue. Negative for chills and fever. Respiratory: Negative for cough, shortness of breath and wheezing. Cardiovascular: Negative for chest pain, palpitations and leg swelling. Gastrointestinal: Negative for abdominal pain, constipation, diarrhea, nausea and vomiting. Musculoskeletal: Positive for arthralgias, back pain, gait problem and myalgias. Skin: Negative for rash. Endocrine: Positive for cold intolerance. Objective Physical Exam Constitutional: General: She is not in acute distress. Appearance: Normal appearance. She is well-developed. HENT: Head: Normocephalic and atraumatic. Eyes: General: No scleral icterus. Conjunctiva/sclera: Conjunctivae normal. Cardiovascular: Rate and Rhythm: Normal rate and regular rhythm. Heart sounds: Normal heart sounds. No murmur heard. Pulmonary: Effort: Pulmonary effort is normal. No respiratory distress. Breath sounds: Normal breath sounds. No wheezing, rhonchi or rales. Skin: General: Skin is warm and dry. Neurological: General: No focal deficit present. Mental Status: She is alert and oriented to person, place, and time. Psychiatric: Mood and Affect: Mood is depressed. Behavior: Behavior normal. Assessment/Plan Diagnoses and all orders for this visit: Diabetic polyneuropathy associated with type 2 diabetes mellitus (CMS/[facility]) - Glucose Blood (Blood Glucose Test Strips 333) strip; 1 strip by In Vitro route in the morning and 1 strip before bedtime. - Lancets misc; 1 Lancet in the morning and 1 Lancet before bedtime. - Comprehensive metabolic panel; Future Provided pt with refill on test strips and lancets today. Will continue to monitor her HgbA1c routinely. Generalized anxiety disorder (CMS/HCC) - ALPRAZolam (Xanax) 0.25 MG tablet; Take 1 tablet (0.25 mg) by mouth 1 (one) time each day at the same time Mood is stable at this time. She can continue the above as needed. Refill provided. Spinal stenosis of lumbar region, unspecified whether neurogenic claudication present - HYDROcodone-acetaminophen ([place]) 5-325 MG tablet; Take 1 tablet by mouth every 6 (six) hours if needed for severe pain Medication choice and dosage is appropriate for patient's current medical conditions. Patient will continue to be required to be seen in our office at least every three months for monitoring. At each follow up visit I will reassess the patient's need for the medication. Patient is to have this medication prescribed only through this office. Failure to follow the rules and regulations will result in tapering and discontinuation of medications if applicable. Patient verbalized understanding. OARRS Report was reviewed for this patient. Cold intolerance - TSH W/REFLEX TO FT4; Future - CBC and differential; Future Will check TSH and blood counts with updated labs. Will notify pt of the results once received. Myalgia - Vitamin D 25 hydroxy Total; Future - Comprehensive metabolic panel; Future Will check vitamin D level with updated labs. Will notify pt of the results once received. Mononeuropathy of left lower extremity Continue Gabapentin as prescribed. Left sided sciatica See above. Follow up in about 3 months (around 11/15/2024) for Medication Follow Up. documented in this encounter [facility] 08-04-2024 History of Present illness Narrative Images from the original note were not included. Cheryl Lindquist 1945 Cheryl Lindquist is a 78 y.o. female presents with chief complaint of 6 mo f/u (Bilateral mamms, Lt breast US) HPI: Patient says she is doing well. No new breast masses or lumps or bumps. No nipple discharge. No skin changes. She got her mammogram. Ultrasound was not done. SUBJECTIVE: MEDICATIONS: ALLERGIES Current Outpatient Medications Medication Instructions ALPRAZolam (XANAX) 0.25 mg, Oral, Every 24 hours aspirin 81 mg, Oral, Daily RT bisoprolol (ZEBETA) 5 mg, Oral, Every 24 hours Coenzyme Z11-Wbne Oil-Vit E (CO-Q 10 OMEGA-3 FISH OIL PO) Orally gabapentin (Neurontin) 300 MG capsule TAKE 1 CAPSULE BY MOUTH IN THE MORNING AND 1 CAPSULE BY MOUTH IN THE EVENING AND 1 CAPSULE BY MOUTH BEFORE BEDTIME glyBURIDE-metFORMIN (Glucovance) 5-500 MG tablet 1 tablet, Oral, 2 times daily HYDROcodone-acetaminophen ([place]) 5-325 MG tablet 1 tablet, Oral, Every 6 hours PRN ibandronate (BONIVA) 150 mg, Oral, Every 30 days, Take in morning with full glass of water on an empty stomach. No food, drink, meds, or lying down for 60 minutes after. Krill Oil 300 MG capsule 1 tablet, Oral, Daily lansoprazole (Prevacid) [address] capsule TAKE 1 CAPSULE BY MOUTH 1 TIME EVERY DAY AT THE SAME TIME lidocaine (Lidoderm) 5 % patch 1 patch, Apply externally, Every 24 hours loratadine (CLARITIN) 10 mg, Oral, Nightly PRN nabumetone (RELAFEN) 750 mg, Oral, 2 times daily PRN nystatin (Mycostatin) ointment Topical, 2 times daily ondansetron ODT (ZOFRAN-ODT) 4 mg, Oral, Every 8 hours PRN rosuvastatin (CRESTOR) 10 mg, Oral, Daily tiZANidine (ZANAFLEX) 4 mg, Oral, Every 12 hours, PRN triamcinolone (Kenalog) 0.1 % ointment Topical, 2 times daily zolpidem (AMBIEN) 10 mg, Oral, Nightly PRN Allergies Allergen Reactions Atorvastatin Other Nabumetone GI intolerance Simvastatin Other Reaction(s): leg cramps Methylprednisolone Palpitations PAST MEDICAL HISTORY: SOCIAL HISTORY SURGICAL HISTORY: Past Medical History: Diagnosis Date Anemia Appendicitis [...] Visit for review of DEXA scan 2005 Social History Tobacco Use Smoking status: Former Types: Cigarettes Smokeless tobacco: Never Vaping Use Vaping status: Never Used Substance Use Topics Alcohol use: Never Comment: Caffeine intake : 1-2 cups per day soda/pop Drug use: Yes Types: Hydrocodone Past Surgical History: Procedure Laterality Date APPENDECTOMY BRAIN MENINGIOMA EXCISION BRAIN MENINGIOMA EXCISION 05/05/2011 BREAST BIOPSY Left benign 3x BREAST LUMPECTOMY Right CATARACT EXTRACTION Right 12/2021 COLONOSCOPY 2019 COLONOSCOPY W/ POLYPECTOMY 01/20/2023 [facility] EXAM Diabetes mellitus type 2 - EYE SURGERY 2021 DEXA SCAN 1989 KNEE SURGERY Left 02/03/2014 OTHER SURGICAL HISTORY 2010 steriods injection - pain clinic - headache TONSILLECTOMY TOTAL ABDOMINAL HYSTERECTOMY W/ BILATERAL SALPINGOOPHORECTOMY TUBAL LIGATION 1990 REVIEW OF SYMPTOMS: Review of Systems Constitutional: Negative for appetite change, fatigue and fever. HENT: Negative for trouble swallowing. Breasts: Negative for breast mass and breast discharge. Respiratory: Negative for cough and shortness of breath. Cardiovascular: Negative for chest pain. Gastrointestinal: Negative for abdominal pain. Genitourinary: Negative for hematuria. Musculoskeletal: Negative for back pain. Skin: Negative for wound. Neurological: Negative for seizures. OBJECTIVE: Visit Vitals BP 120/80 Ht 5' 3 Wt 122 lb BMI 21.61 kg/m OB Status Hysterectomy Smoking Status Former BSA 1.57 m Physical Exam Exam conducted with a repairer sash and door present. Constitutional: Appearance: Normal appearance. HENT: Head: Atraumatic. Eyes: General: No scleral icterus. Cardiovascular: Rate and Rhythm: Regular rhythm. Pulmonary: Effort: No respiratory distress. Chest: Comments: With repairer sash and door present breast exam was performed in the seated and supine position. Bilaterally there is no dominant mass. There is no suspicious skin changes or nipple discharge. There is no axillary lymphadenopathy. Abdominal: General: There is no distension. Tenderness: There is no abdominal tenderness. Skin: Findings: No bruising. Neurological: Mental Status: She is alert. Gait: Gait normal. ASSESSMENT AND PLAN: Assessment/Plan Diagnoses and all orders for this visit: Breast calcification, left Duct ectasia of breast, right Family history of breast cancer in sister No suspicious findings on calcifications, there had been ectasia of the right duct that ultrasound had been ordered and was not done For follow-up. We will have right breast ultrasound done to measure stability of that. I will see her again in 1 year with her bilateral mammogram depending on findings from ultrasound. I will discuss that with her over the phone. If more significant management needs to be done may need to come in for appointment etcetera. She wants to have her films done at hospital which is a fine choice and easier to [facility]. documented in this encounter [facility] 07-26-2024 History of Present illness Narrative Images from the original note were not included. Subjective Patient ID: Cheryl Lindquist is a 78 y.o. female who presents for Foot Pain (Pt presents today for continued pain in the Lt foot. She stepped down wrong about 3-4mos ago and it felt as something popped in the bottom of her foot, there is also discomfort dorsal area. She states by the end of the day her ankles are very swollen/BS: 146 A1C: 7.0 /[facility] K. Hemmer 06-07-2024/SS: 6.5). HPI Patient presents for the 1st time in almost 1 year. She states about 4 months ago she felt a pop on the bottom of her left foot. She would pain after this. As time went on more areas were foot became painful. After long hours on her feet the whole foot is painful. She typically wears [employer]chers tennis shoes or new balance. She does wear power steps but states inserts are very old. She is also noted swelling in both lower extremities. History of knee and sciatic issues on the left. Review of Systems Medications Current Outpatient Medications: ALPRAZolam (Xanax) 0.25 MG tablet, Take 1 tablet (0.25 mg) by mouth 1 (one) time each day at the same time, Disp: 30 tablet, Rfl: 0 aspirin 81 MG EC tablet, Take 81 mg by mouth in the morning., Disp: , Rfl: bisoprolol (Zebeta) 5 MG tablet, Take 1 tablet (5 mg) by mouth 1 (one) time each day at the same time., Disp: 100 tablet, Rfl: 3 Coenzyme F32-Ytro Oil-Vit E (CO-Q 10 OMEGA-3 FISH OIL PO), Orally, Disp: , Rfl: gabapentin (Neurontin) 300 MG capsule, TAKE 1 CAPSULE BY MOUTH IN THE MORNING AND 1 CAPSULE BY MOUTH IN THE EVENING AND 1 CAPSULE BY MOUTH BEFORE BEDTIME, Disp: 270 capsule, Rfl: 3 glyBURIDE-metFORMIN (Glucovance) 5-500 MG tablet, Take 1 tablet by mouth in the morning and 1 tablet before bedtime., Disp: 200 tablet, Rfl: 3 HYDROcodone-acetaminophen ([place]) 5-325 MG tablet, Take 1 tablet by mouth every 6 (six) hours if needed for severe pain, Disp: 120 tablet, Rfl: 0 ibandronate (Boniva) 150 MG tablet, Take 1 tablet (150 mg) by mouth every 30 (thirty) days Take in morning with full glass of water on an empty stomach. No food, drink, meds, or lying down for 60 minutes after., Disp: 3 tablet, Rfl: 3 Krill Oil 300 MG capsule, Take 1 tablet by mouth 1 (one) time each day., Disp: , Rfl: lansoprazole (Prevacid) [address] capsule, Take 1 capsule (30 mg) by mouth 1 (one) time each day at the same time., Disp: 100 capsule, Rfl: 3 lidocaine (Lidoderm) 5 % patch, Apply 1 patch topically 1 (one) time each day at the same time., Disp: , Rfl: loratadine (Claritin) 10 MG tablet, Take 10 mg by mouth as needed at bedtime for allergies., Disp: , Rfl: nabumetone (Relafen) 750 MG tablet, Take 750 mg by mouth 2 (two) times a day as needed, Disp: , Rfl: nystatin (Mycostatin) ointment, Apply topically 2 (two) times a day, Disp: 15 g, Rfl: 1 ondansetron ODT (Zofran-ODT) 4 MG disintegrating tablet, Take 4 mg by mouth every 8 (eight) hours if needed for nausea or vomiting., Disp: , Rfl: rosuvastatin (Crestor) 10 MG tablet, Take 1 tablet (10 mg) by mouth in the morning., Disp: 90 tablet, Rfl: 3 tiZANidine (Zanaflex) 4 MG tablet, Take 1 tablet (4 mg) by mouth every 12 (twelve) hours PRN, Disp: 30 tablet, Rfl: 5 triamcinolone (Kenalog) 0.1 % ointment, Apply topically 2 (two) times a day, Disp: 15 g, Rfl: 1 zolpidem (Ambien) 10 MG tablet, Take 1 tablet (10 mg) by mouth as needed at bedtime for sleep, Disp: 90 tablet, Rfl: 0 Allergies Atorvastatin, Nabumetone, Simvastatin, and Methylprednisolone Past Surgical History Past Surgical History: Procedure Laterality Date APPENDECTOMY BRAIN MENINGIOMA EXCISION BRAIN MENINGIOMA EXCISION 05/05/2011 BREAST BIOPSY Left benign 3x BREAST LUMPECTOMY Right CATARACT EXTRACTION Right 12/2021 COLONOSCOPY 2019 COLONOSCOPY W/ POLYPECTOMY 01/20/2023 [facility] E[facility] EXAM Diabetes mellitus type 2 - EYE SURGERY 2021 DEXA SCAN 1989 KNEE SURGERY Left 02/03/2014 OTHER SURGICAL HISTORY 2010 steriods injection - pain clinic - headache TONSILLECTOMY TOTAL ABDOMINAL HYSTERECTOMY W/ BILATERAL SALPINGOOPHORECTOMY TUBAL LIGATION 1990 Family History Family History Problem Relation Name Age of Onset Hyperlipidemia Mother Heydi Morley Diabetes Mother Heydi Morley Hypertension Mother Heydi Morley Heart disease Mother Heydi Morley Lung cancer Father Breast cancer Sister Heart disease Sister Lung cancer Brother Candelario Morley Heart disease Brother Candelario Morley Melanoma Maternal Grandmother Stomach cancer Maternal Grandfather No Known Problems Paternal Grandmother unknown Melanoma Other Objective Physical Exam Cardiovascular: Comments: Pedal pulses: DP 2/4 bilateral, PT 1/4 bilateral. Skin temp is warm to warm. Varicosities: mild present. Telangiectasias present Hair growth: sparse Mild bilateral lower extremity swelling present Pulmonary: Effort: Pulmonary effort is normal. Musculoskeletal: Right lower leg: No edema. Left lower leg: No edema. Comments: ROM:AJ dorsiflexion is limited with knee extended and improves with knee flexed. STJ ROM WNL.. DEFORMITIES: flexibly contracted digits 2,3,4,5 b/l. Digit 3 b/l are contracted and in adductovarus, 2nd digits overlap the 3rd, worse on R than L. PAIN: LEFT: Pain at the insertion of the plantar fascia into the calcaneus. Mild discomfort with palpation of the weight bearing surface of the calcaneus. No pain with medial to lateral compression of the heel. There is pain at the peroneals just posterior to the lateral malleolus to the styloid process and the cuboid groove/peroneal longus interface. There is no tenderness at the Achilles or Posterior tibial tendon. There is tenderness along the 4th metatarsal. There is also mild tenderness at the sinus tarsi. MUSCLE STRENGTH: 5/5 for dorsiflexion, plantarflexion, inversion, eversion Feet: Comments: Last diabetic foot exam: 08/27/2023 Skin: General: Skin is warm. Capillary Refill: Capillary refill takes 2 to 3 seconds. Findings: No bruising or erythema. Comments: SKIN FINDINGS:There are hemosiderin deposits noted lower legs and dorsal forefoot. web spaces are clean/dry, no erythema or ecchymosis noted. HYPERKERATOSIS:mild dorsal lateral R 5th PIPJ. SKIN PATHOLOGY: texture, turgor, hair growth, within normal limits. Neurological: Mental Status: She is alert and oriented to person, place, and time. Comments: VIBRATORY:diminished at IPJ, MPJ, and medial malleolus. Intact at patella b/l. SEMMES-KELTON 5.07 MONOFILAMENT: intact at 10/10 sites b/l. NEUROLOGIC light touch (normal). Psychiatric: Mood and Affect: Mood normal. Behavior: Behavior normal. Assessment/Plan ICD-10-CM 1. Type II or unspecified type diabetes mellitus with neurological manifestations, not stated as uncontrolled(250.60) (CMS/[facility]) E11.49 2. Peroneal tendonitis of left lower leg M76.72 XR foot 3+ views left 3. Plantar fasciitis, left M72.2 XR foot 3+ views left 4. Metatarsalgia, left foot M77.42 5. Ankle instability, left M25.372 Discuss with patient the stress/inflammation/ pain cycle of plantar fasciitis after strain of the area. Reviewed that the peroneal tendonitis and 4th metatarsalgia and sinus tarsi pain are likely Secondary to gait compensation. Stress the importance of good supportive tie shoes. Advise no flip flops, slippers nor bare feet. Explain the anatomy of the involved structures. Reviewed radiographs with the patient. Demonstrate stretching exercises and give handout for the same. Also advise icing therapy. Patient tried new powerstep orthotics and will take them; they felt comfortable. Reviewed break in period. Discussed role of ASO ankle brace with peroneal tendonitis. Patient agreed and was fitted for the appropriate brace. Goals of therapy include prevent further injury, stabilization, reduction of stress and pressure to the ankle joint. Anticipated time of use - at least 6 months. At the time of dispensing it is suitable and not substandard. Patient is able to apply the brace independently. It is comfortable to walk and fits inside the shoe. Offered oral NSAID versus oral steroid taper. Patient declines. RTO 4-5 weeks. At that time may consider immobilization if no improvement. This note was created with the assistance of a speech recognition program. While intending to generate a timely document that accurately reflects the content of the visit, no guarantee can be provided that every grammatical or spelling mistake has been or will be identified or corrected. Thank you for your understanding. Raeann Castro DPM documented in this encounter [facility] 07-21-2024 History of Present illness Narrative Images from the original note were not included. Skin Check Location: Patient requests a skin examination from the waist up, A full body skin exam was offered, patient declined Dermatologic history: no history of skin cancer, no history of atypical moles, family history of melanoma, does not use sunscreen regularly Last visit: Previously seen in 2018 New patient, referred by ANA Ortega Lesions: Location: right neck Duration: years Quality: denies pain, denies itch, denies bleeding Modifying factors: rubs on clothing, aggravated by jewelry Associated symptoms: change in shape, darkening Treatments: none Lesion # 2: Location: back Duration: years Quality: itchy, denies pain, denies bleeding Modifying factors: rubs on clothing, aggravated by picking Associated symptoms: enlarged, tender Treatments: none Lesion # 3: Location: face Duration: months Quality: denies pain, denies itch, denies bleeding Modifying factors: aggravated by picking Associated symptoms: red Treatments: none All pertinent medical history, medications, and allergies were reviewed. General Exam: alert , oriented to person, place, and time , normal affect, well appearing Accompanied by daughter A complete skin exam was offered, pt declined. Areas not examined despite medical recommendation: From the waist down Scalp, Examined , exam limited by hair Head, Face Examined Neck Examined Chest Examined Back Examined Abdomen Examined Right arm Examined Left arm Examined Hands Examined Digits: Examined Lymphatics: Not examined 1. Seborrheic keratosis (2) Right Lower Back, Right Lower Leg - Anterior Stuck on verrucous, fuentes-brown papules and plaques. Patient was counseled regarding these benign growths. Removal is normally not necessary, but they may be removed if they are symptomatic or for cosmetic reasons. 2. Hemangioma of skin and subcutaneous tissue Torso - Posterior (Back) Scattered aparicio-red papule(s). The patient was informed that angiomas are benign growths on the the skin. No treatment is necessary. 3. Lentigo simplex Torso - Posterior (Back) Scattered fuentes macules in sun-exposed areas. The patient was informed that lentigines are benign pigmented lesions that occur on sun-exposed and sun-damaged skin. No treatment is necessary. Recommended regular use of broad spectrum sunscreen SPF 30 or higher 4. Melanocytic nevus of trunk Torso - Posterior (Back) Scattered benign appearing, regular brown to light brown melanocytic papules and macules with similar morphology Counseled regarding these benign growths. Rarely, a nevus can develop into malignant melanoma, so any changing nevi should be promptly re-evaluated. 5. Inflamed seborrheic keratosis (2) Neck - Anterior (2) Ingram and brown stuck on verrucous scaly papule with surrounding erythema The patient was informed that symptomatic seborrheic keratoses are benign growths that become inflamed, itchy, tender, traumatized, caught on clothing, or bleed. Symptomatic lesions can be treated with cryotherapy or curretage. Thicker lesions treated with cryotherapy may require more than one treatment. The patient was instructed to notify the office if abnormal redness or tenderness develops at the treatment site. Cryotherapy today, see procedure note. Diagnosis: Inflamed seborrheic keratosis Indication: Inflamed Consent: Verbal consent was obtained and risks were discussed, including, but not limited to risks of scarring, darker or chief unit forester pigmentary changes, recurrence, incomplete removal and infection. Method: Liquid nitrogen was used to treat the lesion(s) with two 5-10 second freeze-thaw cycles Number of lesions treated: 2 Post-procedure instructions: Instructions were given orally and in writing. The office will be contacted if the lesion fails to resolve despite treatment, or if a side effect develops such as abnormal crusting, scabbing, redness or tenderness Cryotherapy, skin lesion - Neck - Anterior (2) 6. Epidermal inclusion cyst Mid Upper Back 1.0 x 0.4 cm erythematous, subcutaneous nodule with central punctum Patient was counseled regarding cysts. Although benign, cysts often slowly enlarge and can occasionally become inflamed. Discussed the only way to definitively diagnose the lesion would be to have it removed and tested. Discussed treatment options including observation vs. excision. Patient elected for excision. Reviewed procedure and what to expect. Patient informed that the office will contact them to schedule a 30 minute excision once an estimate of their co-pay is determined. She would like to wait and have Dr. Pena do it in November when she has openings. 7. Neoplasm of uncertain behavior of skin of back Related Procedures Ambulatory referral to Dermatology Next Visit: prn for any new/changing lesions documented in this encounter [facility] 05-04-2024 Note [facility] Note Reason for cardiology consult: SVT Chief Complaint: Occasional palpitations HPI: Cheryl Lindquist is a 78 y.o. female with history of SVT, hypertension, hyperlipidemia, diabetes mellitus and GERD. She states that she has been doing overall very well. She has occasions of very brief palpitations she thinks it is related to skipped beats rather than to SVT. She continues to be active and she does a lot of housework and a lot of yard work without any chest pain or shortness of breath at rest or with exertion. She denies orthopnea or paroxysmal nocturnal dyspnea or legs edema or leg discomfort on exertion. She describes occasional dizziness when she moves fast. No syncope or near syncope. She denies smoking, alcohol or illicit drugs. Cardiology ROS: GENERAL: Denies fever, chills, night sweats, weight loss. HEENT: Denies changes in vision, photophobia, changes in hearing, epistaxis, oral bleeding. CARDIOVASCULAR: Denies chest pain, exertional dyspnea, orthopnea/PND, lower extremity edema, she reports occasional brief palpitations and occasional lightheadedness/dizziness when she moves fast. RESPIRATORY: Denies SOB, coughing, wheezing GI: Denies abdominal pain, nausea/vomiting, heartburn, melena/hematochezia. RENAL: Denies dysuria, hematuria, flank pain. MSK: Denies muscle weakness/pain, arthralgias/joint pain. NEUROLOGIC: Denies LOC, weakness, numbness, headaches. SKIN: Denies abnormal rashes or bleeding. PSYCH: Denies significant anxiety, depression, sleep disturbances. Past Medical History She has a past medical history of Abnormal ECG, Arrhythmia, Diabetes mellitus (CMS/HCC), Hyperlipidemia, Hypertension, and Palpitations. Surgical History She has a past surgical history that includes Appendectomy; Brain surgery; Breast surgery; Cataract extraction; Knee surgery; Tonsillectomy; Hysterectomy; and Tubal ligation. Social History She reports that she has quit smoking. Her smoking use included cigarettes. She has never used smokeless tobacco. She reports that she does not currently use alcohol. No history on file for drug use. Family History Family History Problem Relation Name Age of Onset Heart failure Mother Coronary artery disease Sister Coronary artery disease Brother Other (CABG) Brother Allergies Atorvastatin and Prednisone Medications Current Outpatient Medications: ALPRAZolam (Xanax) 0.25 mg tablet, Take 0.25 mg by mouth., Disp: , Rfl: aspirin 81 mg EC tablet, Take 81 mg by mouth in the morning., Disp: , Rfl: bisoprolol (Zebeta) 5 mg tablet, Take 5 mg by mouth., Disp: , Rfl: gabapentin (Neurontin) 300 mg capsule, Take 300 mg by mouth 3 times a day., Disp: , Rfl: glyburide-metformin (Glucovance) 5-500 mg tablet, Take 1 tablet by mouth twice a day., Disp: , Rfl: lansoprazole (Prevacid) [address] capsule, Take 30 mg by mouth., Disp: , Rfl: rosuvastatin (Crestor) 10 mg tablet, Take 10 mg by mouth in the morning., Disp: , Rfl: tiZANidine (Zanaflex) 4 mg tablet, take 1 tablet by mouth every 12 hours if needed, Disp: , Rfl: zolpidem (Ambien) 10 mg tablet, take 1 tablet by mouth at bedtime if needed for sleep, Disp: , Rfl: Last Recorded Vitals Visit Vitals BP 130/72 (BP Location: Right arm, Patient Position: Sitting) Pulse 67 Ht 1.6 m (5' 3 ) Wt 54.9 kg (121 lb) SpO2 99% BMI 21.43 kg/m??? Smoking Status Former BSA 1.56 m??? Physical Examination: GENERAL: alert and oriented x3, well developed, in no acute distress. HEAD: atraumatic, normocephalic. EYES: MEGAN, EOMI. NECK: trachea midline, no JVD present, no carotid bruits present. CARDIAC: S1, S2 present. RRR. No murmur, rubs, or gallops. RESPIRATORY: CTAB, no increased effort of breathing, no rales, rhonchi, or wheezing. ABDOMEN: soft, nontender, nondistended. EXTREMITIES: no lower extremity edema, peripheral pulses are 2+ bilaterally. No rash/skin discoloration present. NEURO: strength/sensation equal and symmetric in bilateral upper and lower extremities. PSYCH: appropriate mood, affect, and judgement. Labs: 03/08/2024 HbA1c 7.5% 01/27/2024 cholesterol 115, HDL 38, LDL 50, triglyceride 206 07/01/2023 hematocrit 37.6 04/07/2023 white blood count 4.9, hemoglobin 11.6, hematocrit 36.3, platelets 231 09/03/2022 sodium 143, calcium 9.9, glucose 89, BUN 7, creatinine 0.66, GFR 91 Last Images: Lexiscan nuclear stress test 10/27/2022 at [facility] IMPRESSION: Normal Lexiscan Myoview cardiac perfusion stress test. No evidence of ischemia or myocardial infarction by perfusion imaging. Normal left ventricular systolic function, ejection fraction 69%. No previous study available for comparison. Assessment and Plan: Paroxysmal supraventricular tachycardia, occurs rarely, appears to be well-controlled on bisoprolol. Occasional palpitations. Clinically represents premature beats rather SVT Hypertension well-controlled (more content not included)... [facility] 05-04-2024 Note New patient here to establish care. Former [facility] patient who was seen for HLD, SVT, and palpitations. Denies chest pain and SOB. Gets palpitations with rest. She had lipid panel in Dec 2023. Had stress test in Sep 2022, but doesn't recall a recent echo. Review of Systems Cardiovascular: Positive for palpitations. Musculoskeletal: Positive for arthritis, back pain and joint pain. All other systems reviewed and are negative. [facility] 01-12-2024 History of Present illness Narrative HPI [...] the same time. 100 tablet 3 Coenzyme Q10-Nxrp Oil-Vit E (CO-Q 10 OMEGA-3 FISH OIL [...] tablet before bedtime. 200 tablet 3 HYDROcodone-acetaminophen ([place]) 5-325 MG tablet Take 1 tablet by [...] follow-ups on file. documented in this encounter [facility] 10-02-2023 History of Present illness Narrative [...] times a day., Disp: , Rfl: HYDROcodone-acetaminophen ([place]) 5-325 mg tablet, Take 1 tablet by [...] arrhythmia. documented in this encounter [facility] Work Phone: 10-02-2023 Instructions Solomon Castro [...] Given documented in this encounter [facility] Work Phone: 01-20-2023 Procedure note [facility] 07-09-2022 Evaluation note Encounter Date Diagnosis Assessment Notes Jun, GERD (gastroesophage al reflux disease) (ICD-10 - K21.9) CONTINUE LANSOPRAZOLE 30 MG TWICE A DAY Jun, Dyspepsia (ICD-10 - K30) Jun, History of Helicobacter pylori infection (ICD-10 - Z86.19) Jun, Irritable bowel syndrome with constipation (ICD-10 - K58.1) [employer] Other 03-17-2022 Evaluation note* Encounter Date Diagnosis [...] Patient care instructions given in writting by [facility] document. [employer] Other 12-13-2021 Evaluation note* Encounter Date Diagnosis Assessment Notes Treatment Notes Treatment Clinical Notes Oct, GERD (gastroesophageal reflux disease) (ICD-10 - K21.9) CONTINUE LANSOPRAZOLE BID WITHOUT CHANGE F/U HERE 6 MONTHS MAY CONSIDER REPEATING EGD AT THAT TIME [employer] Other 10-19-2021 Evaluation note* Encounter Date Diagnosis Assessment Notes Treatment Notes Treatment Clinical Notes Aug, Gastroesophageal ref lux disease with esophagitis without hemorrhage (ICD-10 - K21.00) Aug, Disease of stomach a nd duodenum, unspecified (ICD-10 - K31.9) Aug, Other STOP PANTOPRAZOLE RTO 6 WEEKS [employer] Other Evaluation noteNo InformationNort Dash[employer] Other Evaluyxsob noteNo assessment information available [facility] Work Phone: Evaluation note* Diagnosis Mixed hyperlipidemia- Primary Palpitations Paroxysmal SVT (supraventricular tachycardia) documented in this encounter [facility] Work Phone: Evaluation note* Diagnosis Acute cough- Primary Generalized anxiety disorder (CMS/HCC) Generalized anxiety disorder Acute non-recurrent pansinusitis [facility] Diagnosis COVID-19- Primary [facility] Diagnosis Spasm of left trapezius muscle- Primary Psychophysiological insomnia Persistent disorder of initiating or maintaining sleep Chronic left shoulder pain Pain in joint, shoulder region [facility] Diagnosis Nausea and vomiting, unspecified vomiting type- Primary [facility]* Diagnosis Generalized anxiety disorder ([facility]/HCC) Generalized anxiety disorder [facility] Diagnosis Diabetic polyneuropathy associated with type 2 diabetes mellitus ([facility]/HCC)- Primary [facility] Diagnosis Diabetic polyneuropathy associated with type 2 diabetes mellitus ([facility]/HCC)- Primary Generalized anxiety disorder ([facility]) Generalized anxiety disorder Spinal stenosis of lumbar region, unspecified whether neurogenic claudication present Cold intolerance Other general symptoms Myalgia Unspecified myalgia and myositis Mononeuropathy of left lower extremity Left sided sciatica Sciatica [facility] Diagnosis Diabetic polyneuropathy associated with type 2 diabetes mellitus (CMS/HCC)- Primary Closed fracture of multiple ribs of right side, sequela History of pneumothorax Personal history of other diseases of respiratory system Primary osteoarthritis of left knee [facility] Diagnosis Hemangioma of skin and subcutaneous tissue- Primary Seborrheic keratosis Lentigo simplex Other dyschromia Melanocytic nevus of trunk Benign neoplasm of skin of trunk, except scrotum Inflamed seborrheic keratosis Epidermal inclusion cyst Sebaceous cyst [facility]* Diagnosis Type II or unspecified type diabetes mellitus with neurological manifestations, not stated as uncontrolled(250.60) ([facility])- Primary Type II or unspecified type diabetes mellitus with neurological manifestations, not stated as uncontrolled Peroneal tendonitis of left lower leg Plantar fasciitis, left Metatarsalgia, left foot Ankle instability, left [facility] Diagnosis Breast calcification, left- Primary Other (abnormal) findings on radiological examination of breast Duct ectasia of breast, right Family history of breast cancer in sister Family history of malignant neoplasm of breast [facility]* Diagnosis Migraine with aura and without status migrainosus, not intractable ([facility])- Primary Episodic tension-type headache, not intractable Lightheaded Dizziness and giddiness Orthostatic hypotension Benign neoplasm of cerebral meninges ([facility]/HCC) Benign neoplasm of cerebral meninges Generalized anxiety disorder ([facility]/HCC) Generalized anxiety disorder Disturbance of skin sensation [facility] Diagnosis Generalized anxiety disorder (CMS/HCC) Generalized anxiety disorder [facility] Diagnosis Closed fracture of multiple ribs of right side with routine healing, subsequent encounter- Primary Pneumothorax on right Other spontaneous pneumothorax [facility]* Diagnosis Closed fracture of multiple ribs of right side, sequela- Primary Dizziness Dizziness and giddiness Sciatica of left side Spinal stenosis of lumbar region, unspecified whether neurogenic claudication present Benign neoplasm of cerebral meninges (CMS/HCC) 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) Type 2 diabetes mellitus with other specified complication (CMS/HCC) [facility] Diagnosis Psychophysiological insomnia Persistent disorder of initiating or maintaining sleep Spinal stenosis of lumbar region with neurogenic claudication [facility] Diagnosis Spinal stenosis of lumbar region with neurogenic claudication [facility]* Diagnosis Type 2 diabetes mellitus without complication, without long-term current use of insulin- Primary 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 Age-related nuclear cataract of left eye Dry eyes Unspecified tear film insufficiency Blepharitis of upper and lower eyelids of both eyes, unspecified type [facility]* Diagnosis Generalized anxiety disorder (CMS/HCC) Generalized anxiety disorder [facility]* Diagnosis Psychophysiological insomnia Persistent disorder of initiating or maintaining sleep documented [facility] Diagnosis Psychophysiological insomnia Persistent disorder of initiating or maintaining sleep [facility]* Diagnosis Type 2 diabetes mellitus with other specified complication, without long-term current use of insulin- Primary Sciatica of left side Stress incontinence of urine Generalized anxiety disorder (CMS/HCC) Generalized anxiety disorder [facility] Diagnosis Generalized anxiety disorder (CMS/HCC) Generalized anxiety disorder [facility] Author Debra Villasenor [facility] January 20, 2023 9:02am Note Date/Time January 20, 2023 9:02am [facility] [address] [place] [address] Gastroenterology H&P Signed Patient: Vranish,Cheryl J MR#: [id number] : 1945 Acct:[id number] Age/Sex: 77 / F Adm Date: 3 Loc: Room: Type: [facility] Attending Dr: Debra Villasenor MD Copies [...] by Debra Villasenor MD> 01/20/23901 [facility] Work Phone: History general Narrative - Reported* Type Description Date Medical History Diabetic Medical History Acid reflux Surgical History T&A child Surgical History appenedectomy 1964 Surgical History hysterectomy 1992 Surgical History 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 She denies medication side effects. -[facility] DO Work Phone: Hospital Discharge instructions [...] colon -Follow up with PCP. -Office number [phone]. [facility] Work Phone: Reason for referral (narrative)* Consultation (Routine) - Authorized Specialty Diagnoses / Procedures Referred By Shahla cartagena Referred To Contact Cardiology Diagnoses Mixed hyperlipidemia Palpitations Paroxysmal SVT (supraventricular tachycardia) Procedures Follow Up In Cardiology Bladimir Tam MD [address] [place] [address] 2, [address] [address] Bladimir Tam MD [address] [place] [address] 2, [facility] [address] [place] [address] Referral ID Status Reason Start Date Expiration Date V isits Requested Visits Authorized [id number] Authorized 10/02/2023 10/01/2024 1 1 [facility] Work Phone: Refutd for visit Narrative* Consultation (Routine) - Closed Specialty Diagnoses / Procedures Referred By Shahla cartagena Referred To Contact Dermatology Diagnoses Neoplasm of uncertain behavior of skin of back Procedures DC OFFICE/OUTPATIENT NEW HIGH MDM 60 MINUTES Ana M Becker PA [address] [facility] [address] [place] [address] Gayle Pena MD [address] [place] [address] Referral ID Status Reason Start Date Expiration Date V isits Requested Visits Authorized [id number] Closed Specialty Services Required 06/07/2024 12/04/2024 1 1 [facility] Summary Purpose Family History Unknown Family Member Name Dates Details Family history of CABG: Brot her(V17.49, Z82.49) Status:Active Cardiac abnormality: Mother, Brother Status:Active Heart problem: Mother Comments:Reported Previous C ardiac Problems; Status:Active Unknown Family Member Name Dates Details Family history of CABG: Elaine her(V17.49, Z82.49) Status:Active Cardiac abnormality: Mother, Brother Status:Active Heart problem: Mother Comments:Reported Previous C ardiac Problems; Status:Active Relationship Condition Age at Onset Recorded Date/T debora father Malignant neoplasm of lung Unknown Not Specified Congestive heart failure Unknown Diabetes mellitus Unknown Relationship Condition Age at Onset Recorded Date/T debora father Malignant neoplasm of lung Unknown mother Congestive heart failure Unknown Diabetes mellitus Unknown father Malignant neoplasm Unknown Unknown mother Heart disease Unknown Advance Directives Advance Directive Response Recorded Date/ Time Advance Directives No March 25, 018 2:18pm Advance Directive Response Recorded Date/ Time Advance Directives No March 25, 018 3:18pm Chief Complaint * Annual f/u: 'doing fine' [...] and Reason for Visit Chief Complaint Screening Chief Complaint n60.41 z80.3 Additional Source Comments REASON FOR VISIT (unrecogniz ed section and content) Reason Comments Annual Exam Reason Comments Med Refill xanax Reason Comments Med Refill Lidocaine patches, Z olpidem Reason Comments Med Refill tizanidine Reason Onset Date Comments Med Refill 10/12/2024 Reason Comments Med Refill Hydrocodone., Jaimie ricketts Reason Comments Follow-up Fell into her counte r top at home[place] [facility] [place]24 dx: multiple rib fractures,right pneumothorax discharged home 11/13/24 rx for percocet given.Pt has upcoming appt to see Dr. Will on 11/24.Is using the Incentive Spirometry regularly. Diabetes Med Refill Xanax-- DM timmy Reason Comments Foot Pain Pt presents today fo r continued pain in the Lt foot. She stepped down wrong about 3-4mos ago and it felt as something popped in the bottom of her foot, there is also discomfort dorsal area. She states by the end of the day her ankles are very swollenBS: 146 A1C: 7.0 LV K. Hemmer 06-07-2024SS: 6.5 Reason Comments 6 mo f/u Bilateral mamms, Lt breast US Reason Comments Headache Spasms Reason Comments Follow-up Hospital follow up n on surgical - rib fracture (2) Reason Comments Dizziness Ever since the fall she has had the lightheadedness/dizziness and wants to know if this is actually due from the fall. She does not feel she hit her head when she fell. Med Refill Hydrocodone Reason Onset Date Comments Med Refill 01/02/2025 Reason Onset Date Comments Med Refill 01/19/2025 Reason Comments Diabetic Eye Exam Dry Eye Reason Onset Date Comments Med Refill 03/17/2025 Reason Comments Med Refill Reason Onset Date Comments Med Refill 04/05/2025 Reason Comments Med Refill HydrocodoneShe does have sciatica pain on the left side and does take Hydrocodone as needed. Anxiety has been hav ing some health problems over the past month, had infection in arm and had to have surgery to drain the infection and then after he got home from that 2 days later fell in bathroom and hit his head on bathtub, had a concussion (talking out of his head) put in [facility] and is going to be sent home on Thursday possible, is not sure he is ready to be sent home.Feels shaky and chest gets tight when anxious. Urine Leakage She is having to wea r a pad all the time. And would like to discuss options. Reason Onset Date Comments Med Refill 04/18/2025 INFORMATION SOURCE (unrecogn ized section and content) DATE CREATED AUTHOR 09/30/2022 [facility] DATE CREATED AUTHOR AUTHOR'S ORGANIZ ATION 10/01/2022 [employer] DATE CREATED AUTHOR AUTHOR'S ORGANIZ ATION 11/06/2022 [facility] DATE CREATED AUTHOR AUTHOR'S ORGANIZ ATION 04/10/2023 [facility] DATE CREATED AUTHOR AUTHOR'S ORGANIZ ATION 10/04/2023 [facility] DATE CREATED AUTHOR AUTHOR'S ORGANIZ ATION 10/31/2024 [facility] DATE CREATED AUTHOR AUTHOR'S ORGANIZ ATION 11/23/2024 [facility] DATE CREATED AUTHOR AUTHOR'S ORGANIZ ATION 04/09/[address] [facility] EPIC DATE CREATED AUTHOR AUTHOR'S ORGANIZ ATION 04/11/2025 [facility] Diagnostic s Care Teams (unrecognized sec tion and content) Team Status: Active Member Role Status Dates Chris Whitaker II MD Primary Care Provider Active Team Status: Inactive Member Role Status Dates Chris Whitaker II MD Primary Care Provider Active Start: August 19, 2024 End: August 19, 2024 Jose Will DO Attending Provider Active Start : August 19, 2024 End: August 19, 2024 Team Status: Inactive Member Role Status Dates Chris Whitaker II MD Primary Care Provider Active Debra Villasenor MD Attending Provider Active [employer] Software Engineer Relationship Specialty Start Date End Date Chris Whitaker MD [address] [facility] [address] [place] [address] PCP - General Internal Medicine 10/02/23 [employer] Software Engineer Relationship Specialty Start Date End Date Chris Whitaker MD [address] [facility] [address] [place] [address] PCP - General Internal Medicine 04/20/23 Ui Software Engineer Relationship Specialty Start Date End Date Chris Whitaker MD [address] [facility] [address] [place] [address] PCP - General Internal Medicine 04/20/23 Ui Software Engineer Relationship Specialty Start Date End Date Chris Whitaker MD [address] [place] [address] PCP - General Internal Medicine 04/20/23 Ui Software Engineer Relationship Specialty Start Date End Date Chris Whitaker MD [address] [place] [address] PCP - General Internal Medicine 04/20/23 Ui Software Engineer Relationship Specialty Start Date End Date Chris Whitaker MD [address] [place] [address] PCP - General Internal Medicine 04/20/23 Ui Software Engineer Relationship Specialty Start Date End Date Chris Whitaker MD [address] [place] [address] PCP - General Internal Medicine 04/20/23 Ui Software Engineer Relationship Specialty Start Date End Date Chris Whitaker MD [address] [place] [address] PCP - General Internal Medicine 04/20/23 Ui Software Engineer Relationship Specialty Start Date End Date Chris Whitaker MD [address] [place] [address] PCP - General Internal Medicine 04/20/23 Ui Software Engineer Relationship Specialty Start Date End Date Chris Whitaker MD [address] [place] [address] PCP - General Internal Medicine 04/20/23 Ui Software Engineer Relationship Specialty Start Date End Date Chris Whitaker MD [address] [place] [address] PCP - General Internal Medicine 04/20/23 Ui Software Engineer Relationship Specialty Start Date End Date Chris Whitaker MD [address] [place] [address] PCP - General Internal Medicine 04/20/23 Ui Software Engineer Relationship Specialty Start Date End Date Chris Whitaker MD [address] [place] [address] PCP - General Internal Medicine 04/20/23 Ui Software Engineer Relationship Specialty Start Date End Date Chris Whitaker MD [address] [place] [address] PCP - General Internal Medicine 04/20/23 Ui Software Engineer Relationship Specialty Start Date End Date Chris Whitaker MD [address] [place] [address] PCP - General Internal Medicine 04/20/23 Ui Software Engineer Relationship Specialty Start Date End Date Chris Whitaker MD [address] [place] [address] PCP - General Internal Medicine 04/20/23 Ui Software Engineer Relationship Specialty Start Date End Date Chris Whitaker MD [address] [place] [address] PCP - General Internal Medicine 04/20/23 Ui Software Engineer Relationship Specialty Start Date End Date Chris Whitaker MD [address] [place] [address] PCP - General Internal Medicine 04/20/23 Ui Software Engineer Relationship Specialty Start Date End Date Chris Whitaker MD [address] [place] [address] PCP - General Internal Medicine 04/20/23 Ui Software Engineer Relationship Specialty Start Date End Date Chris Whitaker MD [address] [place] [address] PCP - General Internal Medicine 04/20/23 Ui Software Engineer Relationship Specialty Start Date End Date Chris Whitaker MD [address] [place] [address] PCP - General Internal Medicine 04/20/23 Ui Software Engineer Relationship Specialty Start Date End Date Chris Whitaker MD [address] [place] [address] PCP - General Internal Medicine 04/20/23 Ui Software Engineer Relationship Specialty Start Date End Date Chris Whitaker MD [address] [place] [address] PCP - General Internal Medicine 04/20/23 Ui Software Engineer Relationship Specialty Start Date End Date Chris Whitaker MD [address] [place] [address] PCP - General Internal Medicine 04/20/23 Ui Software Engineer Relationship Specialty Start Date End Date Chris Whitaker MD [address] [place] [address] PCP - General Internal Medicine 04/20/23 Ui Software Engineer Relationship Specialty Start Date End Date Chris Whitaker MD [address] [place] [address] PCP - General Internal Medicine 04/20/23 Ui Software Engineer Relationship Specialty Start Date End Date Chris Whitaker MD [address] [place] [address] [address] [place] [address] PCP - General Internal Medicine 04/20/23 Goals (unrecognized section and content) Goals may be documented in a n alternate section FOR RECORDS PERTAINING TO PATIENTS WHO ARE [...] BE BASED ON THE PRIMARY CLINICAL RECORDS. [employer] provides no warranty or guarantee of the accuracy or completeness of information in this document.
[2025-05-18 10:37] LABS: Alanine Aminotransferase 17 U/L (14-59); Aspartate Amino Transferase 16 U/L (15-37); Chol HDL Ratio 2.5; Cholesterol 109 mg/dL (<=200); HDL Cholesterol 44 mg/dL (40-60); LDL Cholesterol Calculated 40.4 mg/dL; Triglycerides 123 mg/dL (<=150); VLDL CHOLESTEROL 24.6 mg/dL
== END 2025-05-18 09:09 | disposition home or self-care (01) ==
LOC: LAB 09:13
PROVIDERS: PCP Internal Medicine; Visit Provider Internal Medicine Cardiovascular Disease
DX: E78.5 Hyperlipidemia, unspecified (principal)
CPT/HCPCS: 36415; 80061; 84450; 84460

== ENCOUNTER 2025-11-17 09:03 | Outpatient (OUT) | payer MEDICARE, SELFPAY ==
--- OUTSIDE RECORDS SUMMARY | 2025-11-17 09:08 | XMS_ITS | Clinical Summary ---
Author Organization [facility] Address [address] [place] [address] Phone Care Team Providers Care Asphalt Plant Laborer Name Role Phone Chris Whitaker MD Primary Care Provider [phone] Allergies Active AllergyReactionsCriticalityNoted DateCommentsPrednisonePalpitationsLow 10/01/2023 Medications MedicationSigDispense QuantityRefillsLast FilledStart DateEnd DateStatus ALPRAZolam (Xanax) 0.25 mg tablet Take 0.25 tablets by mouth as needed at bedtime.11/14/2020Active aspirin 81 mg EC tablet Take 1 tablet (81 mg) by mouth once daily.Active CALCIUM CARBONATE-VITAMIN D3 ORAL Take 2 tablets by mouth once daily.Active gabapentin (Neurontin) 300 mg capsule Take 1 capsule (300 mg) by mouth 2 times a day.05/14/2022ctive glyburide-metformin (Glucovance) 5-500 mg tablet Take 1 tablet by mouth 2 times a day.04/26/2020Active HYDROcodone-acetaminophen ([place]) 5-325 mg tablet Take 1 tablet by mouth every 6 hours if needed.12/12/2020ctive lansoprazole (Prevacid) [address] capsule Take 1 capsule (30 mg) by mouth 2 times a day.09/24/2020Active tiZANidine (Zanaflex) 4 mg tablet Take by mouth twice a day. 0.5 tablet to 1 sbnvkd6906/18/2022ctive coenzyme Q-10 100 mg capsule Take 1 capsule (100 mg) by mouth once daily.Active zolpidem (Ambien) 10 mg tablet Take 1 tablet (10 mg) by mouth as needed at bedtime.07/27/2020Active rosuvastatin (Crestor) 10 mg tablet Indications:Mixed hyperlipidemia,Palpitations,Paroxysmal SVT (supraventricular tachycardia)TAKE 1 TABLET BY MOUTH ONCE DAILY 90 tablet 08/23/2024ctive bisoprolol (Zebeta) 5 mg tablet Indications:Mixed hyperlipidemia,Palpitations,Paroxysmal SVT (supraventricular tachycardia)TAKE 1 TABLET BY MOUTH ONCE DAILY 90 tablet 08/23/2024ctive Active Problems ProblemNoted DateDiagnosed DateChest pain, /02/2023Hyperlipidemia 10/01/20230401Ggfzgxhromok33/02/2023aroxysmal SVT (supraventricular tachycardia) 10/01/2023 Immunizations ImmunizationAdministration DatesNext DueInfluenza, seasonal, injectable 08/05/2022 Family History Medical HistoryRelationNameCommentsCabgBrotherCardiac AbnormailtyBrothercardiac abnormalityMotherRelationNameStatusCommentsBrotherMother Social History Tobacco UseTypesPacks/DayYears UsedDateSmoking Tobacco: FormerCigarettesQuit: 1972Smokeless Tobacco: NeverAlcohol UseStandard Drinks/WeekCommentsNever0 (1 standard drink = 0.6 oz pure alcohol)PHQ-2AnswerDate RecordedPatient Health Questionnaire-2 Uxmin497regnantCommentsUnknownSex and Gender InformationValueDate RecordedSex Assigned at BirthNot on fileLegal SexFemale 10/25/2022 12:29 PM ESTGender IdentityNot on fileSexual OrientationNot on file Last Filed Vital Signs Vital SignReadingTime TakenCommentsBlood Irmsolox321/7210/02/2023 12:55 PM EDT Mxsxh648710/02/2023 12:55 PM EDTTemperature--Respiratory Rate--Oxygen Saturation-- Inhaled Oxygen Concentration--Vblfme05.9 kg (121 lb)10/02/2023 12:55 PM EDT Sgxcqq784 cm (5' 3 )10/02/2023 12:55 PM EDTBody Mass Index21.43112/02/2022 12:55 PM EDT Plan of Treatment Health MaintenanceDue DateLast DoneCommentsLipid Panel1946Medicare Annual Wellness Visit (AWV)1945Diabetes Bvtbuyizg91/07/1965Hepatitis C Screening 1964DTaP/Tdap/Td Vaccines (1 - Tdap)1968RSV High Risk: (Elderly (60+) or Population) (1 - 1-dose 75+ series)2021one Density Scan /OVID-19 Vaccine ( - season)/, 11/04/2021, 02/19/2021, Additional history existsInfluenza Vaccine (#1) /02/2023, 08/26/2022, 08/05/2022, Additional history exists Pneumococcal OavlojvXdjammrtr01/21/2017, 05/08/2017, 01/07/2016Zoster Vaccines Puhoxdxwv43/11/2019, 08/10/2019, 05/01/2014Irritable Bowel SyndromeDiscontinued 01/20/2023HIB VaccinesAged OutNo longer eligible based on patient's age to complete this topicHPV VaccinesAged OutNo longer eligible based on patient's age to complete this topicHepatitis A VaccinesAged OutNo longer eligible based on patient's age to complete this topicHepatitis B VaccinesAged OutNo longer eligible based on patient's age to complete this topicIPV VaccinesAged OutNo longer eligible based on patient's age to complete this topicMeningococcal VaccineAged OutNo longer eligible based on patient's age to complete this topic Rotavirus VaccinesAged OutNo longer eligible based on patient's age to complete this topic Insurance Care Teams Team MemberRelationshipSpecialtyStart DateEnd Date Chris Whitaker MD PCP - GeneralInternal Ohneultk76/3/23
--- OUTSIDE RECORDS SUMMARY | 2025-11-17 09:08 | XMS_ITS | Patient Health Record ---
Author Organization [facility] Address [address] [place] [address] Care Team Providers Care Modeling And Simulation Analyst Name Role Phone Chris Whitaker Primary Care Provider Molina Hurtado Unavailable [phone] Allergies No Known Allergies Reason For Referral No Information Medications Medication SIG (Take, Route, Frequency, Duration) Notes Start Date End Date Status Ambien ActiveCalcium 600+DActiverosuvastatinActiveglyburide-metforminActiveMobic 15 mg1 tab(s) orally once a day; Duration: 45 days5Active Social History Tobacco Use: Social History Observation Description Date Details (start date - stop date) Never Smoker NA - NA Tobacco Control (Standard) Question Answer Notes Tobacco use: Nonsmoker Problems Problem Type SNOMED Code ICD Code Onset Dates Problem Status W/U Status Risk Notes Problem Osteoarthritis of knee (79186881 7) Primary osteoarthritis of left knee (M17.12) Activeconfirmed Encounters Encounter Location Date Provider Diagnosis [facility] [address] [place] [address] [address] [facility] [place] [place] [address] 09/25/2025 [place] Primary osteoarthrit is of left knee M17.12 Assessments Encounter Date Diagnosis (ICD Code) Assessment Notes Treatment Notes Treatment Clinical Notes Section Notes 09/25/2025 Primary osteoarthritis of left k jesús (ICD-10 - M17.12) 09/25/2025Other For left knee osteoarthritis we have discussed different treatment options. She is not interested in an a corticosteroid injection at this time. We will place her on Mobic 15 mg daily. I reviewed precautions of this medication. She will follow-up if this does not alleviate her symptoms. Import medication Plan Of Treatment Pending Test Test Name Order Date SCC- KNEE 4 VIEW LEFT-[id number] 09/25/2025 Insurance Providers Payer Name Payer Address Payer Phone Subscriber Number Group Number Insured Name Patient Relationship to Insured Coverage Start Date Coverage End Date MEDICARE [employer] [address] [address] [place] [address] [id number] MILLI CARDONA Self - patient is the insured 5 Medical (General) History Medical History History ICD Code Type II diabetes Anxiety
--- OUTSIDE RECORDS SUMMARY | 2025-11-17 09:08 | XMS_ITS | Clinical Summary ---
Author Organization [facility] Address [address] [place] [address] Care Team Providers Care Biologics Specialist Name Role Phone Chris Whitaker MD Primary Care Provider [phone] Allergies Active AllergyReactionsCriticalityNoted CwmwAikxgwyfGtodatsuwbmnIztxs55/19/2023 PrednisoneOther,ExfivtbpjmraDsg72/21/2023 Medications MedicationSigDispense QuantityRefillsLast FilledStart DateEnd DateStatus ALPRAZolam (Xanax) 0.25 mg tablet Take 0.25 mg by mouth.11/14/2020Active glyburide-metformin (Glucovance) 5-500 mg tablet Take 1 tablet by mouth twice a day.04/26/2020Active lansoprazole (Prevacid) [address] capsule Take 30 mg by mouth.09/24/2020Active bisoprolol (Zebeta) 5 mg tablet Take 5 mg by mouth.01/20/2023ctive gabapentin (Neurontin) 300 mg capsule Take 300 mg by mouth 3 times a day.05/14/2022ctive rosuvastatin (Crestor) 10 mg tablet Take 10 mg by mouth in the morning.01/20/2023ctive tiZANidine (Zanaflex) 4 mg tablet take 1 tablet by mouth every 12 hours if neededActive zolpidem (Ambien) 10 mg tablet take 1 tablet by mouth at bedtime if needed for sleepActive aspirin 81 mg EC tablet Take 81 mg by mouth in the morning.Active Active Problems ProblemNoted DateDiagnosed DateEssential lfnkapbjszru19/05/2024Family history of breast cancer in ltsthf0502/04/2024hest pain, edbnimjb48/02/2023Hyperlipidemia 10/01/2023reast calcification, left08/04/2023bnormal mammogram of left breast 04/17/2023trophic ltpjpyhzf54/19/2023enign neoplasm of cerebral meninges 04/17/2023iabetic mzrhmykypybmgw44/19/2023uct ectasia of breast, right 04/17/2023Esophageal quylca6004/17/2023Mixed gxifsnzgembdro22/19/2023Internal derangement of right xyufdoas63/19/2023Left sided oqevfbui50/19/2023Lumbar disc disease with ytnobivfnwfng41/19/0686Zkmfctgl48/19/2023Mononeuropathy of left lower evuqxwafo08/19/2023Osteopenia of multiple sites04/17/2023Other primary ovarian oiknjkl0304/17/20239219Ltpsslynbazs20/19/2023aroxysmal SVT (supraventricular tachycardia)04/17/2023rimary osteoarthritis of left knee04/17/2023 Psychophysiological avzxehwz23/19/2023nxiety gzduzouc48/19/2023Spinal stenosis of lumbar adpprw5504/17/2023Stress incontinence of urine04/17/2023isorder of nervous system due to type 2 diabetes wlipokdx76/07/2016 Resolved Problems ProblemNoted DateDiagnosed DateResolved DateCardiac /19/2023 10/17/2024 Family History Medical HistoryRelationNameCommentsCABGBrotherCoronary artery diseaseBrother Heart failureMotherCoronary artery diseaseSisterRelationNameStatusComments BrotherMotherSister Social History Tobacco UseTypesPacks/DayYears UsedDateSmoking Tobacco: FormerCigarettes Smokeless Tobacco: Never Tobacco Cessation:Counseling Given: Not Answered Alcohol UseStandard Drinks/WeekCommentsNot Currently0 (1 standard drink = 0.6 oz pure alcohol)UT Safety & EnvironmentAnswerDate RecordedFear of Current or Ex-PartnerNot on file04/18/2024Emotionally AbusedNot on file04/18/2024hysically AbusedNot on file04/18/2024Sexually AbusedNot on file04/18/2024hysically or Sexually AbusedNot on file04/18/2024CommentsUnknownSex and Gender InformationValueDate RecordedSex Assigned at BirthNot on fileLegal SexFemale 05/28/2022 9:00 PM EDTGender IdentityNot on fileSexual OrientationNot on file Last Filed Vital Signs Vital SignReadingTime TakenCommentsBlood Kijdxndq603/6810/17/2024 1:09 PM EST Qnatd185410/17/2024 1:09 PM ESTTemperature--Respiratory Rate--Oxygen Migbdmljue45% 10/17/2024 1:09 PM ESTInhaled Oxygen Concentration--Wnucug09.1 kg (117 lb) 10/17/2024 1:09 PM ULYYmgnws138 cm (5' 3 )10/17/2024 1:09 PM ESTBody Mass Index 20.7310/17/2024 1:09 PM EST Plan of Treatment DateTypeDepartmentCare Team (Latest Contact Info)Agnwmamvnzp99/26/2025 1:00 PM ESTOffice Visit [facility] [address] [place] [address] Isi Maza MD [address] [place] [address] Health MaintenanceDue DateLast DoneCommentsDiabetes: Hemoglobin A1C1945 Medicare Annual Wellness (AWV)1945Diabetes: Retinopathy Screening 1956Depression Guhatwmjf73/07/1959Adult Iwsglva8912/06/1968Fall Risk Npagbkuyr82/07/2012COVID-19 Vaccine ( season), 11/04/2021, 02/19/2021, Additional history existsDiabetes: Urine Protein Zdjnevunv32/09/162881/07/2025, 12/08/2023neumococcal Vaccine: 50+ Years Iilmjyxpm15/21/2017, 05/08/2017, 01/07/2016Zoster NoxxxqmjUxcstxwcs58/11/2019, 08/10/2019, 05/01/20149008ClhivzhhkrbKiyjwqbzjhrv63/21/2023Colorectal Cancer ScreeningDiscontinuedInfluenza MuwgrkiEaantgxgj96/29/2025, 10/19/2024, 09/02/2023, Additional history existsCT ColonographyDiscontinuedFIT-DNA DiscontinuedFITDiscontinuedFOBTDiscontinuedHIB VaccinesAged OutNo longer eligible based on patient's age to complete this topicHPV VaccinesAged OutNo longer eligible based on patient's age to complete this topicIPV VaccinesAged OutNo longer eligible based on patient's age to complete this topicMeningococcal B VaccineAged OutNo longer eligible based on patient's age to complete this topicMeningococcal VaccineAged OutNo longer eligible based on patient's age to complete this topicRotavirus VaccinesAged OutNo longer eligible based on patient's age to complete this topicSigmoidoscopyDiscontinued Insurance Care Teams Team MemberRelationshipSpecialtyStart DateEnd Chris Whitaker MD [address] [facility] [address] [place] [address] PCP - GeneralInternal Medicine05/04/24
--- OUTSIDE RECORDS SUMMARY | 2025-11-17 09:08 | XMS_ITS | Encounter Summary ---
Author Organization [facility] Address [address] [facility] [place] [address] Care Team Providers Care Sterilisation Technician Name Role Phone Chris Whitaker MD Primary Care Provider [phone] Reason for Visit * ReasonOnset DateCommentsMed Bjnfxg5411/03/2025 Encounter Details DateTypeDepartmentCare Team (Latest Contact Info)Vugldqlnhfd90/05/2025Refill [facility] [place] [facility] [address] [place] [address] Padmini Saldivar MA Generalized anxiety disorder Social History Tobacco UseTypesPacks/DayYears UsedDateSmoking Tobacco: FormerCigarettes Smokeless Tobacco: NeverAlcohol UseStandard Drinks/WeekCommentsNever0 (1 standard drink = 0.6 oz pure alcohol)Caffeine intake : 1-2 cups per day soda/pop AUDIT-CAnswerDate RecordedQ1: How often do you have a drink containing alcohol? Monthly or less04/22/2023Q2: How many drinks containing alcohol do you have on a typical day when you are drinking?1 or Q3: How often do you have six or more drinks on one occasion?Never04/22/2023HQ-2AnswerDate RecordedPatient Health Questionnaire-2 Svhcc63512/10/2024CommentsNoSex and Gender InformationValueDate RecordedSex Assigned at BirthNot on fileLegal SexFemale 02/11/2023 6:45 PM EDTGender IdentityNot on fileSexual OrientationNot on file documented as of this encounter Miscellaneous Notes * Telephone Encounter - ANA River - 11/03/2025 11:39 AM EST Resent to BRIANDA Warner * Telephone Encounter - Padmini Saldivar MA - 11/03/2025 11:11 AM EST Pt has not gotten medication please send to DM * Telephone Encounter - ANA River - 11/03/2025 10:57 AM EST It looks like the Xanax was sent to [facility] last time, likely in error. It does show it was dispensedon 10/24. Did she receive that Rx? documented in this encounter Plan of Treatment DateTypeDepartmentCare Team (Latest Contact Info)Efazedjtnoc22/23/2026 1:00 PM ESTOffice Visit [facility] [place] [facility] [address] [place] [address] Ana M Lundberg PA [address] [place] [address] 05/21/2026 1:30 PM EDTOffice Visit [facility] [place] [facility] [address] [place] [address] Giuseppe Durham DO [address] [place], [place] [id number] 07/20/2026 1:00 PM EDTOffice Visit [facility] [place] [facility] [address] [place] [address] Ivet Brumfield PA [address] [place] [address] documented as of this encounter Visit Diagnoses Diagnosis Generalized anxiety disorder documented in this encounter Additional Health Concerns AssessmentNoted TimePHQ-9 Depression Total Score: 9002/13/2025 12:00 PM EDT documented as of this encounter Care Teams Team MemberRelationshipSpecialtyStart DateEnd Date Chris Whitaker MD [address] [facility] [address] [place] [address] PCP - GeneralInternal Medicine04/20/23documented as of this encounter
--- OUTSIDE RECORDS SUMMARY | 2025-11-17 09:08 | XMS_ITS | Clinical Summary ---
Author Organization [facility] Address [address] [place] [address] Care Team Providers Care Vocal Teacher Name Role Phone Chris Whitaker MD Primary Care Provider [phone] Allergies Active AllergyReactionsCriticalityNoted WddoBpqmfoyoXseewswhrflvXtghs54/19/2023 MeloxicamGI cmwlncjgfdjNur53/05/2025 Worsening Reflux QzblksvtqkvdgnfowfMczveglajjvyUpm37/19/2023NabumetoneGI bctjscpexyt83/19/2023 Qeeogbgwizz43/27/2021 Other Reaction(s): leg cramps Medications MedicationSigDispense QuantityRefillsLast FilledStart DateEnd DateStatus Coenzyme O59-Rjlx Oil-Vit E (CO-Q 10 OMEGA-3 FISH OIL PO) OrallyActive loratadine (Claritin) 10 MG tablet Take 10 mg by mouth as needed at bedtime for allergies.11/01/2019Active Krill Oil 300 MG capsule Take 1 tablet by mouth 1 (one) time each day.Active aspirin 81 MG EC tablet Take 81 mg by mouth in the morning.Active Glucose Blood (Blood Glucose Test Strips 333) strip Indications:Diabetic polyneuropathy associated with type 2 diabetes mellitus (HCC)1 strip by In Vitro route in the morning and 1 strip before bedtime. 200 strip ctive Lancets [facility] Indications:Diabetic polyneuropathy associated with type 2 diabetes mellitus (HCC)1 Lancet in the morning and 1 Lancet before bedtime. 200 each ctive lidocaine (Lidoderm) 5 % patch Indications:Chronic left shoulder painApply 1 patch over 12 hours topically 1 (one) time each day at the same time 30 patch ctive Blood Glucose Monitoring Suppl (Blood Glucose Monitor System) w/Device kit Indications:Diabetic polyneuropathy associated with type 2 diabetes mellitus (HCC)1 each Daily 1 kit 11/01/2024ctive gabapentin (Neurontin) 300 MG capsule Indications:Diabetic polyneuropathy associated with type 2 diabetes mellitus (HCC)TAKE 1 CAPSULE BY MOUTH IN THE MORNING , 1 CAPSULE IN THE EVENING AND 1 CAPSULE BEFORE BEDTIME 270 capsule 304/5Active nystatin (Mycostatin) ointment Indications:Vulvar irritationApply topically in the morning and before bedtime. 15 g 5Active triamcinolone (Kenalog) 0.1 % ointment Indications:Vulvar irritationApply topically in the morning and before bedtime. 15 g 5Active Vibegron (Gemtesa) 75 MG tablet Indications:Urge incontinenceTake 1 tablet by mouth Daily 90 tablet //6Active lansoprazole (Prevacid) [address] capsule Indications:Gastroesophageal reflux disease without esophagitisTAKE 1 CAPSULE BY MOUTH ONCE DAILY AT THE SAME TIME 90 capsule 5Active tiZANidine (Zanaflex) 4 MG tablet Indications:Lumbar disc disease with radiculopathyTake 1 tablet (4 mg) by mouth every 12 (twelve) hours PRN 30 tablet 505Active busPIRone (Buspar) 15 MG tablet Indications:Generalized anxiety disorderTake 1 tablet (15 mg) by mouth 2 (two) times a day as needed (Anxiety) 60 tablet 505Active glyBURIDE-metFORMIN (Glucovance) 5-500 MG tablet Indications:Type 2 diabetes mellitus with other diabetic neurological complication (HCC)TAKE 1 TABLET BY MOUTH IN THE MORNING AND 1 TABLET BY MOUTH BEFORE BEDTIME 180 tablet 5Active ibandronate (Boniva) 150 MG tablet Indications:Osteopenia of multiple sitesTake 1 tablet (150 mg) by mouth every 30 (thirty) days Take in morning with full glass of water on an empty stomach. No food, drink, meds, or lying down for 60 minutes after. 3 tablet 5Active Multiple Vitamin (multivitamin) tablet Take 1 tablet by mouth DailyActive rosuvastatin (Crestor) 10 MG tablet Indications:Mixed hyperlipidemiaTake 1 tablet (10 mg) by mouth Daily 100 tablet 5Active bisoprolol (Zebeta) 5 MG tablet Indications:Cardiac arrhythmia, unspecified cardiac arrhythmia typeTake 1 tablet (5 mg) by mouth 1 (one) time each day at the same time 100 tablet 5Active zolpidem (Ambien) 10 MG tablet Indications:Psychophysiological insomniaTake 1 tablet (10 mg) by mouth as needed at bedtime for sleep 90 tablet /ctive famotidine (Pepcid) 20 MG tablet Indications:Gastroesophageal reflux disease without esophagitisTake 1 tablet (20 mg) by mouth at bedtime 14 tablet 10/04/2025tive HYDROcodone-acetaminophen ([place]) 5-325 MG tablet Indications:Sciatica of left sideTake 1 tablet by mouth every 6 (six) hours if needed for severe pain 120 tablet /5Active ALPRAZolam (Xanax) 0.25 MG tablet Indications:Generalized anxiety disorderTake 1 tablet (0.25 mg) by mouth Daily as needed for anxiety 30 tablet /6Active HYDROcodone-acetaminophen ([place]) 5-325 MG tablet Indications:Sciatica of left sideTake 1 tablet by mouth every 6 (six) hours if needed for severe pain 120 tablet Discontinued(Reorder) ALPRAZolam (Xanax) 0.25 MG tablet Indications:Generalized anxiety disorderTake 1 tablet (0.25 mg) by mouth Daily as needed for anxiety 30 tablet Discontinued(Reorder) ALPRAZolam (Xanax) 0.25 MG tablet Indications:Generalized anxiety disorderTake 1 tablet (0.25 mg) by mouth Daily as needed for anxiety 30 tablet Discontinued(Reorder) Active Problems ProblemNoted DateDiagnosed DateAdvanced atrophic nonexudative age-related macular degeneration of both eyes without subfoveal sfpeitnfife52/02/2025ge- related nuclear cataract of left eye03/01/2025Dry eyes03/01/2025lepharitis of upper and lower eyelids of both eyes03/01/2025Primary yrihvvkfqqql03/ Former vyhwwu4702/13/2025losed fracture of multiple ribs of right side with routine drkuvze4111/24/2024History of zymzcgnzmdbo43/17/2024hronic left shoulder pain09/07/2024Family history of breast cancer in jkfpps784Chest pain, cheuvrme54/02/2023reast calcification, left08/04/2023Supraventricular avoyzkzoceu90/19/2023Stress incontinence of urine04/17/2023Spinal stenosis of lumbar raasog7204/17/2023TSD (post-traumatic stress disorder)04/17/2023nxiety /19/2023sychophysiological kdkwcnys92/19/2023rimary osteoarthritis of left knee04/17/20233831Fchoottoonon38/19/2023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Osteopenia of multiple sites04/17/2023Mononeuropathy of left lower jgijllfwh70/19/2023Mixed ubnzinmquhusgb81/19/5063Yjovukyf53/19/2023uct ectasia of breast, right04/17/2023Lumbar disc disease with ddulkjdwonpax96/19/2023 Internal derangement of right wepvvmaa85/19/2023Esophageal rnqzos5404/17/2023 Diabetic zmwganyinkrnfn17/19/2023trophic yhpweqnis27/19/2023ardiac arrhythmia 04/17/2023enign neoplasm of cerebral brciscye91/19/2023bnormal mammogram of left gogxhx1604/17/2023Type 2 diabetes mellitus with other specified complication 02/04/2016Spasmodic torticollisCervicalgiaCarpal tunnel syndromeSciaticaTension type headacheMuscle spasmSyndrome affecting cervical regionDisturbance of skin sensation Resolved Problems ProblemNoted DateDiagnosed DateResolved DateType 2 diabetes mellitus, without long-term current use of zseuznu75/07/2025Pneumothorax on right Type 2 diabetes mellitus with other diabetic neurological msvvhywxykec88/19/202302/2658Rptamovc87Left sided sciatica Spondylosis of lumbar region without myelopathy or ojpstxzchsnmm78ostochondritisLumbosacral spondylosis without rcdvkconck13Insomnia, unspecified 02/13/20256485Zncuotuo53/17/2025Migraine with aura02/13/2025Pain in limb02/13/2025 History of medical /08/2025 Overview (08/22/2024): Sprains and strains of other and unspecified parts of back; neck Vjvxmvbg53/17/2025 Encounters DateTypeDepartmentCare OifqGmxhrhxhckm69/05/2025Refill [facility] [address] [place] [address] Padmini Saldivar MA Generalized anxiety qcdjutkc82/01/2025Refill [facility] [facility] [address] [place] [address] Chris Whitaker MD Sciatica of left side10/30/2025bstract [facility] [address] [place] [address] Chris Whitaker MD 10/24/2025Refill [facility] [address] [place] [address] Angelita Alaniz LPN Generalized anxiety ylsqdgoz76/11/2025 1:00 PM ESTOffice Visit [facility] [address] [place] [address] Ana M Lundberg PA Diabetic polyneuropathy associated with type 2 diabetes mellitus (HCC) (Primary Dx); Gastroesophageal reflux disease without esophagitis; Muscle spasm10/10/2025amboo flowsheet [facility] [address] [place] [address] Ana M Lundberg PA 10/10/20255093Gsojfm30/05/2025 1:00 PM ESTOffice Visit [facility] [place] [facility] [address] [facility] [address] [place] [phone] Ana M Lundberg PA Gastroesophageal reflux disease without esophagitis (Primary Dx); Psychophysiological insomnia; Acute pain of left shoulder; Muscle spasm10/04/2025amboo flowsheet [facility] [place] [facility] [address] [facility] [address] [place] [phone] Ana M Lundberg PA 10/04/20259956Pitcxk06/15/2025 1:15 PM EDTOffice Visit [facility] [place] [address] [place] [address] Giuseppe Durham, Bug bite, initial /15/1388Wvtzyr13/14/2025Telephone [facility] [address] [place] [address] Giuseppe Durham, 09/04/2025Refill [facility] [place] [facility] [address] [facility] [address] [place] [phone] Katelyn Han LPN Generalized anxiety zihneftl77/24/2025Refill [facility] [place] [facility] [address] [facility] [address] [place] [phone] Padmini Saldivar MA Sciatica of left side08/22/2025bstract [facility] [place] [facility] [address] [facility] [address] [place] [address] Chris Whitaker MD from Last 3 Months Immunizations ImmunizationAdministration DatesNext DueABRYSVO - Respiratory syncytial virus (RSV), vaccine, bivalent, protein subunit RSV prefusion F, diluent reconstituted, 0.5 mL, PF11/19/2023Influenza, High Dose Seasonal, Preservative Free09/27/2025,10/19/2024,09/19/2021,08/30/2020,08/17/2018Influenza, High-dose Seasonal, Quadrivalent, Preservative Free09/02/2023,08/30/2021Influenza, Seasonal, Quadrivalent, Fkrivyjeod06/27/2022Influenza, recombinant, quadrivalent, injectable, preservative free08/30/2020,08/10/2019Influenza, seasonal, rcuhufoeuw69/06/2022Influenza, seasonal, injectable, preservative free 07/31/2019Pfizer Purple Cap SARS-CoV-2 Yqpvmjdglsj51/21/2021Pneumococcal Conjugate PCV 13001/07/2016Pneumococcal Polysaccharide ILII3205, 05/08/2017Zoster, Woaoggxsckb37/11/2019,11/09/2019,08/10/2019Zoster, live 05/01/2014 Family History Medical HistoryRelationNameCommentsHeart diseaseBrotherGerald Divine Savior Healthcareng cancer BrotherGerald MooreLung cancerFatherStomach cancerMaternal GrandfatherMelanoma Maternal GrandmotherDiabetesMotherCallie MooreHeart diseaseMotherCallie Morley HyperlipidemiaMotherCallie MooreHypertensionMotherCallie MooreMelanomaOtherNo Known ProblemsPaternal GrandmotherunknownBreast cancerSisterHeart diseaseSister RelationNameStatusCommentsBrotherGerBaldwin Park Hospital4 brothersFatherDeceasedMaternal GrandfatherMaternal GrandmotherMotherCallie MooreDeceasedOtherGrandmother Paternal GrandmotherSister2 sisters Social History Tobacco UseTypesPacks/DayYears UsedDateSmoking Tobacco: FormerCigarettes Smokeless Tobacco: Never Tobacco Cessation:Counseling Given: Not Answered Alcohol UseStandard Drinks/WeekCommentsNever0 (1 standard drink = 0.6 oz pure alcohol)Caffeine intake : 1-2 cups per day soda/popAUDIT-CAnswerDate RecordedQ1: How often do you have a drink containing alcohol?Monthly or less04/22/2023Q2: How many drinks containing alcohol do you have on a typical day when you are drinking?1 or Q3: How often do you have six or more drinks on one occasion?Never04/22/2023HQ-2AnswerDate RecordedPatient Health Questionnaire-2 Ghrah89112/10/2024CommentsNoSex and Gender InformationValueDate Recorded Sex Assigned at BirthNot on fileLegal YmoWziyds55/15/2023 6:45 PM EDTGender IdentityNot on fileSexual OrientationNot on file Last Filed Vital Signs Vital SignReadingTime TakenCommentsBlood Qnmffayh709/7010/10/2025 1:06 PM EST Lxite556010/10/2025 1:06 PM VKSWdbpypvjure50.3 ??C (97.3 ??F)05/29/2025 1:00 PM EDTRespiratory Wmlv098712/10/2024 1:06 PM ESTOxygen Isnmfmllol76%10/10/2025 1:06 PM ESTInhaled Oxygen Concentration--Kzctbf49.8 kg (120 lb 12.8 oz)10/10/2025 1:06 PM TTGZuwgcu722 cm (5' 3 )10/10/2025 1:06 PM ESTBody Mass Index21.4 10/10/2025 1:06 PM EST Plan of Treatment DateTypeDepartmentCare Team (Latest Contact Info)Rkwmaatahky67/23/2026 1:00 PM ESTOffice Visit [facility] [place] [facility] [address] [place] [address] Ana M Lundberg PA [address] [place] [address] 05/21/2026 1:30 PM EDTOffice Visit [facility] [place] [facility] [address] [place] [address] Giuseppe Durham DO [address] [place] [address] 07/20/2026 1:00 PM EDTOffice Visit [facility] [place] [facility] [address] [place] [address] Ivet Brumfield PA [address] [place] [address] Health MaintenanceDue DateLast DoneCommentsCOVID-19 Vaccine ( season) 5101/20/2021, 11/04/2021, 02/19/2021, Additional history existsDiabetes: Hemoglobin A1C611/09/2025, 07/10/2025, 04/07/2025, Additional history existsMedicare Annual Wellness (AWV)603/, 4Diabetes: Urine Protein Mvgoiprxy08/09/610724/07/2025, 12/08/2023, 09/03/2022, Additional history existsDiabetes: Retinopathy Ontmbcaoc58/12/2024, 03/01/2025, 03/01/2025, Additional history existsPneumococcal Vaccine: 65+ YearsCompleted 08/20/2017, 05/08/2017, 01/07/2016Influenza KfikoebPdhfmrsva92/29/2025, 10/19/2024, 09/02/2023, Additional history exists Procedures Procedure NamePriorityDate/TimeAssociated DiagnosisCommentsPOCT GLYCATED HEMOGLOBIN, JHOUNXbluqdj01/11/2025 1:10 PM EST Diabetic polyneuropathy associated with type 2 diabetes mellitus (HCC) MICROALBUMIN / CREATININE URINE DQNYURkvolwt26/09/2025 9:58 AM EDT Type 2 diabetes mellitus with other specified complication, without long-term current use of insulin (HCC) COLOR FUNDUS PHOTOGRAPHY - OU - BOTH NRXISrngtkx36/18/2020 12:00 PM EST from Last 3 Months or Most Recently Relevant to Health Maintenance Results * (ABNORMAL) POCT Glycated hemoglobin, total (10/10/2025 1:10 PM EST)Component ValueRef RangeTest MethodAnalysis TimePerformed AtPathologist Signature Hemoglobin A1C6.9Specimen (Source)Anatomical Location / LateralityCollection Method / VolumeCollection TimeReceived HbheJmcjr67/11/2025 1:10 PM EST Narrative Authorizing ProviderResult TypeResult StatusAna M Lundberg [facility] TEST ENTER/EDIT ORDERABLESFinal Result * Microalbumin / creatinine, urine ratio (04/07/2025 9:58 AM EDT)ComponentValue Ref RangeTest MethodAnalysis TimePerformed AtPathologist SignatureCREATININE, RANDOM UIIUF7266 - 275 mg/dLQUESTALBUMIN, URINE0.5See Note: mg/dLQUESTComment: Reference Range: Reference Range Not established ALBUMIN/CREATININE RATIO, RANDOM URINE16<30 mg/g creatQUESTComment: The ADA defines abnormalities in albumin excretion as follows: Albuminuria Category ?Result (mg/g creatinine) Normal to Mildly increased <30 Moderately increased ? 30-299 Severely increased > OR = 300 The ADA recommends that at least two of three specimens collected within a 3-6 month period be abnormal before considering a patient to be within a diagnostic category. Specimen (Source)Anatomical Location / LateralityCollection Method / Volume Collection TimeReceived TimeUrineUrine specimen obtained by clean catch procedure / Flcdvas7704/07/2025 9:58 AM EDT04/07/2025 4:46 PM EDT Narrative Resulting Agency Comment Performing Organization Information ?Site ID: [id number] ?Name: [employer] [facility] ?Address: [address] [place] [address], [address] [place] [id number] ?Director: Javon Ernst MD Authorizing ProviderResult TypeResult Julee Lundberg PALAB URINE ORDERABLESFinal ResultPerforming OrganizationAddressCity/State/ZIP CodePhone Number QUEST * [employer] - OU - Both Eyes (11/16/2020 12:00 PM EST)Anatomical RegionLateralityModalityHeadFundus PhotographySpecimen (Source)Anatomical Location / LateralityCollection Method / VolumeCollection TimeReceived Time 11/16/2020 12:00 PM EST Narrative 11/16/2020 12:00 PM EST PERFORMED AT [facility] LOCATION:[id number] [facility] Procedure Note CONVERSION, GENERIC - 04/15/2023 PERFORMED AT [facility] LOCATION:[id number] [facility] Authorizing ProviderResult TypeResult StatusChris Whitaker MDOPHTH PHOTOGRAPHY Final Result from Last 3 Months or Most Recently Relevant to Health Maintenance Insurance Care Teams Team MemberRelationshipSpecialtyStart DateEnd Chris Whitaker MD [address] [facility] [address] [place] [address] PCP - GeneralInternal Medicine04/20/23
[2025-11-17 10:07] LABS: Alanine Aminotransferase 16 U/L (14-59); Aspartate Amino Transferase 14 U/L (15-37); Cholesterol 117 mg/dL (<=200); HDL Cholesterol 39 mg/dL (40-60); Triglycerides 150 mg/dL (<=150); VLDL CHOLESTEROL 30.0 mg/dL
== END 2025-11-17 09:04 | disposition home or self-care (01) ==
LOC: LAB 09:05
PROVIDERS: PCP Internal Medicine; Visit Provider Internal Medicine Cardiovascular Disease
DX: E78.2 Mixed hyperlipidemia (principal)
CPT/HCPCS: 36415; 80061; 84450; 84460